=== PATIENT | female | born 1970 | race Caucasian/White ===

== ENCOUNTER 2019-08-27 10:59 | Outpatient (CLI) | payer BC, SELFPAY ==
--- NOTE | 2019-08-27 11:19 | XR_ITS ---
WS: [id number] SHOULDER LEFT TECHNIQUE: 3 views of the left shoulder CLINICAL INFORMATION: LEFT SHOULDER PAIN COMPARISON: None. FINDINGS: Normal acromioclavicular joint. Normal glenohumeral joint. Acromion is normal in appearance. Normal g lenoid. No evidence of acute fracture dislocation. XR/XR shoulder LT min 2V* [id number] IMPRESSION: Normal left shoulder.
== END 2019-08-27 11:00 | disposition home or self-care (01) ==
PROVIDERS: Family Provider Family Medicine; PCP Family Medicine; Visit Provider Family Medicine
DX: M25.512 Pain in left shoulder (principal)
CPT/HCPCS: 73030

== ENCOUNTER 2019-09-04 13:48 | Outpatient (CLI) | payer BC, SELFPAY ==
--- NOTE | 2019-09-04 13:56 | XR_ITS ---
WS: [id number] CERVICAL SPINE TECHNIQUE: 3 views of the cervical spine CLINICAL INFORMATION: CERVICAL RADICULOPATHY LEFT COMPARISON: None. FINDINGS: Straightening of the normal cervical lordosis with anterior cervical fusion C3-C6 with corpectomy at C4 with interbody fusion graft. No evidence of hardware loosening. Interbody fusion grafts C5-C6. Nor mal C1-2 articulation. No instability on flexion-extension. Moderate facet arthropathy cervical spine with dorsolateral fusion. Alignment is unchanged 2015. XR/XR cervical spine min 6V [id number] IMPRESSION: 1. Straightening of the normal cervical lordosis with anterior cervical fusion C3-C6. Corpectomy at C4. Interbody fusion at C5-6. 2. No instability on flexion-extension.
== END 2019-09-04 13:49 | disposition home or self-care (01) ==
LOC: RADWPI 13:50
PROVIDERS: Family Provider Family Medicine; PCP Family Medicine; Visit Provider Family Medicine
DX: M54.12 Radiculopathy, cervical region (principal); M43.22 Fusion of spine, cervical region
CPT/HCPCS: 72052

== ENCOUNTER → 2019-09-18 08:49 | Outpatient (BNVA) | payer BC, SELFPAY | PROVIDERS: Family Provider Family Medicine; PCP Family Medicine; Referring Provider Family Medicine; Visit Provider Specialist | DX: M54.2 Cervicalgia (principal) | CPT/HCPCS: 95908 ==

== ENCOUNTER 2019-10-30 08:31 | Outpatient (CLI) | payer BC, SELFPAY ==
--- NOTE | 2019-10-30 08:34 | MR_ITS ---
WS: [id number] MRI LEFT SHOULDER NONCONTRAST TECHNIQUE: Sagittal T2, coronal T1, T2 and proton density imaging. Axial gradient PDE imaging. CLINICAL INFORMATION: SHOULDER PAIN, LEFT COMPARISON: None. FINDINGS: Moderate hypertrophic changes at the AC joint somewhat advanced for patient this age. Subacromial spu rring. Mild edema at the AC joint. Mild thinning of the distal supraspinatus. Mild tendinopathy in th e distal supraspinatus. Normal infraspinatus. Normal teres minor. Small intrasubstance tear involving the distal subscapularis tendon. Biceps tendon is intact within the bicipital groove. Normal glenoid labrum. Normal biceps labral anch or. Otherwise normal visualized soft tissues. MR/MR shoulder LT con* [id number] IMPRESSION: 1. Moderate degenerative arthritis at the AC joint with edema and slight subac romial spurring. 2. Mild tendinopathy in the distal supraspinatus. No full-thickness rotator cu ff tears. 3. Small intrasubstance tear involving the distal subscapularis tendon. 4. Normal biceps tendon in the bicipital groove. 5. Normal glenoid labrum.
== END 2019-10-30 08:32 | disposition home or self-care (01) ==
LOC: RADSHAW 08:31
PROVIDERS: Family Provider Family Medicine; PCP Family Medicine; Visit Provider Family Medicine
DX: M25.512 Pain in left shoulder (principal); M19.012 Primary osteoarthritis, left shoulder; S46.912A Strain of unspecified muscle, fascia and tendon at shoulder and upper arm level, left arm, initial encounter; X58.XXXA Exposure to other specified factors, initial encounter
CPT/HCPCS: 73221

== ENCOUNTER → 2019-11-20 13:03 | Outpatient (BNVA) | payer BC, SELFPAY | PROVIDERS: Family Provider Family Medicine; PCP Family Medicine; Referring Provider Family Medicine; Visit Provider Orthopaedic Surgery | DX: M25.512 Pain in left shoulder (principal); M12.812 Other specific arthropathies, not elsewhere classified, left shoulder | CPT/HCPCS: 73030 ==

== ENCOUNTER → 2020-01-29 09:28 | Outpatient (BNVA) | payer BC, SELFPAY | PROVIDERS: Family Provider Family Medicine; PCP Family Medicine; Referring Provider Orthopaedic Surgery; Visit Provider Anesthesiology Pain Medicine | DX: M54.12 Radiculopathy, cervical region (principal); M25.512 Pain in left shoulder; M79.18 Myalgia, other site; F17.210 Nicotine dependence, cigarettes, uncomplicated; Z98.1 Arthrodesis status; Z79.891 Long term (current) use of opiate analgesic | CPT/HCPCS: 20553; 99204; J1030; J3490 ==

== ENCOUNTER 2020-02-12 09:22 | Outpatient (CLI) | payer BC, SELFPAY ==
--- NOTE | 2020-02-12 10:00 | IR_ITS ---
WS: [id number] MYELOGRAM CERVICAL SPINE Fluoroscopic guided cervical myelogram CLINICAL INFORMATION: prior fusion, weakness of the hands COMPARISON: None. TECHNIQUE: The procedure, including risks, benefits, and complications, were discussed with the patie nt who agreed to proceed. A timeout was performed to confirm correct patient, procedure, and site. Using sterile technique, the patient was prepped and draped in the usual sterile fashion. After admin istration of local anesthesia using 1% preservative-free lidocaine and using fluoroscopic guidance, a 22-gauge spinal needle was advanced into the subarachnoid space at the L4-5 level. Subsequently 13 c c of Omnipaque 300 was administered into the thecal sac. The needle was removed and hemostasis was ac hieved. Subsequently the table was tilted down and contrast flowed freely into the cervical spine. Sp ot fluoroscopic images were obtained. FLUOROSCOPIC TIME: 1.0 minutes. Spot fluoroscopic images demonstrate straightening of the normal cervical lordosis with prior cervica l fusion C3-C6 with partial corpectomy at C4 with interbody strut graft. No instability on flexion-extension. Please see CT myelogram report for additional detail. IR/[place] [id number] IMPRESSION: 1. Uncomplicated cervical myelogram. 2. Straightening of the normal cervical lordosis with prior cervical fusion C3 -C6 with partial corpectomy at C4 with interbody strut graft. 3. No instability on flexion extension.
[2020-02-12] MEDS: iohexol 300 mg/mL 50 mL Btl INTRATHECA (10:43)
--- NOTE | 2020-02-12 11:30 | CT_ITS ---
WS: [id number] CT CERVICAL MYELOGRAM TECHNIQUE: CT of the cervical spine coronal and sagittal reformatted images post intrathecal administ ration of contrast. CLINICAL INFORMATION: pain COMPARISON: None. DLP: 1784.[address] scans at [facility] use at least one of these dose optimization techniques: automat ed exposure control; mA and/or kV adjustment per patient size (includes targeted exams where dose is matched to clinical indication); or iterative reconstruction. FINDINGS: Straightening of the normal cervical lordosis. Prior postoperative changes C3-C6 with anterior cervic al fusion. Partial corpectomy at C4 with interbody strut graft. Interbody fusion at C5-6 with mild fajardo bsidence. C2-C3: No significant disc bulging. Spinal canal and foramen are patent. C3-C4: Postoperative changes. Spinal canal and foramen are patent. C4-C5: Partial corpectomy at C4. Anterior fusion. Spinal canal and foramen are patent. C5-C6: Anterior interbody cervical fusion. Spinal canal and foramen are patent. Endplate ridging. Mil d facet arthropathy. C6-C7: Mild disc osteophyte complex with a tiny left pericentral protrusion. Mild central canal steno sis. Spinal canal and foramen are patent. C7-T1: No significant disc bulging. Spinal canal and foramen are patent. Visualized posterior fossa structures: Normal. CT/CT cervical spine w con [id number] IMPRESSION: 1. Straightening of the normal cervical lordosis. No high-grade central canal stenosis. 2. Anterior cervical fusion C3-C6 with partial corpectomy at C4. Interbody str ut graft at C4. 3. No evidence of hardware loosening. Mild subsidence along the interbody fusi on graft C5-C6. 4. Small disc osteophyte complex C5-C6 with mild central canal stenosis. 5. Mild facet arthropathy in the mid cervical spine.
== END 2020-02-12 09:23 | disposition home or self-care (01) ==
PROVIDERS: Family Provider Family Medicine; PCP Family Medicine; Visit Provider Anesthesiology Pain Medicine
DX: Z98.1 Arthrodesis status (principal); M48.02 Spinal stenosis, cervical region; M43.22 Fusion of spine, cervical region
CPT/HCPCS: 62302; 72040; 72126; Q9967

== ENCOUNTER → 2020-02-13 10:52 | Outpatient (BNVA) | payer BC, SELFPAY | PROVIDERS: Family Provider Family Medicine; PCP Family Medicine; Visit Provider Anesthesiology Pain Medicine | DX: M54.12 Radiculopathy, cervical region (principal); M25.512 Pain in left shoulder; F17.210 Nicotine dependence, cigarettes, uncomplicated; Z98.1 Arthrodesis status | CPT/HCPCS: 99213; 99214 ==

== ENCOUNTER → 2021-02-02 09:47 | Outpatient (BNVA) | payer OTHER, SELFPAY | PROVIDERS: Family Provider Family Medicine; PCP Family Medicine; Visit Provider Obstetrics & Gynecology | DX: R93.89 Abnormal findings on diagnostic imaging of other specified body structures (principal) | CPT/HCPCS: 76830 ==

== ENCOUNTER → 2021-02-15 11:00 | Outpatient (BNVA) | payer OTHER, SELFPAY | PROVIDERS: Family Provider Family Medicine; PCP Family Medicine; Visit Provider Obstetrics & Gynecology | DX: Z12.4 Encounter for screening for malignant neoplasm of cervix (principal); Z12.39 Encounter for other screening for malignant neoplasm of breast; R10.2 Pelvic and perineal pain; G89.29 Other chronic pain; D25.1 Intramural leiomyoma of uterus; D25.0 Submucous leiomyoma of uterus; D25.2 Subserosal leiomyoma of uterus | CPT/HCPCS: 88175 ==

== ENCOUNTER 2021-04-02 13:17 | Outpatient (CLI) | payer OTHER, SELFPAY ==
--- NOTE | 2021-04-02 13:30 | MM_ITS ---
WS: [id number] BILATERAL DIGITAL SCREENING MAMMOGRAPHY WITH CAD CLINICAL INFORMATION: Z12.39 - Encounter for other screening for malignant neop... HISTORY: Screening mammogram. No current complaints. COMPARISON: TECHNIQUE: Bilateral CC and MLO views. FINDINGS: Scattered fibroglandular densities bilaterally. Incidental intramammary lymph node upper outer left b reast. No suspicious focal mass, asymmetry, calcifications, or architectural distortion. No evidence of malignancy. MM/[place] [id number] IMPRESSION: BI-RADS: 2-Benign FOLLOW UP: 1 Year Follow-up Recommend return to annual screening mammography.
== END 2021-04-02 13:18 | disposition home or self-care (01) ==
LOC: RADSHAW 13:22
PROVIDERS: PCP Family Medicine; Visit Provider Obstetrics & Gynecology
DX: Z12.31 Encounter for screening mammogram for malignant neoplasm of breast (principal)
CPT/HCPCS: 77067

== ENCOUNTER 2021-04-04 14:31 | Outpatient (CLI) | payer OTHER, SELFPAY ==
--- NOTE | 2021-04-04 14:46 | XRR_ITS ---
PROCEDURE INFORMATION: Exam: XR Right Clavicle, Complete Exam date and time: 04/04/2021 2:46 PM Age: 50 years old Clinical indication: Mass or lump; Patient HX: No trauma or pain, mass at medial right clavicle; Additional info: Knot TECHNIQUE: Imaging protocol: XR Right clavicle complete. Views: Any number of views. COMPARISON: CR Chest 2 views* [id number] 06/04/2018 1:12 PM FINDINGS: Bones/joints: Negative for acute bony abnormality. Metallic plate and screws are seen in the cervical spine Soft tissues: There is an electronic stimulator wire in place extending into the cervical spine XR/[place] [id number] IMPRESSION: 1. Unremarkable right clavicle 2. Metallic plate and screws cervical spine 3. Electronic stimulator wire extends to the C-spine
== END 2021-04-04 14:32 | disposition home or self-care (01) ==
PROVIDERS: PCP Family Medicine; Visit Provider Nurse Practitioner
DX: R22.2 Localized swelling, mass and lump, trunk (principal)
CPT/HCPCS: 73000

== ENCOUNTER → 2021-04-09 08:31 | Outpatient (BNVA) | payer OTHER, SELFPAY | PROVIDERS: PCP Family Medicine; Visit Provider Obstetrics & Gynecology | DX: G89.29 Other chronic pain (principal); N93.9 Abnormal uterine and vaginal bleeding, unspecified; R10.2 Pelvic and perineal pain; Z20.822 Contact with and (suspected) exposure to COVID-19 | CPT/HCPCS: 87635 ==

== ENCOUNTER 2021-04-14 08:51 | Observation (INO) | payer OTHER, SELFPAY ==
[2021-04-12 14:10] VITALS: BMI 32.8
[2021-04-12 15:11] LABS: Add Urine Microscopic? NO; Charge for UA Resulting for Rev
[2021-04-12 15:22] LABS: Basophils % 0.5 %; Eosinophils # 0.2 10^3/uL (0.0-0.8); Eosinophils % 1.8 %; Hematocrit 43.4 % (37.0-47.0); Hemoglobin 14.8 g/dL (11.5-15.3); Lymphocytes # 2.1 10^3/uL (0.8-4.8); Lymphocytes % 25.6 %; Mean Corpuscular HGB Conc 34.1 g/dL (30.0-36.0); Mean Corpuscular Hemoglobin 31.8 pg (28.0-34.0); Mean Corpuscular Volume 93.3 fl (81-99); Mean Platelet Volume 12.3 fL (7.4-10.4); Monocytes # 0.6 10^3/uL (0.2-0.9); Monocytes % 7.1 %; Neutrophils # 5.31 10^3/uL (1.8-7.7); Neutrophils % 64.9 %; Nucleated Red Blood Cells % 0 %; Platelet Count 195 10^3/cmm (130-400); Red Blood Count 4.65 10^6/uL (4.1-5.3); Red Cell Distribution Width 12.5 % (12.1-15.1); White Blood Count 8.2 10^3/uL (4.0-10.0)
[2021-04-12 15:40] LABS: Alanine Aminotransferase 9 U/L (0-33); Albumin Level 4.1 g/dL (3.5-5.2); Alkaline Phosphatase 61 IU/L (35-105); Anion Gap 11.9 (5-19); Aspartate Amino Transferase 11 U/L (0-32); Blood Urea Nitrogen 8 mg/dL (6-20); Calcium 8.8 mg/dL (8.5-10.5); Carbon Dioxide 24 mmol/L (22-29); Chloride 107 mmol/L (98-107); Globulin 2.7 g/dL (1.3-4.6); Glomerular Filtration Rate 131.7 mL/min (90-130); Glucose 81 mg/dL (65-115); Osmolality Calculated 285 mOsm/kg (285-295); Potassium 3.9 mmol/L (3.5-5.1); Sodium 139 mmol/L (136-145); Total Bilirubin 0.2 mg/dL (0.15-1.2); Total Protein 6.8 g/dL (6.6-8.7)
[2021-04-12 17:52] LABS: Bilirubin Urine Neg (Negative); Blood Urine Neg (Negative); Glucose Urine UA Norm (Normal); Ketones Urine Negative (Negative); Leukocyte Esterase Urine Negative (Negative); Nitrate Urine Negative (Negative); OR HCG Qualitative Urine Negative (Negative); Protein Urine Neg (Negative); Urine Appearance Clear (CLEAR); Urine Color Straw (Yellow); Urobilinogen Urine Norm (Negative); pH Urine 5 (5-7)
[2021-04-14] VITALS (19 sets, daily range): BP systolic 108–162; BP diastolic 73–103; PULSE 55–72; RESP 12–18; TEMP 36.3–36.6; O2SAT 92–99
[2021-04-14 06:11] LABS: OR HCG Qualitative Urine Negative (Negative)
[2021-04-14] MEDS: sodium chloride 0.9% 500 ML IV (06:24)
[2021-04-14] MEDS: scopolamine 1.5 Patch 1 PATCH TRANSDERMA (06:26)
--- NOTE | 2021-04-14 06:55 | W.PM.OPSUD ---
Surgery/Procedure H&P Update DATE OF PROCEDURE: April 14, 2021 DATE H&P PERFORMED: 04/12/21 H&P UPDATE INFORMATION: I have reviewed H&P completed within last 30 days, I have examined patient prior to procedure and No changes to prior documentation PREOP DIAGNOSIS: Abnormal uterine bleeding, uterine fibroid, PLANNED PROCEDURE: Operation Date: 04/14/21 07:00 Proposed Procedures p Total Vaginal Hysterectomy 30186 R10.2 N93.9(Not Applicable) - Emmanuel Landa MD s Salpingo-Oophorectomy (Vaginal)(Not Applicable) - Emmanuel Landa MD
[2021-04-14] MEDS: midazolam 1 mg/mL INJ 2 mL 2 MG IVP (06:56)
[2021-04-14] MEDS: ceFOXitin 2,000 MG in sodium chloride 0.9% (plus) 50 ML 100 MG IV (06:59)
[2021-04-14] MEDS: sodium chloride 0.9% 1,000 ML 30 ML IV (07:00)
--- NOTE | 2021-04-14 07:05 | ANES.PREANE2 ---
Pre-Anesthetic Assessment Pre-Anesthetic Assessment: Height/Weight: Height 1.63 m Weight 86.636 kg Temp Pulse Resp BP Pulse Ox 97.3 F L 72 18 113/77 96 04/14/21 06:09 04/14/21 06:09 04/14/21 06:09 04/14/21 06:09 04/14/21 06:09 Preop Diagnosis: Abnormal uterine bleeding, uterine fibroid, Proposed Procedure: Operation Date: 04/14/21 07:00 Proposed Procedures p Total Vaginal Hysterectomy 10417 R10.2 N93.9(Not Applicable) - Emmanuel Landa MD s Salpingo-Oophorectomy (Vaginal)(Not Applicable) - Emmanuel Landa MD Was Beta Genet taken within 24 hours: N/A Was Clonidine taken within 24 hours: N/A Last intake: Intake Last Liquid Date 04/13/21 Last Liquid Time 23:35 Last Solid Date 04/13/21 Last Solid Time 18:00 Social: Social History: Tobacco and No alcohol Exam: Pre-Anes Outpt Exam: alert, oriented x 3 and regular rate & rhythm Airway: Submandibular: WNL Cervical ROM: WNL MP: 2 Dentition: Full Pulmonary: Pulmonary: COPD CV/HEM: CV/HEM: HTN Metabolic: Metabolic: Morbid obesity Musc/skel: Musc/skel: OA/DJD Neuropsych: Neuropsych: Neuropathy Comments: Neck pain, stimulator (cervical) Anesthetic Plan: ASA status: 3 Anesthesia: General Risk of > 500 ml blood loss (7ml/kg in children): No Meds/Allergies Current Medications: Current Medications Generic Name Dose Route Start Last Admin Trade Name Freq PRN Reason Stop Dose Admin Midazolam HCl 2 mg 04/14/21 05:53 04/14/21 06:56 Midazolam 1 Mg/M l Inj 2 Ml IVP 2 mg Q5M PRN Administration Preop Anxiety PFSH Anesthesia PFSH: Medical History Hypertension Insomnia Neuropathy Surgical History History of radical neck surgery S/P cervical spinal fusion Family History Father Diabetes Mother Hyperlipidemia Family/Other Breast cancer maternal aunt, great aunt age onset unknown Grandmother Diabetes paternal Denies family history of Colon cancer Ovarian cancer Clotting disorder Heart disease Anesthesia complication Bleeding disorder Family history of premature coronary artery disease Hypertension Uterine cancer Thyroid condition Stroke Social History Smoking and tobacco status: current every day smoker cigarettes Packs smoked per day: 0.5 Alcohol intake: former 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 date alcohol: 2018 Data Anesthesia CBC & Chem 7: 04/12/21 14:45 04/12/21 14:45 Other Labs: Laboratory Results - last 48 hr 04/12/21 04/12/21 04/12/21 14:30 14:30 14:45 WBC 8.2 RBC 4.65 Hgb 14.8 Hct 43.4 MCV 93.3 MCH 31.8 MCHC 34.1 RDW 12.5 Plt Count 195 MPV 12.3 H Neut % (Auto) 64.9 Lymph % (Auto) 25.6 [place] % (Auto) 7.1 Eos % (Auto) 1.8 Baso % (Auto) 0.5 Neut # (Auto) 5.31 Lymph # (Auto) 2.1 [place] # (Auto) 0.6 Eos # (Auto) 0.2 Baso # (Auto) 0.0 Nucleated RBC % (auto) 0 Nucleated RBCs # 0.0 Sodium Potassium Chloride Carbon Dioxide Anion Gap BUN Creatinine GFR Calculation Glucose Calculated Osmolality Calcium Total Bilirubin AST ALT Alkaline Phosphatase Total Protein Albumin Globulin Urine Color Straw Urine Appearance Clear Urine pH 5 Ur Specific [place] 1.010 Urine Protein Neg Urine Glucose (UA) Norm Urine Ketones Negative Urine Blood Neg Urine Nitrate Negative Urine Bilirubin Neg Urine Urobilinogen Norm Ur Leukocyte Esterase Negative Urine HCG, Qual Negative Blood Type Rho(D) Type Antibody Screen 04/12/21 04/12/21 04/14/21 14:45 14:45 06:10 WBC RBC Hgb Hct MCV MCH MCHC RDW Plt Count MPV Neut % (Auto) Lymph % (Auto) [place] % (Auto) Eos % (Auto) Baso % (Auto) Neut # (Auto) Lymph # (Auto) [place] # (Auto) Eos # (Auto) Baso # (Auto) Nucleated RBC % (auto) Nucleated RBCs # Sodium 139 Potassium 3.9 Chloride 107 Carbon Dioxide 24 Anion Gap 11.9 BUN 8 Creatinine 0.5 GFR Calculation 131.7 H Glucose 81 Calculated Osmolality 285 Calcium 8.8 Total Bilirubin 0.2 AST 11 ALT 9 Alkaline Phosphatase 61 Total Protein 6.8 Albumin 4.1 Globulin 2.7 Urine Color Urine Appearance Urine pH Ur Specific [place] Urine Protein Urine Glucose (UA) Urine Ketones Urine Blood Urine Nitrate Urine Bilirubin Urine Urobilinogen Ur Leukocyte Esterase Urine HCG, Qual Negative Blood Type O Positive Rho(D) Type Positive Antibody Screen Negative Cardiac Studies: No Data to Display
--- NOTE | 2021-04-14 08:27 | PM.OP ---
Operative Report Date of procedure: April 14, 2021 Pre-op Diagnosis: Abnormal uterine bleeding, uterine fibroid, Post-op diagnosis: same Procedure Done: Total vaginal hysterectomy with bilateral salpingo-oophorectomy Specimens removed/disposition: Uterus, left and right fallopian tube and left and right ovaries Pathology: Uterus, left and right fallopian tube and left and right ovaries Surgeon: Emmanuel Landa MD Anesthesia: General Estimated blood loss (mL): 50 IV fluids (mL): 400 Urine output (mL): 100 Complications: None Findings: Enlarged irregular uterus Condition: stable Disposition: PACU Brief History: Mrs. Okeefe 50-year-old female with a history of abnormal uterine bleeding unresponsive to medical management and uterine fibroid Procedure: After informed consent and risks, benefits, indications and alternatives reviewed with the patient was taken to the operating room. The patient was placed in dorsal lithotomy position prepped, and draped in the usual sterile fashion. The pre-procedure timeout verifying the correct patient, procedure, site and side, could not requirements was performed and acknowledge by the OR team. A Thapa catheter was placed. A Bookwalter vaginal retractor was placed into the vagina in usual manner visualize the cervix. Cervix was grasped with a single tooth tenaculum and circumferentially infiltrated with 2% lidocaine with epinephrine. Then cervix was circumferentially incised with bovie and the bladder was dissected off the pubovesical cervical fascia anteriorly with a sponge stick and Metzenbaum scissors. The anterior peritoneal reflection was identified and the anterior cul-de-sac was entered sharply with Metzenbaum scissors. The same procedure was performed posteriorly and a posterior colpotomy was made through the posterior cul-de-sac space without difficulty and the posterior blade of the Bookwalter vaginal retractor was advanced posteriorly into the cul-de-sac. At this time, the left and right uterosacral ligaments were isolated and ligated with 0 Vicryl. The Enseal device was placed over the uterosacral ligaments on either side and was then used in a serial fashion up through the cardinal ligaments bilaterally cross-clamped, cut, and sealed with the Enseal device. Finally, the uterine arteries were cross-clamped, cut, sealed and ligated with the Enseal device. Hemostasis was assured. The broad ligaments were then serially clamped, sealed and cut with the Enseal device on both sides. Excellent hemostasis was visualized. Both cornua were clamped, sealed and cut with the Enseal device. Then the pedicles were then suture ligated with excellent hemostasis. The uterus was excised and submitted for pathologic evaluation. No other abnormalities were noted in the pelvic cavity. Then the right side Infundibular ligament was identified. The ureter was confirmed along the pelvic side wall and peristalsis was noted. The [Enseal] device was then used to clamp, sealed and transcepted at middistance, again being sure to be clear of the ureter and the fallopian tube and ovary were removed. The same process was then repeated on the left side. Good hemostasis was assure on both sides. The peritoneum was then closed in a pursestring fashion with 0 Vicryl suture. The vaginal cuff angles were closed with [id number] #0 Vicryl suture on both sides and transfixed with the ipsilateral cardinal and uterosacral ligaments. Patient was given methylene blue IV. the remainder of the vaginal cuff was closed with #0 Vicryl in a running locked fashion. At this time, instruments were removed from the vagina at hemostasis assured. Thapa catheter was then placed yielding clear debra urine. The patient was taken out of dorsal lithotomy position and awakened from the general anesthesia. The patient tolerated the procedure well and was taken to the PACU recovery room in a stable condition. Sponge, lap, needle and instruments counts were correct x3.
[2021-04-14] MEDS: fentaNYL 50 mcg/mL INJ 2mL IVP ×2 (08:43→08:48)
[2021-04-14] MEDS: HYDROmorphone 1 mg/mL INJ 1 mL 0.25 MG IVP (08:57)
[2021-04-14] MEDS: ketorolac 30 mg/mL INJ IVP (10:10)
[2021-04-14] MEDS: dextrose 5%-lactated ringers 1,000 ML 125 ML IV ×2 (12:50→20:38)
[2021-04-14] MEDS: HYDROcodone-acetaminophen 5-325 mg Tablet PO ×2 (13:07→20:43)
--- NOTE | 2021-04-14 15:18 | ANE.PACU2 ---
Inpatient post-anesthesia follow up: Airway intact: Yes Vital signs: Temperature 97.7 F Pulse Rate 58 Respiratory Rate 17 Blood Pressure 138/85 Pulse Oximetry 96 Oxygen Delivery Me thod Room Air Oxygen Flow Rate 8 Fraction of Inspir ed Oxygen Hydration adequate: Yes Nausea and vomiting: No Pain level: 3 Mental status: Baseline
--- NOTE | 2021-04-14 16:49 | PC.NURSE ---
Patient ambulated 1 lap in hallway around department. Patient tolerated well.
[2021-04-14] MEDS: gabapentin 300 mg Capsule 600 MG PO (18:09)
[2021-04-14] MEDS: docusate sodium 100 mg Capsule PO (18:09)
[2021-04-14] MEDS: ibuprofen 800 mg tablet PO (18:09)
[2021-04-14] MEDS: nicotine 14 mg Patch 1 PATCH TRANSDERMA (18:09)
[2021-04-14] MEDS: ondansetron 2 mg/ML SDV 2 mL 4 MG IVP (19:49)
[2021-04-14] MEDS: hyDROXYzine 25 mg Capsule 50 MG PO (20:37)
[2021-04-15] MEDS: ibuprofen 800 mg tablet PO (02:33)
[2021-04-15 04:30] VITALS: BP 145/84; PULSE 64; TEMP 36.4; O2SAT 98
[2021-04-15] MEDS: HYDROcodone-acetaminophen 5-325 mg Tablet PO (04:50)
[2021-04-15 05:13] LABS: Hematocrit 40.5 % (37.0-47.0); Hemoglobin 13.2 g/dL (11.5-15.3); Mean Corpuscular HGB Conc 32.6 g/dL (30.0-36.0); Mean Corpuscular Volume 95.1 fl (81-99); Mean Platelet Volume 11.1 fL (7.4-10.4); Platelet Count 160 10^3/cmm (130-400); Red Blood Count 4.26 10^6/uL (4.1-5.3); Red Cell Distribution Width 12.6 % (12.1-15.1); White Blood Count 7.3 10^3/uL (4.0-10.0)
--- NOTE | 2021-04-15 07:24 | PM.OBGYDC ---
Discharge Providers PRODUCTION CREW SUPERVISOR Date of Admission: 04/14/21 08:51 Date of Discharge: 04/15/21 Attending Provider at Admission: Emmanuel Landa MD Attending Provider at Discharge: Emmanuel Landa MD Primary Care Provider: Abel Turner MD Diagnoses at Discharge Discharge Diagnosis (1) Status post vaginal hysterectomy: Status: Acute Reason for Visit Reason for Visit: total vaginal hysterectomy Hospital Course Hospital Course Mrs. HART 44-year-old female diagnosed with abnormal uterine bleeding unresponsive to medical management, and uterine fibroids. Admitted for planned total vaginal hysterectomy with bilateral salpingo-oophorectomy. Procedures were performed without complications. She is status post TVH and BSO postoperative day 1, afebrile and hemodynamically stable. Overnight observation uneventfully, tolerating diet well. Ambulating without difficulty. Passing flatus. Physical Exam Narrative: EXAM NARRATIVE: GA: Alert and oriented ?3. HEENT: WNL. Heart: Regular rate and rhythm. Lungs: Clear to auscultation bilaterally. Abdomen: Bowel sounds present, nontender, minimal tenderness, incision clean and dry, no redness, pain or edema. TRANSMISSION AND COORDINATION ENGINEER: No bleeding. Extremities: No edema, no cyanosis, no calves pain. Urinary Catheter Management^: Thapa: Cath Placed During This Visit: yes, but has since been removed by the nurse Reason for Continuing Indwelling Catheter: Decision to DC Catheter Urinary Catheter Date of Insertion: 04/14/21 Urinary Catheter Time of Insertion: 07:28 Date Urinary Catheter Removed: 04/15/21 Time Urinary Catheter Discontinued: 05:00 Discharge Data Data Completed and Pending: Pending at discharge Category Date Time Status Pathology: Surgic al [PTH] Routine Pth 04/14/21 10:20 Received Labs from last 24 hours 04/15/21 05:03 WBC 7.3 RBC 4.26 Hgb 13.2 Hct 40.5 MCV 95.1 MCH 31.0 MCHC 32.6 RDW 12.6 Plt Count 160 MPV 11.1 H Vitals: Last Vital Signs Temp 97.6 F 04/15/21 04:30 Pulse 64 04/15/21 04:30 Resp 16 04/14/21 21:22 BP 145/84 04/15/21 04:30 Pulse Ox 98 04/15/21 04:30 Discharge Plan Discharge Patient Disposition: Home Condition: Stable Prescriptions: New acetaminophen 325 mg capsule 325 mg PO Q4H PRN (Reason: fever or postoperative pain) Qty: 60 RF: 0 ibuprofen 800 mg tablet 800 mg PO TID PRN (Reason: pain) Qty: 60 RF: 0 hydrocodone-acetaminophen 5-325 mg tablet 1 tab PO Q4H PRN (Reason: pain) Qty: 30 RF: 0 Colace 100 mg capsule 100 mg PO BID Qty: 60 RF: 0 Zofran 4 mg tablet 4 mg PO TID 5 Days Qty: 15 RF: 0 Continued gabapentin 600 mg tablet 600 mg PO BID RF: 0 trazodone 150 mg tablet 150 mg PO .at hs RF: 0 atenolol 25 mg tablet 25 mg PO DAILY RF: 0 diphenhydramine HCl [Benadryl Allergy] 25 mg tablet 25 mg PO .hs PRN (Reason: allergies) RF: 0 Zyrtec 10 mg capsule 10 mg PO DAILY PRN (Reason: allergies) RF: 0 tizanidine 4 mg capsule 4 mg PO Q8H PRN (Reason: mulscle relaxer) RF: 0 ibuprofen 800 mg tablet 800 mg PO Q8H PRN (Reason: pain) Qty: 60 RF: 1 Discharge Orders: Discharge Order (Routine); Ordered 04/15/21 Ordered By: Emmanuel Landa Referrals: Emmanuel Landa MD [Physician] - 04/27/21 8:30 am (Your 2 week incision check is scheduled for 04/27/21 @8:30. Your 6 week post-op appointment is scheduled for 05/25/21 @10:00. ) Discharge Diet: Usual diet Discharge Activity: Increase activity as tolerated Patient Instructions: Salpingo-Oophorectomy (GEN), Hysterectomy (GEN), Vaginal Hysterectomy (DC), OB Discharge Report, OB Food/Drug Interaction Guide, Opioid Safety Activity Restrictions/Additional Instructions: 1. Please call [facility] on next working day to make your post-operative appointment in 2 weeks. 2. Please stay home until you come back to the clinic on first post-operative check up. 3. Please follow instructions on your medications CAREFULLY. 4. If you have abdominal incision, do not cover it unless dressing is necessary because of drainage. OK to shower, but avoid bath. Leave steri-strips until they fall off. If they are still on one week after surgery, you may remove them. 5. If you had vaginal surgery or vaginal repair, Dr. Landa may instruct you to take SITZ bath. 6. Yellow, blood tinged odorous vaginal discharge is usually normal after hysterectomy or vaginal surgeries. 7. No sexual intercourse, tampons, or douches until you are completely released from the post-operative care. 8. Avoid constipation by eating right and maybe using some Metamucil or Milk of Magnesia. 9. All prescription refills are given during the working hours. Please do no wait till it runs out. Call the clinic at [phone] before your medication runs out. The clinic will get in touch with your doctor to prescribe medications if necessary. 10. Please remain within 40 mile radius from our hospital because emergencies do happen now and then during the post-operative period. 11. If you have stairs at home, take one step at a time slowly and minimize the number of trips. It helps to stay in one floor for the next few days. No lifting except what you can lift by one hand until you are released from the post-operative care. 12. Driving is discouraged until you are well healed. It may be 3-4 weeks before you feel strong enough to drive. You should be able to turn and look through the rear window without pain and you should be able to push the brake pedal very hard without pain before you drive. No fast rules, but SAFETY should be your primary concern. DO NOT drive if you are on sedating medications such as narcotics. 13. Call the clinic (during working hours) to make urgent appointment or go to the Emergency room, if any of the following occurs: i. Vaginal bleeding becomes heavy, more than a period. ii. Incision becomes red and sore, or drains pus. iii. Your temperature is over 100.4 or you have chill. iv. IV site becomes red and swollen (a little ``knot?? is usually OK) v. Persistent nausea and vomiting vi. Persistent constipation or diarrhea vii. Rash or allergic reaction to medications. Discharge Attestations PRODUCTION CREW SUPERVISOR Time Spent in Discharge Care*: less than 30 min Coding Level of Care Code Acute Library Serials Assistant for Viri Ring Diagnoses Status post vaginal hysterectomy Z90.710
[2021-04-15 08:07] VITALS: BP 130/81; PULSE 69; RESP 14; TEMP 36.9
--- NOTE | 2021-04-16 14:47 | PC.RESP ---
SMOKING CESSATION INFORMATION SENT TO PATIENT.
--- NOTE | 2021-04-16 14:51 | PC.RESP ---
SMOKING CESSATION INFORMATION SENT TO PATIENT.
== END 2021-04-15 08:23 | disposition home or self-care (01) ==
LOC: OBGYN 08:52 → OR 08:52
PROVIDERS: Admitting Provider Obstetrics & Gynecology; PCP Family Medicine; Visit Provider Obstetrics & Gynecology
PROC: (CPT 58262; principal; 2021-04-14 07:00)
PROC: (CPT 58720; 2021-04-14 07:00)
DX: N93.9 Abnormal uterine and vaginal bleeding, unspecified (principal); D25.9 Leiomyoma of uterus, unspecified; J44.9 Chronic obstructive pulmonary disease, unspecified; I10 Essential (primary) hypertension; E66.01 Morbid (severe) obesity due to excess calories; Z68.32 Body mass index [BMI] 32.0-32.9, adult; M19.90 Unspecified osteoarthritis, unspecified site; Z98.1 Arthrodesis status; F17.210 Nicotine dependence, cigarettes, uncomplicated
CPT/HCPCS: 58262; 36415; 80053; 81003; 81025; 84703; 85025; 85027; 86850; 86900; 88307; 96365; 96374; G0378; J0694; J1100; J1170; J1885; J2250; J2405; J2704; J2710; J3010; J3490; J7030; J7040; Q9968

== ENCOUNTER → 2021-04-27 09:43 | Outpatient (BNVA) | payer OTHER, SELFPAY | PROVIDERS: PCP Family Medicine; Visit Provider Obstetrics & Gynecology | DX: R39.9 Unspecified symptoms and signs involving the genitourinary system (principal); Z90.710 Acquired absence of both cervix and uterus; N76.0 Acute vaginitis; B96.89 Other specified bacterial agents as the cause of diseases classified elsewhere; Z48.816 Encounter for surgical aftercare following surgery on the genitourinary system | CPT/HCPCS: 81000 ==

== ENCOUNTER → 2021-05-03 15:29 | Outpatient (BNVA) | payer OTHER, SELFPAY | PROVIDERS: PCP Family Medicine; Visit Provider Obstetrics & Gynecology | DX: R30.0 Dysuria (principal); Z34.90 Encounter for supervision of normal pregnancy, unspecified, unspecified trimester | CPT/HCPCS: 81000; 87086 ==

== ENCOUNTER 2021-10-25 12:50 | Emergency (ER) | payer OTHER, BC, SELFPAY ==
[2021-10-25 13:09] VITALS: BP 109/65; PULSE 56; RESP 18; TEMP 36.5; O2SAT 97; BMI 32.5
--- NOTE | 2021-10-25 13:14 | CTR_ITS ---
PROCEDURE INFORMATION: Exam: CT Abdomen And Pelvis With Contrast Exam date and time: 10/25/2021 2:21 PM Age: 51 years old Clinical indication: Abdominal pain; Localized; Right lower quadrant (rlq); Prior surgery; Surgery type: Hyst; Additional info: Eval rlq pathologies TECHNIQUE: Imaging protocol: Computed tomography of the abdomen and pelvis with contrast. Radiation optimization: All CT scans at this facility use at least one of these dose optimization techniques: automated exposure control; mA and/or kV adjustment per patient size (includes targeted exams where dose is matched to clinical indication); or iterative reconstruction. Contrast material: OMNI 300; Contrast volume: 95 ml; Contrast route: INTRAVENOUS (IV); COMPARISON: No relevant prior studies available. RADIATION DOSE METRICS: Total DLP (mGy-cm): 1802.65 FINDINGS: Liver: 1.5 cm cyst in segment 7 with multiple thin septations series 2, image 24. Additional subcentimeter low-attenuation lesions scattered throughout the liver, likely small cysts. Gallbladder and bile ducts: Normal. No calcified stones. No ductal dilation. Pancreas: Normal. No ductal dilation. Spleen: Normal. No splenomegaly. Adrenal glands: Normal. No mass. Kidneys and ureters: Normal. No hydronephrosis. Stomach and bowel: Unremarkable. No obstruction. No mucosal thickening. Appendix: No evidence of appendicitis. Intraperitoneal space: Unremarkable. No free air. No significant fluid collection. Arteries: Unremarkable. No abdominal aortic aneurysm. Lymph nodes: Unremarkable. No enlarged lymph nodes. Urinary bladder: Unremarkable as visualized. Reproductive: Hysterectomy. Bones/joints: No acute fracture. Soft tissues: Spinal stimulator device noted in the left low back with stimulator leads extending up into the thoracic spine. CT/CT abdomen pelvis w con* [id number] IMPRESSION: No acute findings.
--- NOTE | 2021-10-25 13:21 | W.ED.GENADLT ---
HPI - General Adult General: Chief complaint: Abdominal Pain Stated complaint: abdominal pain Time Seen by Provider: 10/25/21 13:14 History of Present Illness: 51-year-old female with history of prior hysterectomy presenting to the emergency room right periumbilical and right lower quadrant pain x1 week. Patient tells me that she is due to follow-up with her primary care provider with plans for CT evaluation. Patient tells me that in the last week, patient has had dull chronic periumbilical pain now with sharp right lower quadrant pain and nausea. Patient denies any vomiting, fever/chills, hematuria melena hematochezia. Patient has no urinary complaints, new vaginal discharge. Patient denies any other focal complaints any chest pain, short of breath palpitation, cough runny nose, sore throat at this time. Onset: 1 week ago Duration:1 week Location:home Severity: moderate Associated symptoms: Reports nausea; Deny chest pain, dyspnea, rash, palpitations or vomiting Review of Systems Const: Denies: fever(s) or chills Eyes: Denies: change in vision ENMT: Denies: mouth pain Card: Denies: chest pain or palpitations Resp: Denies: dyspnea or non-productive cough GI: Reports: abdominal pain and nausea; Denies: vomiting or diarrhea : Denies: dysuria Musc: Denies: extremity pain Skin/Breast: Denies: rash or new lesions Neuro: Denies: weakness in extremities Psych: Reports: other (Normal mood) Michele/Lymph: Denies: easy bruising PFSH ED PFSH: Surgical History (Updated 10/25/21 @ 13:23 by Ritesh Nolan MD) H/O: hysterectomy Social History (Updated 10/25/21 @ 13:23 by Ritesh Nolan MD) Smoking and tobacco status: never smoked Alcohol intake: never Substance/Drug Use: never Physical Exam Const: COMMON NORMALS: alert HENMT: COMMON NORMALS: atraumatic HEAD & SCALP: atraumatic MOUTH: moist mucous membranes not abnormal Eye: COMMON NORMALS: EOMs intact bilaterally and conjunctivae normal CONJUNCTIVA: Yes conjunctivae normal Neck/C-Spine: COMMON NORMALS: full ROM and supple Resp: COMMON NORMALS: normal respiratory effort and clear to auscultation bilaterally AUSCULTATION: clear to auscultation bilaterally Cardio: COMMON NORMALS: regular rate RATE: regular rate GI: COMMON NORMALS: Soft to palpation PALPATION: Yes Soft to palpation OTHER: No focal TTP. NO guarding rebound, guarding, rigidity. No CVA tenderness to percussion. Neg Resendiz/Neg McBurney's point tenderness, no suprabupic tenderness to palpation. Extremity: COMMON NORMALS: full ROM Neuro: SENSORIUM/ORIENTATION: Yes alert MOTOR EXAM: No Abnormal motor strength present and Other motor observations present (no focal motor deficits) Psych: COMMON NORMALS: speech normal SPEECH: Yes normal speech MOOD & AFFECT: Yes euthymic mood Course Vital Signs: Vital signs: Vital Signs Temperature 98.5 F 10/25/21 16:13 Pulse Rate 50 L 10/25/21 16:13 Respiratory Rate 16 10/25/21 16:13 Blood Pressure 129/86 10/25/21 16:13 Pulse Oximetry 98 10/25/21 16:13 MDM - General Adult Medical Decision Making 51-year-old female with a history hysterectomy presenting to the emergency room with periumbilical abdominal dull pain and sharp right lower quadrant abdominal pain. Physical exam, patient has mild dull right lower quadrant tenderness palpation, no guarding no rebound tenderness. Lab work-up shows normal leukocytosis, abdominal lab without any finding. CT of the pelvis did not show any acute finding. Patient received IVF, Zofran, Pepcid and GI cocktail with significant improvement in symptoms. Patient is able to tolerate p.o. without any difficulty now. EKG is nonischemic and did not show any signs of heart blocks. Rx tylenol PRN abd pain, maalox/pepcid PRN dyspepsia, and zofran PRN nausea/vomiting Disposition: Discharge. Patient counseled regarding diagnostic impression, treatment plan. Patient given ED strict return precautions to return for continuation, worsening, or development of new symptoms. Instructed to f/u w/ PCP regarding symptoms today. Patient verbalized understanding. Lab Data : 10/25/21 13:45 10/25/21 13:45 Radiology Impressions Abdomen/Pelvis CT 10/25/21 13:14 IMPRESSION: No acute findings. Laboratory Results WBC 6.2 10^3/uL (4.0-10.0) 10/25/21 13:45 RBC 4.73 10^6/uL (4.1-5.3) 10/25/21 13:45 Hgb 14.5 g/dL (11.5-15.3) 10/25/21 13:45 Hct 43.2 % (37.0-47.0) 10/25/21 13:45 MCV 91.3 fl (81-99) 10/25/21 13:45 MCH 30.7 pg (28.0-34.0) 10/25/21 13:45 MCHC 33.6 g/dL (30.0-36.0) 10/25/21 13:45 RDW 12.0 % (12.1-15.1) L 10/25/21 13:45 Plt Count 179 10^3/cmm (130-400) 10/25/21 13:45 MPV 11.5 fL (7.4-10.4) H 10/25/21 13:45 Neut % (Auto) 55.6 % 10/25/21 13:45 Lymph % (Auto) 34.5 % 10/25/21 13:45 [place] % (Auto) 5.8 % 10/25/21 13:45 Eos % (Auto) 3.4 % 10/25/21 13:45 Baso % (Auto) 0.5 % 10/25/21 13:45 Neut # (Auto) 3.48 10^3/uL (1.8-7.7) 10/25/21 13:45 Lymph # (Auto) 2.2 10^3/uL (0.8-4.8) 10/25/21 13:45 [place] # (Auto) 0.4 10^3/uL (0.2-0.9) 10/25/21 13:45 Eos # (Auto) 0.2 10^3/uL (0.0-0.8) 10/25/21 13:45 Baso # (Auto) 0.0 10^3/uL (0.0-0.1) 10/25/21 13:45 Nucleated RBC % (auto) 0 % 10/25/21 13:45 Nucleated RBCs # 0.0 /100WBC 10/25/21 13:45 Sodium 139 mmol/L (136-145) 10/25/21 13:45 Potassium 4.0 mmol/L (3.5-5.1) 10/25/21 13:45 Chloride 103 mmol/L (98-107) 10/25/21 13:45 Carbon Dioxide 25 mmol/L (22-29) 10/25/21 13:45 Anion Gap 15.0 (5-19) 10/25/21 13:45 BUN 7 mg/dL (6-20) 10/25/21 13:45 Creatinine 0.6 mg/dL (0.5-0.9) 10/25/21 13:45 GFR Calculation 106.3 mL/min (90-130) 10/25/21 13:45 Glucose 84 mg/dL (65-115) 10/25/21 13:45 Calculated Osmolality 285 mOsm/kg (285-295) 10/25/21 13:45 Calcium 8.3 mg/dL (8.5-10.5) L 10/25/21 13:45 Total Bilirubin 0.3 mg/dL (0.15-1.2) 10/25/21 13:45 AST 13 U/L (0-32) 10/25/21 13:45 ALT 10 U/L (0-33) 10/25/21 13:45 Alkaline Phosphatase 69 IU/L (35-105) 10/25/21 13:45 Total Protein 6.4 g/dL (6.6-8.7) L 10/25/21 13:45 Albumin 4.2 g/dL (3.5-5.2) 10/25/21 13:45 Globulin 2.2 g/dL (1.3-4.6) 10/25/21 13:45 Lipase 136 U/L (13-60) H 10/25/21 13:45 Urine Color Yellow (Yellow) 10/25/21 14:30 Urine Appearance Clear (CLEAR) 10/25/21 14:30 Urine pH 6 (5-7) 10/25/21 14:30 Ur Specific [place] 1.010 (1.005-1.030) 10/25/21 14:30 Urine Protein Neg (Negative) 10/25/21 14:30 Urine Glucose (UA) Norm (Normal) 10/25/21 14:30 Urine Ketones Negative (Negative) 10/25/21 14:30 Urine Blood Neg (Negative) 10/25/21 14:30 Urine Nitrate Negative (Negative) 10/25/21 14:30 Urine Bilirubin Neg (Negative) 10/25/21 14:30 Urine Urobilinogen Neg mg/dL (Negative) 10/25/21 14:30 Ur Leukocyte Esterase Negative (Negative) 10/25/21 14:30 Imaging Data Other Imaging: Radiologist's impression: [facility] [address] [place] [address] CT Scan Report Signed Patient: Reyna Iverson [id number] Unit #: [id number] : 1970 Age/Sex: 51 / F ADM Date: 10/25/21 Loc: ER Room/Bed: Attending Dr: Ordering Provider/Ordering MD: Ritesh Nolan MD Date of Service: 10/25/21 Procedure(s): CT abdomen pelvis w con* [id number] Accession Number(s): [id number] Report Number: [id number] PROCEDURE INFORMATION: Exam: CT Abdomen And Pelvis With Contrast Exam date and time: 10/25/2021 2:21 PM Age: 51 years old Clinical indication: Abdominal pain; Localized; Right lower quadrant (rlq); Prior surgery; Surgery type: Hyst; Additional info: Eval rlq pathologies TECHNIQUE: Imaging protocol: Computed tomography of the abdomen and pelvis with contrast. Radiation optimization: All CT scans at this facility use at least one of these dose optimization techniques: automated exposure control; mA and/or kV adjustment per patient size (includes targeted exams where dose is matched to clinical indication); or iterative reconstruction. Contrast material: OMNI 300; Contrast volume: 95 ml; Contrast route: INTRAVENOUS (IV);? COMPARISON: No relevant prior studies available. RADIATION DOSE METRICS: Total DLP (mGy-cm): 1802.65 FINDINGS: Liver: 1.5 cm cyst in segment 7 with multiple thin septations series 2, image 24. Additional subcentimeter low-attenuation lesions scattered throughout the liver, likely small cysts. Gallbladder and bile ducts: Normal. No calcified stones. No ductal dilation. Pancreas: Normal. No ductal dilation. Spleen: Normal. No splenomegaly. Adrenal glands: Normal. No mass. Kidneys and ureters: Normal. No hydronephrosis. Stomach and bowel: Unremarkable. No obstruction. No mucosal thickening. Appendix: No evidence of appendicitis. Intraperitoneal space: Unremarkable. No free air. No significant fluid collection. Arteries: Unremarkable. No abdominal aortic aneurysm. Lymph nodes: Unremarkable. No enlarged lymph nodes. Urinary bladder: Unremarkable as visualized. Reproductive: Hysterectomy. Bones/joints: No acute fracture. Soft tissues: Spinal stimulator device noted in the left low back with stimulator leads extending up into the thoracic spine. CT/CT abdomen pelvis w con* [id number] IMPRESSION: No acute findings. ? Dictated By: Jarret Martini DO Signed By: Jarret Martini DO Signed Date/Time: 10/25/21 1502 DD/ 1421 Discharge Plan Discharge Patient Disposition: Home Clinical Impression: Abdominal pain, Nausea Condition: Stable Prescriptions: New acetaminophen 500 mg tablet 500 mg PO Q6H PRN (Reason: pain) 5 Days Qty: 20 0RF Pepcid 20 mg tablet 20 mg PO BID PRN (Reason: abdominal pain) 10 Days Qty: 20 0RF ondansetron 4 mg tablet,disintegrating 4 mg PO TID PRN (Reason: nausea and vomiting) 4 Days Qty: 12 0RF Maalox Advanced 1,000-60 mg tablet,chewable 1 tab PO TID PRN (Reason: abdominal pain) 7 Days Qty: 21 0RF No Action gabapentin 600 mg tablet 600 mg PO BID 0RF ibuprofen 800 mg tablet 800 mg PO TID PRN (Reason: Pain) 0RF tizanidine 4 mg tablet 4 mg PO TID 0RF hydrocodone-acetaminophen 5-325 mg tablet 1 tab PO BID 0RF Rx Instructions: DO NOT EXCEED 2 PER DAY atenolol 25 mg Tablet 25 mg PO DAILY 0RF omeprazole 40 mg capsule,delayed release(DR/EC) 40 mg PO QAM 0RF citalopram 20 mg tablet 20 mg PO DAILY 0RF trazodone 150 mg tablet 150 mg PO QPM 0RF Zyrtec 10 mg Tablet 10 mg PO DAILY PRN (Reason: Allergy Symptoms) 0RF Discharge Orders: Discharge ED (Routine); Ordered 10/25/21 Ordered By: Ritesh Nolan Referrals: Abel Turner MD [Primary Care Provider] - Discharge Diet: Advance as tolerated Discharge Activity: Increase activity as tolerated Patient Instructions: Abdominal Pain (ED) Activity Restrictions/Additional Instructions: Please come back if you have any worsening abdominal pain, fever or chills, nausea or vomiting, diarrhea, blood in the stool, inability hold down liquid or solids, or any new concerning complaints. Coding Level of Care Code ED Nursery Teacher for Chg Fwd Exam Comprehensive
[2021-10-25] MEDS: famotidine 20 mg/2 mL INJ IVP (13:49)
[2021-10-25] MEDS: ondansetron 2 mg/ML SDV 2 mL 4 MG IVP (13:49)
[2021-10-25] MEDS: sodium chloride 0.9% 1,000 ML 999 ML IV (13:49)
[2021-10-25] MEDS: lidocaine 2% viscous 15 ML, aluminum-mag hydrox-simethicon 30 ML, sucralfate oral liq 1 GM PO (13:50)
[2021-10-25 13:56] LABS: Basophils % 0.5 %; Eosinophils # 0.2 10^3/uL (0.0-0.8); Eosinophils % 3.4 %; Hematocrit 43.2 % (37.0-47.0); Hemoglobin 14.5 g/dL (11.5-15.3); Lymphocytes # 2.2 10^3/uL (0.8-4.8); Lymphocytes % 34.5 %; Mean Corpuscular HGB Conc 33.6 g/dL (30.0-36.0); Mean Corpuscular Hemoglobin 30.7 pg (28.0-34.0); Mean Corpuscular Volume 91.3 fl (81-99); Mean Platelet Volume 11.5 fL (7.4-10.4); Monocytes # 0.4 10^3/uL (0.2-0.9); Monocytes % 5.8 %; Neutrophils # 3.48 10^3/uL (1.8-7.7); Neutrophils % 55.6 %; Nucleated Red Blood Cells % 0 %; Platelet Count 179 10^3/cmm (130-400); Red Blood Count 4.73 10^6/uL (4.1-5.3); White Blood Count 6.2 10^3/uL (4.0-10.0)
[2021-10-25] MEDS: iohexol 300 mg/mL 100 mL Btl IV (14:20)
[2021-10-25 14:37] VITALS: BP 129/86; PULSE 49; RESP 14; O2SAT 99
[2021-10-25 14:58] VITALS: RESP 14; O2SAT 99
[2021-10-25] MEDS: morphine 4 mg/mL SDV 1 mL 2 MG IVP (14:58)
[2021-10-25 15:11] LABS: Alanine Aminotransferase 10 U/L (0-33); Albumin Level 4.2 g/dL (3.5-5.2); Alkaline Phosphatase 69 IU/L (35-105); Aspartate Amino Transferase 13 U/L (0-32); Blood Urea Nitrogen 7 mg/dL (6-20); Calcium 8.3 mg/dL (8.5-10.5); Carbon Dioxide 25 mmol/L (22-29); Chloride 103 mmol/L (98-107); Creatinine Clr Calc Pharmacy 120.4891; Globulin 2.2 g/dL (1.3-4.6); Glomerular Filtration Rate 106.3 mL/min (90-130); Glucose 84 mg/dL (65-115); Lipase 136 U/L (13-60); Osmolality Calculated 285 mOsm/kg (285-295); Sodium 139 mmol/L (136-145); Total Bilirubin 0.3 mg/dL (0.15-1.2); Total Protein 6.4 g/dL (6.6-8.7)
[2021-10-25 15:19] LABS: Add Urine Microscopic? NO; Charge for UA Resulting for Rev
--- NOTE | 2021-10-25 15:27 | ECG_ITS ---
[facility] Test Date: 2021-10-25 Pat Name: Reyna Iverson Department: Room: Gender: Female Emt/Dispatcher: : 1970 Requested By: Ritesh Nolan Order Number: [id number] Iwona MD: Zoila Bloom M.D. Measurements Intervals [place] Rate: 42 P: 58 WI: 188 QRS: 72 QRSD: 108 T: 42 QT: 494 QTc: 415 Interpretive Statements SINUS BRADYCARDIA No previous ECG available for comparison Electronically Signed On 10-26-2021 7:26:34 CDT by Zoila Bloom M.D. [id number]
[2021-10-25 15:30] LABS: Bilirubin Urine Neg (Negative); Blood Urine Neg (Negative); Glucose Urine UA Norm (Normal); Ketones Urine Negative (Negative); Leukocyte Esterase Urine Negative (Negative); Nitrate Urine Negative (Negative); Protein Urine Neg (Negative); Urine Appearance Clear (CLEAR); Urine Color Yellow (Yellow); Urobilinogen Urine Neg (Negative); pH Urine 6 (5-7)
[2021-10-25 16:11] VITALS: BP 129/86; PULSE 50; RESP 16; TEMP 36.9; O2SAT 98
[2021-10-25 16:13] VITALS: BP 129/86; PULSE 50; RESP 16; TEMP 36.9; O2SAT 98
== END 2021-10-25 16:10 | disposition home or self-care (01) ==
PROVIDERS: Emergency Provider Emergency Medicine; PCP Family Medicine
DX: R10.33 Periumbilical pain (principal); R10.31 Right lower quadrant pain; R11.0 Nausea; Z90.710 Acquired absence of both cervix and uterus
CPT/HCPCS: 74177; 80053; 81003; 83690; 85025; 93005; 96361; 96374; 96375; 99284; J2270; J2405; J3490; J7030; Q9967

== ENCOUNTER 2022-02-17 13:20 | Emergency (ER) | payer BC, MEDICAID, SELFPAY ==
[2022-02-17 13:31] VITALS: BP 134/86; PULSE 65; RESP 16; TEMP 36.6; O2SAT 96
[2022-02-17 13:48] VITALS: BP 134/86; PULSE 65; RESP 16; TEMP 36.6; O2SAT 96
--- NOTE | 2022-02-17 14:08 | ED_ITS ---
HPI - Back Pain/Injury General: Chief Complaint: Back Pain/Injury Stated Complaint: Lower Back pain Time Seen by Provider: 02/17/22 13:36 History of Present Illness: Patient is a 51-year-old female comes to the ED with lower back pain. Pain radiates down into the left leg. She rates her pain an 8 out of 10. she has had chronic lower back pain and currently sees Neurosurgeon and is scheduled for a MRI of lumbar spine in the next few weeks. Past couple days her pain has flared up gotten more severe. Denies any injury or trauma to cause worsening symptoms. Denies any weakness in lower extremities, pelvic anesthesia or bladder or bowel incontinence. Associated symptoms: Deny abdominal pain, chills, dysuria, fatigue, fever(s), hematuria, nausea or vomiting Review of Systems Const: Denies: fever(s), chills or fatigue Eyes: Denies: change in vision or eye discomfort ENMT: Denies: throat pain, odynophagia, nasal discharge or nasal congestion Card: Denies: chest pain, palpitations, edema, swelling of feet/ankles, dyspnea on exertion or orthopnea Resp: Denies: dyspnea, productive cough or non-productive cough GI: Denies: abdominal pain, nausea, vomiting, diarrhea, constipation or hematochezia : Denies: flank pain, dysuria or hematuria Musc: Reports: back pain; Denies: neck pain or extremity swelling Skin/Breast: Denies: rash or new lesions Neuro: Denies: headache(s), numbness in extremities or weakness in extremities PFS ED PFSH: Medical History Aftercare following surgery of the genitourinary system Hypertension Insomnia Neuropathy Psychiatric care Surgical History H/O: hysterectomy History of radical neck surgery S/P cervical spinal fusion Family History Father Diabetes Mother Hyperlipidemia Family/Other Breast cancer maternal aunt, great aunt age onset unknown Grandmother Diabetes paternal Denies family history of Colon cancer Ovarian cancer Clotting disorder Heart disease Anesthesia complication Bleeding disorder Family history of premature coronary artery disease Hypertension Uterine cancer Thyroid condition Stroke Social History Smoking and tobacco status: never smoked Quit status (tobacco): has quit using tobacco Former quit date comment: 05/08/2021 Alcohol intake: never Physical Exam Const: COMMON NORMALS: patient oriented x3 and alert GENERAL APPEARANCE: cooperative HENMT: COMMON NORMALS: normocephalic HEAD & SCALP: normocephalic MOUTH: Normal oral and palatal mucosa present THROAT: posterior oropharynx normal and uvula midline Neck/C-Spine: COMMON NORMALS: supple GENERAL: Yes normal visual inspection Resp: COMMON NORMALS: normal respiratory effort, No retractions, No use of accessory muscles and clear to auscultation bilaterally AUSCULTATION: clear to auscultation bilaterally Cardio: COMMON NORMALS: regular rate, regular rhythm, S1 normal heart sound present, S2 normal heart sound present, No gallops present (Cardio), No clicks present (Cardio), No murmurs present (Cardio) and Peripheral pulses 2+ throu ghout RATE: regular rate RHYTHM: regular rhythm HEART SOUNDS: S1 normal heart sound present and S2 normal heart sound present PERIPHERAL PULSES: Peripheral pulses 2+ throughout GI: COMMON NORMALS: Normal to inspection, nondistended, normoactive bowel sounds present, Soft to palpation, non-tender and no masses PALPATION: Yes Soft to palpation : COMMON NORMALS: Yes no CVA tenderness BLADDER/KIDNEY EXAM: Yes no CVA tenderness Back/Pelvis: COMMON NORMALS: no CVA tenderness LUMBAR SPINE/LOWER BACK: Yes paraspinal muscle tenderness Lumbar paraspinal muscle tenderness: left left lumbar paraspinal muscle tenderness: L4 and L5 Extremity: COMMON NORMALS: normal to inspection Neuro: COMMON NORMALS: patient oriented x3 SENSORIUM/ORIENTATION: Yes alert GAIT: Yes Normal gait present Skin: GENERAL SKIN EXAM: dry skin Course Vital Signs: Vital signs: Vital Signs Temperature 97.9 F 02/17/22 13:48 Pulse Rate 65 02/17/22 13:48 Respiratory Rate 18 02/17/22 15:44 Blood Pressure 134/86 02/17/22 13:48 Pulse Oximetry 96 02/17/22 13:48 Oxygen Delivery Me thod 02/17/22 13:48 MDM - Back Pain/Injury Medical Decision Making Patient is a 51-year-old female comes to the ED with little chronic lower back pain that radiates down into her left leg. Denies any cauda equina symptoms. Denies any injury or trauma to cause symptoms. Patient has a scheduled MRI and follow-up with neuro spine surgeon for chronic lumbar pain. Vitals are stable. Patient appears to be uncomfortable and in some pain but the rest of exam was benign. She was given a dose of morphine, muscle relaxer and steroid here in the ED and her symptoms improved. She is diagnosed with lumbar radiculopathy. Patient currently has a pain contract for [place] with the previous doctor and I told her to continue taking that for pain. She was also sent home with a prescription for a muscle relaxer and steroid. Told to follow-up with her PCP within the next week for reevaluation. Return to ED precautions given. Patient understood and agreed with plan. Discharge Plan Discharge Patient Disposition: Home Clinical Impression: Lumbar radiculopathy Condition: Stable Prescriptions: New cyclobenzaprine 10 mg tablet 10 mg PO BID PRN (Reason: muscle spasm) Qty: 30 0RF prednisone 20 mg tablet 20 mg PO BID 7 Days Qty: 14 0RF No Action gabapentin 600 mg tablet 600 mg PO BID trazodone 150 mg tablet 150 mg PO .at hs atenolol 25 mg tablet 25 mg PO DAILY diphenhydramine HCl [Benadryl Allergy] 25 mg tablet 25 mg PO .hs PRN (Reason: allergies) Zyrtec 10 mg capsule 10 mg PO DAILY PRN (Reason: allergies) tizanidine 4 mg capsule 4 mg PO Q8H PRN (Reason: mulscle relaxer) citalopram [Celexa] 20 mg tablet 20 mg PO DAILY estradiol 1 mg tablet 1 mg PO DAILY Qty: 90 3RF ibuprofen 800 mg tablet See Rx Instructions .ROUTE .COMPLEX Qty: 90 0RF Dose Instruction: TAKE 1 TABLET BY MOUTH THREE TIMES DAILY NEEDED FOR PAIN Rx Instructions: TAKE 1 TABLET BY MOUTH THREE TIMES DAILY NEEDED FOR PAIN acetaminophen 325 mg capsule 325 mg PO Q4H PRN (Reason: fever or postoperative pain) Qty: 60 0RF gabapentin 600 mg tablet 600 mg PO BID ibuprofen 800 mg tablet 800 mg PO TID PRN (Reason: Pain) tizanidine 4 mg tablet 4 mg PO TID hydrocodone-acetaminophen 5-325 mg tablet 1 tab PO BID Rx Instructions: DO NOT EXCEED 2 PER DAY atenolol 25 mg Tablet 25 mg PO DAILY omeprazole 40 mg capsule,delayed release(DR/EC) 40 mg PO QAM citalopram 20 mg tablet 20 mg PO DAILY trazodone 150 mg tablet 150 mg PO QPM Zyrtec 10 mg Tablet 10 mg PO DAILY PRN (Reason: Allergy Symptoms) Discharge Orders: Discharge ED (Routine); Ordered 02/17/22 Ordered By: Abel Naranjo Referrals: Abel Turner MD [Primary Care Provider] - Discharge Diet: Regular Discharge Activity: Increase activity as tolerated Patient Instructions: Lumbar Radiculopathy (ED) Activity Restrictions/Additional Instructions: Follow-up with medical provider as directed. Take medications as prescribed. Return to the ER or your medical provider if condition worsens. Please read and understand discharge instructions. Thank you for choosing [facility] for your healthcare needs today. Please realize this is an emergency room and that we are providing you with a medical screening exam and this may not be complete and all inclusive of all the testing and or work up that you may need to determine your ailment or severity of your illness. It is very important that you follow up as instructed or that you return to the Emergency Department should you have concerns or if your condition changes or worsens in any way. Coding Level of Care Code ED Psychometrician for Viri Fwnatalie Exam Comprehensive
[2022-02-17 14:17] VITALS: RESP 18
[2022-02-17] MEDS: morphine 4 mg/mL SDV 1 mL IM (14:17)
[2022-02-17] MEDS: diazePAM 2 mg Tablet PO (14:18)
[2022-02-17 15:44] VITALS: RESP 18
[2022-02-17] MEDS: oxyCODONE-APAP 5-325 mg Tablet 1 TAB PO (15:44)
== END 2022-02-17 15:47 | disposition home or self-care (01) ==
PROVIDERS: Emergency Provider Physician Assistant; PCP Family Medicine
DX: M54.16 Radiculopathy, lumbar region (principal); Z87.891 Personal history of nicotine dependence; I10 Essential (primary) hypertension
CPT/HCPCS: 96372; 99284; J2270; J2930

== ENCOUNTER 2022-05-17 07:21 | Outpatient (CLI) | payer BC, MEDICAID, SELFPAY ==
--- NOTE | 2022-05-17 07:29 | MR_ITS ---
WS: [id number] MRI LUMBAR SPINE NONCONTRAST TECHNIQUE: Sagittal T1, T2 and STIR imaging. Axial T1 and T2 imaging. CLINICAL INFORMATION: LUMBAR RADICULOPATHY/NUMBNESS OF R LOWER EXTREMITY FINDINGS: Mild lumbar curve. No acute compression. No high-grade central canal stenosis. Disc desiccation worse at L2-L3. Endplate degenerative changes at L2-L3. L1-L2: Normal. L2-L3: Mild annular bulging. Narrowing subarticular recess bilaterally. Slight impingement traversing L3 nerve roots. Small RIGHT foraminal protrusion with mild RIGHT and no significant LEFT foraminal n arrowing. Mild facet arthropathy. Mild central canal stenosis. L3-L4: Small LEFT foraminal protrusion with slight contact of the exiting LEFT L3 nerve root. Mild LE FT foraminal narrowing. Narrowing of the LEFT subarticular recess. RIGHT foramen is patent. Moderate facet arthropathy. L4-L5: Mild disc bulging with osteophytic ridging. Mild RIGHT greater than LEFT foraminal narrowing. Moderate facet arthropathy with ligamentum flavum hypertrophy. Spinal canal is patent. L5-S1: No significant disc bulging. Moderate facet arthropathy. Spinal canal and foramen are patent. Visualized pelvic bony structures: Normal. Paravertebral soft tissues: Normal. Postoperative changes ACDF cervical spine C3-C6. Disc osteophyte complex C6-C7 with slight indentatio n on the cervical cord. MR/MR lumbar spine wo con* [id number] IMPRESSION: 1. Mild lumbar curve. No acute compression. No high-grade central canal stenos is. 2. Disc desiccation L2-L3 with slight impingement traversing L3 nerve roots bi laterally. Mild central canal stenosis. 3. RIGHT foraminal protrusion L2-L3 impinges the exiting RIGHT L2 nerve root w ith mild to moderate RIGHT foraminal narrowing. 4. Small LEFT foraminal protrusion L3-L4 slightly impinges the exiting LEFT L3 nerve root. 5. RIGHT foraminal protrusion L4-L5 slightly impinges the exiting RIGHT L4 ner ve root. 6. Moderate facet arthropathy L3-L5. 7. Prior postoperative changes ACDF C3-C6 with disc osteophyte complex C6-C7 w ith slight indentation on cervical cord visualized on the talent [employer] imaging
== END 2022-05-17 07:22 | disposition home or self-care (01) ==
LOC: RAD 07:21
PROVIDERS: PCP Family Medicine; Visit Provider Surgery
DX: M51.16 Intervertebral disc disorders with radiculopathy, lumbar region (principal); M48.061 Spinal stenosis, lumbar region without neurogenic claudication; M47.26 Other spondylosis with radiculopathy, lumbar region; Z98.1 Arthrodesis status; M25.78 Osteophyte, vertebrae
CPT/HCPCS: 72148

== ENCOUNTER → 2022-06-29 13:28 | Outpatient (BNVA) | payer BC, MEDICAID, SELFPAY | PROVIDERS: PCP Family Medicine; Visit Provider Family Medicine | DX: R30.0 Dysuria (principal); B34.9 Viral infection, unspecified; J32.9 Chronic sinusitis, unspecified | CPT/HCPCS: 81000; 87400; 87426 ==

== ENCOUNTER 2022-07-14 09:38 | Emergency (ER) | payer BC, MEDICAID, SELFPAY ==
[2022-07-14 09:56] VITALS: BP 120/83; PULSE 61; RESP 18; TEMP 36.5; O2SAT 97; BMI 30.9
--- NOTE | 2022-07-14 11:35 | W.ED.BACK ---
Documented by User: YOVANNY Monson 07/15/22 07:46 HPI - Back Pain/Injury General: Chief Complaint: Back Pain/Injury Stated Complaint: sob Time Seen by Provider: 07/14/22 10:11 History of Present Illness: Patient reports that she has chronic neck and back pain. She has cervical spine fusion and had a stimulator placed that did not work so it was recently removed by Dr. Pierce. She reports that she is working with her Medicaid to try and have injections of the SI joints before Dr. Pierce is to do surgery. She also reports that she is looking at extension of her cervical fusion from C5-T1. She states that she is chronically on oxycodone and tizanidine. She states that over the past few days her pain has been worsening in her low back and also her neck. She has burning with numbness and tingling down bilateral arms to her radial side hand. She states that this has been an ongoing issue with her neck problem but seemingly worse over the past few days. She reports that today she just cannot get comfortable cannot take a deep breath because of the spasming and pain. She denies any fever, chills, nausea, vomiting. She denies any possibility of stating that she has had a hysterectomy. She denies any recent injury. She denies any saddle anesthesia, loss of bowel or bladder control. Associated symptoms: Deny abdominal pain, chills, dysuria, fever(s), nausea, syncope, urinary urgency or vomiting Review of Systems Const: Denies: fever(s) or chills Eyes: Denies: change in vision or blurry vision ENMT: Denies: throat pain Card: Denies: chest pain, palpitations, irregular heart rhythm, lightheadedness or syncope Resp: Reports: pain on inspiration; Denies: dyspnea, productive cough or non-productive cough GI: Denies: abdominal pain, nausea or vomiting : Denies: flank pain, difficulty voiding, dysuria, urinary frequency, urinary urgency or urinary hesitancy Musc: Reports: neck pain and back pain Neuro: Reports: headache(s) and numbness in extremities; Denies: weakness in extremities PFSH ED PFSH: Medical History Aftercare following surgery of the genitourinary system Hypertension Insomnia Neuropathy Psychiatric care Surgical History H/O: hysterectomy History of radical neck surgery S/P cervical spinal fusion Family History Father Diabetes Mother Hyperlipidemia Family/Other Breast cancer maternal aunt, great aunt age onset unknown Grandmother Diabetes paternal Denies family history of Colon cancer Ovarian cancer Clotting disorder Heart disease Anesthesia complication Bleeding disorder Family history of premature coronary artery disease Hypertension Uterine cancer Thyroid condition Stroke Social History Smoking and tobacco status: former smoker Quit status (tobacco): has quit using tobacco Former quit date comment: 05/08/2021 Second hand smoke exposure: No Alcohol intake: former 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 date alcohol: 2019 History of recent travel: No Physical Exam Const: COMMON NORMALS: patient oriented x3 and alert OTHER: Patient is tearful and appears to be in pain. She has stiff movements and turns her entire torso to look side to side. Neck/C-Spine: COMMON NORMALS: no JVD Resp: COMMON NORMALS: normal respiratory effort, No use of accessory muscles and clear to auscultation bilaterally AUSCULTATION: clear to auscultation bilaterally Cardio: COMMON NORMALS: no JVD, regular rate, regular rhythm, S1 normal heart sound present, S2 normal heart sound present and No murmurs present (Cardio) RATE: regular rate RHYTHM: regular rhythm HEART SOUNDS: S1 normal heart sound present and S2 normal heart sound present Back/Pelvis: OTHER: Tenderness to palpation lumbar left side paraspinal musculature. She has tenderness to bilateral paraspinal musculature but worse on the left side. Palpation of paraspinal musculature reproduces pain complaint. Limited range of motion bilateral upper extremities patient can laterally and front abduct arms only to shoulder height related to pain. Color and movement within normal limits to distal fingers bilateral. Patient reports decreased sensation to the radial side of her hand/thumb bilateral Neuro: COMMON NORMALS: patient oriented x3 SENSORIUM/ORIENTATION: Yes alert Course ED course: Patient reports no improvement after muscle relaxant and steroid administered in ER. I consulted with Dr. Beebe regarding patient's case and he agreed that this patient did needs to have chronic follow-up with her neurosurgeon. He has pain control at home. He agreed that there is nothing further at this juncture that should be done from the ER standpoint. I discussed this with the patient and she started crying uncontrollably and stated that she is wanting to hurt herself and others that she cannot bear this pain any longer. I have spoken with Dr. Beebe who is going to evaluate the patient. Vital Signs: Vital signs: Vital Signs Temperature 97.7 F 07/14/22 09:56 Pulse Rate 60 07/14/22 14:53 Respiratory Rate 16 07/14/22 14:53 Blood Pressure 145/91 07/14/22 14:53 Pulse Oximetry 94 07/14/22 14:53 Oxygen Delivery Me thod 07/14/22 14:00 MDM - Back Pain/Injury Medical Decision Making Acute on chronic pain, cervical radiculopathy, lumbar radiculopathy Patient reports that she is having all similar symptoms just exacerbated right now. She has not had any new injury. Imaging is not likely to yield new information at this time. Provided patient with muscle relaxer and steroid injection injection to try and help alleviate some of her pain. Encouraged her to follow-up with neurosurgeon. Patient becomes very tearful. I did discuss the case with Dr. Beebe who agrees with my plan of care and had no further recommendation for additional work-up at this time. I discussed this, again, with the patient and she began crying uncontrollably. She stated that she is just done. I asked her to clarify that statement and she said that she needed to go to the Neuropsych Unit because she is done . I asked the patient if she was having thoughts of hurting herself and she replied yes and others too . I spoke again with Dr. Beebe regarding this patient's case. Patient is moved to the back ER in room out of the vertical flow area. Case management is involved trying to navigate insurance roadblocks that patient is experiencing. They are going to call Dr. Pierce's office to get more information as to what the patient is needing and what the insurance is approving or denying. Dr. Beebe assumed care of the patient. Discharge Plan Discharge Patient Disposition: Home Clinical Impression: Chronic neck pain Condition: Stable Prescriptions: New prednisone 20 mg tablet 20 mg PO TID Qty: 15 0RF Rx Instructions: 1 p.o. 3 times daily x3 days, 1 p.o. twice daily x2 days, 1 p.o. daily x2 days pregabalin 150 mg capsule 150 mg PO BID Qty: 60 0RF Discontinued gabapentin 600 mg tablet 600 mg PO BID No Action diphenhydramine HCl [Benadryl Allergy] 25 mg tablet 25 mg PO .hs PRN (Reason: allergies) oxycodone-acetaminophen [Percocet] 5-325 mg tablet 1 tab PO BID PRN (Reason: Pain) amoxicillin-pot clavulanate 875-125 mg tablet 1 tab PO BID Qty: 20 1RF acetaminophen 325 mg capsule 325 mg PO Q4H PRN (Reason: fever or postoperative pain) Qty: 60 0RF tizanidine 4 mg tablet 4 mg PO TID PRN (Reason: Muscle Spasm) atenolol 25 mg Tablet 25 mg PO DAILY citalopram 20 mg tablet 20 mg PO DAILY ibuprofen 800 mg tablet 800 mg PO TID PRN (Reason: Pain) estradiol 1 mg tablet 1 mg PO DAILY trazodone 150 mg tablet 150 mg PO QPM Discharge Orders: Discharge ED (Routine); Ordered 07/14/22 Ordered By: Daljit Beebe Referrals: Abel Turner MD [Primary Care Provider] - Discharge Diet: Usual diet Discharge Activity: Resume usual activity Patient Instructions: Opioid Safety, Pain Management Activity Restrictions/Additional Instructions: You are seen today for chronic neck and upper back pain. We will refer you to Dr. Cortez's local back surgeon. Recommend that you stop the gabapentin and start Lyrica 150 mg twice daily. Also recommend that you take prednisone taper starting tomorrow. Case management make arrangements for follow-up with Dr. Cortez's office. Coding Level of Care Code ED Hand Box Folder for Chg Fwd Exam Expanded Problem Focused Documented by User: Daljit Beebe DO 07/15/22 09:54 HPI - Back Pain/Injury General: Chief Complaint: Back Pain/Injury Stated Complaint: sob Time Seen by Provider: 07/14/22 10:11 [facility] ED PFSH: Medical History Aftercare following surgery of the genitourinary system Hypertension Insomnia Neuropathy Psychiatric care Surgical History H/O: hysterectomy History of radical neck surgery S/P cervical spinal fusion Family History Father Diabetes Mother Hyperlipidemia Family/Other Breast cancer maternal aunt, great aunt age onset unknown Grandmother Diabetes paternal Denies family history of Colon cancer Ovarian cancer Clotting disorder Heart disease Anesthesia complication Bleeding disorder Family history of premature coronary artery disease Hypertension Uterine cancer Thyroid condition Stroke Social History Smoking and tobacco status: former smoker Quit status (tobacco): has quit using tobacco Former quit date comment: 05/08/2021 Second hand smoke exposure: No Alcohol intake: former 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 date alcohol: 2019 History of recent travel: No Course Vital Signs: Vital signs: Vital Signs Temperature 97.7 F 07/14/22 09:56 Pulse Rate 60 07/14/22 14:53 Respiratory Rate 16 07/14/22 14:53 Blood Pressure 145/91 07/14/22 14:53 Pulse Oximetry 94 07/14/22 14:53 Oxygen Delivery Me thod 07/14/22 14:00 MDM - Back Pain/Injury Medical Decision Making Acute on chronic pain, cervical radiculopathy, lumbar radiculopathy Patient reports that she is having all similar symptoms just exacerbated right now. She has not had any new injury. Imaging is not likely to yield new information at this time. Provided patient with muscle relaxer and steroid injection injection to try and help alleviate some of her pain. Encouraged her to follow-up with neurosurgeon. Patient becomes very tearful. I did discuss the case with Dr. Beebe who agrees with my plan of care and had no further recommendation for additional work-up at this time. I discussed this, again, with the patient and she began crying uncontrollably. She stated that she is just done. I asked her to clarify that statement and she said that she needed to go to the Neuropsych Unit because she is done . I asked the patient if she was having thoughts of hurting herself and she replied yes and others too . I spoke again with Dr. Beebe regarding this patient's case. Patient is moved to the back ER in room out of the vertical flow area. Case management is involved trying to navigate insurance roadblocks that patient is experiencing. They are going to call Dr. Pierce's office to get more information as to what the patient is needing and what the insurance is approving or denying. Dr. Beebe assumed care of the patient. Patient seen and evaluated. She is not suicidal she made an excited utterance. She states no when she planning to harm herself or anyone else. After discussion with her and reviewing the notes were going to make arrangements for her to see Dr. Cortez for an evaluation. She had been evaluated but the other facility she was out was not able to get her surgery approved because it was out of network Dr. Phelps would be in network met with the patient with Gissel our case preparer and liner as well she will take care of the arrangements. Patient is very happy with this arrangement she was discharged home. Follow-up with Dr. Cortez. Medical Records I reviewed the patient's medical records. Labs I reviewed the patient's lab results. Discharge Plan Discharge Patient Disposition: Home Clinical Impression: Chronic neck pain Condition: Stable Prescriptions: New prednisone 20 mg tablet 20 mg PO TID Qty: 15 0RF Rx Instructions: 1 p.o. 3 times daily x3 days, 1 p.o. twice daily x2 days, 1 p.o. daily x2 days pregabalin 150 mg capsule 150 mg PO BID Qty: 60 0RF Discontinued gabapentin 600 mg tablet 600 mg PO BID No Action diphenhydramine HCl [Benadryl Allergy] 25 mg tablet 25 mg PO .hs PRN (Reason: allergies) oxycodone-acetaminophen [Percocet] 5-325 mg tablet 1 tab PO BID PRN (Reason: Pain) amoxicillin-pot clavulanate 875-125 mg tablet 1 tab PO BID Qty: 20 1RF acetaminophen 325 mg capsule 325 mg PO Q4H PRN (Reason: fever or postoperative pain) Qty: 60 0RF tizanidine 4 mg tablet 4 mg PO TID PRN (Reason: Muscle Spasm) atenolol 25 mg Tablet 25 mg PO DAILY citalopram 20 mg tablet 20 mg PO DAILY ibuprofen 800 mg tablet 800 mg PO TID PRN (Reason: Pain) estradiol 1 mg tablet 1 mg PO DAILY trazodone 150 mg tablet 150 mg PO QPM Discharge Orders: Discharge ED (Routine); Ordered 07/14/22 Ordered By: Daljit Beebe Referrals: Abel Turner MD [Primary Care Provider] - Discharge Diet: Usual diet Discharge Activity: Resume usual activity Patient Instructions: Opioid Safety, Pain Management Activity Restrictions/Additional Instructions: You are seen today for chronic neck and upper back pain. We will refer you to Dr. Cortez's local back surgeon. Recommend that you stop the gabapentin and start Lyrica 150 mg twice daily. Also recommend that you take prednisone taper starting tomorrow. Case management make arrangements for follow-up with Dr. Cortez's office. Coding Level of Care Code ED Hand Box Folder for Chg Fwd Exam Expanded Problem Focused
[2022-07-14] MEDS: dexamethasone 10 mg/mL INJ 4 MG IM (11:47)
[2022-07-14] MEDS: methocarbamol 750 mg Tablet PO (11:47)
--- NOTE | 2022-07-14 13:17 | PC.NURSE ---
[employer] INFORMED THIS NURSE THAT PT STATED SHE WAS DONE DEALING WITH THE PAIN AND WAS HAVING THOUGHTS OF HARMING HERSELF AND OTHER. PT THEN MOVED TO ED ROOM 9. THIS NURSE VISITED PT. PT STATED THAT SHE NEEDED ANOTHER NECK SURGERY AND BACK SURGERY BUT HER INSURANCE WOULD NOT COVER THEM. PT SOBBING THROUGHOUT CONVERSATION. THEN PT STATED SHE WAS DONE WITH THE PAIN. THIS NURSE ASKED IF PT WAS HAVING THOUGHTS OF HARMING HERSELF. PT REPLIED IM HAVING THOUGHTS OF HURTING OTHER PEOPLE. PT THEN STATED I KEEP BEING TOLD THAT I CAN'T GET MY SURGERIES AND IT MAKES ME FEEL UNWORTHY . PT STATED I'M AFRAID THAT BY BACK IS GETTING WORSE AND NOTHING IS BEING DONE ABOUT IT.
[2022-07-14 14:00] VITALS: BP 150/91; PULSE 58; RESP 16; O2SAT 95
[2022-07-14 14:53] VITALS: BP 145/91; PULSE 60; RESP 16; O2SAT 94
--- NOTE | 2022-07-14 15:04 | DCPLANNER ---
Addendum entered by Wendi Arias 07/21/22 15:13: Patient had a follow up appointment scheduled for 07.21.22 at ortho - patient did attend appointment. Addendum entered by Wendi Arias 07/15/22 14:47: Patient has a follow up appointment scheduled for July at 3:[address] Cortez at ortho. Clinic will call patient with appointment information. Original Note: assistant store manager operations had message to schedule a follow up appointment for patient with ortho. assistant store manager operations sent patients information to the front office staff at ortho. Patients information will be printed and reviewed. Clinic will call patient with appointment information.
== END 2022-07-14 15:00 | disposition home or self-care (01) ==
PROVIDERS: Emergency Provider Family Medicine; PCP Family Medicine
DX: G89.29 Other chronic pain (principal); M54.2 Cervicalgia; I10 Essential (primary) hypertension; Z87.891 Personal history of nicotine dependence
CPT/HCPCS: 96372; 99284; J1100

== ENCOUNTER → 2022-07-21 15:27 | Outpatient (BNVA) | payer BC, MEDICAID, SELFPAY | PROVIDERS: PCP Family Medicine; Referring Provider Family Medicine; Visit Provider Orthopaedic Surgery | DX: M51.26 Other intervertebral disc displacement, lumbar region (principal); M54.2 Cervicalgia; M47.816 Spondylosis without myelopathy or radiculopathy, lumbar region; Z98.1 Arthrodesis status | CPT/HCPCS: 72050; 72110 ==

== ENCOUNTER 2022-08-08 06:39 | Outpatient (CLI) | payer BC, MEDICAID, SELFPAY ==
--- NOTE | 2022-08-08 07:00 | CT_ITS ---
WS: [id number] CT CERVICAL SPINE TECHNIQUE: Noncontrast CT of the cervical spine with coronal and sagittal reformatted images. CLINICAL INFORMATION: neck pain COMPARISON: None. DLP: 221.[address] scans at [facility] use at least one of these dose optimization techniques: automated e xposure control; mA and/or kV adjustment per patient size (includes targeted exams where dose is matc hed to clinical indication); or iterative reconstruction. FINDINGS: Straightening of the normal cervical lordosis. Anterior and interbody fusion C3-C6. Partial corpectom y at C4 with interbody strut graft. Hardware appears in good position. No high-grade central canal st enosis. C2-C3: No significant disc bulging. Spinal canal and foramen are patent. C3-C4: Postoperative changes. Spinal canal and foramen are patent. C4-C5: Partial corpectomy at C4. Anterior fusion. Spinal canal and foramen are patent. C5-C6: Anterior interbody cervical fusion. Spinal canal and foramen are patent. Endplate ridging. Mil d facet arthropathy. C6-C7: Mild disc osteophyte complex with progressed central/pericentral protrusion. Slight inferior m igration of disc material. Mild central canal stenosis. Foramen are patent. C7-T1: No significant disc bulging. Spinal canal and foramen are patent. Visualized posterior fossa s tructures: Normal. Visualized posterior nasopharynx: Normal. Prevertebral soft tissues: Normal. CT/CT cervical spin wo con* [id number] IMPRESSION: 1. Straightening of the normal cervical lordosis. No high-grade central canal stenosis. 2. Anterior cervical fusion C3-C6 with partial corpectomy at C4. Interbody str ut graft at C4. 3. No evidence of hardware loosening. Mild subsidence along the interbody fusi on graft C5-C6 unchanged. 4. Progressed LEFT central/pericentral protrusion C6-C7 with mild central rani l stenosis and inferior migration of disc material.This protrusion measures 6 m m in AP dimension. This is progressed compared to previous with mild central ca nal stenosis. 5. Mild facet arthropathy in the mid cervical spine.
== END 2022-08-08 06:40 | disposition home or self-care (01) ==
LOC: RAD 06:41
PROVIDERS: PCP Family Medicine; Visit Provider Orthopaedic Surgery
DX: G89.29 Other chronic pain (principal); Z98.1 Arthrodesis status; M47.892 Other spondylosis, cervical region; M50.223 Other cervical disc displacement at C6-C7 level
CPT/HCPCS: 72125

== ENCOUNTER 2022-08-18 11:12 | Outpatient (CLI) | payer BC, MEDICAID, SELFPAY | END 2022-08-18 11:13 | disposition home or self-care (01) | LOC: SPT 11:13 | PROVIDERS: PCP Family Medicine; Visit Provider Physician Assistant | DX: Z46.89 Encounter for fitting and adjustment of other specified devices (principal); M54.2 Cervicalgia | CPT/HCPCS: 97760; L0172 ==

== ENCOUNTER 2022-09-05 10:00 | Inpatient (IN) | payer BC, MEDICAID, SELFPAY ==
[2022-08-30 08:38] VITALS: BMI 32.5
--- NOTE | 2022-08-30 08:53 | P.ANESASSM_ITS ---
Pre-Anesthetic Assessment Height/Weight: Height 1.63 m Weight 86.183 kg Preop Diagnosis: Abnormal uterine bleeding, uterine fibroid, Operation Date: 09/05/22 07:00 Proposed Procedures p Spinal Fusion PSF:C2-T2 w decomp C6/7, [id number] M47.22(Not Applicable) - Sergei Cortez DO s Cervical Decompression:C6/7 04123(Not Applicable) - Sergei Cortez DO Familial anesthetic complications: None Social No alcohol and No tobacco Exam alert, oriented x 3, clear to auscultation bilaterally and regular rate & rhythm Airway Mallampati: Class II Dentition: chipped and other (missing) Pulmonary None reported CV/HEM Hypertension None reported Hepatic None reported GI None reported Metabolic None reported Musc/skel Lower Back Pain Neuropsych None reported Anesthetic Plan ASA status: 2 Anesthesia: General Risk of > 500 ml blood loss (7ml/kg in children): No Medications/Allergies Home Medications Medication Instructions Recorded Confirmed Last Taken Type diphenhydramine HCl 25 mg tablet 25 mg PO .hs PRN allergies 11/09/20 08/30/22 08/29/22 History (Benadryl Allergy) acetaminophen 325 mg capsule 325 mg PO Q4H PRN fever or 04/15/21 08/30/22 08/29/22 Rx postoperative pain #60 caps atenolol 25 mg tablet 25 mg PO DAILY 10/25/21 08/30/22 08/30/22 History tizanidine 4 mg tablet 4 mg PO TID PRN Muscle Spasm 10/25/21 08/30/22 08/29/22 History oxycodone-acetaminophen 5 mg-325 1 tab PO BID PRN Pain 04/11/22 08/30/22 08/30/22 History mg tablet (Percocet) estradiol 1 mg tablet 1 mg PO DAILY 07/14/22 08/30/22 08/29/22 History ibuprofen 800 mg tablet 800 mg PO TID PRN Pain 07/14/22 08/30/22 08/28/22 History trazodone 150 mg tablet 150 mg PO QPM 07/14/22 08/30/22 08/29/22 History citalopram 20 mg tablet See Rx Instructions .Route 0108/30/22 08/30/22 Rx .COMPLEX #30 tabs MARJUANIA 08/15/22 08/18/22 Unknown History Cervical collar #1 ea 08/18/22 08/18/22 Unknown Rx Intraoperative Neuromonitoring #1 ea 08/18/22 08/18/22 Unknown Rx pregabalin 150 mg capsule 150 mg PO BID #60 caps 08/29/22 08/30/22 08/29/22 Rx Allergies Allergy/AdvReac Type Severity Reaction Status Date / Time No Known Allergies Allergy Verified 08/30/22 08:32 [facility] Anesthesia Medical History Aftercare following surgery of the genitourinary system Hypertension Insomnia Neuropathy Psychiatric care Surgical History H/O: hysterectomy History of radical neck surgery S/P cervical spinal fusion Family History Father Diabetes Mother Hyperlipidemia Family/Other Breast cancer maternal aunt, great aunt age onset unknown Grandmother Diabetes paternal Denies family history of Colon cancer Ovarian cancer Clotting disorder Heart disease Anesthesia complication Bleeding disorder Family history of premature coronary artery disease Hypertension Uterine cancer Thyroid condition Stroke Social History Smoking and tobacco status: former smoker Quit status (tobacco): has quit using tobacco Former quit date comment: 05/08 Second hand smoke exposure: No Alcohol intake: former 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 date alcohol: 2019 Data Anesthesia Cardiac Studies: No Data to Display
[2022-09-05] VITALS (20 sets, daily range): BP systolic 101–144; BP diastolic 56–91; PULSE 57–89; RESP 16–20; TEMP 36.1–37; O2SAT 91–99; BMI 32.5
--- NOTE | 2022-09-05 06:30 | W.PM.OPSUD ---
Surgery/Procedure H&P Update DATE OF PROCEDURE: September 05, 2022 DATE H&P PERFORMED: 08/18/22 H&P UPDATE INFORMATION: I have reviewed H&P completed within last 30 days, I have examined patient prior to procedure and No changes to prior documentation PREOP DIAGNOSIS: Cervical spondylosis with radiculopathy PLANNED PROCEDURE: Operation Date: 09/05/22 07:00 Proposed Procedures p Spinal Fusion PSF:C2-T2 w decomp C6/7, [id number] M47.22(Not Applicable) - DO shannon Meeks Cervical Decompression:C6/7 [id number](Not Applicable) - Sergei Cortez DO
[2022-09-05] MEDS: sodium chloride 0.9% 1,000 ML 30 ML IV (06:31)
[2022-09-05] MEDS: ceFAZolin 2,000 MG in sodium chloride 0.9% (plus) 50 ML 100 MG IV ×3 (07:00→22:12)
[2022-09-05] MEDS: heparin, porcine 1,000 unit/mL INJ 10 mL 10000 UNIT IRRIGATION (07:40)
[2022-09-05] MEDS: lidocaine-epi 1% 20 mL INJ INJECTION (07:40)
[2022-09-05] MEDS: vancomycin 1,000 MG SDV 1000 MG XX (07:40)
--- NOTE | 2022-09-05 08:04 | P.ANESUD_ITS ---
Pre-Anesthetic Update Pre-Anesthetic Assessment: Date of Surgery/Procedure: 09/05/22 Preop Nadia gnosis: Cervical spondylosis with radiculopathy Proposed Procedure: Operation Date: 09/05/22 07:00 Proposed Procedures p Spinal Fusion PSF:C2-T2 w decomp C6/7, [id number] M47.22(Not Applicable) - Sergei Cortez, DO s Cervical Decompression:C6/7 32383(Not Applicable) - Sergei Cortez, DO Any changes to Pre-Anesthetic Assessment?: No Last Intake: Intake Last Liquid Date 09/04/22 Last Liquid Time 20:00 Last Solid Date 09/04/22 Last Solid Time 18:00 Vitals: Temperature 97 F L 09/05/22 06:25 Temperature Source Temporal Artery S can 09/05/22 06:25 Pulse Rate 57 L 09/05/22 06:25 Respiratory Rate 16 09/05/22 06:25 Blood Pressure 101/69 09/05/22 06:25 Blood Pressure Muna n 79 09/05/22 06:25 Pulse Oximetry 97 09/05/22 06:25 Oxygen Delivery Me thod 09/05/22 06:25 Exam: Pre-Anes Outpt Exam: alert, oriented x 3, clear to auscultation bilaterally and regular rate & rhythm Cardiac Studies: No Data to Display
--- NOTE | 2022-09-05 10:29 | P.OP_ITS ---
Operative Report Date of procedure: September 05, 2022 Pre-op diagnosis: Preop Diagnosis Cervical spondylosis with radiculopathy Post-op diagnosis: same Procedure done: 1. C2-T2 Posterior spine fusion 2. C2 - T2 instrumentation 3. C6/7 laminectomy with patial facetectomies 4. use of computer navigation/ stereotactic for spine 5. uase of allograft Surgeon: Sergei Cortez Staff Internist Office Based Only: Bryan Mccurdy Staff Internist Office Based Only: The rn first assistant, Bryan Mccurdy, PAC was needed for his expertise under the microscope. He was important and necessary throughout the procedure to complete in a safe and timely manner. He assisted with patient positioning prepping and draping tissue retraction suctioning of the operative field protection of the dural sac and tissue closure Estimated blood loss (mL): 400 Procedure: 1. C2-T2 Posterior spine fusion 2. C2 - T2 instrumentation 3. C6/7 laminectomy with patial facetectomies 4. use of computer navigation/ stereotactic for spine 5. uase of allograft Patient is brought to the operative suite after undergoing anesthesia was placed in the prone position. All areas impingement well-padded. Patient was prepped and draped normal sterile fashion. Patient had previous skin incision in the upper cervical spine. This was included in the incision. Skin incision made subperiosteal dissection was made from C2 down to T2. Out to the lateral masses of the C2-C7. And out to the transverse processes of T1 and T2. Once exposure was done a fiducial was placed on the spinous process of C7. The C-arm was brought in and the C-arm was brought in and the information from the C-arm was then linked into the computer in order to facilitate placing screws under computer navigation. This was done at C2 pars screw was placed. The drill was used to drill the starting point and then the navigated drill was used. Followed by placing the screws. These were sized 24 mm Lorie screws. Once the C2 screws were placed and attention was brought to placing the lateral mass screws. This was done by using the drill and then the hand drill and then the pedicle feeler and then placement of a 14 mm screw this was done at C3 bilaterally, C4 bilaterally, C5 bilaterally, and C6 bilaterally. Next attention was brought to placing the T1 and T2 pedicle screws. Again this was done by using the high-speed bur followed by the gearshift probe linked to computer navigation followed by using the unlinked gearshift probe followed by placing the screw under computer navigation. This was done at T1 bilaterally and T2 bilaterally. Next attention was brought to attaching the rods. The rods were attached from C2 all the way down to T2 and locked in position with the caps. This was done bilaterally. Next attention was brought to performing the laminectomy at C6-7. A partial laminectomy was done at C6 and complete laminectomy at C7. And medial aspect of facet joints at C 6/7 were taken down in order to facilitate complete decompressing the C7 nerve out the foramen. Once is felt to be adequately decompressed. Wounds were irrigated. And the lamina and lateral gutters were decorticated with a high-speed bur. Posterior bone graft and autograft were packed into the gutters. The wound was then closed in a layered fashion with 0 Vicryl 2-0 Vicryl and Monocryl suture. Sterile dressings were applied and patient was transferred to the PACU in stable condition.
[2022-09-05] MEDS: oxyCODONE-APAP 10-325 mg Tablet PO ×2 (11:45→19:41)
[2022-09-05] MEDS: lactated ringers 1,000 ML 90 ML IV ×2 (13:06→22:13)
[2022-09-05] MEDS: ondansetron 2 mg/ML SDV 2 mL 4 MG IVP ×2 (15:08→22:12)
--- NOTE | 2022-09-05 15:29 | ANE.PACU2 ---
Inpatient post-anesthesia follow up: Airway intact: Yes Vital signs: Temperature 97.8 F Pulse Rate 69 Respiratory Rate 18 Blood Pressure 132/72 Pulse Oximetry 99 Oxygen Delivery Me thod Nasal Cannula Oxygen Flow Rate 2 Fraction of Inspir ed Oxygen Hydration adequate: Yes Nausea and vomiting: No Pain level: 3 Mental status: Baseline
[2022-09-05] MEDS: ketorolac 30 mg/mL INJ IVP ×2 (16:02→22:11)
[2022-09-05] MEDS: oxyCODONE 10 mg ER (12 HR) Tablet PO (17:34)
[2022-09-05] MEDS: trazodone 150 mg Tablet PO (17:35)
[2022-09-05] MEDS: pregabalin 150 mg Capsule PO (17:35)
[2022-09-05] MEDS: docusate sodium 100 mg Capsule PO (17:35)
[2022-09-05] MEDS: tizanidine 4 mg Tablet PO (19:42)
--- NOTE | 2022-09-05 23:24 | PC.NURSE ---
Bedside report completed with SARAH Peña at beginning of shift.
[2022-09-06] VITALS (7 sets, daily range): BP systolic 118–129; BP diastolic 68–79; PULSE 68–79; RESP 16–17; TEMP 36.7–36.8; O2SAT 95–96
[2022-09-06] MEDS: oxyCODONE-APAP 10-325 mg Tablet PO ×2 (02:13→06:25)
[2022-09-06] MEDS: ceFAZolin 2,000 MG in sodium chloride 0.9% (plus) 50 ML 100 MG IV (06:25)
[2022-09-06] MEDS: tizanidine 4 mg Tablet PO (06:25)
--- NOTE | 2022-09-06 06:57 | PM.PN ---
Subjective Subjective: POD 1 Patient resting comfortably. Reports difficulty swallowing increased neck pain. Denies arm pain. Denies chest pain shortness of breath or headaches. Vitals/I&O/Wt Last Vital Signs Temp 98.0 F 09/06/22 03:53 Pulse 70 09/06/22 03:53 Resp 16 09/06/22 06:25 BP 129/76 09/06/22 03:53 Pulse Ox 96 09/06/22 03:53 O2 Del Method 09/06/22 03:53 O2 Flow Rate 2 09/05/22 14:52 09/05/22 09/05/22 09/06/22 14:59 22:59 06:59 Intake Total 1550 / 1550 1531.0 / 3081.0 50 / 3131.0 Output Total 800 / 800 525 / 1325 1550 / 2875 Balance 750 / 750 1006.0 / 1756.0 -1500 / 256.0 Weight last 48 hrs Weight 190 lb Physical Exam Narrative: Patient is alert and oriented x3 with a good general appearance normal mood and affect. Moderately tender with palpation about the incisional site. Incision appears to be clean and dry without signs of erythema or drainage. No signs of infection. Good motor strength throughout both upper extremities. Appears to fire in all motor groups with 4/5 strength. Hands are warm good cap refill in all digits. Normal sensation to light touch in all dermatomal areas. Urinary Catheter Management: Thapa: Cath Placed During This Visit: yes Reason for Continuing Indwelling Catheter: Perioperative Use in Selected Surgeries Urinary Catheter Date of Insertion: 09/05/22 Urinary Catheter Time of Insertion: 07:15 A&P Assessment and plan (1) S/P cervical spinal fusion: Have physical therapy evaluate and mobilize. We will discontinue Hemovac drain and Thapa catheter. Encourage incentive spirometry for pulmonary toilet. Will discharge home later today. Be cautious with bending lifting or twisting. Continue [place] J collar. We will see her back in the office in 1 week's time. Attestations Medical Necessity Statement*: Home later today. Coding Level of Care Code Acute Code for Chg Fwd Diagnoses S/P cervical spinal fusion Z98.1
[2022-09-06] MEDS: atenolol 50 mg Tablet 25 MG PO (08:34)
[2022-09-06] MEDS: docusate sodium 100 mg Capsule PO (08:35)
[2022-09-06] MEDS: pregabalin 150 mg Capsule PO (08:35)
[2022-09-06] MEDS: citalopram 20 mg Tablet PO (08:35)
[2022-09-06] MEDS: oxyCODONE 10 mg ER (12 HR) Tablet PO (08:36)
--- NOTE | 2022-09-06 09:13 | PC.NURSE ---
HEMOVAC REMOVED AND DRESSING CHANGED. PT TOLERATED WELL.
--- NOTE | 2022-09-06 10:55 | PC.CHAP ---
Pastoral Care Encounter/Spiritual Assessment Type of Contact [] Declined extractor loader and unloader visit [] Patient/Family/Request visit [] Outpatient visit [] Follow-up visit [] Physician referral [] Code/Alert [x] Routine visit [] Staff referral [] Actively dying [] Patient sleeping [x] Family support [] [] Out of room [] Palliative care [] [] Receiving care in room [] Pre-surgical visit [] Trauma [] Long length of stay [] ICU visit [] Other: Relational/Emotional Strength [x] Patient feels connected with others/family/visitors/staff [] Distress [] Loneliness/isolation [] Abandonment Spirituality of Patient [x] Person of Lisa [] Attends Jew of their Lisa [x] Believes in Prayer [] Reads Bible or Adventism materials [] There are Spiritual issues to be addressed Manager Of Finance Interventions [x] Prayer [] Active listening [] Non-anxious presence [x] Spiritual/emotional support [] Crisis/trauma care [] Spiritual counseling [] Bereavement support [] Provided bereavement packet [] Provided Bible/devotional materials [] Provided toy/stuffed animal, coloring book to patient or family member [] Provided Communion [] Anointing/[place] [] Salvation [x] Completed spiritual assessment [] Other: Impact on Illness or Injury [] Angry [] Fearful [] Anxious [] Often cries [] Exhaustion [] Unable to work [] Unable to attend druze [] Unable to walk/stand [] Unable to read [] Unable to drive [] Unable to eat/drink [] Unable to sleep [] Unable to be with family [] Patient intubated [] Other: Summary Time spent with patient 10 min
== END 2022-09-06 11:22 | disposition home or self-care (01) | DRG 460 ==
LOC: MEDSURG 16:24
PROVIDERS: Admitting Provider Orthopaedic Surgery; Family Provider Anesthesiology Pain Medicine; PCP Family Medicine; Visit Provider Orthopaedic Surgery
PROC: 0RG Upper Joints, Fusion (ICD-10-PCS; principal; 2022-09-05 07:00)
PROC: 0RG Upper Joints, Fusion (ICD-10-PCS; CPT 63001; 2022-09-05 07:00)
DX: M47.22 Other spondylosis with radiculopathy, cervical region (principal); I10 Essential (primary) hypertension; Z87.891 Personal history of nicotine dependence
CPT/HCPCS: 51702; 72020; 76000; 97110; 97161; C1713; J0330; J0690; J1100; J1170; J1644; J1885; J2250; J2405; J2704; J2710; J3010; J3370; J3490; J7030; J7120; L0172; P9045

== ENCOUNTER → 2022-09-13 13:12 | Outpatient (BNVA) | payer BC, MEDICAID, SELFPAY | PROVIDERS: Family Provider Anesthesiology Pain Medicine; PCP Family Medicine; Visit Provider Physician Assistant | DX: Z98.1 Arthrodesis status (principal) | CPT/HCPCS: 72040 ==

== ENCOUNTER → 2022-09-20 14:27 | Outpatient (BNVA) | payer BC, MEDICAID, SELFPAY | PROVIDERS: Family Provider Anesthesiology Pain Medicine; PCP Family Medicine; Visit Provider Orthopaedic Surgery | DX: Z47.89 Encounter for other orthopedic aftercare (principal); Z98.1 Arthrodesis status | CPT/HCPCS: 72040 ==

== ENCOUNTER 2022-10-07 09:12 | Emergency (ER) | payer BC, MEDICAID, SELFPAY ==
[2022-10-07 09:22] VITALS: BP 165/103; PULSE 54; RESP 14; TEMP 36.7; O2SAT 100
[2022-10-07 09:50] LABS: Basophils % 0.4 %; Eosinophils # 0.2 10^3/uL (0.0-0.8); Eosinophils % 2.7 %; Hematocrit 40.7 % (37.0-47.0); Hemoglobin 13.4 g/dL (11.5-15.3); Lymphocytes # 1.5 10^3/uL (0.8-4.8); Lymphocytes % 22.2 %; Mean Corpuscular HGB Conc 32.9 g/dL (30.0-36.0); Mean Corpuscular Hemoglobin 30.6 pg (28.0-34.0); Mean Corpuscular Volume 92.9 fl (81-99); Mean Platelet Volume 11.9 fL (7.4-10.4); Monocytes # 0.4 10^3/uL (0.2-0.9); Neutrophils # 4.75 10^3/uL (1.8-7.7); Neutrophils % 68.4 %; Nucleated Red Blood Cells % 0 %; Platelet Count 141 10^3/cmm (130-400); Red Blood Count 4.38 10^6/uL (4.1-5.3); Red Cell Distribution Width 12.2 % (12.1-15.1)
[2022-10-07 10:05] LABS: Alanine Aminotransferase 7 U/L (0-33); Albumin Level 3.9 g/dL (3.5-5.2); Alkaline Phosphatase 67 U/L (35-105); Aspartate Amino Transferase 13 U/L (0-32); Blood Urea Nitrogen 6 mg/dL (6-20); Carbon Dioxide 27 mmol/L (22-29); Chloride 107 mmol/L (98-107); Globulin 3.1 g/dL (1.3-4.6); Glomerular Filtration Rate 88.6 mL/min (90-130); Glucose 93 mg/dL (65-115); Osmolality Calculated 293 mOsm/kg (285-295); Sodium 143 mmol/L (136-145); Total Bilirubin 0.2 mg/dL (0.15-1.2)
--- NOTE | 2022-10-07 10:29 | ED_ITS ---
HPI - Back Pain/Injury General: Chief Complaint: Back Pain/Injury Stated Complaint: low back pain/uncontrollable bladder Time Seen by Provider: 10/07/22 09:18 Source: patient Mode of arrival: ambulatory History of Present Illness: 52-year-old female presents to the emergency room with back pain. She also has urinary incontinence urinary incontinence has been chronic she will lose large amounts of urine she recently had a cervical fusion was fairly extensive done. She is having worsening low back pain now she had been evaluated for chronic low back pain in the past by an MRI had some mild disc disease with some nerve root impingement. She has not had any fecal incontinence or urinary retention. No recent trauma or falls. MD elicited complaint: back pain Pertinent past history: prior back pain Onset (ago): hour(s) Timing: constant Severity: moderate Similar Symptoms Previously: Yes Quality: sharp Location: lumbar spine Radiation: none, left upper leg and left leg below the knee Exacerbating factors: sitting upright and walking Relieving factors: none Associated symptoms: Deny abdominal pain, arthralgias, chills, change in bowel habits, difficulty walking, dysuria, fatigue, fecal incontinence, fever(s), hematuria, myalgias, nausea, numbness, syncope, tingling/numbness/burning, urinary frequency, urinary urgency, vomiting or weakness Review of Systems Const: Denies: fever(s), chills or fatigue ENMT: Denies: throat pain, ear or mastoid pain, nasal discharge or nasal maricruz estion Card: Denies: syncope Resp: Denies: dyspnea, productive cough or non-productive cough GI: Denies: abdominal pain, nausea, vomiting, fecal incontinence or change in bowel habits : Denies: flank pain, dysuria, urinary frequency, urinary urgency or hematuria Skin/Breast: Denies: rash or pruritus Neuro: Denies: difficulty walking PFSH ED PFSH: Medical History Aftercare following surgery of the genitourinary system Hypertension Insomnia Neuropathy Psychiatric care Surgical History H/O: hysterectomy History of radical neck surgery S/P cervical spinal fusion Family History Father Diabetes Mother Hyperlipidemia Family/Other Breast cancer maternal aunt, great aunt age onset unknown Grandmother Diabetes paternal Denies family history of Colon cancer Ovarian cancer Clotting disorder Heart disease Anesthesia complication Bleeding disorder Family history of premature coronary artery disease Hypertension Uterine cancer Thyroid condition Stroke Social History Smoking and tobacco status: former smoker Quit status (tobacco): has quit using tobacco Former quit date comment: 05/08/2021 Second hand smoke exposure: No Alcohol intake: former 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 date alcohol: 2019 Physical Exam Const: GENERAL APPEARANCE: cooperative and comfortable ORIENTATION/CONSCIOUSNESS: Yes awake, Yes oriented to person, Yes oriented to place and Yes oriented to time HENMT: COMMON NORMALS: normocephalic, atraumatic and hearing grossly normal bilaterally HEAD & SCALP: normocephalic and atraumatic Resp: COMMON NORMALS: normal respiratory effort, No retractions, No use of accessory muscles and clear to auscultation bilaterally AUSCULTATION: clear to auscultation bilaterally Cardio: COMMON NORMALS: regular rate, regular rhythm and No murmurs present (Cardio) RATE: regular rate RHYTHM: regular rhythm GI: COMMON NORMALS: Soft to palpation and No hepatosplenomegaly present AUSCULTATION: Yes normoactive bowel sounds PALPATION: Yes Soft to palpation, No Tenderness to palpation present (GI), No Guarding due to palpation present (GI) and Yes No hepatosplenomegaly present Extremity: COMMON NORMALS: normal to inspection, capillary refill normal, no clubbing, cyanosis or edema, no calf tenderness and no pedal edema Neuro: SENSORIUM/ORIENTATION: Yes oriented to person, Yes oriented to place and Yes oriented to time DEEP TENDON REFLEXES: Right patellar reflex intensity grade: 1+ and Left patellar reflex intensity grade: 1+ Skin: COMMON NORMALS: no rashes or lesions noted GENERAL SKIN EXAM: no rashes or lesions noted Course 2 Vital Signs: Vital signs: Vital Signs Temperature 98.1 F 10/07/22 09:22 Pulse Rate 54 L 10/07/22 09:22 Respiratory Rate 14 10/07/22 09:22 Blood Pressure 165/103 10/07/22 09:22 Pulse Oximetry 100 10/07/22 09:22 Oxygen Delivery Me thod 10/07/22 09:22 MDM - Back Pain/Injury Medical Decision Making Disorder did show 70 mils. Reviewed previous MRI. No sign of cauda equina at this time. She does have a lot of chronic back low back issues which will likely need to be addressed discharge patient home steroid taper have her follow-up with Dr. Cortez's office next week. Labs 10/07/22 09:33 10/07/22 09:33 Laboratory Results WBC 7.0 10^3/uL (4.0-10.0) 10/07/22 09:33 RBC 4.38 10^6/uL (4.1-5.3) 10/07/22 09:33 Hgb 13.4 g/dL (11.5-15.3) 10/07/22 09:33 Hct 40.7 % (37.0-47.0) 10/07/22 09:33 MCV 92.9 fl (81-99) 10/07/22 09:33 MCH 30.6 pg (28.0-34.0) 10/07/22 09:33 MCHC 32.9 g/dL (30.0-36.0) 10/07/22 09:33 RDW 12.2 % (12.1-15.1) 10/07/22 09:33 Plt Count 141 10^3/cmm (130-400) 10/07/22 09:33 MPV 11.9 fL (7.4-10.4) H 10/07/22 09:33 Neut % (Auto) 68.4 % 10/07/22 09:33 Lymph % (Auto) 22.2 % 10/07/22 09:33 [place] % (Auto) 6.0 % 10/07/22 09:33 Eos % (Auto) 2.7 % 10/07/22 09:33 Baso % (Auto) 0.4 % 10/07/22 09:33 Neut # (Auto) 4.75 10^3/uL (1.8-7.7) 10/07/22 09:33 Lymph # (Auto) 1.5 10^3/uL (0.8-4.8) 10/07/22 09:33 [place] # (Auto) 0.4 10^3/uL (0.2-0.9) 10/07/22 09:33 Eos # (Auto) 0.2 10^3/uL (0.0-0.8) 10/07/22 09:33 Baso # (Auto) 0.0 10^3/uL (0.0-0.1) 10/07/22 09:33 Nucleated RBC % (auto) 0 % 10/07/22 09:33 Nucleated RBCs # 0.0 /100WBC 10/07/22 09:33 Sodium 143 mmol/L (136-145) 10/07/22 09:33 Potassium 4.0 mmol/L (3.5-5.1) 10/07/22 09:33 Chloride 107 mmol/L (98-107) 10/07/22 09:33 Carbon Dioxide 27 mmol/L (22-29) 10/07/22 09:33 Anion Gap 13.0 (5-19) 10/07/22 09:33 BUN 6 mg/dL (6-20) 10/07/22 09:33 Creatinine 0.7 mg/dL (0.5-0.9) 10/07/22 09:33 GFR Calculation 88.6 mL/min (90-130) L 10/07/22 09:33 Glucose 93 mg/dL (65-115) 10/07/22 09:33 Calculated Osmolality 293 mOsm/kg (285-295) 10/07/22 09:33 Calcium 9.0 mg/dL (8.5-10.5) 10/07/22 09:33 Total Bilirubin 0.2 mg/dL (0.15-1.2) 10/07/22 09:33 AST 13 U/L (0-32) 10/07/22 09:33 ALT 7 U/L (0-33) 10/07/22 09:33 Alkaline Phosphatase 67 U/L (35-105) 10/07/22 09:33 Total Protein 7.0 g/dL (6.6-8.7) 10/07/22 09:33 Albumin 3.9 g/dL (3.5-5.2) 10/07/22 09:33 Globulin 3.1 g/dL (1.3-4.6) 10/07/22 09:33 Urine Color Straw (Yellow) 10/07/22 10:04 Urine Appearance Clear (CLEAR) 10/07/22 10:04 Urine pH 5 (5-7) 10/07/22 10:04 Ur Specific [place] 1.005 (1.005-1.030) 10/07/22 10:04 Urine Protein Neg (Negative) 10/07/22 10:04 Urine Glucose (UA) Norm (Normal) 10/07/22 10:04 Urine Ketones Negative (Negative) 10/07/22 10:04 Urine Blood Neg (Negative) 10/07/22 10:04 Urine Nitrate Negative (Negative) 10/07/22 10:04 Urine Bilirubin Neg (Negative) 10/07/22 10:04 Urine Urobilinogen Norm mg/dL (Negative) 10/07/22 10:04 Ur Leukocyte Esterase Negative (Negative) 10/07/22 10:04 Discharge Plan Discharge Patient Disposition: Home Clinical Impression: Lumbar radiculopathy Condition: Stable Prescriptions: New prednisone 20 mg tablet 20 mg PO TID Qty: 15 0RF Rx Instructions: 1 p.o. 3 times daily x3 days, 1 p.o. twice daily x2 days, 1 p.o. daily x2 days No Action diphenhydramine HCl [Benadryl Allergy] 25 mg tablet 25 mg PO .hs PRN (Reason: allergies) (DME) MARJUANIA 0 .Route .MEDSUPPLY (DME) Cervical collar See Rx Instructions .Route .MEDSUPPLY Qty: 1 0RF Rx Instructions: As directed oxycodone-acetaminophen [Percocet] 5-325 mg tablet 1 tab PO BID PRN (Reason: Pain) citalopram 20 mg tablet See Rx Instructions .ROUTE .COMPLEX Qty: 30 8RF Dose Instruction: TAKE 1 TABLET BY MOUTH EVERY DAY Rx Instructions: TAKE 1 TABLET BY MOUTH EVERY DAY pregabalin 150 mg capsule 150 mg PO BID Qty: 60 0RF (DME) Bone Growth Stimulator [id number] See Rx Instructions .Route .MEDSUPPLY Qty: 1 0RF Rx Instructions: As directed atenolol 25 mg tablet 25 mg PO DAILY Qty: 90 3RF tizanidine 4 mg tablet 4 mg PO TID PRN (Reason: Muscle Spasm) 30 Days Qty: 90 1RF oxycodone-acetaminophen 10-325 mg tablet 1 tab PO Q4H PRN (Reason: pain) 7 Days Qty: 40 0RF acetaminophen 325 mg capsule 325 mg PO Q4H PRN (Reason: fever or postoperative pain) Qty: 60 0RF ibuprofen 800 mg tablet 800 mg PO TID PRN (Reason: Pain) Hold Instructions: Resume on 10/04/22. estradiol 1 mg tablet 1 mg PO DAILY trazodone 150 mg tablet 150 mg PO QPM Discharge Orders: Discharge ED (Routine); Ordered 10/07/22 Ordered By: Daljit Beebe Referrals: Abel Turner MD [Primary Care Provider] - Discharge Diet: Usual diet Discharge Activity: Limit activity as instructed Patient Instructions: Opioid Safety, Pain Management Activity Restrictions/Additional Instructions: You are seen with complaints of low back pain. Your previous MRI was reviewed. Bladder scan does not show any urinary retention. Recommend that you follow-up with Dr. Cortez as previously scheduled for further evaluation of your low back pain. Use previously prescribed pain medications pregabalin and tizanidine also put you on a short course of steroids. Coding Level of Care Code ED Frit Maker for Viri Ring
[2022-10-07 10:31] LABS: Add Urine Microscopic? NO; Charge for UA Resulting for Rev
[2022-10-07 10:45] LABS: Bilirubin Urine Neg (Negative); Blood Urine Neg (Negative); Glucose Urine UA Norm (Normal); Ketones Urine Negative (Negative); Leukocyte Esterase Urine Negative (Negative); Nitrate Urine Negative (Negative); Protein Urine Neg (Negative); Specific Gravity, Urine 1.005 (1.005-1.030); Urine Appearance Clear (CLEAR); Urine Color Straw (Yellow); Urobilinogen Urine Norm (Negative); pH Urine 5 (5-7)
== END 2022-10-07 11:19 | disposition home or self-care (01) ==
PROVIDERS: Emergency Provider Family Medicine; PCP Family Medicine
DX: M54.16 Radiculopathy, lumbar region (principal); Z87.891 Personal history of nicotine dependence; I10 Essential (primary) hypertension
CPT/HCPCS: 36415; 51798; 80053; 81000; 81003; 85025; 99283

== ENCOUNTER → 2022-10-11 08:42 | Outpatient (BNVA) | payer BC, MEDICAID, SELFPAY | PROVIDERS: PCP Family Medicine; Visit Provider Orthopaedic Surgery | DX: M54.16 Radiculopathy, lumbar region (principal); Z98.1 Arthrodesis status; M47.816 Spondylosis without myelopathy or radiculopathy, lumbar region | CPT/HCPCS: 72040; 72110 ==

== ENCOUNTER 2022-11-21 07:22 | Outpatient (CLI) | payer BC, MEDICAID, SELFPAY ==
--- NOTE | 2022-11-21 07:30 | MM_ITS ---
WS: [id number] BILATERAL SCREENING DIGITAL TOMOSYNTHESIS MAMMOGRAM WITH CAD HISTORY: Screening mammogram COMPARISON: 04/02/2021, 11/20/2018 and 09/25/2015 Bilateral CC and MLO views with tomosynthesis and synthetic mammography submitted. Computer aided det ection analyzed. Breast composition: There are scattered areas of fibroglandular density. No suspicious masses, microc alcifications or architectural distortion. Long-term stability 5 mm mass upper quadrant LEFT breast. MM/[place] [id number] IMPRESSION: BI-RADS: 2-Benign FOLLOW UP: 1 Year Follow-up
== END 2022-11-21 07:23 | disposition home or self-care (01) ==
LOC: RAD 07:24
PROVIDERS: PCP Family Medicine; Visit Provider Family Medicine
DX: Z12.39 Encounter for other screening for malignant neoplasm of breast (principal)
CPT/HCPCS: 77063; 77067

== ENCOUNTER → 2022-11-22 07:54 | Outpatient (BNVA) | payer BC, MEDICAID, SELFPAY | PROVIDERS: PCP Family Medicine; Visit Provider Orthopaedic Surgery | DX: Z47.89 Encounter for other orthopedic aftercare (principal); Z98.1 Arthrodesis status | CPT/HCPCS: 72040 ==

== ENCOUNTER → 2023-02-21 09:17 | Outpatient (BNVA) | payer BC, MEDICAID, SELFPAY | PROVIDERS: PCP Family Medicine; Visit Provider Orthopaedic Surgery | DX: Z98.1 Arthrodesis status (principal); M48.062 Spinal stenosis, lumbar region with neurogenic claudication; Z01.818 Encounter for other preprocedural examination; Z79.899 Other long term (current) drug therapy | CPT/HCPCS: 36415; 80053; 81001; 85025 ==

== ENCOUNTER 2023-03-03 10:46 | Outpatient (CLI) | payer BC, MEDICAID, SELFPAY ==
--- NOTE | 2023-03-03 11:00 | MR_ITS ---
WS: [id number] MRI LUMBAR SPINE NONCONTRAST HISTORY: M48.062 - Spinal stenosis, lumbar region with neurogenic ... COMPARISON: 05/17/2022 TECHNIQUE: Sagittal and axial multisequence imaging is submitted. Prior anterior cervical disc fusion from C3-C6. Normal lumbar alignment with no compression fractures or marrow edema. Mild disc base narrowing and desiccation at L2-3. Endplate degenerative changes most significant at L 2-3 similar to the prior study. Conus terminates normally at L1-2 disc level. L1-L2: Normal. L2-L3: Very mild annular disc bulging of with ligamentum flavum and facet arthritis. Slight narrowing of the subarticular recesses bilaterally. Minimal impingement upon the traversing L3 nerve roots. Ad ditional RIGHT foraminal disc protrusion is causing mild contact on the exiting RIGHT L2 nerve root. Similar to the prior study. Mild RIGHT foraminal stenosis. L3-L4: Mild annular disc bulging with mild ligamentum flavum and facet arthritis. LEFT foraminal disc protrusion with annular fissure. Slight contact on the exiting LEFT L3 nerve root. There is mild dis c encroachment upon the traversing LEFT L4 nerve root. Similar to the prior study. No RIGHT foraminal stenosis. L4-L5: Mild annular disc bulging. RIGHT foraminal disc protrusion with annular fissure. Very similar to the prior study. There is contact on the exiting RIGHT L4 nerve root. Mild disc encroachment upon the subarticular recesses and the traversing L5 nerve roots. No stenosis centrally. Mild central and bilateral foraminal stenosis. L5-S1: Mild bilateral facet arthritis. No stenosis. Paravertebral soft tissues are normal. IMPRESSION: 1. L2-3: Mild bilateral subarticular recess stenosis with impingement upon the traversing L3 nerve ro ots. 2. L2-3: Shallow RIGHT foraminal disc protrusion contacting the exiting RIGHT L2 nerve root. No yeboah e. Mild RIGHT foraminal stenosis. 3. L3-4: LEFT foraminal disc protrusion with annular fissure contacting the exiting L3 nerve root. Mi ld disc contact on the traversing LEFT L4 nerve root. 4. L4-5: RIGHT foraminal disc protrusion with annular fissure contacting the exiting RIGHT L4 nerve r oot. Mild disc encroachment into the subarticular recesses and contacting the traversing L5 nerve glendy ts. Mild bilateral foraminal stenosis. 5. No high-grade central stenosis. No significant interval change since the prior study.
== END 2023-03-03 10:47 | disposition home or self-care (01) ==
PROVIDERS: PCP Family Medicine; Visit Provider Orthopaedic Surgery
DX: M48.062 Spinal stenosis, lumbar region with neurogenic claudication (principal); M51.26 Other intervertebral disc displacement, lumbar region
CPT/HCPCS: 72148

== ENCOUNTER 2023-03-10 09:37 | Day surgery (SDC) | payer BC, MEDICAID, SELFPAY ==
[2023-03-09 13:24] VITALS: BMI 32.5
[2023-03-10] VITALS (9 sets, daily range): BP systolic 113–137; BP diastolic 64–83; PULSE 57–95; RESP 16; TEMP 36.1–36.7; O2SAT 94–100
--- NOTE | 2023-03-10 | XR_ITS ---
WS: [id number] INTRAOPERATIVE TECHNIQUE: 4 Spot fluoroscopic images for intraoperative purposes. FLUOROSCOPY TIME: 40.6 seconds CLINICAL INFORMATION: SURGICAL PROCEDURE COMPARISON: None. FINDINGS: Localization marker overlying the L4-5 and L3-4 interspaces. IMPRESSION: Images obtained for intraoperative purposes.
--- NOTE | 2023-03-10 10:05 | ANES.PREANE2 ---
Pre-Anesthetic Assessment Height/Weight: Height 1.63 m Weight 86.183 kg Preop Diagnosis: Lumbar stenosis Operation Date: 03/10/23 11:20 Proposed Procedures p Lumbar decompresscion L3/4 L4/5(Not Applicable) - Sergei Cortez DO Familial anesthetic complications: None Was Beta Genet taken within 24 hours: N/A Was Clonidine taken within 24 hours: N/A Last intake: > 8hrs Social No alcohol and No tobacco Exam alert, oriented x 3, clear to auscultation bilaterally and regular rate & rhythm Airway Mallampati: Class II Dentition: full CV/HEM Hypertension Anesthetic Plan ASA status: 1 Anesthesia: General Risk of > 500 ml blood loss (7ml/kg in children): No Medications/Allergies Home Medications Medication Instructions Recorded Confirmed Last Taken Type diphenhydramine HCl 25 mg tablet 25 mg PO .hs PRN allergies 11/09/20 03/09/23 03/09/23 20:00 History (Benadryl Allergy) acetaminophen 325 mg capsule 325 mg PO Q4H PRN fever or 04/15/21 03/09/23 03/09/23 Rx postoperative pain #60 caps ibuprofen 800 mg tablet 800 mg PO TID PRN Pain 07/14/22 03/09/23 08/28/22 History trazodone 150 mg tablet 150 mg PO QPM 07/14/22 03/09/23 03/09/23 History MARJUANIA 08/15/22 02/21/23 Unknown History Bone Growth Stimulator [id number] #1 ea 09/05/22 02/21/23 Unknown Rx atenolol 25 mg tablet 25 mg PO DAILY #90 tabs 09/13/22 03/09/23 03/10/23 07:00 Rx pregabalin 150 mg capsule 150 mg PO BID #60 caps 11/01/22 03/09/23 03/09/23 Rx estradiol 1 mg tablet 1 mg PO DAILY #30 tabs 11/16/22 03/09/23 03/09/23 Rx oxycodone-acetaminophen 5 mg-325 1 tab PO BID PRN Pain 7 days #14 11/22/22 03/09/23 03/09/23 Rx mg tablet (Percocet) tabs tizanidine 4 mg tablet 4 mg PO TID PRN Muscle Spasm 1 11/23/22 03/09/23 03/09/23 Rx month #90 tabs citalopram 20 mg tablet 20 mg PO DAILY 03/09/23 03/09/23 03/09/23 History Allergies Allergy/AdvReac Type Severity Reaction Status Date / Time No Known Allergies Allergy Verified 02/23/23 14:47 [facility] Anesthesia Medical History (Updated 02/24/23 @ 10:22 by Valentine Jaime) Aftercare following surgery of the genitourinary system Hypertension Insomnia Neuropathy Surgical History H/O: hysterectomy 2020 - - with BLO History of radical neck surgery S/P cervical spinal fusion Family History Father Diabetes Mother Hyperlipidemia Family/Other Breast cancer maternal aunt, great aunt age onset unknown Grandmother Diabetes paternal Denies family history of Colon cancer Ovarian cancer Clotting disorder Heart disease Anesthesia complication Bleeding disorder Family history of premature coronary artery disease Hypertension Uterine cancer Thyroid condition Stroke Social History Smoking and tobacco status: former smoker Quit status (tobacco): has quit using tobacco Former quit date comment: 05/08/2021 Second hand smoke exposure: No Alcohol intake: former 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 date alcohol: 2019 Substance/Drug Use: current Substance/Drug use frequency: daily Other substance/drug use details: has a medical card Data Anesthesia Cardiac Studies: No Data to Display
[2023-03-10] MEDS: sodium chloride 0.9% 1,000 ML 30 ML IV (10:37)
[2023-03-10] MEDS: fentaNYL 50 mcg/mL INJ 2mL IVP (10:38)
[2023-03-10] MEDS: scopolamine 1.5 Patch 1 PATCH TRANSDERMA (10:49)
--- NOTE | 2023-03-10 11:48 | W.PM.OPSUD ---
Surgery/Procedure H&P Update DATE OF PROCEDURE: March 10, 2023 DATE H&P PERFORMED: 02/21/23 H&P UPDATE INFORMATION: I have reviewed H&P completed within last 30 days, I have examined patient prior to procedure and No changes to prior documentation PREOP DIAGNOSIS: Lumbar stenosis PLANNED PROCEDURE: Operation Date: 03/10/23 11:20 Proposed Procedures p Lumbar decompresscion L3/4 L4/5(Not Applicable) - Sergei Cortez DO
[2023-03-10] MEDS: ceFAZolin 2,000 MG in sodium chloride 0.9% (plus) 50 ML 100 MG IV (11:59)
[2023-03-10] MEDS: lidocaine-epi 1% 20 mL INJ INJECTION (12:23)
--- NOTE | 2023-03-10 13:28 | PM.OP ---
Operative Report Date of procedure: March 10, 2023 Pre-op diagnosis: Lumbar stenosis with neurogenic claudication Post-op diagnosis: same Procedure done: 1. L3-4 laminectomy with partial facetectomy 2. L4-5 laminectomy with partial facetectomy Surgeon: Sergei Cortez DO Premium Representative: None Estimated blood loss (mL): 25 Procedure: 1. L3-4 laminectomy with partial facetectomy 2. L4-5 laminectomy with partial facetectomy Patient is brought to the operative suite. After undergoing anesthesia they are placed in the prone position. All areas of impingement are well padded. Patient is then prepped and draped in the normal sterile fashion. A skin incision is made over the L3/4 level. This is confirmed under c-arm guidance. A series of dilators are passed and the tubular retractor is docked on the L3 lamina. A bovie is used to clear the soft tissue off the lamina and the L 3/4 facet joint. A high speed soila is then used to perform the laminectomy and take down the medial aspect of the L 3/4 facet joint. A kerrison rongeure was then used to take down the remaining lamina and smooth the edge of the laminectomy up to the point where the ligamentum flavum attaches. Attention was then brought to the medial aspect of the facet joint. The remaining medial aspect of the superior and inferior aspect of the facet joint were taken down with the kerrison from the pedicle of L3 to L 4. The facet joint had significant hypertrophy. Attention was then brought to the Ligamentum Flavum. The ligament was taken down from the lamina of L3 to L4 and out medially to the remaining facet joint. The ligament was thick. The dura was then exposed. The dura was in good repair. The L3 nerve was then traced with a curette out the L3/4 foramen and found to be adequately decompressed. The L4 nerve was traced with a curette around the L4 pedicle. The lateral recess was opened with a kerrison helping to further decompress the L4 nerve. Wound is then irrigated copiously with saline and surgiflo is used to stop any bleeding. The tubular retractor is removed and the A skin incision is made over the L4/5 level. This is confirmed under c-arm guidance. A series of dilators are passed and the tubular retractor is docked on the L4 lamina. A bovie is used to clear the soft tissue off the lamina and the L 4/5 facet joint. A high speed soila is then used to perform the laminectomy and take down the medial aspect of the L 4/5 facet joint. A kerrison rongeure was then used to take down the remaining lamina and smooth the edge of the laminectomy up to the point where the ligamentum flavum attaches. Attention was then brought to the medial aspect of the facet joint. The remaining medial aspect of the superior and inferior aspect of the facet joint were taken down with the kerrison from the pedicle of L4 to L 5. The facet joint had significant hypertrophy. Attention was then brought to the Ligamentum Flavum. The ligament was taken down from the lamina of L4 to L5 and out medially to the remaining facet joint. The ligament was thick. The dura was then exposed. The dura was in good repair. The L4 nerve was then traced with a curette out the L4/5 foramen and found to be adequately decompressed. The L5 nerve was traced with a curette around the L5 pedicle. The lateral recess was opened with a kerrison helping to further decompress the L5 nerve. Wound is then irrigated copiously with saline and surgiflo is used to stop any bleeding. The tubular retractor is removed and the wound is closed with vicryl and monocryl suture. Glue is then used to protect the wound. A sterile dressing is then placed. Patient was then placed in the supine position and transferred to the PACU in stable condition.
--- NOTE | 2023-03-10 14:17 | ANE.PACU2 ---
Inpatient post-anesthesia follow up: Airway intact: Yes Vital signs: Temperature 97.8 F Pulse Rate 82 Respiratory Rate 16 Blood Pressure 117/83 Pulse Oximetry 94 Oxygen Delivery Me thod Room Air Oxygen Flow Rate 6 Fraction of Inspir ed Oxygen Hydration adequate: Yes Nausea and vomiting: No Pain level: 1 Mental status: Baseline
[2023-03-10] MEDS: oxyCODONE-APAP 10-325 mg Tablet 1 TAB PO (14:38)
== END 2023-03-10 15:20 | disposition home or self-care (01) ==
PROVIDERS: PCP Family Medicine; Visit Provider Orthopaedic Surgery
PROC: (CPT 63005; principal; 2023-03-10 11:10)
DX: M48.062 Spinal stenosis, lumbar region with neurogenic claudication (principal); I10 Essential (primary) hypertension; Z87.891 Personal history of nicotine dependence
CPT/HCPCS: 63047; 63048; 72020; 76000; J0690; J1100; J1170; J1885; J2250; J2405; J2704; J2710; J3010; J3490; J7030

== ENCOUNTER → 2023-08-29 16:00 | Outpatient (BNVA) | payer BC, MEDICAID, SELFPAY | PROVIDERS: PCP Family Medicine; Visit Provider Orthopaedic Surgery | DX: M48.062 Spinal stenosis, lumbar region with neurogenic claudication (principal) | CPT/HCPCS: 72100 ==

== ENCOUNTER 2023-09-12 16:34 | Outpatient (CLI) | payer BC, MEDICAID, SELFPAY ==
--- NOTE | 2023-09-12 16:45 | MR_ITS ---
WS: [id number] MRI LUMBAR SPINE NONCONTRAST HISTORY: back pain, prior laminectomy 2022. Low back pain to feet. LEFT foot swelling. COMPARISON: 03/03/2023 TECHNIQUE: Sagittal and axial multisequence imaging is submitted. Extensive fusion hardware in the cervical spine. Anterior and posterior tubercle fusion hardware. Cor pectomy at C4. L2 retrolisthesis by 2 mm. Disc bases are very mildly narrowed. Small amount of reactive edema within the inferior adjacent endplates of L2 and L3. Moderate disc desiccation at L2-3. No fracture. Conus terminates normally at L1-2 disc level. L1-L2: No high-grade stenosis. There is very mild disc bulging resulting in mild bilateral foraminal narrowing. L2-L3: Diffuse annular disc bulging with ligamentum flavum and mild facet arthritis. There is mild fa cet joint arthropathy with mild narrowing of the subarticular recesses. Small RIGHT foraminal disc pr otrusion. Mild subarticular recess and foraminal stenosis. L3-L4: Mild annular disc bulging with moderate facet joint arthropathy. Small amount of fluid in the facet joints. Very shallow bilateral foraminal disc protrusions. Interval LEFT hemilaminectomy defect . There is mild central with bilateral subarticular recess and foraminal stenosis. Foraminal stenosis has very minimally progressed since the prior study. L4-L5: Mild annular disc bulging. LEFT hemilaminectomy defect. Moderate facet joint arthritis. Mild c entral and subarticular recess stenosis. Moderate bilateral foraminal stenosis. L5-S1: Facet arthritis. No high-grade stenosis. Very mild bilateral foraminal stenosis. Paravertebral soft tissues are normal. IMPRESSION: 1. Since the prior MRI of 03/03/2023 LEFT hemilaminectomy defects at L3-4 and L4-5. 2. There is no high-grade central stenosis. 3. L4-5: Moderate bilateral foraminal stenosis does appear to mildly progressed since the prior stud y. Mild central and subarticular recess stenosis. 4. L1-2 and L5-S1: Mild bilateral foraminal stenosis. 5. L2-3: Mild subarticular recess and foraminal stenosis. 6. L3-4: Mild central and bilateral subarticular recess and foraminal stenosis. Stenosis at L3-4 has slightly progressed since the prior studies. Increasing disc and osteophyte encroachment upon the L3 nerve roots.
== END 2023-09-12 16:35 | disposition home or self-care (01) ==
PROVIDERS: PCP Family Medicine; Visit Provider Orthopaedic Surgery
DX: Z98.890 Other specified postprocedural states (principal); M48.061 Spinal stenosis, lumbar region without neurogenic claudication; M79.89 Other specified soft tissue disorders; M25.78 Osteophyte, vertebrae; M79.672 Pain in left foot; M79.671 Pain in right foot
CPT/HCPCS: 72148

== ENCOUNTER → 2023-09-19 09:55 | Outpatient (BNVA) | payer BC, MEDICAID, SELFPAY | PROVIDERS: PCP Family Medicine; Visit Provider Orthopaedic Surgery | DX: M48.062 Spinal stenosis, lumbar region with neurogenic claudication (principal); Z79.899 Other long term (current) drug therapy | CPT/HCPCS: 36415; 80053; 81003; 85025 ==

== ENCOUNTER → 2023-09-28 10:19 | Outpatient (BNVA) | payer BC, MEDICAID, SELFPAY | PROVIDERS: PCP Family Medicine; Visit Provider Orthopaedic Surgery | DX: Z98.890 Other specified postprocedural states | CPT/HCPCS: 72040; 72100 ==

== ENCOUNTER 2023-10-01 09:12 | Emergency (ER) | payer BC, MEDICAID, SELFPAY ==
[2023-10-01 09:21] VITALS: BP 122/82; PULSE 55; RESP 16; TEMP 36.7; O2SAT 95; BMI 31.7
--- NOTE | 2023-10-01 10:43 | CTR_ITS ---
PROCEDURE INFORMATION: Exam: CT Cervical Spine Without and With Contrast Exam date and time: 10/01/2023 11:13 AM Age: 53 years old Clinical indication: Injury or trauma; Fall; Blunt trauma; Prior surgery; Surgery date: 6+ months; Surgery type: Neck; Additional info: HX neck surgery, fell, broke screws by report, severe pain TECHNIQUE: Imaging protocol: Computed tomography of the cervical spine without and with contrast. Radiation optimization: All CT scans at this facility use at least one of these dose optimization techniques: automated exposure control; mA and/or kV adjustment per patient size (includes targeted exams where dose is matched to clinical indication); or iterative reconstruction. Contrast material: OMNI 350; Contrast volume: 100 ml; Contrast route: INTRAVENOUS (IV); COMPARISON: CT cervical spin wo con* [id number] 08/08/2022 7:09 AM RADIATION DOSE METRICS: Total DLP (mGy-cm): 539.37 FINDINGS: Interval posterior instrumentation from C2 to T2 since previous CT exam of 08/08/2022. There are gaps compatible with screw fractures within the T1 and T2 screws, age undetermined, but apparently new compared to radiographs on 11/22/2022. Remote decompressive laminectomy at C7. Chronic appearing T1 spinous process fracture. Chronic appearing fracture at the tip of the C3 spinous process. Anteriorly, there is a plate anchored by screws in the C3, C5, and C6 vertebral bodies without evidence of hardware failure or loosening. Prior corpectomy at C4 with metallic strut extending from inferior C3 to superior C5. No definite acute cervical spine fracture identified. Please note that assessment of the spinal canal could be more reliably obtained with post myelography CT scan or possibly with CT, depending on the extent of artifact generated by the hardware. Incidental note of developmental incomplete fusion of the posterior arch of C1. Small metallic density noted within the posterior arch on the right. CT/CT cervical spine wo/w [id number] IMPRESSION: 1. Extensive multilevel anterior cervical fusion and prior C4 corpectomy. Extensive multiple level posterior cervicothoracic fusion. There are fractures of the T1 and T2 screws. 2. No definite acute osseous fracture. Chronic appearing fractures involving the tips of the C3 and T1 spinous processes. Please note that artifact from hardware could potentially obscure nondisplaced fracture.
[2023-10-01] MEDS: methylPREDNISolone sod succ 125 mg/2 mL INJ 80 MG IVP (11:01)
[2023-10-01 11:03] VITALS: RESP 17; O2SAT 95
[2023-10-01] MEDS: HYDROmorphone 1 mg/mL INJ 1 mL IVP (11:03)
[2023-10-01] MEDS: ketorolac 30 mg/mL INJ 10 MG IVP (11:04)
--- NOTE | 2023-10-01 11:32 | ED_ITS ---
HPI - Neck Pain/Injury 2 General: Chief Complaint: Neck Pain/Injury Stated Complaint: Neck pain Time Seen by Provider: 10/01/23 10:45 History of Present Illness: 53 year old f fell 09/21/23 after slippin g on her porch. She presents for neck pain. SHe's had a previous fusion. Pt recalls a pop in her neck when she fell. Patient has seen her surgeon Dr Cortez. He has CT cervical w/ and wo /myelogram ordered. Patient is also scheduled for 10/11/23 for L2 to pelvis fusion with L5-S1 cage bilateral open SI joint fusions decompression at L3-4 and L4-5. Dr Cortez did xrays and found she broke the 4 bottom screws T1 and T2 bilaterally. Patient denies any numbness, tingling, weakness. She has a lot of muscle spasm around her lower neck and upper spine. Associated symptoms: Reports headache(s); Denies difficulty walking Review of Systems 2 General: Reports: 10 or more systems reviewed and unremarkable except in HPI and below Neuro: Reports: headache(s); Denies: numbness in extremities, weakness in extremities, sensory changes, lack of coordination or difficulty walking PFSH ED 2 PFSH: Medical History Aftercare following surgery of the genitourinary system Neuropathy Hypertension Insomnia Surgical History H/O: hysterectomy 2020 - - with BLO S/P cervical spinal fusion History of radical neck surgery Family History Father Diabetes Mother Hyperlipidemia Family/Other Breast cancer maternal aunt, great aunt age onset unknown Grandmother Diabetes paternal Denies family history of Colon cancer Ovarian cancer Clotting disorder Heart disease Anesthesia complication Bleeding disorder Family history of premature coronary artery disease Hypertension Uterine cancer Thyroid disease Stroke Social History Smoking and tobacco/nicotine status: former use of tobacco/nicotine Quit status (tobacco/nicotine): has quit using Former quit date comment: 05/08/2021 Second hand smoke exposure: No Alcohol intake: former 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 date alcohol: 2019 Substance/Drug Use: current Substance/Drug use frequency: daily Other substance/drug use details: has a medical card Physical Exam 2 Narrative: EXAM NARRATIVE: Patient has a large scar over her cervical spine posteriorly. She has tenderness and muscle spasm in the low cervical and upper thoracic region bilaterally in the paraspinal region. She does not seem to have any focal midline tenderness. Her range of motion is reduced. Her handgrip and movements are normal. Coordination in her hands are normal. No signs of cellulitis, warmth, redness, swelling. Const: COMMON NORMALS: no limitations, alert and well nourished EXAM LIMITATIONS: no altered mental status HENMT: COMMON NORMALS: normocephalic, atraumatic and external ears normal H EAD & SCALP: normocephalic and atraumatic EXTERNAL EAR: Yes external ears normal MOUTH: no muffled voice Eye: COMMON NORMALS: conjunctivae normal and no scleral icterus C ONJUNCTIVA: Yes conjunctivae normal Neck/C-Spine: GENERAL: Yes normal visual inspection and Yes trachea midline Resp: COMMON NORMALS: normal respiratory effort and No use of accessory muscles Extremity: COMMON NORMALS: normal to inspection Neuro: COMMON NORMALS: moves all extremities, no focal motor deficits and no sensory deficits noted SENSORIUM/ORIENTATION: Yes alert SPEECH: speech normal Psych: COMMON NORMALS: mental status grossly normal, Normal thought process present, cooperative, normal affect and speech normal SPEECH: Yes normal speech THOUGHT PROCESS: Normal thought process present Skin: COMMON NORMALS: no rashes or lesions noted, turgor normal and no jaundice GENERAL SKIN EXAM: no rashes or lesions noted and turgor normal Course 2 Vital Signs: Vital signs: Vital Signs Temperature 98.1 F 10/01/23 09:21 Pulse Rate 55 L 10/01/23 09:21 Respiratory Rate 17 10/01/23 11:03 Blood Pressure 122/82 10/01/23 09:21 Pulse Oximetry 95 10/01/23 11:03 Oxygen Delivery Me thod Room Air 10/01/23 09:21 MDM - Neck Pain/Injury Medical Decision Making 53-year-old female with chronic neck and back pain who suffered a fall approximately 10 days ago. She is scheduled to have a CT scan of her cervical spine. She presented today because her pain has not been controlled by oxycodone 5 mg p.o. twice daily, tizanidine, and Valium, and Lyrica. Will go ahead and do her CT scan today to make sure there is nothing that requires urgent intervention. Otherwise this will be a moderate pain control. She does have significant muscle spasm so I recommended massage, heat, range of motion as well. CT showed: IMPRESSION: 1. Extensive multilevel anterior cervical fusion and prior C4 corpectomy. Extensive multiple level posterior cervicothoracic fusion. There are fractures of the T1 and T2 screws. 2. No definite acute osseous fracture. Chronic appearing fractures involving the tips of the C3 and T1 spinous processes. Please note that artifact from hardware could potentially obscure nondisplaced fracture. No reason for emergent otho/spine consult or admission. D/c with f/u to [facility] this week. Lab Data 10/01/23 11:07 Radiology Impressions Cervical Spine CT 10/01/23 10:43 IMPRESSION: 1. Extensive multilevel anterior cervical fusion and prior C4 corpectomy. Extensive multiple level posterior cervicothoracic fusion. There are fractures of the T1 and T2 screws. 2. No definite acute osseous fracture. Chronic appearing fractures involving the tips of the C3 and T1 spinous processes. Please note that artifact from hardware could potentially obscure nondisplaced fracture. Laboratory Results Sodium 140 mmol/L (136-145) 10/01/23 11:07 Potassium 4.4 mmol/L (3.5-5.1) 10/01/23 11:07 Chloride 104 mmol/L (98-107) 10/01/23 11:07 Carbon Dioxide 27 mmol/L (22-29) 10/01/23 11:07 Anion Gap 13.4 (5-19) 10/01/23 11:07 BUN 11 mg/dL (6-20) 10/01/23 11:07 Creatinine 0.7 mg/dL (0.5-0.9) 10/01/23 11:07 GFR Calculation 88.2 mL/min (90-130) L 10/01/23 11:07 Glucose 83 mg/dL (65-115) 10/01/23 11:07 Calculated Osmolality 289 mOsm/kg (285-295) 10/01/23 11:07 Calcium 8.8 mg/dL (8.5-10.5) 10/01/23 11:07 All radiology interpretation(s) finalized by discharge ED provider radiology interpretation(s): CT cervical w and wo IMPRESSION: 1. Extensive multilevel anterior cervical fusion and prior C4 corpectomy. Extensive multiple level posterior cervicothoracic fusion. There are fractures of the T1 and T2 screws. 2. No definite acute osseous fracture. Chronic appearing fractures involving the tips of the C3 and T1 spinous processes. Please note that artifact from hardware could potentially obscure nondisplaced fracture. Discharge Plan Discharge Condition: Stable Prescriptions: No Action diphenhydramine HCl [Benadryl Allergy] 25 mg tablet 25 mg PO BEDTIME PRN (Reason: allergies) (DME) MARJUANIA 0 .Route .MEDSUPPLY (DME) Bone Growth Stimulator E0748 See Rx Instructions .Route .MEDSUPPLY Qty: 1 0RF Rx Instructions: As directed tizanidine 4 mg tablet 4 mg PO TID PRN (Reason: Muscle Spasm) 30 Days Qty: 90 1RF pregabalin 150 mg capsule 150 mg PO BID Qty: 60 5RF oxycodone-acetaminophen 5-325 mg tablet 1 tab PO Q12H MDD 2 tabs PRN (Reason: pain) citalopram 20 mg tablet 20 mg PO QAM trazodone 150 mg tablet 150 mg PO BEDTIME Tylenol PM Extra Strength 25-500 mg Tablet 2 tab PO BEDTIME atenolol 25 mg tablet 25 mg PO QAM omeprazole 40 mg capsule,delayed release(DR/EC) 40 mg PO QAM estradiol 1 mg tablet 1 mg PO BEDTIME Valium 5 mg tablet 2.5 - 5 mg PO TID PRN (Reason: muscle spasm) ibuprofen 800 mg tablet 800 mg PO Q12H PRN (Reason: Pain) Hold Instructions: Resume on 10/04/22. Referrals: Abel Turner MD [Primary Care Provider] - Coding Level of Care Code ED [employer] for [facility]
[2023-10-01] MEDS: iohexol 350 mg/mL 500 mL Btl (per mL) IV (11:36)
[2023-10-01 12:06] LABS: Chloride 104 mmol/L (98-107); Glucose 83 mg/dL (65-115); Potassium 4.4 mmol/L (3.5-5.1); Sodium 140 mmol/L (136-145)
[2023-10-01 12:23] LABS: Anion Gap 13.4 (5-19); Blood Urea Nitrogen 11 mg/dL (6-20); Calcium 8.8 mg/dL (8.5-10.5); Carbon Dioxide 27 mmol/L (22-29); Creatinine Clr Calc Pharmacy 99.6449; Glomerular Filtration Rate 88.2 mL/min (90-130); Osmolality Calculated 289 mOsm/kg (285-295)
== END 2023-10-01 13:25 | disposition home or self-care (01) ==
PROVIDERS: Emergency Provider Emergency Medicine; PCP Family Medicine
DX: M54.2 Cervicalgia (principal); Z87.891 Personal history of nicotine dependence; I10 Essential (primary) hypertension
CPT/HCPCS: 72127; 80048; 96374; 96375; 99285; J1170; J1885; J2930; Q9967

== ENCOUNTER 2023-10-11 13:28 | Inpatient (IN) | payer BC, MEDICAID, SELFPAY ==
[2023-10-11] VITALS (22 sets, daily range): BP systolic 105–156; BP diastolic 74–106; PULSE 71–100; RESP 14–22; TEMP 36.3–37.2; O2SAT 93–100; BMI 32.9
[2023-10-11] MEDS: scopolamine 1.5 Patch 1 PATCH TRANSDERMA (07:31)
[2023-10-11] MEDS: sodium chloride 0.9% 1,000 ML 30 ML IV (07:32)
--- NOTE | 2023-10-11 07:55 | ANES.PREANE2 ---
Pre-Anesthetic Assessment Height/Weight: Height 1.63 m Weight 87.09 kg Temp Pulse Resp BP Pulse Ox O2 Del Method 99.0 F 71 18 149/93 98 Room Air 10/11/23 07:15 10/11/23 07:15 10/11/23 07:15 10/11/23 07:15 10/11/23 07:15 10/11/23 07:15 Preop Diagnosis: Lumbar stenosis with neurogenic claudication Operation Date: 10/11/23 08:30 Proposed Procedures p Spinal Fusion PSF(Not Applicable) - Sergei Cortez DO s Lumbopelvic Fixation(Not Applicable) - Sergei Cortez DO s Sacroiliac Joint Fusion SI Joint Fusion(Not Applicable) - Sergei Cortez DO s Lumbar Spine Decompression Lumbar Decompression(Not Applicable) - Sergei Cortez DO s Posterior Lumbar Interbody Fusion PLIF(Not Applicable) - Sergei Cortez DO Was Beta Genet taken within 24 hours: Yes Was Clonidine taken within 24 hours: N/A Last intake: Intake Last Liquid Date 10/10/23 Last Liquid Time 20:00 Last Solid Date 10/10/23 Last Solid Time 19:30 Social No alcohol and No tobacco does medical marijuana uses daily last used 10/10/23 pm Exam alert, oriented x 3, clear to auscultation bilaterally and regular rate & rhythm Airway Submandibular: within normal limits Cervical ROM: within normal limits Mallampati: Class I Dentition: chipped and full Pulmonary None reported CV/HEM Hypertension None reported Hepatic None reported GI None reported Metabolic None reported Musc/skel Fibromyalgia, Lower Back Pain and Osteoarthritis/DJD lower extremity weakness due to pain Neuropsych Headache Anesthetic Plan ASA status: 3 Anesthesia: General Risk of > 500 ml blood loss (7ml/kg in children): No Medications/Allergies Home Medications Medication Instructions Recorded Confirmed Last Taken Type diphenhydramine HCl 25 mg tablet 25 mg PO BEDTIME PRN allergies 11/09/20 10/10/23 10/10/23 History (Benadryl Allergy) ibuprofen 800 mg tablet 800 mg PO Q12H PRN Pain 07/14/22 10/10/23 10/09/23 History MARJUANIA 08/15/22 10/05/23 10/10/23 History Bone Growth Stimulator E0748 #1 ea 09/05/22 10/05/2310/09/24 Rx tizanidine 4 mg tablet 4 mg PO TID PRN Muscle Spasm 1 03/28/23 10/10/23 10/10/23 Rx month #90 tabs pregabalin 150 mg capsule 150 mg PO BID #60 caps 05/01/23 10/10/23 10/10/23 Rx atenolol 25 mg tablet 25 mg PO QAM 10/01/23 10/10/23 10/10/23 06:00 History citalopram 20 mg tablet 20 mg PO QAM 10/01/23 10/10/23 10/10/23 History diphenhydramine 25 2 tab PO BEDTIME 10/01/23 10/10/23 10/10/23 History mg-acetaminophen 500 mg tablet (Tylenol PM Extra Strength) estradiol 1 mg tablet 1 mg PO BEDTIME 10/01/23 10/10/23 10/10/23 History omeprazole 40 mg capsule,delayed 40 mg PO QAM 10/01/23 10/10/23 10/10/23 History release oxycodone-acetaminophen 5 mg-325 1 tab PO Q12H PRN pain 10/01/23 10/10/23 10/11/23 History mg tablet trazodone 150 mg tablet 150 mg PO BEDTIME 10/01/23 10/10/23 10/10/23 History diazepam 5 mg tablet (Valium) 5 mg PO TID PRN muscle spasm 7 10/05/23 10/10/23 10/11/23 Rx days #21 tabs Allergies Allergy/AdvReac Type Severity Reaction Status Date / Time No Known Allergies Allergy Verified 09/28/23 10:25 Current Medications Generic Name Dose Route Start Last Admin Trade Name Freq PRN Reason Stop Dose Admin Sodium Chloride 1,000 mls @ 30 mls/hr 10/11/23 07:00 10/11/23 07:32 Sodium Chloride 0.9% IV 10/12/23 06:59 30 mls/hr .Q24H ISHA Administration PFSH Anesthesia Medical History Aftercare following surgery of the genitourinary system Neuropathy Hypertension Insomnia Surgical History H/O: hysterectomy 2020 - [facility] - with BLO S/P cervical spinal fusion History of radical neck surgery Family History Father Diabetes Mother Hyperlipidemia Family/Other Breast cancer maternal aunt, great aunt age onset unknown Grandmother Diabetes paternal Denies family history of Colon cancer Ovarian cancer Clotting disorder Heart disease Anesthesia complication Bleeding disorder Family history of premature coronary artery disease Hypertension Uterine cancer Thyroid disease Stroke Social History Smoking and tobacco/nicotine status: former use of tobacco/nicotine Quit status (tobacco/nicotine): has quit using Former quit date comment: 05/08/2021 Second hand smoke exposure: No Alcohol intake: former 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 date alcohol: 2019 Substance/Drug Use: current Substance/Drug use frequency: daily Other substance/drug use details: has a medical card Data Anesthesia Cardiac Studies: No Data to Display
--- NOTE | 2023-10-11 08:10 | W.PM.OPSUD ---
Surgery/Procedure H&P Update DATE OF PROCEDURE: October 11, 2023 DATE H&P PERFORMED: 10/05/23 H&P UPDATE INFORMATION: I have reviewed H&P completed within last 30 days, I have examined patient prior to procedure and No changes to prior documentation PREOP DIAGNOSIS: Lumbar stenosis with neurogenic claudication PLANNED PROCEDURE: Operation Date: 10/11/23 08:30 Proposed Procedures p Spinal Fusion PSF(Not Applicable) - Sergei Cortez DO s Lumbopelvic Fixation(Not Applicable) - Sergei Cortez DO s Sacroiliac Joint Fusion SI Joint Fusion(Not Applicable) - DO shannon Meeks Lumbar Spine Decompression Lumbar Decompression(Not Applicable) - Sergei Cortez DO s Posterior Lumbar Interbody Fusion PLIF(Not Applicable) - Sergei Cortez DO
[2023-10-11] MEDS: midazolam 1 mg/mL INJ 2 mL 2 MG IVP (08:16)
[2023-10-11] MEDS: ceFAZolin 2,000 MG in sodium chloride 0.9% (plus) 50 ML 100 MG IV ×2 (08:38→16:56)
[2023-10-11] MEDS: vancomycin 1,000 MG SDV 1000 MG XX ×2 (09:28→12:57)
[2023-10-11] MEDS: lidocaine-epi 1% 20 mL INJ INJECTION (09:28)
[2023-10-11] MEDS: thrombin 5,000 unit SDV 5000 UNIT XX (09:29)
[2023-10-11] MEDS: heparin, porcine 1,000 unit/mL INJ 10 mL 10000 UNIT IRRIGATION (09:30)
[2023-10-11] MEDS: ceFAZolin 1,000 mg SDV 2000 MG (12:43)
--- NOTE | 2023-10-11 13:38 | P.OP_ITS ---
Operative Report Date of procedure: October 11, 2023 Pre-op diagnosis: Lumbar stenosis with neurogenic claudication Post-op diagnosis: same Procedure done: 1.?L5/S1 interbody fusion with posterolateral fusion 2. Cage at L5/S1 3. Posterior fusion L2-pelvis 4.? Instrumentation L2-S1 5.? Lumbopelvic instrumentation 6. open right Sacral iliac fusion 7. open left sacral iliac fusion 8. L3/4 laminectomy with facetectomy 9. L4/5 laminectomy with facetectomy 10. use of computer navigation / stereotactic spine 11. use of autograft from same incision 12. allograft 13. Bone marrow aspirate from right iliac crest 14. revison spine surgery Surgeon: Sergei Cortez DO Estimated blood loss (mL): 800 Procedure: 1.?L5/S1 interbody fusion with posterolateral fusion 2. Cage at L5/S1 3. Posterior fusion L2-pelvis 4.? Instrumentation L2-S1 5.? Lumbopelvic instrumentation 6. open right Sacral iliac fusion 7. open left sacral iliac fusion 8. L3/4 laminectomy with facetectomy 9. L4/5 laminectomy with facetectomy 10. use of computer navigation / stereotactic spine 11. use of autograft from same incision 12. allograft 13. Bone marrow aspirate from right iliac crest 14. revison spine surgery Patient is brought to the operative suite.? After undergoing anesthesia, the patient had neuro monitoring attached.? Patient was then placed in the prone position on the Rashad table.? All areas of impingement were well-padded.? Patient was then prepped and draped in the normal sterile fashion.? Skin incision was then made over the L1 to the sacrum using previous skin incision.? Subperiosteal dissection was made out to the transverse processes of L2 bilaterally, L3 bilaterally,?L4 bilaterally L5 bilaterally and sacral ala bilaterally.? The [employer] bone marrow aspirate kit was used to aspirate bone marrow aspirate.? This was done by using the sharp probe to open up the bone.? Aspiration was performed and then the blunt probe was then used to dissect down to through the bone tunnel.? An aspirating well drawn back a millimeter approximately 20 cc of bone marrow aspirate was used.? Admixed with the allograft and autograft bone that will be used. Next tension was brought to placing the fiducial for the computer navigation.? 2 pins were placed into the right iliac crest.? The fiducial was attached.? The C- arm was brought in and information from the C arm was then linked to the computer used for placing the screws.? Next attention was brought to placing the pedicle screws.? This was done by using the gearshift probe linked to computer navigation.? The probe was used to identify the pedicle.? Then the pedicle feeler was used followed by placement of screw.? This was done at L2 bilaterally, L3 bilaterally L4 bilaterally, L5 bilaterally and S1 bilaterally. Next attension was brought to placing the iliac screws.? This was done using the sacral ala iliac technique.? The gearshift probe linked to computer navigation was then placed through the sacral ala into the sacroiliac joint into the iliac crest.? Next the pedicle feeler was used followed by the computer navigated tap .? And then the screw was passed a 80 mm screw was placed on the right side and a 80 mm screw was placed on the left side.? Both the screws were 9.5 mm in diameter. Next attension was brought to performing the open and sacral iliac fusion.? This was done by again using the gearshift probe linked to computer navigation.? Followed by pedicle feeler followed by placing a wire and then the drill drilled over the wire and then bone graft was packed into the sacroiliac joint and into the drill hole.? And the sacroiliac screw was then placed.? This technique was done on both the right and left side. Next attention was brought to performing the laminectomy of L5. This was done using the high-speed bur Kerrisons and curettes. Once the lamina was removed and then attention was brought to performing a partial facetectomy on the contralateral side. This was done again using the high-speed bur curettes and Kerrisons. The ligamentum flavum was taken down bilaterally from L5 to S1. Attention was then brought to the facet on the ipsilateral side. The facet was taken down. The s1 nerve was decompressed as it passed around the S1 pedicle. The laminectomy was done for purposes of decompressing the nerve as well as placement of the cage. The L5 nerve was identified as it traversed through the L5/s1 foramen. The thecal sac was identified and retracted. The L5/S1 disc base was identified. Using a knife the disc base was opened. And then sequential maritza were placed. The first shaver was a 6 and the last shaver was a 11. Using a pituitary and down going curette the endplates were scraped and disc material was removed from the space. Once adequate decompression of the disc base was felt to be had. Osteoamp sponge was packed into the anterior aspect of the disc base. Then a size 12 cage from [employer] was placed after packing osteoamp into the cage. While placing the cage the thecal sac and S1 nerve was protected. C arm was used to ensure that the cages placed in the a ppropriate position. Prior to placing the cage there was a small hole made with a drill in the dura. This was repaired using a Nurolon stitch which had watertight closure. Next attention was brought to the L4/5 laminectomy of the facet joint. This was done by performing the laminectomy using high-speed bur and taken of facet joints. The previous laminectomy site was identified and delineated with curved curette and Bovie. Kerrison was then used to take down the remaining lamina as well as the medial aspect of facet joints. Ligamentum flavum was taken down from 4/5. The L5 nerve root was traced around the L5 pedicle and the L4 nerve root was traced out the L4/5 foramen which the superior articular processes were taken down in order to unroofed the foramen. There was scar tissue at the . Attention was then brought to the L3-4 level the laminectomy was performed using high-speed bur as well as Curettes and Kerrison rongeur. The dura was scarred down on the L3-4 level on the left side. This was taken down medially. The right side was also opened up along the medial aspect of the facet joint. Again using the high-speed bur and curved curettes and Kerrison rongeurs. The L3 nerve was traced out the L3-4 foramen the L4 nerve was traced around the L4 pedicle. Attention was then brought to attaching the rods to the screws placed in the L2 bilaterally, L3 bilaterally, L4 bilaterally, L5 bilaterally and S1 bilaterally.? This was then attached to the sacroiliac screw providing the lumbopelvic fixation.? Caps were torqued into position. Locking the construct in place. Wound was copiously irrigated and then attention was brought to decorticating the facets and transverse processes laterally.? Bone that was taken down from the lamina was used along with osteoamp fibers and sponges were packed into the lateral gutters along the facet joints.? This was done bilaterally. Wound was then closed in a layered fashion starting with the thoracolumbar fascia.? 0-vicryl was used the sub cutaneous tissue was closed with 2-0 vicryl and skin with 4-0 monocryl.? Glue was then used to seal the skin and a steril dressing was applied.? Patient was then placed in the supine position. The endotracheal tube was removed and patient was transferred to the PACU in stable condition.
--- NOTE | 2023-10-11 14:30 | ANE.PACU2 ---
Inpatient post-anesthesia follow up: Airway intact: Yes Vital signs: Temperature 97.7 F Pulse Rate 80 Respiratory Rate 18 Blood Pressure 132/86 Pulse Oximetry 93 Oxygen Delivery Me thod Nasal Cannula Oxygen Flow Rate 3 Fraction of Inspir ed Oxygen Hydration adequate: Yes Nausea and vomiting: No Pain level: 1 Mental status: Baseline
--- NOTE | 2023-10-11 14:36 | XR_ITS ---
WS: [id number] Examination: XR lumbar spine 2-3V* [id number] Reason for Exam: spinal psf, or pic Date: October 11, 2023 Comparison: None. Findings: 7 intraoperative images of been obtained with 20 seconds of fluoroscopy Findings demonstrate posterior fixation and pedicle screws at L2-S2 with L5-S1 interbody spacer align ment appears anatomic. Impression: Intraoperative lumbosacral surgery. Please see intraoperative note for full explanation of findings a nd the procedure.
[2023-10-11] MEDS: ketorolac 30 mg/mL INJ IVP (14:57)
[2023-10-11] MEDS: cetylpyridinium Lozenge 1 EACH MUCOUS MEM (14:57)
[2023-10-11] MEDS: lactated ringers 1,000 ML 90 ML IV (14:58)
[2023-10-11 15:08] LABS: Hematocrit 40.3 % (36-47)
[2023-10-11] MEDS: morphine 4 mg/mL SDV 1 mL 2 MG IVP ×2 (15:32→18:07)
--- NOTE | 2023-10-11 16:18 | PC.PHAR ---
medsurg nurse called and asked for surgery pts med rec to be updated-pt states she takes care of her own medications-pt states she takes tizanidine 4mg takes 4-8mg po bedtime ext shows last filled 10/05/23 30d/s 4mg tid prn-
[2023-10-11] MEDS: pregabalin 150 mg Capsule PO (16:56)
[2023-10-11] MEDS: oxyCODONE 10 mg ER (12 HR) Tablet PO (16:56)
[2023-10-11] MEDS: docusate sodium 100 mg Capsule PO (16:56)
[2023-10-11] MEDS: ondansetron 2 mg/ML SDV 2 mL 4 MG IVP (18:11)
[2023-10-11] MEDS: estradiol 1 mg Tablet PO (20:37)
[2023-10-11] MEDS: oxyCODONE-APAP 10-325 mg Tablet PO (20:37)
[2023-10-11] MEDS: diphenhydrAMINE 50 mg Capsule PO (20:38)
[2023-10-11] MEDS: trazodone 150 mg Tablet PO (20:38)
[2023-10-12] VITALS (13 sets, daily range): BP systolic 106–156; BP diastolic 70–95; PULSE 68–94; RESP 16–20; TEMP 36.4–37.1; O2SAT 90–97
[2023-10-12] MEDS: ceFAZolin 2,000 MG in sodium chloride 0.9% (plus) 50 ML 100 MG IV ×2 (00:58→08:53)
[2023-10-12] MEDS: lactated ringers 1,000 ML 90 ML IV ×2 (01:03→13:40)
[2023-10-12] MEDS: morphine 4 mg/mL SDV 1 mL 2 MG IVP ×2 (01:06→05:16)
[2023-10-12] MEDS: acetaminophen 325 mg Tablet 650 MG PO (04:20)
[2023-10-12] MEDS: pantoprazole DR 40 mg Tablet PO (05:15)
[2023-10-12] MEDS: atenolol 50 mg Tablet 25 MG PO (05:15)
[2023-10-12] MEDS: citalopram 20 mg Tablet PO (05:16)
[2023-10-12] MEDS: ondansetron 2 mg/ML SDV 2 mL 4 MG IVP (05:23)
[2023-10-12] MEDS: pregabalin 150 mg Capsule PO ×2 (08:40→17:42)
[2023-10-12] MEDS: oxyCODONE 10 mg ER (12 HR) Tablet PO ×2 (08:40→17:42)
[2023-10-12] MEDS: docusate sodium 100 mg Capsule PO ×2 (08:42→17:42)
[2023-10-12] MEDS: ketorolac 30 mg/mL INJ IVP ×2 (08:42→14:48)
--- NOTE | 2023-10-12 08:47 | P.PN_ITS ---
Subjective 2 Subjective: Patient sitting up in chair has not ambulated yet Vitals/I&O/Wt Last Vital Signs Temp 98.7 F 10/12/23 07:03 Pulse 84 10/12/23 08:25 Resp 18 10/12/23 08:40 BP 121/74 10/12/23 07:03 Pulse Ox 93 10/12/23 08:25 O2 Del Method Room Air 10/12/23 08:25 O2 Flow Rate 3 10/11/23 14:29 10/11/23 10/12/23 10/12/23 22:59 06:59 14:59 Intake Total 50 / 2200 1317.5 / 3517.5 Output Total 560 / 1560 1010 / 2570 Balance -510 / 640 307.5 / 947.5 Weight last 48 hrs Weight 204 lb 8 oz Weight 192 lb Weight 192 lb Physical Exam 2 Narrative: Legs moving feel better than before. Urinary Catheter Management: Thapa: Cath Placed During This Visit: yes, but has since been removed by the nurse Reason for Continuing Indwelling Catheter: Decision to DC Catheter Urinary Catheter Date of Insertion: 10/11/23 Urinary Catheter Time of Insertion: 08:50 Date Urinary Catheter Removed: 10/12/23 Time Urinary Catheter Discontinued: 06:13 Data 10/11/23 14:52 A&P Assessment and plan (1) Status post lumbar spinal fusion: Postop day #1 L2 to pelvis fusion Up with therapy DC drain DC Thapa Attestations 2 Medical Necessity Statement*: Pain control Coding Level of Care Code Acute Code for Chg Fwd Diagnoses Status post lumbar spinal fusion Z98.1
[2023-10-12] MEDS: oxyCODONE-APAP 10-325 mg Tablet PO ×3 (10:54→20:48)
[2023-10-12 13:37] LABS: Hematocrit 30.5 % (36-47)
[2023-10-12] MEDS: diphenhydrAMINE 50 mg Capsule PO (20:45)
[2023-10-12] MEDS: estradiol 1 mg Tablet PO (20:45)
[2023-10-12] MEDS: trazodone 150 mg Tablet PO (20:45)
[2023-10-13] MEDS: lactated ringers 1,000 ML 90 ML IV (00:11)
[2023-10-13 03:37] VITALS: RESP 18; O2SAT 92
[2023-10-13] MEDS: oxyCODONE-APAP 10-325 mg Tablet PO (03:37)
[2023-10-13] MEDS: ondansetron 2 mg/ML SDV 2 mL 4 MG IVP (04:04)
[2023-10-13 04:32] VITALS: BP 136/84; PULSE 87; RESP 18; O2SAT 90
[2023-10-13] MEDS: pantoprazole DR 40 mg Tablet PO (05:13)
[2023-10-13] MEDS: citalopram 20 mg Tablet PO (05:13)
[2023-10-13] MEDS: atenolol 50 mg Tablet 25 MG PO (05:13)
[2023-10-13] MEDS: ketorolac 30 mg/mL INJ IVP (05:21)
--- NOTE | 2023-10-13 06:49 | PM.DCS ---
Discharge Providers Date of Admission: 10/11/23 13:28 Date of Discharge: October 13, 2023 Attending Provider at Admission: Sergei Cortez DO Attending Provider at Discharge: Sergei Cortez DO Primary Care Provider: Abel Turner MD Diagnoses at Discharge Discharge Diagnosis (1) Status post lumbar spinal fusion: Status: Acute Reason for Visit Reason for Visit: M48.062 Physical Exam Narrative: Patient was sleeping when I walked in the room. She said she was having headaches last night. At this point plan will be to discharge her told her to lay around we plan on seeing her in the clinic on Monday. Otherwise patient is doing well good leg strength. Urinary Catheter Management: Thapa: Cath Placed During This Visit: yes, but has since been removed by the nurse Reason for Continuing Indwelling Catheter: Decision to DC Catheter Urinary Catheter Date of Insertion: 10/11/23 Urinary Catheter Time of Insertion: 08:50 Date Urinary Catheter Removed: 10/12/23 Time Urinary Catheter Discontinued: 06:13 Discharge Data Studies Completed and Pending Completed Studies During Hospitalization Category Date Time Status XR lumbar spine 2-3V* [id number] Routine Exams 10/11/23 14:36 Completed Pending at discharge Category Date Time Status C-arm Fluoroscopy [id number] Routine Exams 10/11/23 06:56 Taken Hemoglobin and Hematocrit AM LABS Lab 10/13/23 13:44 Ordered Laboratory Results Hgb 9.50 g/dL (11.27-16.99) L 10/12/23 13:26 Hct 30.5 % (36-47) L 10/12/23 13:26 Blood Type O Positive 10/11/23 07:24 Rho(D) Type Rh positive 10/11/23 07:24 Antibody Screen Negative 10/11/23 07:24 Vitals Last Vital Signs Temp 98.4 F 10/12/23 23:59 Pulse 87 10/13/23 04:32 Resp 18 10/13/23 04:32 BP 136/84 10/13/23 04:32 Pulse Ox 90 10/13/23 04:32 O2 Del Method Room Air 10/12/23 11:20 O2 Flow Rate 3 10/11/23 14:29 Discharge Plan Discharge Patient Disposition: Home Condition: Stable Prescriptions: New oxycodone-acetaminophen 10-325 mg tablet 1 tab PO Q4H PRN (Reason: pain) 7 Days Qty: 40 0RF OxyContin 10 mg tablet,oral only,ext.rel.12 hr 10 mg PO Q12H 7 Days Qty: 14 0RF Valium 5 mg tablet 5 mg PO TID PRN (Reason: muscle spasm) 7 Days Qty: 21 0RF Continued diphenhydramine HCl [Benadryl Allergy] 25 mg tablet 25 mg PO BEDTIME PRN (Reason: allergies) (DME) MARJUANIA 0 .Route .MEDSUPPLY Valium 5 mg tablet 5 mg PO TID PRN (Reason: muscle spasm) 7 Days Qty: 21 0RF (DME) Bone Growth Stimulator E0748 See Rx Instructions .Route .MEDSUPPLY Qty: 1 0RF Rx Instructions: As directed pregabalin 150 mg capsule 150 mg PO BID Qty: 60 5RF citalopram 20 mg tablet 20 mg PO QAM trazodone 150 mg tablet 150 mg PO BEDTIME diphenhydramine-acetaminophen [Tylenol PM Extra Strength] 25-500 mg Tablet 2 tab PO BEDTIME atenolol 25 mg tablet 25 mg PO QAM omeprazole 40 mg capsule,delayed release(DR/EC) 40 mg PO QAM estradiol 1 mg tablet 1 mg PO BEDTIME tizanidine 4 mg tablet 4 - 8 mg PO BEDTIME Held ibuprofen 800 mg tablet 800 mg PO Q12H PRN (Reason: Pain) Hold Instructions: Resume on 10/20/23. Discontinued oxycodone-acetaminophen 5-325 mg tablet 1 tab PO Q12H MDD 2 tabs PRN (Reason: pain) Discharge Orders: Discharge Order (Routine); Ordered 10/13/23 Ordered By: Sergei Cortez Referrals: Sergei Cortez DO [Physician] - 10/24/23 3:00 pm Discharge Diet: Advance as tolerated Discharge Activity: Limit activity as instructed Patient Instructions: Opioid Safety Activity Restrictions/Additional Instructions: Thank you for [facility] for your care! The following is a list of instructions, from your provider, to follow upon your discharge to ensure you have the optimal recovery from your recent injury orsurgery. Follow-up care is a espinosa part of your treatment and safety. Be sure to make and go to all appointments, and call your doctor if you are having problems. If you do not already have a follow-up appointment made, call Dr. Cortez office in the next 1-3 days to make follow up appointment for 1 weeks (set appointment for next Monday )at [phone]. It is also a good idea to know your test results and keep a list of the medicines you take. Medications will be prescribed for you at your provider's discretion. These medications are to be used as instructed; if they are taken more often that prescribed they will not be refilled early and in most cases will not be refilled at all. > When a refill is needed,you should contact estevan christopher 2-3 business days before your prescription runs out. Medications will NOT be refilled by sexual assault response coordinator providers after hours! > Many pain medications contain Tylenol (Acetaminophen). Do not consume more than 4,000 mg of Tylenol per day in total with any combination ofmedications. > Pain medications can cause constipation. Please use an over the counter stool softener as directed, while taking pain medications. Consulty our local pharmacist with questions or recommendations on stool softeners. If constipation persists, contact our office or your primary care provider. > While under our care,you are not to receive pain medications or other controlled substances from any other provider unless our office is notified and approves. Any attempts to do so will result in refusal to prescribe any further pain medications and possible dismissal from our practice. ? ? Showering is permitted, however we ask that you do not take a bath, sit in a whirlpool / Jacuzzi, or go swimming for 1 month. For only the first 2 days after surgery, lt wilt be necessary for you to cover your wound/dressing with plastic and tape to keep it dry. ? Walking is essential for the healing process after surgery. We would like you to slowly advance your walking. This should be done on relatively flat clear ground (inside or out) or can be done on a treadmill. Remember this goal does not have to happen all at once, slowly increase your distance and duration. This can be broken into more more than one walk per day as tolerated. Patients who walk as directed after surgery rarely require Physical Therapy. In the unlikely event this issue arises your provider will direct hospital staff to make the appropriate arrangements. ? No lifting over 5 pounds {a gallon of milk) or bending/twisting until further notice. Each of these activities places an unnecessary amount of stress onto the body and can impede the delicate healing process. > Instead of bending at the waist, keep your back straight and bend at the knees. > Instead of twisting your torso, keep your back straight and turn your entire body with your feet. ? You may sleep in any position which makes you comfortable. Many patients find comfort sleeping in a reclining chair. It is not abnormal to have difficulty sleeping for the first several weeks following your surgery. We recommend trying Benadry! or Tylenol PM as directed to help with your sleeping difficulties. Both medications are over the counter and available withoutprescription. ? NO SMOKING!!! Smoking dramatically increases the probability of developing postoperative wound infections. ? Common complaints after lumbar and/or thoracic spine surgery include, but are not limited to: numbness and/or tingling in the legs, pain around the incision and surrounding tissues, muscle spasms, or stiffness of the middle to low back. Contact our office if these symptoms persist or if an acute change occurs. ? No driving for the first 3-5days, and not while taking narcotics [] until seen at your follow-up appointment and cleared. There are no restrictions for riding on short trips, however if you take a longer trip, arrangements should be made to make regular stops to get out of the vehicle and stretch . ? Swelling is an unfortunate event that will take place with any surgery and is the primary source of your postoperative discomfort. While walking and regular approved activities helps control inflammation, there are additional steps you can take to minimizeswelling. > Place ice over the surgical site and surrounding tissue for twenty minutes, followed by applying a low/medium heat (heating pad) for an additional twenty minutes every 1-2 hours as needed for painrelief. > You may use of over the counter anti-inflammatory medications (Ibuprofen, Motrin, Aleve, Advil, etc) as directed on the package label. These types of medicines wm significantly reduce the amount of discomfort you experience after surgery from swelling. It should be noted that if you have and allergy to any of these medications, or a history of ulcers or kidney disease you should consult you primary care provider prior to starting these medications. Discharge Attestations Time Spent in Discharge Care*: less than 30 min Quality Metrics Clinical Quality Measures [ No reported AMI, CVA or VTE this stay] Coding Level of Care Code Acute Code for Chg Fwd Diagnoses Status post lumbar spinal fusion Z98.1
[2023-10-13 07:33] VITALS: BP 124/83; PULSE 71; RESP 17; TEMP 36.8; O2SAT 90
[2023-10-13] MEDS: oxyCODONE 10 mg ER (12 HR) Tablet PO (08:52)
[2023-10-13] MEDS: docusate sodium 100 mg Capsule PO (08:53)
[2023-10-13] MEDS: pregabalin 150 mg Capsule PO (08:53)
[2023-10-13 10:59] VITALS: BP 124/83; PULSE 71; RESP 17; TEMP 36.8; O2SAT 90
--- NOTE | 2023-10-13 11:00 | PC.NURSE ---
Discharge instructions provided to patient and her . NO questions or concerns voiced at this time. To private vehicle with all belongings via wheelchair.
== END 2023-10-13 11:01 | disposition home or self-care (01) | DRG 454 ==
LOC: MEDSURG 14:51
PROVIDERS: Admitting Provider Orthopaedic Surgery; PCP Family Medicine; Visit Provider Orthopaedic Surgery
PROC: 0SG30AJ Fusion of Lumbosacral Joint with Interbody Fusion Device, Posterior Approach, Anterior Column, Open Approach (ICD-10-PCS; principal; 2023-10-11 08:30)
PROC: 0SG30AJ Fusion of Lumbosacral Joint with Interbody Fusion Device, Posterior Approach, Anterior Column, Open Approach (ICD-10-PCS; 2023-10-11 08:30)
PROC: 0SG30AJ Fusion of Lumbosacral Joint with Interbody Fusion Device, Posterior Approach, Anterior Column, Open Approach (ICD-10-PCS; CPT 27280; 2023-10-11 08:30)
PROC: 0SG30AJ Fusion of Lumbosacral Joint with Interbody Fusion Device, Posterior Approach, Anterior Column, Open Approach (ICD-10-PCS; CPT 63005; 2023-10-11 08:30)
PROC: 0SG30AJ Fusion of Lumbosacral Joint with Interbody Fusion Device, Posterior Approach, Anterior Column, Open Approach (ICD-10-PCS; CPT 22612; 2023-10-11 08:30)
DX: M48.062 Spinal stenosis, lumbar region with neurogenic claudication (principal); G97.41 Accidental puncture or laceration of dura during a procedure; I10 Essential (primary) hypertension; M79.7 Fibromyalgia; M19.90 Unspecified osteoarthritis, unspecified site; G62.9 Polyneuropathy, unspecified; G47.00 Insomnia, unspecified; F10.11 Alcohol abuse, in remission; R51.9 Headache, unspecified; Z79.890 Hormone replacement therapy; Z98.1 Arthrodesis status; Z87.891 Personal history of nicotine dependence
CPT/HCPCS: 36415; 51702; 72100; 76000; 85014; 85018; 86850; 86900; 97110; 97116; 97161; 97530; C1713; J0131; J0330; J0360; J0690; J1100; J1170; J1200; J1644; J1885; J2250; J2270; J2371; J2405; J2704; J3010; J3370; J3490; J7030; J7120; J8499; P9045; Q0163

== ENCOUNTER → 2023-11-23 11:02 | Outpatient (BNVA) | payer BC, MEDICAID, SELFPAY | PROVIDERS: PCP Family Medicine; Visit Provider Orthopaedic Surgery | DX: Z98.1 Arthrodesis status (principal); M48.062 Spinal stenosis, lumbar region with neurogenic claudication | CPT/HCPCS: 72100 ==

== ENCOUNTER → 2024-01-02 08:11 | Outpatient (BNVA) | payer BC, MEDICAID, SELFPAY | PROVIDERS: PCP Family Medicine; Visit Provider Orthopaedic Surgery | DX: Z98.1 Arthrodesis status (principal); M54.2 Cervicalgia | CPT/HCPCS: 72040; 72100 ==

== ENCOUNTER → 2024-01-16 08:39 | Outpatient (BNVA) | payer BC, MEDICAID, SELFPAY | PROVIDERS: PCP Family Medicine; Visit Provider Family Medicine | DX: Z01.818 Encounter for other preprocedural examination (principal) | CPT/HCPCS: 80053; 81003; 85025 ==

== ENCOUNTER → 2024-01-30 13:03 | Outpatient (BNVA) | payer BC, MEDICAID, SELFPAY | PROVIDERS: PCP Family Medicine; Visit Provider Orthopaedic Surgery | DX: Z98.1 Arthrodesis status (principal) | CPT/HCPCS: 72040; 72100 ==

== ENCOUNTER → 2024-02-20 08:13 | Outpatient (BNVA) | payer BC, MEDICAID, SELFPAY | PROVIDERS: PCP Family Medicine; Visit Provider Orthopaedic Surgery | DX: Z09 Encounter for follow-up examination after completed treatment for conditions other than malignant neoplasm (principal); M79.605 Pain in left leg | CPT/HCPCS: 72100; 73502 ==

== ENCOUNTER 2024-03-04 14:12 | Inpatient (IN) | payer BC, MEDICAID, SELFPAY ==
[2024-03-04] VITALS (24 sets, daily range): BP systolic 122–181; BP diastolic 73–97; PULSE 66–82; RESP 15–26; TEMP 36.1–36.6; O2SAT 92–99; BMI 32.5; BMI 35.9
--- NOTE | 2024-03-04 | XR_ITS ---
WS: [id number] Exam: XR cervical spine 3V* [id number] Date/Time of Exam: 03/04/2024 12:00 AM Reason For Exam: [place] PICS Single intraoperative lateral image of the lower cervical spine is submitted. The image was obtained for intraoperative purposes.
[2024-03-04] MEDS: sodium chloride 0.9% 1,000 ML 30 ML IV ×2 (08:55→11:32)
--- NOTE | 2024-03-04 09:27 | ANES.PREANE2 ---
Pre-Anesthetic Assessment Height/Weight: Height 1.63 m Weight 86.183 kg Temp Pulse Resp BP Pulse Ox O2 Del Method 97.7 F 67 18 155/95 95 Room Air 03/04/24 08:44 03/04/24 08:44 03/04/24 08:44 03/04/24 08:44 03/04/24 08:44 03/04/24 08:44 Preop Diagnosis: Cervical nonunion Operation Date: 03/04/24 10:00 Proposed Procedures p Cervical Posterior Fusion Posterior Cervical Fusion C6-7, T1-5(Not Applicable) - Sergei Cortez, Familial anesthetic complications: NOne Was Beta Genet taken within 24 hours: N/A Was Clonidine taken within 24 hours: N/A Last intake: Intake Last Liquid Date 03/03/24 Last Liquid Time 23:00 Last Solid Date 03/03/24 Last Solid Time 19:30 Social No alcohol and No tobacco marijuana usage (medical) Exam alert, oriented x 3, clear to auscultation bilaterally and regular rate & rhythm Airway Mallampati: Class II Dentition: chipped CV/HEM Hypertension GI Gastroesophageal Reflux Disease Musc/skel Fibromyalgia Anesthetic Plan ASA status: 2 Anesthesia: General Risk of > 500 ml blood loss (7ml/kg in children): No Medications/Allergies Home Medications Medication Instructions Recorded Confirmed Last Taken Type MARJUANIA 08/15/22 03/04/24 10/10/23 History Bone Growth Stimulator E0748 #1 ea 09/05/22 03/04/24 10/10/23 Rx atenolol 25 mg tablet 25 mg PO QAM 10/01/23 03/04/24 03/04/24 05:00 History omeprazole 40 mg capsule,delayed 40 mg PO QAM 10/01/23 03/04/24 03/03/24 History release tizanidine 4 mg tablet 4 - 8 mg PO BEDTIME 10/11/23 03/04/24 03/03/24 History pregabalin 150 mg capsule 150 mg PO BID #60 caps 10/30/23 03/04/24 03/03/24 Rx trazodone 150 mg tablet See Rx Instructions .Route 11/08/23 03/04/24 03/03/24 Rx .COMPLEX #30 tabs oxycodone-acetaminophen 5 mg-325 1 tab PO Q8H PRN Pain 01/16/24 03/04/24 03/04/24 05:00 History mg tablet estradiol 1 mg tablet See Rx Instructions .Route 01/25/24 03/04/24 03/03/24 Rx .COMPLEX #30 tabs citalopram 20 mg tablet See Rx Instructions .Route 02/19/24 03/04/24 03/03/24 Rx .COMPLEX #30 tabs tizanidine 6 mg capsule 6 mg PO Q8H PRN muscle spasticity 02/21/24 03/04/24 Unknown Rx 30 days #90 caps Allergies Allergy/AdvReac Type Severity Reaction Status Date / Time adhesive tape Allergy ALGY-Rash Verified 03/01/24 10:06 Current Medications Generic Name Dose Route Start Last Admin Trade Name Freq PRN Reason Stop Dose Admin Sodium Chloride 1,000 mls @ 30 mls/hr 03/04/24 08:45 03/04/24 08:55 Sodium Chloride 0.9% IV 03/05/24 08:44 30 mls/hr .Q24H ISHA Administration PFSH Anesthesia Medical History Aftercare following surgery of the genitourinary system Neuropathy Hypertension Insomnia Surgical History H/O: hysterectomy 2020 - - with BLO S/P cervical spinal fusion History of radical neck surgery Family History Father Diabetes Mother Hyperlipidemia Family/Other Breast cancer maternal aunt, great aunt age onset unknown Grandmother Diabetes paternal Denies family history of Colon cancer Ovarian cancer Clotting disorder Heart disease Anesthesia complication Bleeding disorder Family history of premature coronary artery disease Hypertension Uterine cancer Thyroid disease Stroke Social History Smoking and tobacco/nicotine status: never used tobacco/nicotine Quit status (tobacco/nicotine): has quit using Former quit date comment: 05/08/2021 Second hand smoke exposure: No Alcohol intake: former 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 date alcohol: 2019 Substance/Drug Use: current Substance/Drug use frequency: daily Other substance/drug use details: has a medical card Data Anesthesia Cardiac Studies: No Data to Display
[2024-03-04] MEDS: fentaNYL 50 mcg/mL INJ 2mL IVP ×2 (10:33→14:55)
--- NOTE | 2024-03-04 11:11 | W.PM.OPSUD ---
Surgery/Procedure H&P Update DATE OF PROCEDURE: March 04, 2024 DATE H&P PERFORMED: 02/20/24 H&P UPDATE INFORMATION: I have reviewed H&P completed within last 30 days, I have examined patient prior to procedure and No changes to prior documentation PREOP DIAGNOSIS: Cervical nonunion PLANNED PROCEDURE: Operation Date: 03/04/24 10:00 Proposed Procedures p Cervical Posterior Fusion Posterior Cervical Fusion C6-7, T1-5(Not Applicable) - Sergei Cortez DO
[2024-03-04] MEDS: ceFAZolin 2,000 mg SDV 2000 MG IVP ×2 (11:39→19:16)
[2024-03-04] MEDS: lidocaine-epi 1% 20 mL INJ INJECTION (12:30)
[2024-03-04] MEDS: vancomycin 1,000 MG SDV 1000 MG XX (13:27)
--- NOTE | 2024-03-04 14:42 | P.OP_ITS ---
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 C6-T5 posterior spine fusion 2. C6-T5 posterior cervical instrumentation 3. Removal deep hardware from cervical spine 4. Use of computer navigation/stereotactic for cervical spine 5. Use of allograft Surgeon: Sergei Cortez DO Estimated blood loss (mL): 300 Procedure: 1. C6-T5 posterior spine fusion 2. C6-T5 posterior cervical instrumentation 3. Removal deep hardware from cervical spine 4. Use of computer navigation/stereotactic for cervical spine 5. Use of allograft Patient brought the operative suite after an Gonasi was placed in the prone position. All his impingement well-padded patient is prepped and draped in the normal sterile fashion. Skin incision was made using the previous skin incision extending down to T5. Subperiosteal dissection was made out to the transverse processes of T3-T5. The screws that were broken at T1-2 were then exposed. The screw caps were removed from the screws and the rods were elevated up and the broken screws were removed. This was done at T1 and T2 bilaterally. Next attention was brought to placing the computer navigated probe fiducial. A spinous process clamp was placed on to T5. The fiducial was attached to this. Incision was brought in and spun around the patient. The information from the serum was then loaded into the computer for use with the computer navigated placement of screws. Extension was brought to placing the screws. Screws were placed at T3-T5 bilaterally. This was done by using a drill followed by the gearshift probe freddy ked to computer navigation. Followed by placing the screw with computer navigation. Once the screws were placed then the jim was measured to cross-links were attached to the left jim. The jim was bent to the appropriate bed and the length through the 2 cross-links and then attached to the left sided T3-T5 the jim ended at C6. Which was linked up to the C2 fusion. This was done on both the right and the left side. Everything was torqued out of the position. Next the bone was decorticated and bone graft was packed into the lateral gutters this was the ostial amp bone graft. Vancomycin powder was placed deep drain was placed and wound was closed in a layered fashion with 0 Vicryl 2-0 Vicryl and Monocryl suture. Sterile dressings were applied and patient was transferred to the PACU in stable condition.
--- NOTE | 2024-03-04 15:45 | ANE.PACU2 ---
Inpatient post-anesthesia follow up: Airway intact: Yes Vital signs: Temperature 98.4 F Pulse Rate 59 Respiratory Rate 20 Blood Pressure 131/77 Pulse Oximetry 94 Oxygen Delivery Me thod Room Air Oxygen Flow Rate 8 Fraction of Inspir ed Oxygen Hydration adequate: Yes Nausea and vomiting: No Pain level: 1 Mental status: Baseline
[2024-03-04] MEDS: lactated ringers 1,000 ML 90 ML IV (16:12)
[2024-03-04] MEDS: oxyCODONE-APAP 10-325 mg Tablet PO (16:13)
[2024-03-04] MEDS: docusate sodium 100 mg Capsule PO (17:20)
[2024-03-04] MEDS: pregabalin 150 mg Capsule PO (17:20)
[2024-03-04] MEDS: ketorolac 30 mg/mL INJ IVP (19:15)
[2024-03-04] MEDS: trazodone 150 mg Tablet PO (20:47)
--- NOTE | 2024-03-04 20:48 | PC.NURSE ---
trazadone manually entered due to med wouldn't scan, pt, drug, dosage, route verified with another nurse Kay Palomares
[2024-03-05] VITALS (7 sets, daily range): BP systolic 129–155; BP diastolic 77–85; PULSE 59–78; RESP 14–20; TEMP 36.3–36.9; O2SAT 93–97
[2024-03-05] MEDS: lactated ringers 1,000 ML 90 ML IV (02:37)
[2024-03-05] MEDS: ceFAZolin 2,000 mg SDV 2000 MG IVP ×2 (02:38→11:39)
[2024-03-05] MEDS: ketorolac 30 mg/mL INJ IVP (02:38)
[2024-03-05] MEDS: oxyCODONE-APAP 10-325 mg Tablet PO (05:53)
[2024-03-05] MEDS: pantoprazole DR 40 mg Tablet PO (05:54)
[2024-03-05] MEDS: atenolol 50 mg Tablet 25 MG PO (05:54)
--- NOTE | 2024-03-05 08:06 | PM.DCS ---
Discharge Providers Date of Admission: 03/04/24 14:12 Date of Discharge: March 05, 2024 Attending Provider at Admission: Sergei Cortez DO Attending Provider at Discharge: Sergei Cortez DO Primary Care Provider: Abel Turner MD Reason for Visit Reason for Visit: M47.22 Physical Exam Narrative: Pain control resting in bed Urinary Catheter Management: Thapa: Cath Placed During This Visit: yes, but has since been removed by the nurse Urinary Catheter Date of Insertion: 03/04/24 Urinary Catheter Time of Insertion: 12:00 Date Urinary Catheter Removed: 03/04/24 Time Urinary Catheter Discontinued: 14:25 Discharge Data Studies Completed and Pending Pending at discharge Category Date Time Status C-arm Fluoroscopy 18625 Routine Exams 03/04/24 08:28 Taken RED BLOOD CELLS [Leukocyte Reduced RBC] Routine Lab 03/04/24 10:20 Results Type and Screen Routine Lab 03/04/24 10:20 Results Laboratory Results Blood Type O Positive 03/04/24 10:20 Rho(D) Type Rh positive 03/04/24 10:20 Antibody Screen Negative 03/04/24 10:20 Crossmatch See Detail 03/04/24 10:20 Vitals Last Vital Signs Temp 97.7 F 03/05/24 07:36 Pulse 59 L 03/05/24 07:36 Resp 17 03/05/24 07:36 BP 129/81 03/05/24 07:36 Pulse Ox 93 03/05/24 07:36 O2 Del Method Room Air 03/05/24 07:36 O2 Flow Rate 8 03/04/24 14:50 Discharge Plan Discharge Patient Disposition: Home Condition: Stable Prescriptions: New oxycodone 5 mg tablet 5 - 10 mg PO Q4H PRN (Reason: pain) 7 Days Qty: 40 0RF Continued pregabalin 150 mg capsule 150 mg PO BID Qty: 60 5RF trazodone 150 mg tablet See Rx Instructions .ROUTE .COMPLEX Qty: 30 3RF Dose Instruction: TAKE 1 TABLET BY MOUTH EVERY EVENING Rx Instructions: TAKE 1 TABLET BY MOUTH EVERY EVENING estradiol 1 mg tablet See Rx Instructions .ROUTE .COMPLEX Qty: 30 6RF Dose Instruction: TAKE 1 TABLET BY MOUTH EVERY DAY Rx Instructions: TAKE 1 TABLET BY MOUTH EVERY DAY citalopram 20 mg tablet See Rx Instructions .ROUTE .COMPLEX Qty: 30 3RF Dose Instruction: TAKE 1 TABLET BY MOUTH EVERY DAY Rx Instructions: TAKE 1 TABLET BY MOUTH EVERY DAY tizanidine 6 mg capsule 6 mg PO Q8H PRN (Reason: muscle spasticity) 30 Days Qty: 90 0RF atenolol 25 mg tablet 25 mg PO QAM omeprazole 40 mg capsule,delayed release(DR/EC) 40 mg PO QAM tizanidine 4 mg tablet 4 - 8 mg PO BEDTIME Discontinued oxycodone-acetaminophen 5-325 mg tablet 1 tab PO Q8H PRN (Reason: Pain) No Action (DME) MARJUANIA 0 .Route .MEDSUPPLY (DME) Bone Growth Stimulator E0748 See Rx Instructions .Route .MEDSUPPLY Qty: 1 0RF Rx Instructions: As directed Discharge Orders: Discharge Order (Routine); Ordered 03/05/24 Ordered By: Sergei Cortez Referrals: Sergei Cortez, DO [Physician] - (We have notified your physician's clinic of the need for a follow-up appointment to be scheduled. If you have not heard from them within the next 2 business days, please call them directly. ) Discharge Diet: Advance as tolerated Discharge Activity: Limit activity as instructed Patient Instructions: Acute Wound Care (DC), Opioid Safety, Post Anesthesia Care Activity Restrictions/Additional Instructions: Thank you for choosing [facility] for your care! The following is a list of instructions, from your provider, to follow upon your discharge to ensure you have the optimal recovery from your recent injury or surgery. Anterior Cervical Discectomy and Fusion: What to Expect at Home Your Recovery Follow-up care is a espinosa part of your treatment and safety. Be sure to make and go to all appointments, and call your doctor if you are having problems. If you do not already have a follow-up appointment made, call office in the next 1-3 days to make follow up appointment for 2 weeks at [phone]. It is also a good idea to know your test results and keep a list of the medicines you take. You can expect your neck to feel stiff or sore after surgery. This should improve in the weeks after surgery. But it may take 4 to 6 months for you to get better completely. You may have trouble sitting or standing in one position for very long and may need pain medicine in the weeks after your surgery. It may take 4 to 6 weeks to get back to your usual activities, but it may depend on what kind of surgery you had. Your throat will feel sore and it may be difficult to swallow for the first 3 days after your surgery. As long as you can get liquids down without difficulty, this should slowly improve, otherwise call our office or seek medical attention if it becomes increasingly difficult to get anything down including liquids. Avoid hot liquids for first 3-5 days. Soothing foods/liquids such as jello, pudding, and luke warm soups are recommended until swallowing improves. Staying elevated will also help, it's advised you keep propped up at while sleeping to help reduce the swelling. You may use an ice pack directly on your incision or around it on the front of your neck, using a cloth to protect your skin; and a heating pad to the back of your neck as needed. Do not use over the counter anti-inflammatory medications (Ibuprofen, Motrin, Aleve, Advil, etc) Taking these meds after having a fusion can delay fusion rates, we recommend you avoid them for the first 3 months after your surgery[address] Dr. Cortez may advise you to work with a physical therapist to strengthen the muscles around your neck and back - this will be discussed at your follow - up appointments. The pain or numbness you were having in your arms before surgery should get better or go away completely. This care sheet gives you a general idea about how long it will take for you to recover. But each person recovers at a different pace. Follow the steps below to get better as quickly as possible. How can you care for yourself at home? Activity ? Rest when you feel tired. Getting enough sleep will help you recover. ? Try to walk each day. Start by walking a little more than you did the day before. Bit by bit, increase the amount you walk. Walking boosts blood flow and helps prevent pneumonia and constipation. Walking may also decrease your muscle soreness after surgery. ? No lifting anything that is more that 5 pounds. This may include heavy grocery bags and milk containers, a heavy briefcase or backpack, cat litter or dog food bags, a child, or a vacuum drain cleaner plumber. ? Avoid strenuous activities, such as bicycle riding, jogging, weightlifting, or aerobic exercise, until your doctor says it is okay. ? Do not drive until your follow-up visit after your surgery, or until your doctor says it isokay. ? Avoid taking long car trips for 2 to 4 weeks after surgery. Your neck may become tired and painful from sitting too long in one position. ? You will probably need to take 4 to 6 weeks off from work. It depends on the type of work you do and how you feel. ? You may have sex as soon as you feel able, but avoid positions that put stress on your neck or cause pain. Diet ? You can eat your normal diet. If your stomach is upset, try bland, low-fat foods like plain rice, broiled chicken, toast, and yogurt ? Drink plenty of fluids. If you have kidney, heart, or liver disease and have to limit fluids, talk with your doctor before you increase the amount of fluids you drink. ? You may notice that your bowel movements are not regular right after your surgery. This is common. Try to avoid constipation and straining with bowel movements. You may want to take a fiber supplement every day. If you have not had a bowel movement after a couple of days, ask your doctor about taking a mild laxative. Medicines ? Take pain medicines exactly as directed. 1. If Dr. Cortez gave you a prescription medicine for pain, take lt as prescribed. 2. Do not take two or more pain medicines at the same time unless the doctor told you to. Many pain medicines have acetaminophen, which is Tylenol. Too much acetaminophen {Tylenol) can be harmful. 3. If you think your pain pill is making you sick to your stomach: 4. Take your pills after meals (unless your doctor has told you not to). 5. Ask your Dr. for a different pain pill. Incisioncare ? Remove your dressing 48hours after your surgery. Ok to shower and get the incision wet. Do not overtly wash your incision. When done, pad dry, leave open to air thereafter. Avoid creams and ointments directly on your incision. ? Your sutures in the incision will dissolve and fall out on their own. ? Keep the area clean and dry. You may cover it with a gauze bandage if it weeps or rubs against clothing; if you choose to do this, change the dressing everyday. Other instructions ? Use a heating pad, hot water bottle, or gentle massage on your back to reduce stiffness. Avoid putting heat on your incision When should you call for help? ? Call 911 anytime you think you may need emergency care. For example, call if: ? You pass out (lose consciousness). ? You have sudden chest pain and shortness of breath, or you cough upblood. ? You cannot swallow. ? You have severe pain in your neck or back. ? Call your Dr. or seek immediate medical care if: ? You have pain that does not get better after you take pain pills. ? You have loose stitches, or your incision comes open. ? You have blood or fluid draining from the incision. ? You have signs of infection, such as: 1. Increased pain, swelling, warmth, or redness. 2. Red streaks leading from the site. 3. Pus draining from the site. 4. Swollen lymph nodes in your neck or armpits. 5. A fever. ? You have severe pain in your arms. ? You have new or increased weakness or numbness in your arms. ? Watch closely for any changes in your health, and be sure to contact your doctor if: ? You do not have a bowel movement after taking a laxative. Discharge Attestations Time Spent in Discharge Care*: less than 30 min Quality Metrics Clinical Quality Measures [ No reported AMI, CVA or VTE this stay] Coding Level of Care Code Acute Code for Chg Fwd
[2024-03-05] MEDS: docusate sodium 100 mg Capsule PO (08:24)
[2024-03-05] MEDS: pregabalin 150 mg Capsule PO (08:24)
[2024-03-05] MEDS: citalopram 20 mg Tablet PO (08:24)
--- OUTSIDE RECORDS SUMMARY | 2024-03-05 10:08 | XMS_ITS | Patient Health Record ---
Author Name Unknown Organization [facility] Address [address] [place] [address] Care Team Providers Care Sheet Rock Applicator Name Role Phone Abel Turner MD Primary Care Provider Peter Flores Unavailable [phone] Allergies Allergen (clinical drug ingredient) Drug/Non Drug Allergy documented on EMR Reaction Allergy Type Onset Date Status acetaminophen / hydrocodone Hydrocodone-Acetamino phen itching Drug Allergy Active acetaminophen / oxycodone Percocet nausea Drug Allergy Active Reason For Referral No Information Medications Medication SIG (Take, Route, Frequency, Duration) Notes Start Date End Date Status Zofran 4 MG 1 tablet Orally Q4-6 hours for 14 days 08/14/2020 Active NECON 0.5-35 mg-mcg Take 1 tablet(s) by mouth daily as directed Oral for 30 *please review for potential _update for e-prescription and drug interaction check* Necon 0.5/35 28 day Tablet Take 1 tablet(s) by mouth daily as directed 11/21/2012 Not-Taking Cyclobenzaprine HCl 10 MG 1 tablet as needed Orally Three times a day for 14 days Active Triamcinolone Acetonide 0.1 % 1 application as needed Externally Three times a day for 14 days 12/23/2021 Active traMADol HCl 50 MG take 1 tablet by mouth qid as needed Oral for 30 Tramadol 50mg Tablet take 1 tablet by mouth qid as needed 09/20/2013 Not-Taking Atenolol 50 MG 1 tablet Orally Once a day Active Ondansetron 4 MG 1 tablet on the tongue and allow to dissolve Orally every 8 hours for 5 days as needed for nausea 12/16/2021 Active Citalopram Hydrobromide 20 MG 1 tablet Orally Once a day Active Gabapentin 600 MG 1 tablet Orally TID Active tiZANidine HCl 4 MG 1 tablet as needed Orally Three times a day Active traZODone HCl 150 MG 1 tablet at bedtime Orally Once a day Active Social History Tobacco Use: Social History Observation Description Date Details (start date - stop date) Current Smoker NA - NA xTobacco Use/Smoking Question Answer Notes Are you a current smoker Alcohol Screen (Audit-C) Question Answer Notes Did you have a drink containing alcohol in the p ast year? No Points 0 Interpretation Negative PHQ-9 Question Answer Notes Little interest or pleasure in doing things Polly ral days Feeling down, depressed, or hopeless Not at all Trouble falling or staying asleep, or sleeping t oo much Several days Feeling tired or having little energy Nearly lakshmi ry day Poor appetite or overeating Not at all Feeling bad about yourself, or that you are a failure, or have let yourself or your family down Not at all Trouble concentrating on thi ngs, such as reading the newspaper or watching television Not at all Moving or speaking so slowly that other people could have noticed. Or the opposite ? being so fidgety or restless that you have been moving around a lot more than usual Several days Thoughts that you would be b sajan off , or of hurting yourself in some way Not at all Total Score 6 Interpretation Mild Depression Problems Problem Type SNOMED Code ICD Code Onset Dates Problem Status W/U Status Risk Notes Problem Chronic pain syndrome (561635514) Chronic pain syndrome (G89.4) Active confirmed Problem Reflex sympathetic dystrophy of upper extremity (9079347) Complex regional pain syndrome I of left upper limb (G90.512) Active confirmed Problem Lumbar spondylosis (575734522) Lumbar spondylosis (M47.816) Active confirmed Problem Cervical disc disorder (762530899) Cervical neck pain with evidence of disc disease (M50.90) Active confirmed Problem 991783966 Facet arthropath y, cervical (M47.812) Active confirmed Problem Solitary sacroiliitis (946152976) Sacroiliitis (M46.1) Active confirmed Problem Spasm (89295592) Muscle spasm (728.85) 014 Active confirmed [facility]-985 911- Problem Fibromyalgia (077840963) Fibromyalgia (729.1) Active confirmed Jose E-985 911- Problem Moderate recurrent major depression (15725440) Major depression, recurrent episode, moderate (296.32) Active confirmed Jose E-985 911- Problem Insomnia (605494472) Insomnia (307.41) Active confirmed Jose E-985 911- Problem 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) Active confirmed Jose E-985 911- Problem Carpal tunnel syndrome (70683564) Carpal tunnel syndrome (354.0) Problem resolved confirmed Jose E-985 911- Problem Neck pain (50152703) Neck pain (723.1) Problem resolved confirmed Jose E-985 911- Problem Screening for breast cancer (906522573) Screening for breast cancer (V76.10) Problem resolved confirmed Jose E-985 911- Problem Right upper quadrant pain (042317633) Abdominal pain (RUQ) (789.01) Problem resolved confirmed Jose E-985 911- Problem Allergic rhinitis due to allergen (71907984) Allergic rhinitis, other allergen-induced, NEC (477.8) Problem resolved confirmed Jose E-985 911- Problem Sore throat (267137228) Sore Throat (462) Problem resolved confirmed Jose E-985 911- Problem Hemorrhage of rectum and anus (466763418) Bright red blood per rectum (BRBPR) (569.3) Problem resolved confirmed Jose E-985 911- Problem Lab: Used to mat ch unlinked laboratory orders (V92) Problem resolved confirmed Jose E-985 911- Problem Hand pain (54458097) Hand pain (729.5) Problem resolved confirmed Jose E-985 911- Problem Second degree burn (790058702) Second degree burn, unspecified (949.2) 014 Problem resolved confirmed Jose E-985 911- Problem Abdominal pain (80035023) Abdominal pain (789.09) 12/05/2 013 Problem resolved confirmed Jose E-985 911- Problem Joint pain (92075197) Joint pain (719.4) 006 Problem resolved confirmed Jose E-985 911- Problem Truncal obesity (500308597) Truncal obesity (278.1) 013 Problem resolved confirmed Jose E-985 911- Problem Central obesity (371351256) Central obesity (278.1) 014 Problem resolved confirmed Jose E-985 911- Problem Dietary management surveillance (458121175) Dietary surveillance/couns eling for obesity (V65.3) 014 Problem resolved confirmed Jose E-985 911- Problem Hip pain (18356048) Hip pain (719.45) 013 Problem resolved confirmed Jose E-985 911- Problem Nausea (920635883) Nausea (787.02) 013 Problem resolved confirmed Jose E-985 911- Plan Of Treatment Pending Test Test Name Order Date Prothrombin Time 75514 07/22/2020 Prothrombin Time 89788 12/07/2021 Prothrombin Time 52756 08/03/2020 Prothrombin Time 86650 08/03/2020 Basic Metabolic Panel (BMP) 15919 2020 Basic Metabolic Panel (BMP) 83149 2020 Basic Metabolic Panel (BMP) 01000 2020 Basic Metabolic Panel (BMP) 79047 2021 CBC w\ Auto Diff 60916 12/07/2021 CBC w\ Auto Diff 01583 07/22/2020 CBC w\ Auto Diff 95376 08/03/2020 CBC w\ Auto Diff 69343 08/03/2020 Partial Thromboplastin Time 61702 2020 Partial Thromboplastin Time 56255 2020 Partial Thromboplastin Time 42653 2020 Partial Thromboplastin Time 86349 2021 HCG Urine Qual 29644 08/05/2020 Cervical Spine AP/Lat 2-3 Views-77227 Cervical Spine AP/Lat 2-3 Views-04293 Chest PA/Lat-22748 12/07/2021 Chest PA/Lat-84918 12/07/2021 Chest PA/Lat-62653 07/22/2020 Chest PA/Lat-19737 08/03/2020 Lumbosacral Spine AP/Lat-35921 2 Lumbosacral Spine AP/Lat-70046 2 MRI Cervical Spine w/o Cont-39990 2021 MRI Cervical Spine w/o Cont-74760 2019 MRI Cervical Spine w/o Cont-93803 2019 MRI Cervical Spine w/o Cont-72125 2021 MRI Lumbar Spine w/o Cont-87468 02/11/20 22 MRI Lumbar Spine w/o Cont-32198 02/24/20 22 MRI Lumbar Spine w/o Cont-11011 02/09/20 22 XR Outside CD 02/12/2020 Electrocardiogram 12 Lead Tracing-41019 12/07/2021 Electrocardiogram 12 Lead Tracing-06504 07/22/2020 zzzFluoroscopy 08/05/2020 COVID 19 PCR--34462 07/22/2020 COVID 19 PCR--59639 08/03/2020 COVID 19 PCR--73151 08/03/2020 zzzCT Outside CD 02/12/2020 Future Test Test Name Order Date Prothrombin Time 24239 11/09/2021 PTT-Heparin--NO CPT 11/09/2021 Insurance Providers Payer Name Payer Address Payer Phone Subscriber Number Group Number Insured Name Patient Relationship to Insured Coverage Start Date Coverage End Date DO NOT USE [employer] [address] [address] [place] [address] [id number] GENARO APONTE Self - patient is the insured [place] [address] [place] [address] [id number] GENARO APONTE Self - patient is the insured 0 [place] Medicaid [address] [place] [address] [id number] GENARO APONTE Self - patient is the insured Medical (General) History Medical History History ICD Code Spondylosis- Cervical CURREN T 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
--- NOTE | 2024-03-05 10:37 | PC.CHAP ---
Pastoral Care Encounter/Spiritual Assessment Type of Contact [] Declined financial examiner visit [] Patient/Family/Request visit [] Outpatient visit [] Follow-up visit [] Physician referral [] Code/Alert [x] Routine visit [] Staff referral [] Actively dying [] Patient sleeping [x] Family support [] [] Out of room [] Palliative care [] [] Receiving care in room [] Pre-surgical visit [] Trauma [] Long length of stay [] ICU visit [] Other: Relational/Emotional Strength [x] Patient feels connected with others/family/visitors/staff [] Distress [] Loneliness/isolation [] Abandonment Spirituality of Patient [x] Person of Lisa [] Attends Jain of their Lisa [x] Believes in Prayer [] Reads Bible or Roman Catholic materials [] There are Spiritual issues to be addressed Microbiology Lab Technician Interventions [x] Prayer [x] Active listening [] Non-anxious presence [x] Spiritual/emotional support [] Crisis/trauma care [] Spiritual counseling [] Bereavement support [] Provided bereavement packet [] Provided Bible/devotional materials [] Provided toy/stuffed animal, coloring book to patient or family member [] Provided Communion [] Anointing/[place] [] Salvation [x] Completed spiritual assessment [] Other: Impact on Illness or Injury [] Angry [] Fearful [] Anxious [] Often cries [] Exhaustion [] Unable to work [] Unable to attend congregational [] Unable to walk/stand [] Unable to read [] Unable to drive [] Unable to eat/drink [] Unable to sleep [] Unable to be with family [] Patient intubated [] Other: Summary Time spent with patient 5 min
== END 2024-03-05 13:45 | disposition home or self-care (01) | DRG 472 ==
LOC: MEDSURG 18:15
PROVIDERS: Admitting Provider Orthopaedic Surgery; Family Provider General Practice; PCP Family Medicine; Visit Provider Orthopaedic Surgery
PROC: 0PP304Z Removal of Internal Fixation Device from Cervical Vertebra, Open Approach (ICD-10-PCS; CPT 22600; principal; 2024-03-04 09:40)
DX: M96.0 Pseudarthrosis after fusion or arthrodesis (principal); T84.216A Breakdown (mechanical) of internal fixation device of vertebrae, initial encounter; Y79.8 Miscellaneous orthopedic devices associated with adverse incidents, not elsewhere classified; G47.00 Insomnia, unspecified; F51.9 Sleep disorder not due to a substance or known physiological condition, unspecified
CPT/HCPCS: 51702; 72040; 76000; 86850; 86900; 86920; 97161; C1713; J0131; J0330; J0360; J0690; J1100; J1170; J1885; J2405; J2704; J3010; J3370; J3490; J7030; J7120; P9045

== ENCOUNTER 2024-03-07 05:41 | Emergency (ER) | payer BC, MEDICAID, SELFPAY ==
[2024-03-07 05:43] VITALS: BP 93/65; PULSE 65; RESP 18; TEMP 36.8; O2SAT 95; BMI 32.5
[2024-03-07 06:05] VITALS: BP 97/62; PULSE 62; O2SAT 97
[2024-03-07 06:28] LABS: Basophils % 0.4 %; Eosinophils # 0.1 10^3/uL (0.0-0.8); Hematocrit 31.3 % (36-47); Lymphocytes # 1.9 10^3/uL (0.8-4.8); Lymphocytes % 22.6 %; Mean Corpuscular HGB Conc 31.3 g/dL (30-55); Mean Corpuscular Hemoglobin 28.2 pg (27-33); Mean Corpuscular Volume 90.2 fl (85-98); Mean Platelet Volume 12.2 fL (7.4-10.4); Monocytes # 0.8 10^3/uL (0.2-0.9); Monocytes % 9.5 %; Neutrophils # 5.42 10^3/uL (1.8-7.7); Neutrophils % 66.3 %; Nucleated Red Blood Cells % 0 %; Platelet Count 163 10^3/cmm (157-399); Red Blood Count 3.47 10^6/uL (3.85-5.65); Red Cell Distribution Width 18.2 % (12.1-15.1); White Blood Count 8.18 10^3/uL (3.29-11.43)
--- NOTE | 2024-03-07 06:33 | ED_ITS ---
HPI - Skin/Abscess/Foreign Bdy 2 General: Chief complaint: Skin/Abscess/Foreign Body Stated complaint: draining [place] History of Present Illness: 53-year-old female presents emergency ro om postop day #3 for C6-T5 posterior fusion with removal of hardware from previous neck surgery. She not had any fever sweats chills her pain is relatively well-controlled she woke up this morning with significantly drainage soaking the bandage. No shortness of breath no difficulty with bowel or bladder. Patient also earlier this year had a lumbar fusion. Associated symptoms: Deny chills or fever(s) Related Data Home Medications Medication Instructions Recorded Confirmed MARJUANIA 08/15/22 03/07/24 atenolol 25 mg tablet 25 mg PO QAM 10/01/23 03/07/24 omeprazole 40 mg capsule,delayed 40 mg PO QAM 10/01/23 03/07/24 release tizanidine 4 mg tablet 4 - 8 mg PO BEDTIME 10/11/23 03/07/24 citalopram 20 mg tablet 20 mg PO DAILY 03/07/24 03/07/24 estradiol 1 mg tablet 1 mg PO QPM 03/07/24 03/07/24 ibuprofen 800 mg tablet 800 mg PO Q12H PRN Pain (Scale 03/07/24 03/07/24 Score 1-3) oxycodone-acetaminophen 5 mg-325 0.5 - 1 tab PO Q8H PRN Pain 03/07/24 03/07/24 mg tablet trazodone 150 mg tablet 150 mg PO QPM 03/07/24 03/07/24 Previous Rx's Medication Instructions Recorded Bone Growth Stimulator E0748 #1 ea 09/05/22 pregabalin 150 mg capsule 150 mg PO BID #60 caps 10/30/23 oxycodone 5 mg tablet 5 - 10 mg (1 - 2 x 5 mg) PO Q4H 03/05/24 PRN pain 7 days #40 tabs Allergies Allergy/AdvReac Type Severity Reaction Status Date / Time adhesive tape Allergy ALGY-Rash Verified 03/01/24 10:06 Review of Systems 2 Const: Denies: fever(s) or chills Card: Denies: chest pain Resp: Denies: dyspnea GI: Denies: abdominal pain : Denies: dysuria, urinary frequency or urinary urgency Musc: Reports: neck pain (Postop) and back pain (Postop) Skin/Breast: Denies: rash PFSH ED 2 PFSH: Medical History Aftercare following surgery of the genitourinary system Neuropathy Hypertension Insomnia Surgical History H/O: hysterectomy 2020 - [facility] - with BLO S/P cervical spinal fusion History of radical neck surgery Family History Father Diabetes Mother Hyperlipidemia Family/Other Breast cancer maternal aunt, great aunt age onset unknown Grandmother Diabetes paternal Denies family history of Colon cancer Ovarian cancer Clotting disorder Heart disease Anesthesia complication Bleeding disorder Family history of premature coronary artery disease Hypertension Uterine cancer Thyroid disease Stroke Social History Smoking and tobacco/nicotine status: never used tobacco/nicotine Quit status (tobacco/nicotine): has quit using Former quit date comment: 05/08/2021 Second hand smoke exposure: No Alcohol intake: former 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 date alcohol: 2019 Substance/Drug Use: current Substance/Drug use frequency: daily Other substance/drug use details: has a medical card Physical Exam 2 Const: COMMON NORMALS: no acute distress GENERAL APPEARANCE: cooperative and comfortable ORIENTATION/CONSCIOUSNESS: Yes awake, Yes oriented to person, Yes oriented to place and Yes oriented to time HENMT: COMMON NORMALS: normocephalic, atraumatic and hearing grossly normal bilaterally HEAD & SCALP: normocephalic and atraumatic Resp: COMMON NORMALS: normal respiratory effort, No retractions, No use of accessory muscles and clear to auscultation bilaterally AUSCULTATION: clear to auscultation bilaterally Cardio: COMMON NORMALS: regular rate, regular rhythm and No murmurs present (Cardio) RATE: regular rate RHYTHM: regular rhythm Back/Pelvis: OTHER: Dressing removed wound appears to be well-approximated there is a large amount of serous drainage on the wound and on her bed clothing in the pillow and sheet no purulent drainage noted no redness no erythema no significant wound dehiscence is noted. Extremity: COMMON NORMALS: normal to inspection, capillary refill normal, no clubbing, cyanosis or edema, no calf tenderness and no pedal edema Neuro: SENSORIUM/ORIENTATION: Yes oriented to person, Yes oriented to place and Yes oriented to time Skin: COMMON NORMALS: no rashes or lesions noted GENERAL SKIN EXAM: no rashes or lesions noted Course 2 Vital Signs: Vital signs: Vital Signs Temperature 98.2 F 03/07/24 05:43 Pulse Rate 60 03/07/24 08:38 Respiratory Rate 18 03/07/24 05:43 Blood Pressure 117/75 03/07/24 08:38 Pulse Oximetry 97 03/07/24 08:38 Oxygen Delivery Me thod Room Air 03/07/24 06:05 MDM - Skin/Abscess/Foreign Bdy Medicial Decision Making No leukocytosis no fever. Anemia which has been present in the past. Anemia previously associated with her lumbar surgery in October of this year she recovered from her normal hemoglobin in January has now gone back down to the same levels that she had postop at the [facility]. No leukocytosis no fever. Drainage is serous and is resolved. Lab Data 03/07/24 05:52 03/07/24 05:52 Laboratory Results WBC 8.18 10^3/uL (3.29-11.43) 03/07/24 05:52 RBC 3.47 10^6/uL (3.85-5.65) L 03/07/24 05:52 Hgb 9.80 g/dL (11.27-16.99) L 03/07/24 05:52 Hct 31.3 % (36-47) L 03/07/24 05:52 MCV 90.2 fl (85-98) 03/07/24 05:52 MCH 28.2 pg (27-33) 03/07/24 05:52 MCHC 31.3 g/dL (30-55) 03/07/24 05:52 RDW 18.2 % (12.1-15.1) H 03/07/24 05:52 Plt Count 163 10^3/cmm (157-399) 03/07/24 05:52 MPV 12.2 fL (7.4-10.4) H 03/07/24 05:52 Neut % (Auto) 66.3 % 03/07/24 05:52 Lymph % (Auto) 22.6 % 03/07/24 05:52 [place] % (Auto) 9.5 % 03/07/24 05:52 Eos % (Auto) 1.0 % 03/07/24 05:52 Baso % (Auto) 0.4 % 03/07/24 05:52 Neut # (Auto) 5.42 10^3/uL (1.8-7.7) 03/07/24 05:52 Lymph # (Auto) 1.9 10^3/uL (0.8-4.8) 03/07/24 05:52 [place] # (Auto) 0.8 10^3/uL (0.2-0.9) 03/07/24 05:52 Eos # (Auto) 0.1 10^3/uL (0.0-0.8) 03/07/24 05:52 Baso # (Auto) 0.0 10^3/uL (0.0-0.1) 03/07/24 05:52 Nucleated RBC % (auto) 0 % 03/07/24 05:52 Nucleated RBCs # 0.0 /100WBC 03/07/24 05:52 Sodium 133 mmol/L (136-145) L 03/07/24 05:52 Potassium 4.3 mmol/L (3.5-5.1) 03/07/24 05:52 Chloride 98 mmol/L (98-107) 03/07/24 05:52 Carbon Dioxide 24 mmol/L (22-29) 03/07/24 05:52 Anion Gap 15.3 (5-19) 03/07/24 05:52 BUN 8 mg/dL (6-20) 03/07/24 05:52 Creatinine 0.6 mg/dL (0.5-0.9) 03/07/24 05:52 GFR Calculation 105.4 mL/min (90-130) 03/07/24 05:52 Glucose 88 mg/dL (65-115) 03/07/24 05:52 Calculated Osmolality 274 mOsm/kg (285-295) L 03/07/24 05:52 Calcium 8.5 mg/dL (8.5-10.5) 03/07/24 05:52 Total Bilirubin 0.5 mg/dL (0.15-1.2) 03/07/24 05:52 AST 18 U/L (0-32) 08/29/24 05:52 ALT 10 U/L (0-33) 03/07/24 05:52 Alkaline Phosphatase 81 U/L (35-105) 03/07/24 05:52 Total Protein 6.2 g/dL (6.6-8.7) L 03/07/24 05:52 Albumin 3.6 g/dL (3.5-5.2) 03/07/24 05:52 Globulin 2.6 g/dL (1.3-4.6) 03/07/24 05:52 All radiology interpretation(s) finalized by discharge Discharge Plan Discharge Patient Disposition: Home Clinical Impression: Postoperative seroma, Status post cervical spinal fusion, Status post thoracic spinal fusion Condition: Stable Prescriptions: No Action (DME) MARJUANIA 0 .Route .MEDSUPPLY (DME) Bone Growth Stimulator E0748 See Rx Instructions .Route .MEDSUPPLY Qty: 1 0RF Rx Instructions: As directed pregabalin 150 mg capsule 150 mg PO BID Qty: 60 5RF atenolol 25 mg tablet 25 mg PO QAM omeprazole 40 mg capsule,delayed release(DR/EC) 40 mg PO QAM ibuprofen 800 mg tablet 800 mg PO Q12H PRN (Reason: Pain (Scale Score 1-3)) oxycodone-acetaminophen 5-325 mg tablet 0.5 - 1 tab PO Q8H MDD 3 per day PRN (Reason: Pain) citalopram 20 mg tablet 20 mg PO DAILY estradiol 1 mg tablet 1 mg PO QPM trazodone 150 mg tablet 150 mg PO QPM tizanidine 4 mg tablet 4 - 8 mg PO BEDTIME oxycodone 5 mg tablet 5 - 10 mg PO Q4H PRN (Reason: pain) 7 Days Qty: 40 0RF Discharge Orders: Discharge ED (Routine); Ordered 03/07/24 Ordered By: Daljit Beebe Referrals: Abel Turner MD [Primary Care Provider] - Discharge Diet: Usual diet Discharge Activity: Limit activity as instructed Patient Instructions: Opioid Safety, Pain Management Activity Restrictions/Additional Instructions: Thank you for choosing [facility] for your healthcare needs today. It is very important that you follow up as instructed or that you return to the Emergency Department should you have concerns or if your condition changes or worsens in any way. You were seen today for drainage from your wound. Your white count was normal manage no fever. The drainage is serosanguineous (blood-tinged watery fluid). These are common after a surgery such as yours. You should continue your previous instructions Dr. Phelps gave for postoperative recovery. Continue other pain medications. You were noted to be anemic however you had a similar degree of anemia after your spine surgery earlier this year. This should be followed up with your primary care doctor Coding Level of Care Code ED M48 M60 [employer] for [employer]
[2024-03-07 06:42] LABS: Alanine Aminotransferase 10 U/L (0-33); Albumin Level 3.6 g/dL (3.5-5.2); Alkaline Phosphatase 81 U/L (35-105); Anion Gap 15.3 (5-19); Aspartate Amino Transferase 18 U/L (0-32); Blood Urea Nitrogen 8 mg/dL (6-20); Calcium 8.5 mg/dL (8.5-10.5); Carbon Dioxide 24 mmol/L (22-29); Chloride 98 mmol/L (98-107); Globulin 2.6 g/dL (1.3-4.6); Glomerular Filtration Rate 105.4 mL/min (90-130); Glucose 88 mg/dL (65-115); Osmolality Calculated 274 mOsm/kg (285-295); Potassium 4.3 mmol/L (3.5-5.1); Sodium 133 mmol/L (136-145); Total Bilirubin 0.5 mg/dL (0.15-1.2); Total Protein 6.2 g/dL (6.6-8.7)
[2024-03-07 06:49] VITALS: BP 91/59
[2024-03-07 06:52] VITALS: BP 92/63; BP 95/60; BP 98/60; PULSE 64; PULSE 65
[2024-03-07] MEDS: sodium chloride 0.9% 1,000 ML 999 ML IV (07:30)
[2024-03-07 08:37] VITALS: BP 117/75; PULSE 60; O2SAT 97
[2024-03-07 08:38] VITALS: BP 117/75; PULSE 60; O2SAT 97
== END 2024-03-07 08:30 | disposition home or self-care (01) ==
PROVIDERS: Emergency Provider Family Medicine; PCP Family Medicine
DX: L76.34 Postprocedural seroma of skin and subcutaneous tissue following other procedure (principal); Z98.890 Other specified postprocedural states; Z87.891 Personal history of nicotine dependence; I10 Essential (primary) hypertension
CPT/HCPCS: 80053; 85025; 99284; J7030

== ENCOUNTER → 2024-03-18 14:43 | Outpatient (BNVA) | payer BC, MEDICAID, SELFPAY | PROVIDERS: PCP Family Medicine; Visit Provider Family Medicine | DX: Z51.81 Encounter for therapeutic drug level monitoring (principal); Z13.220 Encounter for screening for lipoid disorders | CPT/HCPCS: 80053; 80061; 85025 ==

== ENCOUNTER 2024-04-09 09:14 | Outpatient (CLI) | payer BC, MEDICAID, SELFPAY ==
--- NOTE | 2024-04-09 09:20 | XR_ITS ---
WS: [id number] Exam: XR KUB [id number] Date/Time of Exam: 04/09/2024 9:22 AM Reason For Exam: abominal pain No bowel obstruction or free air. No sign of organ enlargement. Spinal fusion extending from L2-S1 wi th pedicle screws and posterior rods. Screws bridge the LEFT bilateral SI joints. XR/XR KUB [id number] IMPRESSION: 1. No acute abdominal process. Spinal fusion as above.
== END 2024-04-09 09:15 | disposition home or self-care (01) ==
LOC: RAD 09:16
PROVIDERS: PCP Family Medicine
DX: R10.9 Unspecified abdominal pain (principal); M43.26 Fusion of spine, lumbar region; J02.9 Acute pharyngitis, unspecified
CPT/HCPCS: 74018; 87400; 87426

== ENCOUNTER 2024-04-12 09:35 | Emergency (ER) | payer BC, MEDICAID, SELFPAY ==
[2024-04-12] VITALS (15 sets, daily range): BP systolic 103–138; BP diastolic 61–95; PULSE 70–86; RESP 16–18; TEMP 38; O2SAT 93–98; BMI 33.3
--- NOTE | 2024-04-12 10:54 | W.ED.FEVER ---
Documented by User: SARAH Saldivar 04/12/24 16:56 HPI - Fever General: Chief Complaint: Fever Stated Complaint: fever, headache Time Seen by Provider: 04/12/24 09:41 Source: patient Mode of arrival: wheelchair Limitations: no limitations History of Present Illness: Patient is a 53-year-old female presents to ED today with a complaint of a fever. She states she has had fevers over the past 2 days as high as 102.5. She is febrile upon presentation at 100.4. She states she was seen at the urgent care a few days ago and had been complaining of lower abdominal pain, nausea, vomiting. She states she is still having lower abdominal pain. She states she has a headache. This does improve with Tylenol/Ibuprofen and seems to get better when her fever ablates. She is status post 5 weeks out from a cervical/thoracic spinal surgery by Dr. Cortez. Procedure performed listed below: Procedure: 1. C6-T5 posterior spine fusion 2. C6-T5 posterior cervical instrumentation 3. Removal deep hardware from cervical spine 4. Use of computer navigation/stereotactic for cervical spine 5. Use of allograft She states her neck/back pain has never really improved since surgery. Denies worsening pain. Patient states she feels fatigued and worn out. MD elicited complaint: fever and other (headache, abdominal pain, N/V/D, neck pain) Associated symptoms: Reports abdominal pain, chills, diarrhea, headache(s), nasal congestion, nausea and vomiting; Deny flank pain, chest pain, confusion, dysuria, extremity pain or sinus pain Related Data Home Medications Medication Instructions Recorded Confirmed MARJUANIA 08/15/22 04/12/24 atenolol 25 mg tablet 25 mg PO QAM 10/01/23 04/12/24 omeprazole 40 mg capsule,delayed 40 mg PO QAM 10/01/23 04/12/24 release tizanidine 4 mg tablet 4 - 8 mg PO BEDTIME 10/11/23 04/12/24 citalopram 20 mg tablet 20 mg PO DAILY 03/07/24 04/12/24 estradiol 1 mg tablet 1 mg PO QPM 03/07/24 04/12/24 ibuprofen 800 mg tablet 800 mg PO Q12H PRN Pain (Scale 03/07/24 04/12/24 Score 1-3) oxycodone-acetaminophen 5 mg-325 0.5 - 1 tab PO Q8H PRN Pain 03/07/24 04/12/24 mg tablet trazodone 150 mg tablet 150 mg PO QPM 04/12/24 04/12/24 Previous Rx's Medication Instructions Recorded Bone Growth Stimulator E0748 #1 ea 09/05/22 pregabalin 150 mg capsule 150 mg PO BID #60 caps 10/30/23 ondansetron 4 mg disintegrating 4 mg PO Q6H PRN nausea and 03/20/24 tablet vomiting 14 days #56 tabs Allergies Allergy/AdvReac Type Severity Reaction Status Date / Time adhesive tape Allergy ALGY-Rash Verified 04/09/24 08:19 Review of Systems Const: Reports: fever(s), chills and fatigue; Denies: body aches, change in appetite or malaise Eyes: Denies: change in vision, blurry vision, photophobia, floaters or seeing flashes ENMT: Reports: nasal congestion; Denies: throat pain, odynophagia, ear or mastoid pain, nasal discharge or sinus pain Card: Denies: chest pain Resp: Denies: dyspnea, productive cough or non-productive cough GI: Reports: abdominal pain, nausea, vomiting and diarrhea : Denies: flank pain, difficulty voiding, dysuria, urinary frequency, urinary urgency or urinary hesitancy Musc: Reports: neck pain; Denies: back pain, extremity pain, extremity swelling, joint pain or joint swelling Skin/Breast: Denies: rash Neuro: Reports: headache(s); Denies: numbness in extremities, weakness in extremities, sensory changes, difficulty walking, dizziness or confusion PFS ED PFSH: Medical History Aftercare following surgery of the genitourinary system Neuropathy Hypertension Insomnia Surgical History H/O dilation and curettage H/O: hysterectomy 2020 - - with BLO S/P cervical spinal fusion C2-T2 fusion - 2023 History of radical neck surgery Family History Father Diabetes Mother Hyperlipidemia Family/Other Breast cancer maternal aunt, great aunt age onset unknown Grandmother Diabetes paternal Denies family history of Colon cancer Ovarian cancer Clotting disorder Heart disease Anesthesia complication Bleeding disorder Family history of premature coronary artery disease Hypertension Uterine cancer Thyroid disease Stroke Social History Smoking and tobacco/nicotine status: current every day tobacco/nicotine user Quit status (tobacco/nicotine): has quit using Former quit date comment: 05/08/2021 Second hand smoke exposure: No Alcohol intake: former 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 date alcohol: 2019 Substance/Drug Use: current Substance/Drug use frequency: daily Other substance/drug use details: has a medical card Physical Exam Const: COMMON NORMALS: no acute distress, average body habitus, patient oriented x3, no limitations, alert and well nourished ORIENTATION/CONSCIOUSNESS: Yes awake, Yes oriented to person, Yes oriented to place and Yes oriented to time HENMT: COMMON NORMALS: normocephalic and atraumatic HEAD & SCALP: normal to inspection, normocephalic and atraumatic FACE & SINUS: normal facial exam Eye: GENERAL EYE: appearance normal, both eyes and all related structures and normal light reflex DIRECT OPHTHALMOSCOPY: Yes normal light reflex Neck/C-Spine: COMMON NORMALS: no lymphadenopathy GENERAL: Yes normal visual inspection CERVICAL SPINE: Yes cervical ROM abnormal (due to cervical spinal surgery) OTHER: cervical incision appears clean/well healed no obvious meningeal signs-cannot perform Brudzinski's due to spinal fusion; Kernig's negative Chest: COMMONS NORMALS: normal inspection of the chest and normal palpation of entire chest wall Resp: COMMON NORMALS: normal respiratory effort and clear to auscultation bilaterally AUSCULTATION: clear to auscultation bilaterally Cardio: COMMON NORMALS: regular rate and regular rhythm RATE: regular rate RHYTHM: regular rhythm GI: COMMON NORMALS: Normal to inspection, nondistended, normoactive bowel sounds present, Soft to palpation, No hepatosplenomegaly present and no masses INSPECTION: Yes normal to inspection PALPATION: Yes Soft to palpation, Yes Tenderness to palpation present (GI) (throughout lower abdomen R>L) and Yes No hepatosplenomegaly present : COMMON NORMALS: Yes no CVA tenderness BLADDER/KIDNEY EXAM: Yes no CVA tenderness Back/Pelvis: COMMON NORMALS: no CVA tenderness and thoracic and lumbar spine normal to inspection Extremity: GENERAL: Yes normal exam except as noted Neuro: KERRI COMA SCALE: document GCS findings [place] coma scale eye opening: Spontaneous Kerri coma scale verbal response: Orientated [place] coma scale motor response: Obey commands Kerri coma scale total score: 15 COMMON NORMALS: patient oriented x3, moves all extremities, no focal motor deficits and no sensory deficits noted SENSORIUM/ORIENTATION: Yes alert, Yes oriented to person, Yes oriented to place and Yes oriented to time Skin: COMMON NORMALS: no rashes or lesions noted GENERAL SKIN EXAM: no rashes or lesions noted Course Consultations: Consultation #1: Dr. Diaz-recommends transfer to facility with colorectal surgery as she will probably require this and/or interventional radiology Vital Signs: Vital signs: Vital Signs Temperature 100.4 F H 04/12/24 09:49 Pulse Rate 79 04/13/24 00:43 Respiratory Rate 16 04/12/24 22:00 Blood Pressure 149/86 04/13/24 00:43 Pulse Oximetry 91 04/13/24 00:43 Oxygen Delivery Me thod Room Air 04/12/24 22:00 MDM - Fever Medical Decision Making Patient is a nice 53-year-old female here with lower abdominal pain, nausea, vomiting, fevers. She was found to have a large inflammatory soft tissue mass deep within her pelvis. Differential is broad including ruptured appendix versus necrotic tumor. It appears she has fistula formation. Spoke to general surgeon Dr. Diaz who is recommending transfer as patient most likely will need colorectal surgery. I have spoken to Dr. Dickson at [facility] who accepts patient. Medical Records I reviewed the patient's medical records. Lab Data I reviewed the patient's lab results. 04/12/24 10:51 04/12/24 10:51 Radiology Impressions Chest X-Ray 04/12/24 11:12 IMPRESSION: 1. No acute cardiopulmonary finding. Head CT 04/12/24 11:13 IMPRESSION: No acute intracranial hemorrhage or edema. No pneumocephalus or hydrocephalus. Negative CT brain. Abdomen/Pelvis CT 04/12/24 12:16 IMPRESSION: 1. Large inflammatory soft tissue mass with air deep within the pelvis between the bladder and rectum. Mass measures 6.4 x 7.1 cm. The cecum, several small bowel loops and the appendix are deep within the pelvis. Oral contrast is identified extravasating from the cecum best seen on image 75 of series 4 extending around the complex collection. There are several small bowel loops extending into the RIGHT pelvis with abnormal wall thickening. Adjacent small bowel fistula is not excluded. The appendix is not identified on today's examination. On a prior CT from 2017 the appendix was deep within the pelvis and to the LEFT of midline. Differential includes ruptured appendix or necrotic tumor. 2. There are a few hyperemic lymph nodes in the retroperitoneum and in the pelvis. 3. Secondary inflammatory changes involving the sigmoid. The sigmoid is being slightly displaced by necrotic collection. 4. There is a tiny calcific density within the complex collection which could be an appendicolith if this is a ruptured appendix. 5. Status post hysterectomy. Inflammatory mass extends to abut the vaginal cuff.. Differential would also include mass associated with the vaginal cuff or cervix if there is a subtotal hysterectomy. Laboratory Results WBC 11.36 10^3/uL (3.29-11.43) 04/12/24 10:51 RBC 4.02 10^6/uL (3.85-5.65) 04/12/24 10:51 Hgb 11.00 g/dL (11.27-16.99) L 04/12/24 10:51 Hct 34.6 % (36-47) L 04/12/24 10:51 MCV 86.1 fl (85-98) 04/12/24 10:51 MCH 27.4 pg (27-33) 04/12/24 10:51 MCHC 31.8 g/dL (30-55) 04/12/24 10:51 RDW 16.4 % (12.1-15.1) H 04/12/24 10:51 Plt Count 184 10^3/cmm (157-399) 04/12/24 10:51 MPV 11.2 fL (7.4-10.4) H 04/12/24 10:51 Neut % (Auto) 83.0 % 04/12/24 10:51 Lymph % (Auto) 8.3 % 04/12/24 10:51 [place] % (Auto) 7.3 % 04/12/24 10:51 Eos % (Auto) 0.4 % 04/12/24 10:51 Baso % (Auto) 0.4 % 04/12/24 10:51 Neut # (Auto) 9.43 10^3/uL (1.8-7.7) H 04/12/24 10:51 Lymph # (Auto) 0.9 10^3/uL (0.8-4.8) 04/12/24 10:51 [place] # (Auto) 0.8 10^3/uL (0.2-0.9) 04/12/24 10:51 Eos # (Auto) 0.0 10^3/uL (0.0-0.8) 04/12/24 10:51 Baso # (Auto) 0.1 10^3/uL (0.0-0.1) 04/12/24 10:51 Nucleated RBC % (auto) 0 % 04/12/24 10:51 Nucleated RBCs # 0.0 /100WBC 04/12/24 10:51 Sodium 133 mmol/L (136-145) L 04/12/24 10:51 Potassium 4.1 mmol/L (3.5-5.1) 04/12/24 10:51 Chloride 96 mmol/L (98-107) L 04/12/24 10:51 Carbon Dioxide 24 mmol/L (22-29) 04/12/24 10:51 Anion Gap 17.1 (5-19) 04/12/24 10:51 BUN 9 mg/dL (6-20) 04/12/24 10:51 Creatinine 0.7 mg/dL (0.5-0.9) 04/12/24 10:51 GFR Calculation 88.2 mL/min (90-130) L 04/12/24 10:51 Glucose 101 mg/dL (65-115) 04/12/24 10:51 Calculated Osmolality 275 mOsm/kg (285-295) L 04/12/24 10:51 Lactic Acid 0.6 mmol/L (0.5-2.2) 04/12/24 14:00 Calcium 9.1 mg/dL (8.5-10.5) 04/12/24 10:51 Total Bilirubin 0.5 mg/dL (0.15-1.2) 04/12/24 10:51 AST 16 U/L (0-32) 04/12/24 10:51 ALT 9 U/L (0-33) 04/12/24 10:51 Alkaline Phosphatase 122 U/L (35-105) H 04/12/24 10:51 C-Reactive Protein 400.6 mg/L (0.0-4.9) H 04/12/24 10:51 Total Protein 7.5 g/dL (6.6-8.7) 04/12/24 10:51 Albumin 3.7 g/dL (3.5-5.2) 04/12/24 10:51 Globulin 3.8 g/dL (1.3-4.6) 04/12/24 10:51 Urine Color Yellow (Yellow) 04/12/24 11:27 Urine Appearance Clear (CLEAR) 04/12/24 11:27 Urine pH 6.5 (5-7) 04/12/24 11:27 Ur Specific [place] 1.005 (1.005-1.030) 04/12/24 11:27 Urine Protein Negative (Negative) 04/12/24 11:27 Urine Glucose (UA) Negative (Normal) 04/12/24 11:27 Urine Ketones Negative (Negative) 04/12/24 11:27 Urine Blood Negative (Negative) 04/12/24 11:27 Urine Nitrate Negative (Negative) 04/12/24 11:27 Urine Bilirubin Negative (Negative) 04/12/24 11:27 Urine Urobilinogen 1.0 mg/dL (Negative) 04/12/24 11:27 Ur Leukocyte Esterase Negative (Negative) 04/12/24 11:27 Urine RBC 6-10 /hpf (0-2) 04/12/24 11:27 Urine WBC 0-5 /hpf (0-5) 04/12/24 11:27 Ur Squamous Epith Cells 0-5 /hpf (0-5) 04/12/24 11:27 Amorphous Sediment Not Reportable 04/12/24 11:27 Urine Bacteria 1+ /hpf (NONE) H 04/12/24 11:27 Hyaline Casts 0-4 /lpf H 04/12/24 11:27 Urine Mucus Trace /hpf 04/12/24 11:27 Coronavirus 229E (PCR) Not detected (NOT DETECT) 04/12/24 10:49 SARS-CoV-2 (PCR) Not detected (NOT DETECT) 04/12/24 10:49 All radiology interpretation(s) finalized by discharge Discharge Plan Discharge Patient Disposition: Xfer Short-Term Hosp Clinical Impression: Pelvic mass in female Condition: Stable Referrals: Abel Turner MD [Primary Care Provider] - Coding Level of Care Code ED Security Monitor for Chg Fwd Documented by User: Daljit Beebe DO 04/13/24 06:32 HPI - Fever General: Chief Complaint: Fever Stated Complaint: fever, headache Time Seen by Provider: 04/12/24 09:41 Related Data Home Medications Medication Instructions Recorded Confirmed MARJUANIA 08/15/22 04/12/24 atenolol 25 mg tablet 25 mg PO QAM 10/01/23 04/12/24 omeprazole 40 mg capsule,delayed 40 mg PO QAM 10/01/23 04/12/24 release tizanidine 4 mg tablet 4 - 8 mg PO BEDTIME 10/11/23 04/12/24 citalopram 20 mg tablet 20 mg PO DAILY 03/07/24 04/12/24 estradiol 1 mg tablet 1 mg PO QPM 03/07/24 04/12/24 ibuprofen 800 mg tablet 800 mg PO Q12H PRN Pain (Scale 03/07/24 04/12/24 Score 1-3) oxycodone-acetaminophen 5 mg-325 0.5 - 1 tab PO Q8H PRN Pain 03/07/24 04/12/24 mg tablet trazodone 150 mg tablet 150 mg PO QPM 04/12/24 04/12/24 Previous Rx's Medication Instructions Recorded Bone Growth Stimulator E0748 #1 ea 09/05/22 pregabalin 150 mg capsule 150 mg PO BID #60 caps 10/30/23 ondansetron 4 mg disintegrating 4 mg PO Q6H PRN nausea and 03/20/24 tablet vomiting 14 days #56 tabs Allergies Allergy/AdvReac Type Severity Reaction Status Date / Time adhesive tape Allergy ALGY-Rash Verified 04/09/24 08:19 PFSH ED PFSH: Medical History Aftercare following surgery of the genitourinary system Neuropathy Hypertension Insomnia Surgical History H/O dilation and curettage H/O: hysterectomy 2020 - - with BLO S/P cervical spinal fusion C2-T2 fusion - 2023 History of radical neck surgery Family History Father Diabetes Mother Hyperlipidemia Family/Other Breast cancer maternal aunt, great aunt age onset unknown Grandmother Diabetes paternal Denies family history of Colon cancer Ovarian cancer Clotting disorder Heart disease Anesthesia complication Bleeding disorder Family history of premature coronary artery disease Hypertension Uterine cancer Thyroid disease Stroke Social History Smoking and tobacco/nicotine status: current every day tobacco/nicotine user Quit status (tobacco/nicotine): has quit using Former quit date comment: 05/08/2021 Second hand smoke exposure: No Alcohol intake: former 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 date alcohol: 2019 Substance/Drug Use: current Substance/Drug use frequency: daily Other substance/drug use details: has a medical card Physical Exam Neuro: KERRI COMA SCALE: document GCS findings [place] coma scale total score: 15 Course Vital Signs: Vital signs: Vital Signs Temperature 100.4 F H 04/12/24 09:49 Pulse Rate 79 04/13/24 00:43 Respiratory Rate 16 04/12/24 22:00 Blood Pressure 149/86 04/13/24 00:43 Pulse Oximetry 91 04/13/24 00:43 Oxygen Delivery Me thod Room Air 04/12/24 22:00 MDM - Fever Medical Decision Making Patient is a nice 53-year-old female here with lower abdominal pain, nausea, vomiting, fevers. She was found to have a large inflammatory soft tissue mass deep within her pelvis. Differential is broad including ruptured appendix versus necrotic tumor. It appears she has fistula formation. Spoke to general surgeon Dr. Diaz who is recommending transfer as patient most likely will need colorectal surgery. I have spoken to Dr. Dickson at [facility] who accepts patient. Chart reviewed and patient discussed with midlevel. Agree with assessment and plan. Discussed with Dr. Diaz. Asked Dr. Diaz to see the patient in the department to aid consultation. Reviewed chart. Patient to be transferred as outlined above by SARAH Phillips. Lab Data 04/12/24 10:51 04/12/24 10:51 Radiology Impressions Chest X-Ray 04/12/24 11:12 IMPRESSION: 1. No acute cardiopulmonary finding. Head CT 04/12/24 11:13 IMPRESSION: No acute intracranial hemorrhage or edema. No pneumocephalus or hydrocephalus. Negative CT brain. Abdomen/Pelvis CT 04/12/24 12:16 IMPRESSION: 1. Large inflammatory soft tissue mass with air deep within the pelvis between the bladder and rectum. Mass measures 6.4 x 7.1 cm. The cecum, several small bowel loops and the appendix are deep within the pelvis. Oral contrast is identified extravasating from the cecum best seen on image 75 of series 4 extending around the complex collection. There are several small bowel loops extending into the RIGHT pelvis with abnormal wall thickening. Adjacent small bowel fistula is not excluded. The appendix is not identified on today's examination. On a prior CT from 2016 the appendix was deep within the pelvis and to the LEFT of midline. Differential includes ruptured appendix or necrotic tumor. 2. There are a few hyperemic lymph nodes in the retroperitoneum and in the pelvis. 3. Secondary inflammatory changes involving the sigmoid. The sigmoid is being slightly displaced by necrotic collection. 4. There is a tiny calcific density within the complex collection which could be an appendicolith if this is a ruptured appendix. 5. Status post hysterectomy. Inflammatory mass extends to abut the vaginal cuff.. Differential would also include mass associated with the vaginal cuff or cervix if there is a subtotal hysterectomy. Laboratory Results WBC 11.36 10^3/uL (3.29-11.43) 04/12/24 10:51 RBC 4.02 10^6/uL (3.85-5.65) 04/12/24 10:51 Hgb 11.00 g/dL (11.27-16.99) L 04/12/24 10:51 Hct 34.6 % (36-47) L 04/12/24 10:51 MCV 86.1 fl (85-98) 04/12/24 10:51 MCH 27.4 pg (27-33) 04/12/24 10:51 MCHC 31.8 g/dL (30-55) 04/12/24 10:51 RDW 16.4 % (12.1-15.1) H 04/12/24 10:51 Plt Count 184 10^3/cmm (157-399) 04/12/24 10:51 MPV 11.2 fL (7.4-10.4) H 04/12/24 10:51 Neut % (Auto) 83.0 % 04/12/24 10:51 Lymph % (Auto) 8.3 % 04/12/24 10:51 [place] % (Auto) 7.3 % 04/12/24 10:51 Eos % (Auto) 0.4 % 04/12/24 10:51 Baso % (Auto) 0.4 % 04/12/24 10:51 Neut # (Auto) 9.43 10^3/uL (1.8-7.7) H 04/12/24 10:51 Lymph # (Auto) 0.9 10^3/uL (0.8-4.8) 04/12/24 10:51 [place] # (Auto) 0.8 10^3/uL (0.2-0.9) 04/12/24 10:51 Eos # (Auto) 0.0 10^3/uL (0.0-0.8) 04/12/24 10:51 Baso # (Auto) 0.1 10^3/uL (0.0-0.1) 04/12/24 10:51 Nucleated RBC % (auto) 0 % 04/12/24 10:51 Nucleated RBCs # 0.0 /100WBC 04/12/24 10:51 Sodium 133 mmol/L (136-145) L 04/12/24 10:51 Potassium 4.1 mmol/L (3.5-5.1) 04/12/24 10:51 Chloride 96 mmol/L (98-107) L 04/12/24 10:51 Carbon Dioxide 24 mmol/L (22-29) 04/12/24 10:51 Anion Gap 17.1 (5-19) 04/12/24 10:51 BUN 9 mg/dL (6-20) 04/12/24 10:51 Creatinine 0.7 mg/dL (0.5-0.9) 04/12/24 10:51 GFR Calculation 88.2 mL/min (90-130) L 04/12/24 10:51 Glucose 101 mg/dL (65-115) 04/12/24 10:51 Calculated Osmolality 275 mOsm/kg (285-295) L 04/12/24 10:51 Lactic Acid 0.6 mmol/L (0.5-2.2) 04/12/24 14:00 Calcium 9.1 mg/dL (8.5-10.5) 04/12/24 10:51 Total Bilirubin 0.5 mg/dL (0.15-1.2) 04/12/24 10:51 AST 16 U/L (0-32) 04/12/24 10:51 ALT 9 U/L (0-33) 04/12/24 10:51 Alkaline Phosphatase 122 U/L (35-105) H 04/12/24 10:51 C-Reactive Protein 400.6 mg/L (0.0-4.9) H 04/12/24 10:51 Total Protein 7.5 g/dL (6.6-8.7) 04/12/24 10:51 Albumin 3.7 g/dL (3.5-5.2) 04/12/24 10:51 Globulin 3.8 g/dL (1.3-4.6) 04/12/24 10:51 Urine Color Yellow (Yellow) 04/12/24 11:27 Urine Appearance Clear (CLEAR) 04/12/24 11:27 Urine pH 6.5 (5-7) 04/12/24 11: Ur Specific [place] 1.005 (1.005-1.030) 04/12/24 11:27 Urine Protein Negative (Negative) 04/12/24 11:27 Urine Glucose (UA) Negative (Normal) 04/12/24 11:27 Urine Ketones Negative (Negative) 04/12/24 11:27 Urine Blood Negative (Negative) 04/12/24 11:27 Urine Nitrate Negative (Negative) 04/12/24 11:27 Urine Bilirubin Negative (Negative) 04/12/24 11:27 Urine Urobilinogen 1.0 mg/dL (Negative) 04/12/24 11:27 Ur Leukocyte Esterase Negative (Negative) 04/12/24 11:27 Urine RBC 6-10 /hpf (0-2) 04/12/24 11:27 Urine WBC 0-5 /hpf (0-5) 04/12/24 11:27 Ur Squamous Epith Cells 0-5 /hpf (0-5) 04/12/24 11:27 Amorphous Sediment Not Reportable 04/12/24 11:27 Urine Bacteria 1+ /hpf (NONE) H 04/12/24 11:27 Hyaline Casts 0-4 /lpf H 04/12/24 11:27 Urine Mucus Trace /hpf 04/12/24 11:27 Coronavirus 229E (PCR) Not detected (NOT DETECT) 04/12/24 10:49 SARS-CoV-2 (PCR) Not detected (NOT DETECT) 04/12/24 10:49 Discharge Plan Discharge Patient Disposition: Xfer Short-Term Hosp Clinical Impression: Pelvic mass in female Condition: Stable Referrals: Abel Turner MD [Primary Care Provider] - Coding Level of Care Code ED Security Monitor for Viri Ring
[2024-04-12 11:00] LABS: Basophils # 0.1 10^3/uL (0.0-0.1); Basophils % 0.4 %; Eosinophils % 0.4 %; Hematocrit 34.6 % (36-47); Lymphocytes # 0.9 10^3/uL (0.8-4.8); Lymphocytes % 8.3 %; Mean Corpuscular HGB Conc 31.8 g/dL (30-55); Mean Corpuscular Hemoglobin 27.4 pg (27-33); Mean Corpuscular Volume 86.1 fl (85-98); Mean Platelet Volume 11.2 fL (7.4-10.4); Monocytes # 0.8 10^3/uL (0.2-0.9); Monocytes % 7.3 %; Neutrophils # 9.43 10^3/uL (1.8-7.7); Nucleated Red Blood Cells % 0 %; Platelet Count 184 10^3/cmm (157-399); Red Blood Count 4.02 10^6/uL (3.85-5.65); Red Cell Distribution Width 16.4 % (12.1-15.1); White Blood Count 11.36 10^3/uL (3.29-11.43)
--- NOTE | 2024-04-12 11:12 | XR_ITS ---
WS: [id number] Exam: XR chest 1V portable [id number] Date/Time of Exam: 04/12/2024 11:17 AM Reason For Exam: fever Comparison 06/04/2018. The lungs are clear and fully inflated. Normal cardiomediastinal silhouette. No pleural effusions. Sergei ny structures are intact. Extensive fusion hardware noted in the visualized lower cervical and upper thoracic spine. XR/XR chest 1V portable [id number] IMPRESSION: 1. No acute cardiopulmonary finding.
--- NOTE | 2024-04-12 11:13 | CT_ITS ---
WS: [id number] CT HEAD NONCONTRAST HISTORY: headache TECHNIQUE: Contiguous axial imaging performed through the brain. Bone and soft tissue windows. Sagitt al and coronal reformats reviewed. All CT scans at [facility] use at least one of these dose optimization techniques: automated exposure control; mA and/or kV adjustment per patient size (includ es targeted exams where dose is matched to clinical indication); or iterative reconstruction. DLP: 1147.78 mGy.cm COMPARISON: None available. No acute intracranial hemorrhage, midline shift or mass effect. No atrophy or prior infarcts or herniation. Ventricles: Normal size with no hydrocephalus. No inferior displacement of the cerebellar tonsils. Paranasal sinuses: As visualized are clear. Mastoid air cells: Well pneumatized. Calvarium and scalp: Skull is intact with no soft tissue edema or swelling. CT/CT head wo con* [id number] IMPRESSION: No acute intracranial hemorrhage or edema. No pneumocephalus or hydrocephalus. Negative CT brain.
[2024-04-12 11:18] LABS: Alanine Aminotransferase 9 U/L (0-33); Albumin Level 3.7 g/dL (3.5-5.2); Alkaline Phosphatase 122 U/L (35-105); Anion Gap 17.1 (5-19); Aspartate Amino Transferase 16 U/L (0-32); Blood Urea Nitrogen 9 mg/dL (6-20); Calcium 9.1 mg/dL (8.5-10.5); Carbon Dioxide 24 mmol/L (22-29); Chloride 96 mmol/L (98-107); Creatinine Clr Calc Pharmacy 102.0957; Globulin 3.8 g/dL (1.3-4.6); Glomerular Filtration Rate 88.2 mL/min (90-130); Glucose 101 mg/dL (65-115); Osmolality Calculated 275 mOsm/kg (285-295); Potassium 4.1 mmol/L (3.5-5.1); Sodium 133 mmol/L (136-145); Total Bilirubin 0.5 mg/dL (0.15-1.2); Total Protein 7.5 g/dL (6.6-8.7)
--- NOTE | 2024-04-12 11:18 | CT_ITS ---
WS: [id number] CT ABDOMEN AND PELVIS NONCONTRAST HISTORY: lower abdominal pain, N/V/D TECHNIQUE: Imaging performed through the abdomen and pelvis. Coronal and sagittal reformats are submi tted. All CT scans at [facility] use at least one of these dose optimization techniques: auto mated exposure control; mA and/or kV adjustment per patient size (includes targeted exams where dose is matched to clinical indication); or iterative reconstruction. DLP: 889.51 mGy.cm COMPARISON: 10/25/2021 Lower thorax: Lung bases are clear. Visualized heart is normal. No hiatal hernia. Liver: Enlarged liver with hepatic steatosis. Gallbladder: Mildly contracted gallbladder. Pancreas: Normal size and attenuation. Normal pancreatic duct. No pancreatitis or mass. Spleen: Normal. Adrenal glands: Normal. No mass. Right kidney: Normal size kidney with no mass or hydronephrosis. Left kidney: Normal size kidney with no mass or hydronephrosis. Aorta: No aneurysm. There are few shotty retroperitoneal lymph nodes. GI tract: Normal appearance of the stomach and proximal small bowel. There is no inflammatory process deep in the pelvis which needs to be further evaluated. Mass with increased density and air is noted deep in the central pelvis which is inseparable from the small bowel and portions of the sigmoid. Di fficult to define without contrast. By history patient's had a prior hysterectomy. Mass measures appr oximately 4.5 x 4.7 cm. Moderate amount of soft tissue stranding and inflammation deep within the pel vis. Abdominal wall: Negative. No hernia. Pelvis: Prior hysterectomy. Urinary bladder is negative. Osseous structures: Unremarkable. CT/CT abdomen pelvis wo con [id number] IMPRESSION: 1. Acute inflammatory process centered deep in the pelvis inseparable from sma ll bowel and sigmoid colon. Mass with air measures 4.5 x 4.7 cm. This may be a developing abscess or necrotic neoplasm with perforation. Recommend additional evaluation by CT with IV and oral contrast. 2. No renal obstruction. 3. Hepatic steatosis. Notified SARAH Saldivar at 04/12/2024 12:14 PM.
--- NOTE | 2024-04-12 11:21 | PC.NURSE ---
this nurse assumed pt care at 1105 from SARAH De La Fuente. pt in stable condition at this time.
[2024-04-12 11:35] LABS: Bilirubin Urine Negative (Negative); Blood Urine Negative (Negative); Glucose Urine UA Negative (Normal); Ketones Urine Negative (Negative); Leukocyte Esterase Urine Negative (Negative); Nitrate Urine Negative (Negative); Protein Urine Negative (Negative); Specific Gravity, Urine 1.005 (1.005-1.030); Urine Appearance Clear (CLEAR); Urine Color Yellow (Yellow); pH Urine 6.5 (5-7)
[2024-04-12 11:38] LABS: Add Urine Microscopic? YES; Hyaline Casts Urine 0-4 /lpf; Squamous Epithelial Cell Urine 0-5 /hpf (0-5); WBC Urine 0-5 /hpf (0-5)
[2024-04-12 11:46] LABS: Bacteria Urine 1+ /hpf; Mucus Urine TRACE /hpf; UA Slide Review UA Slide Review Perf
[2024-04-12] MEDS: ondansetron 4 MG Tablet PO (12:03)
[2024-04-12 12:05] LABS: C Reactive Protein 400.6 mg/L (0.0-4.9)
--- NOTE | 2024-04-12 12:16 | CT_ITS ---
WS: [id number] CT ABDOMEN AND PELVIS WITH CONTRAST HISTORY: abnormal CT findings-need oral AND IV contrast TECHNIQUE: Imaging performed of the abdomen and pelvis with IV contrast. Single phase imaging of the abdomen. Coronal and sagittal reformats are submitted. All CT scans at [facility] use at [address] one of these dose optimization techniques: automated exposure control; mA and/or kV adjustment per patient size (includes targeted exams where dose is matched to clinical indication); or iterative re construction. IV CONTRAST: Omnipaque 350; 100 mL IV. Oral contrast: Yes. DLP: 900.45 mGy.cm COMPARISON: CT earlier the same day, 10/25/2021, 10/07/2016 Lower thorax: Lung bases are clear. Heart is normal size. No hiatal hernia. Liver/biliary system: Normal size with no intrahepatic dilatation. Stable low-attenuation mass in the RIGHT lobe of the liver was also present in 2017 may be a small hemangioma. Gallbladder: Normal. No gallstones or wall thickening. No pericholecystic fluid. Pancreas: Normal size pancreas and pancreatic duct. No adjacent inflammation. Spleen: Normal size spleen. No mass or infarct. Adrenal glands: Normal. Right kidney: Normal. Left kidney: Normal. Aorta: Normal. Lymphadenopathy: There are small shotty retroperitoneal lymph nodes. Some of these are mildly hyperva scular within the pelvis. Pelvis /GI tract: Marked inflammatory process deep within the pelvis. There is a complex collection w ith fluid level measuring 6.4 x 7.0 cm. This mass is posterior to the urinary bladder and anterior to the rectosigmoid junction. There is displacement of the sigmoid colon and several small bowel loops. There are several small bowel loops in the pelvis including the cecum. The oral contrast extends thr ough the wall of what is probably the cecum. I can't identify oral contrast extending external to the cecum to extend around the fluid collection/abscess. There are 2 adjacent small bowel loops which ar e abnormal and there may be a fistulous communication between the cecum and small bowel. There is mar ked thickening of the small bowel loops and also the sigmoid. The wall of the sigmoid is irregular bu t I do believe this process is external to the sigmoid and the sigmoid is only secondarily involved. On a prior CT the appendix was deep within the pelvis and actually to the LEFT of midline. I suspect this could be appendicitis with rupture. May be acute on chronic appendicitis with perforation. Abdominal wall: Unremarkable abdominal wall. No hernia. Pelvis: Soft tissue inflammation in the pelvis. Prior hysterectomy. Bones: Extensive posterior lumbar fusion. CT/CT abdomen pelvis w con* [id number] IMPRESSION: 1. Large inflammatory soft tissue mass with air deep within the pelvis between the bladder and rectum. Mass measures 6.4 x 7.1 cm. The cecum, several small b owel loops and the appendix are deep within the pelvis. Oral contrast is identi fied extravasating from the cecum best seen on image 75 of series 4 extending a round the complex collection. There are several small bowel loops extending int o the RIGHT pelvis with abnormal wall thickening. Adjacent small bowel fistula is not excluded. The appendix is not identified on today's examination. On a pr ior CT from 2017 the appendix was deep within the pelvis and to the LEFT of mid line. Differential includes ruptured appendix or necrotic tumor. 2. There are a few hyperemic lymph nodes in the retroperitoneum and in the pel vis. 3. Secondary inflammatory changes involving the sigmoid. The sigmoid is being slightly displaced by necrotic collection. 4. There is a tiny calcific density within the complex collection which could be an appendicolith if this is a ruptured appendix. 5. Status post hysterectomy. Inflammatory mass extends to abut the vaginal cuf f.. Differential would also include mass associated with the vaginal cuff or ce rvix if there is a subtotal hysterectomy.
[2024-04-12 12:50] LABS: Adenovirus Not Detected (NOT DETECT); Chlamydia Pneumoniae Not Detected (NOT DETECT); Coronavirus 229E,HKU1,NL63,OC4 Not Detected (NOT DETECT); Human Metapneumovirus Not Detected (NOT DETECT); Human Rhinovirus/Enterovirus Not Detected (NOT DETECT); Influenza A Not Detected (NOT DETECT); Influenza A H1 Not Detected (NOT DETECT); Influenza A H1-2009 Not Detected (NOT DETECT); Influenza A H3 Not Detected (NOT DETECT); Influenza B Not Detected (NOT DETECT); Mycoplasma Pneumoniae Not Detected (NOT DETECT); Parainfluenza Virus Type 1 Not Detected (NOT DETECT); Parainfluenza Virus Type 2 Not Detected (NOT DETECT); Parainfluenza Virus Type 3 Not Detected (NOT DETECT); Parainfluenza Virus Type 4 Not Detected (NOT DETECT); Respiratory Syncytial Virus A Not Detected (NOT DETECT); Respiratory Syncytial Virus B Not Detected (NOT DETECT); SARS-COV-2 Not Detected (NOT DETECT)
[2024-04-12] MEDS: sodium chloride 0.9% 1,000 ML 999 ML IV ×2 (13:41→14:45)
[2024-04-12] MEDS: ketorolac 30 mg/mL INJ 15 MG IVP (13:42)
[2024-04-12] MEDS: morphine 4 mg/mL SDV 1 mL IVP ×2 (13:42→22:32)
[2024-04-12] MEDS: iohexol 350 mg/mL 500 mL Btl (per mL) IV (14:18)
[2024-04-12] MEDS: iohexol 350 mg/mL 500 mL Btl (per mL) PO (14:18)
[2024-04-12 14:31] LABS: Lactic Sepsis W/Reflex 0.6 mmol/L (0.5-2.2)
[2024-04-12] MEDS: acetaminophen 500 mg Tablet 1000 MG PO (14:44)
[2024-04-12] MEDS: piperacillin-tazobactam 3.375 GM in sodium chloride 0.9% (plus) 50 ML IV (16:04)
[2024-04-12] MEDS: fentaNYL 50 mcg/mL INJ 2mL 25 MCG IVP (16:43)
--- NOTE | 2024-04-12 17:26 | PM.CONSULT ---
Providers/Reason For Consult Consulting Physician/Specialty*: Dr. Diaz general surgery Reason for Consult*: necrotic tumor of the cecum vs perforated appendicitis Primary Care Provider: Abel Turner MD History of Present Illness History of Present Illness Reyna Pichardo is a 53 year old female who presents with several weeks of pelvic pain. Patient had a spinal fusion on March 04 and she reports being constipated with intermittent pelvic pain as well as some dark stools at around the same time. The abdominal pain has gotten worse this week and she noticed a fever today. In the ED CT scan showed extravasation of contrast from the cecum as well as a fluid collection in the pelvis with air. Per radiology this other represents a perforated appendicitis or a necrotic tumor. Patient had a colonoscopy about 2 years ago which was unremarkable. No family history of colon cancer. No weight loss. Patient is still passing gas and having small bowel movements. Medications/Allergies Home Medications Medication Instructions Recorded Confirmed Last Taken Type MARJUANIA 08/15/22 04/12/24 10/10/23 History Bone Growth Stimulator E0748 #1 ea 09/05/22 04/12/24 10/10/23 Rx atenolol 25 mg tablet 25 mg PO QAM 10/01/23 04/12/24 04/12/24 History omeprazole 40 mg capsule,delayed 40 mg PO QAM 10/01/23 04/12/24 04/11/24 History release tizanidine 4 mg tablet 4 - 8 mg PO BEDTIME 10/11/23 04/12/24 04/11/24 History pregabalin 150 mg capsule 150 mg PO BID #60 caps 10/30/23 04/12/24 04/11/24 Rx citalopram 20 mg tablet 20 mg PO DAILY 03/07/24 04/12/24 04/12/24 History estradiol 1 mg tablet 1 mg PO QPM 03/07/24 04/12/24 04/12/24 History ibuprofen 800 mg tablet 800 mg PO Q12H PRN Pain (Scale 03/07/24 04/12/24 04/12/24 History Score 1-3) oxycodone-acetaminophen 5 mg-325 0.5 - 1 tab PO Q8H PRN Pain 03/07/24 04/12/24 04/12/24 History mg tablet ondansetron 4 mg disintegrating 4 mg PO Q6H PRN nausea and 03/20/24 04/12/24 04/11/24 Rx tablet vomiting 14 days #56 tabs trazodone 150 mg tablet 150 mg PO QPM 04/12/24 04/12/24 04/11/24 History Allergies Allergy/AdvReac Type Severity Reaction Status Date / Time adhesive tape Allergy ALGY-Rash Verified 04/09/24 08:19 PFSH Acute PFSH: Medical History Aftercare following surgery of the genitourinary system Neuropathy Hypertension Insomnia Surgical History H/O dilation and curettage H/O: hysterectomy 2020 - - with BLO S/P cervical spinal fusion C2-T2 fusion - 2023 History of radical neck surgery Family History Father Diabetes Mother Hyperlipidemia Family/Other Breast cancer maternal aunt, great aunt age onset unknown Grandmother Diabetes paternal Denies family history of Colon cancer Ovarian cancer Clotting disorder Heart disease Anesthesia complication Bleeding disorder Family history of premature coronary artery disease Hypertension Uterine cancer Thyroid disease Stroke Social History Smoking and tobacco/nicotine status: current every day tobacco/nicotine user Quit status (tobacco/nicotine): has quit using Former quit date comment: 05/08/2021 Second hand smoke exposure: No Alcohol intake: former 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 date alcohol: 2019 Substance/Drug Use: current Substance/Drug use frequency: daily Other substance/drug use details: has a medical card Vitals/I&O/Wt Last Vital Signs Temp 100.4 F H 04/12/24 09:49 Pulse 72 04/12/24 15:00 Resp 16 04/12/24 16:43 BP 107/64 04/12/24 15:00 Pulse Ox 94 04/12/24 16:43 O2 Del Method Room Air 04/12/24 15:00 Weight last 48 hrs Weight 194 lb Physical Exam Narrative: Chest: Unlabored breathing room air. No lymphadenopathy. Heart: Regular rate and rhythm. Abdomen: Soft, suprapubic tenderness, distended. No masses or lymphadenopathy. Data 04/12/24 10:51 04/12/24 10:51 Micro: Microbiology 04/12/24 14:00 Blood Culture - Preliminary Blood SPECIMEN COLLECTED 04/12/24 13:58 Blood Culture - Preliminary Blood SPECIMEN COLLECTED A&P Assessment and plan (1) Perforated appendicitis: Plan 53-year-old female who presented with lower abdominal pain for weeks. CT scan concerning for either a necrotic tumor of the cecum or a perforated appendix. I recommend transfer to higher level of care due to the complexity of this case. She needs to be treated at a facility that can provide support from colorectal surgery as well as interventional radiology. At [facility] we do not have either. Discussed with the patient who agrees with transfer. Coding Level of Care Code 22619 Diagnoses Perforated appendicitis K35.32 Time Spent (min) 30
[2024-04-12] MEDS: ondansetron 2 mg/ML SDV 2 mL 4 MG IVP (19:00)
--- NOTE | 2024-04-12 19:33 | PC.NURSE ---
this nurse called report to Marie Tran RN at [facility] at 1926.
--- NOTE | 2024-04-12 23:00 | PC.NURSE ---
Assumed care from Katina YE at this time.
--- NOTE | 2024-04-13 00:42 | PC.NURSE ---
Bedside report was given to [facility] at bedside. was also updated on patient status of transfer per request of patient.
[2024-04-13 00:43] VITALS: BP 149/86; PULSE 79; O2SAT 91
== END 2024-04-13 00:45 | disposition short-term general hospital (02) ==
PROVIDERS: Emergency Provider Physician Assistant; PCP Family Medicine
DX: R19.00 Intra-abdominal and pelvic swelling, mass and lump, unspecified site (principal); I10 Essential (primary) hypertension; Z72.0 Tobacco use; Z11.52 Encounter for screening for COVID-19
CPT/HCPCS: 36415; 70450; 71045; 74176; 74177; 80053; 81001; 83605; 85025; 86140; 87040; 87077; 87150; 87186; 87205; 87635; 96374; 96375; 96376; 99285; J1885; J2270; J2405; J2543; J3010; J7030; Q0162

== ENCOUNTER → 2024-04-23 15:15 | Outpatient (BNVA) | payer BC, MEDICAID, SELFPAY | PROVIDERS: PCP Family Medicine; Visit Provider Orthopaedic Surgery | DX: Z98.1 Arthrodesis status (principal) | CPT/HCPCS: 72040 ==

== ENCOUNTER 2024-05-27 08:11 | Emergency (ER) | payer BC, MEDICAID, SELFPAY ==
[2024-05-27] VITALS (39 sets, daily range): BP systolic 0–162; BP diastolic 0–98; PULSE 57–63; RESP 15–18; TEMP 36.9; O2SAT 93–99; BMI 34.3
[2024-05-27 10:32] LABS: Basophils % 0.4 %; Eosinophils % 0.5 %; Hematocrit 41.8 % (36-47); Lymphocytes # 1.9 10^3/uL (0.8-4.8); Lymphocytes % 23.3 %; Mean Corpuscular HGB Conc 31.8 g/dL (30-55); Mean Corpuscular Hemoglobin 26.5 pg (27-33); Mean Corpuscular Volume 83.3 fl (85-98); Mean Platelet Volume 11.6 fL (7.4-10.4); Monocytes # 0.5 10^3/uL (0.2-0.9); Monocytes % 5.7 %; Neutrophils # 5.76 10^3/uL (1.8-7.7); Nucleated Red Blood Cells % 0 %; Platelet Count 190 10^3/cmm (157-399); Red Blood Count 5.02 10^6/uL (3.85-5.65); Red Cell Distribution Width 17.5 % (12.1-15.1); White Blood Count 8.23 10^3/uL (3.29-11.43)
[2024-05-27 10:51] LABS: Alanine Aminotransferase < 5 U/L (0-33); Albumin Level 4.5 g/dL (3.5-5.2); Alkaline Phosphatase 91 U/L (35-105); Anion Gap 14.3 (5-19); Aspartate Amino Transferase 16 U/L (0-32); Blood Urea Nitrogen 7 mg/dL (6-20); Calcium 8.7 mg/dL (8.5-10.5); Carbon Dioxide 25 mmol/L (22-29); Chloride 104 mmol/L (98-107); Creatinine Clr Calc Pharmacy 103.7294; Globulin 3.1 g/dL (1.3-4.6); Glomerular Filtration Rate 88.2 mL/min (90-130); Glucose 93 mg/dL (65-115); Lipase 97 U/L (13-60); Osmolality Calculated 286 mOsm/kg (285-295); Potassium 4.3 mmol/L (3.5-5.1); Sodium 139 mmol/L (136-145); Total Bilirubin 0.2 mg/dL (0.15-1.2); Total Protein 7.6 g/dL (6.6-8.7)
--- NOTE | 2024-05-27 11:17 | ED_ITS ---
HPI - Abdominal Pain 2 General: Chief Complaint: Abdominal Pain Stated Complaint: abd pain Time Seen by Provider: 05/27/24 09:26 Source: patient and family Mode of arrival: ambulatory Limitations: no limitations History of Present Illness: Patient is a very pleasant 53-year-old female here along with family for concerns of worsening abdominal pain. I personally saw patient on 04/12 when she was diagnosed to have an intra-abdominal abscess. On CT scan she had contrast extravasation from the cecum which was thought to be secondary to a perforated appendicitis. She was consulted here by Dr. Diaz before transfer to [facility]. She reportedly saw a Dr. Munoz there. She was treated with peripheral drainage and antibiotics. Appendectomy has not been performed yet. She has not had a colonoscopy either. They were reportedly awaiting infection/inflammation to improve. She did follow-up with her [facility] surgeon and had drain removed. She has since followed up with Dr. Kaminski here. Patient states she has CT scheduled here for tomorrow but states her pain acutely worsened thus prompting her emergency evaluation. She is not running fevers. MD elicited complaint: abdominal pain Pertinent past history: other (intra-abdominal abscess diagnosed 04/12) Onset (ago): day(s) Pain Consistency: constant Location: RLQ Severity: severe Radiation: none Migration to: no migration Exacerbating factors: nothing Relieving factors: nothing Associated Symptoms: Reports no associated symptoms and nausea; Denies chills, diarrhea, dysuria, fever(s), hematuria and vomiting Related Data Home Medications Medication Instructions Recorded Confirmed MARJUANIA 08/15/22 05/27/24 atenolol 25 mg tablet 25 mg PO QAM 10/01/23 05/27/24 omeprazole 40 mg capsule,delayed 40 mg PO QAM 10/01/23 05/27/24 release tizanidine 4 mg tablet 4 - 8 mg PO BEDTIME 10/11/23 05/27/24 citalopram 20 mg tablet 20 mg PO QAM 03/07/24 05/27/24 estradiol 1 mg tablet 1 mg PO QPM 03/07/24 05/27/24 ibuprofen 800 mg tablet 800 mg PO Q12H PRN Pain (Scale 03/07/24 05/27/24 Score 1-3) oxycodone-acetaminophen 5 mg-325 0.5 - 1 tab PO Q8H PRN Pain 03/07/24 05/27/24 mg tablet trazodone 150 mg tablet 150 mg PO QPM 04/12/24 05/27/24 Previous Rx's Medication Instructions Recorded Bone Growth Stimulator E0748 #1 ea 09/05/22 ondansetron 4 mg disintegrating 4 mg PO Q6H PRN nausea and 03/20/24 tablet vomiting 14 days #56 tabs pregabalin 150 mg capsule 150 mg PO BID #60 caps 05/20/24 amoxicillin 875 mg-potassium 1 tab PO BID 2 weeks #28 tabs 05/23/24 clavulanate 125 mg tablet Allergies Allergy/AdvReac Type Severity Reaction Status Date / Time adhesive tape Allergy ALGY-Rash Verified 05/27/24 08:46 Review of Systems 2 Const: Denies: fever(s), chills, body aches, fatigue or malaise Card: Denies: chest pain Resp: Denies: dyspnea GI: Reports: abdominal pain and nausea; Denies: vomiting or diarrhea : Denies: flank pain, dysuria or hematuria Musc: Denies: neck pain, back pain, extremity pain, extremity swelling, joint pain or joint swelling Skin/Breast: Denies: rash Neuro: Denies: headache(s), numbness in extremities, weakness in extremities, sensory changes or dizziness PFSH ED 2 PFSH: Medical History Aftercare following surgery of the genitourinary system Neuropathy Hypertension Insomnia Surgical History H/O dilation and curettage H/O: hysterectomy 2020 - - with BLO S/P cervical spinal fusion C2-T2 fusion - 2023 History of radical neck surgery Family History Father Diabetes Mother Hyperlipidemia Family/Other Breast cancer maternal aunt, great aunt age onset unknown Grandmother Diabetes paternal Denies family history of Colon cancer Ovarian cancer Clotting disorder Heart disease Anesthesia complication Bleeding disorder Family history of premature coronary artery disease Hypertension Uterine cancer Thyroid disease Stroke Social History Smoking and tobacco/nicotine status: former use of tobacco/nicotine Quit status (tobacco/nicotine): has quit using Former quit date comment: 05/08/2021 Second hand smoke exposure: No Alcohol intake: former 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 date alcohol: 2019 Substance/Drug Use: current Substance/Drug use frequency: daily Other substance/drug use details: has a medical card Physical Exam 2 Const: COMMON NORMALS: no acute distress, average body habitus, patient oriented x3, no limitations, healthy appearing, alert and well nourished Resp: COMMON NORMALS: normal respiratory effort and clear to auscultation bilaterally AUSCULTATION: clear to auscultation bilaterally Cardio: COMMON NORMALS: regular rate and regular rhythm RATE: regular rate RHYTHM: regular rhythm GI: COMMON NORMALS: Normal to inspection, nondistended, normoactive bowel sounds present, Soft to palpation, No hepatosplenomegaly present and no masses INSPECTION: Yes normal to inspection AUSCULTATION: Yes normoactive bowel sounds PALPATION: Yes Soft to palpation, Yes Tenderness to palpation present (GI) (RLQ) and Yes No hepatosplenomegaly present : COMMON NORMALS: Yes no CVA tenderness BLADDER/KIDNEY EXAM: Yes no CVA tenderness Back/Pelvis: COMMON NORMALS: no CVA tenderness and thoracic and lumbar spine normal to inspection Extremity: GENERAL: Yes normal exam except as noted Neuro: KERRI COMA SCALE: document GCS findings [place] coma scale eye opening: Spontaneous [place] coma scale verbal response: Orientated [place] coma scale motor response: Obey commands Kerri coma scale total score: 15 COMMON NORMALS: patient oriented x3, moves all extremities, no focal motor deficits and no sensory deficits noted SENSORIUM/ORIENTATION: Yes alert Skin: COMMON NORMALS: no rashes or lesions noted GENERAL SKIN EXAM: no rashes or lesions noted Course 2 Consultations: Consultation #1: Dr. Kaminski-reviewed CT findings; wants to see in office next week Vital Signs: Vital signs: Vital Signs Temperature 98.5 F 05/27/24 08:38 Pulse Rate 63 05/27/24 11:32 Respiratory Rate 18 05/27/24 11:32 Blood Pressure 150/95 05/27/24 13:40 Pulse Oximetry 97 05/27/24 13:40 Oxygen Delivery Me thod Room Air 05/27/24 11:32 MDM - Abdominal Pain Medical Decision Making Patient's vital signs are stable. Her white count is normal. CT scan showing no residual drainable fluid collection. No evidence of contrast extravasation. Discussed patient's CT findings with her surgeon here Dr. Kaminski who recommended follow-up in his office next week. Return to ED precautions given. Medical Records I reviewed the patient's medical records. Lab Data I reviewed the patient's lab results. 05/27/24 10:16 05/27/24 10:16 Labs/Radiology: Radiology Impressions Abdomen/Pelvis CT 05/27/24 11:24 IMPRESSION: 1. Interval postoperative changes or drainage of the previously described pelvic abscess. No evidence of contrast extravasation today. 2. Appendix is not definitely visualized today. Recommend correlation with surgical history. Low-lying cecum with oral contrast in the pelvis. No evidence of contrast extravasation. 3. No other significant changes compared to previous. Laboratory Results WBC 8.23 10^3/uL (3.29-11.43) 05/27/24 10:16 RBC 5.02 10^6/uL (3.85-5.65) 05/27/24 10:16 Hgb 13.30 g/dL (11.27-16.99) 05/27/24 10:16 Hct 41.8 % (36-47) 05/27/24 10:16 MCV 83.3 fl (85-98) L 05/27/24 10:16 MCH 26.5 pg (27-33) L 05/27/24 10:16 MCHC 31.8 g/dL (30-55) 05/27/24 10:16 RDW 17.5 % (12.1-15.1) H 05/27/24 10:16 Plt Count 190 10^3/cmm (157-399) 05/27/24 10:16 MPV 11.6 fL (7.4-10.4) H 05/27/24 10:16 Neut % (Auto) 70.0 % 05/27/24 10:16 Lymph % (Auto) 23.3 % 05/27/24 10:16 [place] % (Auto) 5.7 % 05/27/24 10:16 Eos % (Auto) 0.5 % 05/27/24 10:16 Baso % (Auto) 0.4 % 05/27/24 10:16 Neut # (Auto) 5.76 10^3/uL (1.8-7.7) 05/27/24 10:16 Lymph # (Auto) 1.9 10^3/uL (0.8-4.8) 05/27/24 10:16 [place] # (Auto) 0.5 10^3/uL (0.2-0.9) 05/27/24 10:16 Eos # (Auto) 0.0 10^3/uL (0.0-0.8) 05/27/24 10:16 Baso # (Auto) 0.0 10^3/uL (0.0-0.1) 05/27/24 10:16 Nucleated RBC % (auto) 0 % 05/27/24 10:16 Nucleated RBCs # 0.0 /100WBC 05/27/24 10:16 Sodium 139 mmol/L (136-145) 05/27/24 10:16 Potassium 4.3 mmol/L (3.5-5.1) 05/27/24 10:16 Chloride 104 mmol/L (98-107) 05/27/24 10:16 Carbon Dioxide 25 mmol/L (22-29) 05/27/24 10:16 Anion Gap 14.3 (5-19) 05/27/24 10:16 BUN 7 mg/dL (6-20) 05/27/24 10:16 Creatinine 0.7 mg/dL (0.5-0.9) 05/27/24 10:16 GFR Calculation 88.2 mL/min (90-130) L 05/27/24 10:16 Glucose 93 mg/dL (65-115) 05/27/24 10:16 Calculated Osmolality 286 mOsm/kg (285-295) 05/27/24 10:16 Calcium 8.7 mg/dL (8.5-10.5) 05/27/24 10:16 Total Bilirubin 0.2 mg/dL (0.15-1.2) 05/27/24 10:16 AST 16 U/L (0-32) 05/27/24 10:16 ALT < 5 U/L (0-33) 05/27/24 10:16 Alkaline Phosphatase 91 U/L (35-105) 05/27/24 10:16 Total Protein 7.6 g/dL (6.6-8.7) 05/27/24 10:16 Albumin 4.5 g/dL (3.5-5.2) 05/27/24 10:16 Globulin 3.1 g/dL (1.3-4.6) 05/27/24 10:16 Lipase 97 U/L (13-60) H 05/27/24 10:16 Urine Color Yellow (Yellow) 05/27/24 11:10 Urine Appearance Clear (CLEAR) 05/27/24 11:10 Urine pH 6.5 (5-7) 05/27/24 11:10 Ur Specific [place] 1.005 (1.005-1.030) 05/27/24 11:10 Urine Protein Negative (Negative) 05/27/24 11:10 Urine Glucose (UA) Negative (Normal) 05/27/24 11:10 Urine Ketones Negative (Negative) 05/27/24 11:10 Urine Blood Negative (Negative) 05/27/24 11:10 Urine Nitrate Negative (Negative) 05/27/24 11:10 Urine Bilirubin Negative (Negative) 05/27/24 11:10 Urine Urobilinogen 0.2 mg/dL (Negative) 05/27/24 11:10 Ur Leukocyte Esterase Negative (Negative) 05/27/24 11:10 Urine RBC 11-20 /hpf (0-2) H 05/27/24 11:10 Urine WBC 0-5 /hpf (0-5) 05/27/24 11:10 Ur Squamous Epith Cells 0-5 /hpf (0-5) 05/27/24 11:10 Amorphous Sediment Not Reportable 05/27/24 11:10 Urine Bacteria None seen /hpf (NONE) 05/27/24 11:10 Hyaline Casts 0-4 /lpf H 05/27/24 11:10 All radiology interpretation(s) finalized by discharge Discharge Plan Discharge Patient Disposition: Home Clinical Impression: Abdominal pain Qualifiers: Abdominal location: right lower quadrant Qualified Code(s): R10.31 - Right lower quadrant pain Condition: Stable Prescriptions: No Action (DME) MARJUANIA 0 .Route .MEDSUPPLY amoxicillin-pot clavulanate 875-125 mg tablet 1 tab PO BID 14 Days Qty: 28 0RF (DME) Bone Growth Stimulator E0748 See Rx Instructions .Route .MEDSUPPLY Qty: 1 0RF Rx Instructions: As directed ondansetron 4 mg tablet,disintegrating 4 mg PO Q6H PRN (Reason: nausea and vomiting) 14 Days Qty: 56 0RF pregabalin 150 mg capsule 150 mg PO BID Qty: 60 5RF atenolol 25 mg tablet 25 mg PO QAM omeprazole 40 mg capsule,delayed release(DR/EC) 40 mg PO QAM ibuprofen 800 mg tablet 800 mg PO Q12H PRN (Reason: Pain (Scale Score 1-3)) oxycodone-acetaminophen 5-325 mg tablet 0.5 - 1 tab PO Q8H MDD 3 per day PRN (Reason: Pain) citalopram 20 mg tablet 20 mg PO QAM estradiol 1 mg tablet 1 mg PO QPM tizanidine 4 mg tablet 4 - 8 mg PO BEDTIME trazodone 150 mg tablet 150 mg PO QPM Discharge Orders: Discharge ED (Routine); Ordered 05/27/24 Ordered By: Laure Puri Referrals: Abel Turner MD [Primary Care Provider] - Patient Instructions: Abdominal Pain (ED), Opioid Safety, Pain Management Activity Restrictions/Additional Instructions: As we discussed, your CT scan did not show any residual drainable fluid collections. I have spoken with Dr. Kaminski in regards to your CT scan. Plan at this time will be to follow-up in his office. You have an appointment scheduled for next week on 06/03 at 8:15AM. You may continue to take your pain medications as needed. You need to return to the emergency department for worsening abdominal pain, repetitive episodes of vomiting, inability to pass stool or gas, fevers, generally feeling worse or unwell, or any other concerns you may have. I hope you begin to feel better soon. Coding Level of Care Code ED [employer] Hel[employer] for [employer]i [employer]
--- NOTE | 2024-05-27 11:24 | CT_ITS ---
WS: [id number] CT ABDOMEN PELVIS TECHNIQUE: Contrast-enhanced CT of the abdomen and pelvis with coronal and sagittal reformatted image s. CLINICAL INFORMATION: known R lower pelvic mass/ruptured appendicitis COMPARISON: CT 04/12/24 DLP: 814.[address] scans at [facility] use at least one of these dose optimization techniques: automated e xposure control; mA and/or kV adjustment per patient size (includes targeted exams where dose is matc hed to clinical indication); or iterative reconstruction. FINDINGS: Previously described pelvic mass/abscess appears to have been drained or resected in the interval. No evidence of residual drainable fluid collection today. Contrast fills the RIGHT colon and cecum. No evidence of contrast extravasation. Prior hysterectomy with normal-appearing vaginal cuff. Low-lying cecum is interposed between the bladder and rectum along the dorsal vaginal cuff. Patient risk for fi stula in this area if recurrent inflammation. No significant cecal or bowel wall thickening today. No rmal ileocecal valve. Appendix is not definitely visualized today but no evidence of acute appendicit is. Mild diffuse fatty infiltration of the liver. Low-attenuation lesion in the RIGHT hepatic lobe measur ing 12 mm likely cavernous hemangioma or cyst. Portal vein and splenic vein are patent. Normal gallbl adder. Normal spleen. Normal GE junction. Normal gallbladder. Pancreas is normal. Adrenal glands are normal. No hydronephrosis. Small RIGHT renal cyst. Lung bases are well aerated. Mild aortic calcification. Normal caliber abdominal aorta. Tiny fat-containing umbilical hernia. Norm al sigmoid colon. Constipation in the transverse colon and hepatic flexure. Extensive prior postopera tive changes lumbar spine with pedicle screw fixation. CT/CT abdomen pelvis w con* [id number] IMPRESSION: 1. Interval postoperative changes or drainage of the previously described pelv ic abscess. No evidence of contrast extravasation today. 2. Appendix is not definitely visualized today. Recommend correlation with guillermina gical history. Low-lying cecum with oral contrast in the pelvis. No evidence of contrast extravasation. 3. No other significant changes compared to previous.
[2024-05-27 11:27] LABS: Bilirubin Urine Negative (Negative); Blood Urine Negative (Negative); Glucose Urine UA Negative (Normal); Ketones Urine Negative (Negative); Leukocyte Esterase Urine Negative (Negative); Nitrate Urine Negative (Negative); Protein Urine Negative (Negative); Specific Gravity, Urine 1.005 (1.005-1.030); Urine Appearance Clear (CLEAR); Urine Color Yellow (Yellow); Urobilinogen Urine 0.2 mg/dL (Negative); pH Urine 6.5 (5-7)
[2024-05-27] MEDS: morphine 4 mg/mL SDV 1 mL IVP (11:28)
[2024-05-27] MEDS: ondansetron 2 mg/ML SDV 2 mL 4 MG IVP (11:28)
[2024-05-27 11:29] LABS: Add Urine Microscopic? YES; Bacteria Urine None Seen /hpf; Hyaline Casts Urine 0-4 /lpf; Squamous Epithelial Cell Urine 0-5 /hpf (0-5); WBC Urine 0-5 /hpf (0-5)
[2024-05-27] MEDS: iohexol 350 mg/mL 500 mL Btl (per mL) IV (12:49)
[2024-05-27] MEDS: iohexol 350 mg/mL 500 mL Btl (per mL) PO (12:49)
== END 2024-05-27 14:45 | disposition home or self-care (01) ==
PROVIDERS: Family Medicine; Emergency Provider Physician Assistant; PCP Family Medicine
DX: R10.31 Right lower quadrant pain (principal); Z87.891 Personal history of nicotine dependence; I10 Essential (primary) hypertension
CPT/HCPCS: 36415; 74177; 80053; 81001; 83690; 85025; 96374; 96375; 99285; J2270; J2405

== ENCOUNTER → 2024-05-28 13:52 | Outpatient (BNVA) | payer BC, MEDICAID, SELFPAY | PROVIDERS: PCP Family Medicine; Visit Provider Orthopaedic Surgery | DX: Z98.1 Arthrodesis status (principal); M43.24 Fusion of spine, thoracic region | CPT/HCPCS: 72040 ==

== ENCOUNTER 2024-06-12 08:53 | Day surgery (SDC) | payer BC, MEDICAID, SELFPAY ==
[2024-06-12 09:20] VITALS: BP 133/86; PULSE 61; RESP 16; TEMP 36.7; O2SAT 95; BMI 33.5
[2024-06-12] MEDS: sodium chloride 0.9% 500 ML 15 ML IV (09:36)
--- NOTE | 2024-06-12 09:40 | ANES.PREANE2 ---
Pre-Anesthetic Assessment Height/Weight: Height 5 ft 4 in Weight 195 lb Temp Pulse Resp BP Pulse Ox O2 Del Method 98.1 F 61 16 133/86 95 Room Air 06/12/24 09:20 06/12/24 09:20 06/12/24 09:20 06/12/24 09:20 06/12/24 09:20 06/12/24 09:20 Preop Diagnosis: Chronic diarrhea Operation Date: 06/12/24 10:00 Proposed Procedures p EGD 66329, 00775, G0105, R10.13, K52.9, R11.2(Not Applicable) - Howard Kaminski DO s Colonoscopy(Not Applicable) - Howard Kaminski DO Was Beta Genet taken within 24 hours: N/A Was Clonidine taken within 24 hours: N/A Last intake: Intake Last Liquid Date 06/11/24 Last Liquid Time 22:30 Last Solid Date 06/10/24 Last Solid Time 18:00 Social Tobacco and No alcohol Exam alert, oriented x 3, clear to auscultation bilaterally and regular rate & rhythm Airway Submandibular: within normal limits Cervical ROM: Other (Cervical fusion, limited extension) Mallampati: Class II Dentition: full Comments: Comments: Few missing back molars Anesthetic Plan ASA status: 3 Anesthesia: MAC Other: Patient here for follow-up after IR drainage of ruptured appendicitis. Plan for EGD/colonoscopy Completed bowel prep Denies issues with anesthesia S/p cervical spinal fusion. On chronic Percocet Current smoker Labs reviewed 05/27/2024 and acceptable for procedure Prior EKG showing sinus bradycardia METs greater than 4 Plan for MAC anesthetic Medications/Allergies Home Medications Medication Instructions Recorded Confirmed Last Taken Type MARJUANIA 08/15/22 06/10/24 06/10/24 History Bone Growth Stimulator E0748 #1 ea 09/05/22 06/10/24 06/10/24 Rx atenolol 25 mg tablet 25 mg PO QAM 10/01/23 06/10/24 06/12/24 06:30 History omeprazole 40 mg capsule,delayed 40 mg PO QAM 10/01/23 06/10/24 06/11/24 History release tizanidine 4 mg tablet 4 - 8 mg PO BEDTIME 10/11/23 06/10/24 06/11/24 History citalopram 20 mg tablet 20 mg PO QAM 03/07/24 06/10/24 06/11/24 History estradiol 1 mg tablet 1 mg PO QPM 03/07/24 06/10/24 06/11/24 History ibuprofen 800 mg tablet 800 mg PO Q12H PRN Pain (Scale 03/07/24 06/12/24 2 Weeks Ago History Score 1-3) ~05/29/24 oxycodone-acetaminophen 5 mg-325 0.5 - 1 tab PO Q8H PRN Pain 03/07/24 06/10/24 06/12/24 06:30 History mg tablet ondansetron 4 mg disintegrating 4 mg PO Q6H PRN nausea and 03/20/24 06/12/24 1 Week Ago Rx tablet vomiting 14 days #56 tabs ~06/05/24 trazodone 150 mg tablet 150 mg PO QPM 04/12/24 06/10/24 06/11/24 History pregabalin 150 mg capsule 150 mg PO BID #60 caps 05/20/24 06/10/24 06/11/24 Rx Allergies Allergy/AdvReac Type Severity Reaction Status Date / Time adhesive tape Allergy ALGY-Rash Verified 06/03/24 08:09 Current Medications Generic Name Dose Route Start Last Admin Trade Name Freq PRN Reason Stop Dose Admin Sodium Chloride 500 mls @ 15 mls/hr 06/12/24 09:02 06/12/24 09:36 Sodium Chloride 0.9% IV 06/13/24 09:01 15 mls/hr .Q24H PRN Administration COLONOSCOPY FLUIDS PFSH Anesthesia Medical History Aftercare following surgery of the genitourinary system Neuropathy Hypertension Insomnia Surgical History H/O dilation and curettage H/O: hysterectomy 2020 - - with BLO S/P cervical spinal fusion C2-T2 fusion - 2023 History of radical neck surgery Family History Father Diabetes Mother Hyperlipidemia Family/Other Breast cancer maternal aunt, great aunt age onset unknown Grandmother Diabetes paternal Denies family history of Colon cancer Ovarian cancer Clotting disorder Heart disease Anesthesia complication Bleeding disorder Family history of premature coronary artery disease Hypertension Uterine cancer Thyroid disease Stroke Social History Smoking and tobacco/nicotine status: current every day tobacco/nicotine user cigarettes Quit status (tobacco/nicotine): has quit using Former quit date comment: 05/08/2021 Second hand smoke exposure: No Alcohol intake: former 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 date alcohol: 2019 Substance/Drug Use: current Substance/Drug use frequency: daily Other substance/drug use details: has a medical card Data Anesthesia Cardiac Studies: No Data to Display
--- NOTE | 2024-06-12 10:44 | W.PM.OPSUD ---
Surgery/Procedure H&P Update DATE OF PROCEDURE: June 12, 2024 DATE H&P PERFORMED: 06/03/24 H&P UPDATE INFORMATION: I have reviewed H&P completed within last 30 days, I have examined patient prior to procedure and No changes to prior documentation PREOP DIAGNOSIS: Chronic diarrhea PLANNED PROCEDURE: Operation Date: 06/12/24 10:00 Proposed Procedures p EGD 71445, 27618, G0105, R10.13, K52.9, R11.2(Not Applicable) - DO shannon Parra Colonoscopy(Not Applicable) - Howard Kaminski DO
[2024-06-12 11:08] VITALS: BP 110/75; PULSE 64; RESP 18; TEMP 36.4; O2SAT 96
[2024-06-12 11:15] VITALS: BP 138/87; PULSE 69; RESP 18; O2SAT 96
--- NOTE | 2024-06-12 11:34 | ANE.PACU2 ---
Inpatient post-anesthesia follow up: Airway intact: Yes Vital signs: Temperature 97.5 F Pulse Rate 69 Respiratory Rate 18 Blood Pressure 138/87 Pulse Oximetry 96 Oxygen Delivery Me thod Room Air Oxygen Flow Rate Fraction of Inspir ed Oxygen Hydration adequate: Yes Nausea and vomiting: No Pain level: 1 Mental status: Baseline
== END 2024-06-12 11:34 | disposition home or self-care (01) ==
PROVIDERS: PCP Family Medicine; Visit Provider Surgery
PROC: 0DJ08ZZ Inspection of Upper Intestinal Tract, Via Natural or Artificial Opening Endoscopic (ICD-10-PCS; CPT 43235; principal; 2024-06-12 10:00)
PROC: 0DJD8ZZ Inspection of Lower Intestinal Tract, Via Natural or Artificial Opening Endoscopic (ICD-10-PCS; CPT 45378; 2024-06-12 10:00)
DX: K52.9 Noninfective gastroenteritis and colitis, unspecified (principal); Z98.890 Other specified postprocedural states; I10 Essential (primary) hypertension; Z98.1 Arthrodesis status; F17.210 Nicotine dependence, cigarettes, uncomplicated; K65.1 Peritoneal abscess
CPT/HCPCS: 43239; 45378; 88305; J2704; J7040

== ENCOUNTER 2024-06-17 06:08 | Outpatient (CLI) | payer BC, MEDICAID, SELFPAY ==
--- NOTE | 2024-06-17 06:30 | US_ITS ---
WS: [id number] RIGHT UPPER QUADRANT ULTRASOUND HISTORY: abdominal pain COMPARISON: 04/02/2011 Liver: 15.1 cm in length. Normal size liver. Hyperechoic mass towards the RIGHT diaphragmatic surface measures 1.5 x 1.4 x 1.7 cm consistent with a small hemangioma. Hyperechoic mass was also noted on t he prior study from 2010 without increase in size. Portal Vein: Normal hepatopetal flow with monophasic waveform. Gallbladder: Normally distended gallbladder with no stones or wall thickening. CBD: 0.3 cm Pancreas: Normal size and echogenicity. Right kidney: 10.7 cm in length. Normal size and echogenicity. No hydronephrosis or mass. Aorta and IVC: Unremarkable abdominal aorta and IVC. No ascites. US/US gall bladder 28347 IMPRESSION: 1. Normal gallbladder. 2. Stable hepatic hemangioma, 1.5 x 1.4 x 1.7 cm.
== END 2024-06-17 06:09 | disposition home or self-care (01) ==
PROVIDERS: PCP Family Medicine; Visit Provider Surgery
DX: D18.03 Hemangioma of intra-abdominal structures (principal); R10.31 Right lower quadrant pain
CPT/HCPCS: 76705

== ENCOUNTER 2024-06-18 08:31 | Emergency (ER) | payer BC, MEDICAID, SELFPAY ==
[2024-06-18 09:10] VITALS: BP 136/90; PULSE 62; RESP 18; TEMP 36.5; O2SAT 100
--- NOTE | 2024-06-18 09:20 | ED_ITS ---
HPI - Abdominal Pain 2 General: Chief Complaint: Abdominal Pain Stated Complaint: abd pain Time Seen by Provider: 06/18/24 08:36 Source: patient Mode of arrival: ambulatory Limitations: no limitations History of Present Illness: Patient is a 53-year-old female well-known to me from previous encounters here for right sided abdominal pain. Patient was initially seen here in the emergency department in early April and found to have a large inflammatory soft tissue mass/abscess in her right lower quadrant. She was subsequently transferred to [facility] where she underwent percutaneous drainage and IV antibiotics. She has since been following up with Dr. Kaminski here. She has had repeat CT scan showing resolution of abscess. She has recently seen Dr. Kaminski for another follow-up as she is continuing to have pain. She has recently underwent EGD/colonoscopy/gallbladder ultrasound all of which were unremarkable. Plan was eventually for possible appendectomy and cholecystectomy based on US gallbladder and HIDA scan results. She states pain became severe this morning prompting her emergency visit. States this is the same similar pains she has been having. No fevers. Vitals are normal upon arrival. MD elicited complaint: abdominal pain Onset (ago): day(s) Pain Consistency: constant Location: RUQ and RLQ Severity: severe Quality: cramping and sharp Radiation: none Migration to: no migration Exacerbating factors: nothing Relieving factors: nothing Associated Symptoms: Reports diarrhea, dysuria (states it hurts her abdomen to urinate) and nausea; Denies chills, fever(s), heartburn, hematochezia, melena, syncope and vomiting Related Data Home Medications Medication Instructions Recorded Confirmed MARJUANIA 08/15/22 06/18/24 atenolol 25 mg tablet 25 mg PO QAM 10/01/23 06/18/24 omeprazole 40 mg capsule,delayed 40 mg PO QAM 10/01/23 06/18/24 release tizanidine 4 mg tablet 4 - 8 mg PO BEDTIME 10/11/23 06/18/24 citalopram 20 mg tablet 20 mg PO QAM 03/07/24 06/18/24 estradiol 1 mg tablet 1 mg PO QPM 03/07/24 06/18/24 ibuprofen 800 mg tablet 800 mg PO Q12H PRN Pain (Scale 03/07/24 06/18/24 Score 1-3) oxycodone-acetaminophen 5 mg-325 0.5 - 1 tab PO Q8H PRN Pain 03/07/24 06/18/24 mg tablet trazodone 150 mg tablet 150 mg PO QPM 04/12/24 06/18/24 naloxone 4 mg/actuation nasal See Rx Instructions .Route .COMPLEX 06/18/24 06/18/24 spray (Narcan) Previous Rx's Medication Instructions Recorded Bone Growth Stimulator E0748 #1 ea 09/05/22 ondansetron 4 mg disintegrating 4 mg PO Q6H PRN nausea and 03/20/24 tablet vomiting 14 days #56 tabs pregabalin 150 mg capsule 150 mg PO BID #60 caps 05/20/24 Allergies Allergy/AdvReac Type Severity Reaction Status Date / Time adhesive tape Allergy ALGY-Rash Verified 06/03/24 08:09 Review of Systems 2 Const: Denies: fever(s), chills, body aches, fatigue or malaise Eyes: Denies: change in vision or blurry vision Card: Denies: chest pain, palpitations, irregular heart rhythm, lightheadedness, syncope or dyspnea on exertion Resp: Denies: dyspnea, productive cough or pain on inspiration GI: Reports: abdominal pain, nausea and diarrhea; Denies: vomiting, heartburn, hematochezia or melena : Reports: dysuria (states it hurts her abdomen to urinate); Denies: flank pain, difficulty voiding, urinary urgency, urinary hesitancy or dribbling Musc: Denies: neck pain, back pain, extremity pain, extremity swelling or joint pain Skin/Breast: Denies: rash Neuro: Denies: headache(s), numbness in extremities, weakness in extremities, sensory changes or dizziness PFSH ED 2 PFSH: Medical History Aftercare following surgery of the genitourinary system Neuropathy Hypertension Insomnia Surgical History H/O dilation and curettage H/O: hysterectomy 2020 - - with BLO S/P cervical spinal fusion C2-T2 fusion - 2023 History of radical neck surgery Family History Father Diabetes Mother Hyperlipidemia Family/Other Breast cancer maternal aunt, great aunt age onset unknown Grandmother Diabetes paternal Denies family history of Colon cancer Ovarian cancer Clotting disorder Heart disease Anesthesia complication Bleeding disorder Family history of premature coronary artery disease Hypertension Uterine cancer Thyroid disease Stroke Social History Smoking and tobacco/nicotine status: current every day tobacco/nicotine user cigarettes Quit status (tobacco/nicotine): has quit using Former quit date comment: 05/08/2021 Second hand smoke exposure: No Alcohol intake: former 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 date alcohol: 2019 Substance/Drug Use: current Substance/Drug use frequency: daily Other substance/drug use details: has a medical card Physical Exam 2 Const: COMMON NORMALS: average body habitus, patient oriented x3, healthy appearing, alert and well nourished GENERAL APPEARANCE: cooperative and in distress (appears uncomfortable) ORIENTATION/CONSCIOUSNESS: Yes awake, Yes oriented to person, Yes oriented to place and Yes oriented to time HENMT: COMMON NORMALS: normocephalic and atraumatic HEAD & SCALP: n ormocephalic and atraumatic Eye: COMMON NORMALS: no scleral icterus Neck/C-Spine: COMMON NORMALS: full ROM, no lymphadenopathy, supple and no meningeal signs Chest: COMMONS NORMALS: normal inspection of the chest Resp: COMMON NORMALS: normal respiratory effort and clear to auscultation bilaterally AUSCULTATION: clear to auscultation bilaterally Cardio: COMMON NORMALS: regular rate and regular rhythm RATE: regular rate RHYTHM: regular rhythm GI: COMMON NORMALS: Normal to inspection, nondistended, normoactive bowel sounds present, Soft to palpation, No hepatosplenomegaly present and no masses INSPECTION: Yes normal to inspection AUSCULTATION: Yes normoactive bowel sounds PALPATION: Yes Soft to palpation, Yes Tenderness to palpation present (GI) (throughout R side of abdomen) and Yes No hepatosplenomegaly present : COMMON NORMALS: Yes no CVA tenderness BLADDER/KIDNEY EXAM: Yes no CVA tenderness Back/Pelvis: COMMON NORMALS: no CVA tenderness and thoracic and lumbar spine normal to inspection Extremity: COMMON NORMALS: normal to inspection Neuro: COMMON NORMALS: patient oriented x3 SENSORIUM/ORIENTATION: Yes alert, Yes oriented to person, Yes oriented to place and Yes oriented to time MENINGEAL SIGNS: Yes no meningeal signs Skin: COMMON NORMALS: no rashes or lesions noted GENERAL SKIN EXAM: no rashes or lesions noted Course 2 Vital Signs: Vital signs: Vital Signs Temperature 97.7 F 06/18/24 09:10 Pulse Rate 53 L 06/18/24 11:44 Respiratory Rate 18 06/18/24 10:05 Blood Pressure 133/83 06/18/24 11:44 Pulse Oximetry 91 06/18/24 11:44 Oxygen Delivery Me thod Room Air 06/18/24 11:44 MDM - Abdominal Pain Medical Decision Making Patient's vital signs have been stable throughout her stay. Her blood work is unremarkable. UA is clear. Her CT scan showing no drainable fluid collection. Small structure was located thought to represent a nonenlarged appendix. She does have plans for appendectomy by Dr. Kaminski. They do not see anything emergent on her CT scan that she will be allowed discharge from an emergency standpoint. She does have follow-up with Dr. Kaminski in 1 week. Return to ED precautions given. Lab Data 06/18/24 09:24 06/18/24 09:24 Labs/Radiology: Radiology Impressions Abdomen/Pelvis CT 06/18/24 10:02 IMPRESSION: 1. A small structure immediately adjacent to the cecum is favored to represent a nonenlarged appendix, in this patient we will has reportedly not undergone appendectomy. There is no drainable fluid collection identified. 2. Nonspecific small low-density in the posterior segment of the right hepatic lobe appears to partially enhance, possibly representing a hemangioma. Unless this has been previously evaluated, recommend follow-up evaluation with nonemergent liver protocol MRI. 3. Please see above additional comments. Laboratory Results WBC 6.33 10^3/uL (3.29-11.43) 06/18/24 09:24 RBC 4.93 10^6/uL (3.85-5.65) 06/18/24 09:24 Hgb 13.00 g/dL (11.27-16.99) 06/18/24 09:24 Hct 40.6 % (36-47) 06/18/24 09:24 MCV 82.4 fl (85-98) L 06/18/24 09:24 MCH 26.4 pg (27-33) L 06/18/24 09:24 MCHC 32.0 g/dL (30-55) 06/18/24 09:24 RDW 18.5 % (12.1-15.1) H 06/18/24 09:24 Plt Count 154 10^3/cmm (157-399) L 06/18/24 09:24 MPV 11.9 fL (7.4-10.4) H 06/18/24 09:24 Neut % (Auto) 65.9 % 06/18/24 09:24 Lymph % (Auto) 26.5 % 06/18/24 09:24 [place] % (Auto) 6.0 % 06/18/24 09:24 Eos % (Auto) 0.8 % 06/18/24 09:24 Baso % (Auto) 0.6 % 06/18/24:24 Neut # (Auto) 4.17 10^3/uL (1.8-7.7) 06/18/24 09:24 Lymph # (Auto) 1.7 10^3/uL (0.8-4.8) 06/18/24:24 [place] # (Auto) 0.4 10^3/uL (0.2-0.9) 06/18/24 09:24 Eos # (Auto) 0.1 10^3/uL (0.0-0.8) 06/18/24 09:24 Baso # (Auto) 0.0 10^3/uL (0.0-0.1) 06/18/24 09:24 Nucleated RBC % (auto) 0 % 06/18/24 09: Nucleated RBCs # 0.0 /100WBC 06/18/24 09:24 Sodium 137 mmol/L (136-145) 06/18/24 09:24 Potassium 4.1 mmol/L (3.5-5.1) 06/18/24 09:24 Chloride 103 mmol/L (98-107) 06/18/24 09:24 Carbon Dioxide 24 mmol/L (22-29) 06/18/24 09:24 Anion Gap 14.1 (5-19) 06/18/24 09:24 BUN 8 mg/dL (6-20) 06/18/24 09:24 Creatinine 0.7 mg/dL (0.5-0.9) 06/18/24 09:24 GFR Calculation 88.2 mL/min (90-130) L 06/18/24 09:24 Glucose 92 mg/dL (65-115) 06/18/24 09:24 Calculated Osmolality 282 mOsm/kg (285-295) L 06/18/24:24 Calcium 9.7 mg/dL (8.5-10.5) 06/18/24 09:24 Total Bilirubin 0.3 mg/dL (0.15-1.2) 06/18/24: AST 15 U/L (0-32) 06/18/24:24 ALT 8 U/L (0-33) 06/18/24:24 Alkaline Phosphatase 79 U/L (35-105) 06/18/24: Total Protein 7.3 g/dL (6.6-8.7) 06/18/24: Albumin 4.1 g/dL (3.5-5.2) 06/18/24: Globulin 3.2 g/dL (1.3-4.6) 06/18/24: Lipase 55 U/L (13-60) 06/18/24:24 Urine Color Yellow (Yellow) 06/18/24:25 Urine Appearance Clear (CLEAR) 06/18/24: Urine pH 7.5 (5-7) 06/18/24:25 Ur Specific [place] 1.004 (1.005-1.030) L 06/18/24:25 Urine Protein Negative (Negative) 06/18/24: Urine Glucose (UA) Negative (Normal) 06/18/24: Urine Ketones Negative (Negative) 06/18/24: Urine Blood Negative (Negative) 06/18/24: Urine Nitrate Negative (Negative) 06/18/24:25 Urine Bilirubin Negative (Negative) 06/18/24: Urine Urobilinogen 0.2 mg/dL (Negative) 06/18/24: Ur Leukocyte Esterase Negative (Negative) 06/18/24: Amorphous Sediment Not Reportable 06/18/24: All radiology interpretation(s) finalized by discharge Discharge Plan Discharge Patient Disposition: Home Clinical Impression: Abdominal pain Qualifiers: Abdominal location: unspecified location Qualified Code(s): R10.9 - Unspecified abdominal pain Condition: Stable Prescriptions: No Action (DME) MARJUANIA 0 .Route .MEDSUPPLY (DME) Bone Growth Stimulator E0748 See Rx Instructions .Route .MEDSUPPLY Qty: 1 0RF Rx Instructions: As directed ondansetron 4 mg tablet,disintegrating 4 mg PO Q6H PRN (Reason: nausea and vomiting) 14 Days Qty: 56 0RF pregabalin 150 mg capsule 150 mg PO BID Qty: 60 5RF atenolol 25 mg tablet 25 mg PO QAM omeprazole 40 mg capsule,delayed release(DR/EC) 40 mg PO QAM ibuprofen 800 mg tablet 800 mg PO Q12H PRN (Reason: Pain (Scale Score 1-3)) Hold Instructions: Resume on 06/14/24. oxycodone-acetaminophen 5-325 mg tablet 0.5 - 1 tab PO Q8H MDD 3 per day PRN (Reason: Pain) citalopram 20 mg tablet 20 mg PO QAM estradiol 1 mg tablet 1 mg PO QPM naloxone [Narcan] 4 mg/actuation spray,non-aerosol See Rx Instructions .ROUTE .COMPLEX Rx Instructions: call 911. administer a single spray of narcan in one nostril. repeat every 2- 3 minutes as needed if no or minimal response; Refer questions about refills only to the pharmacist who fulfilled this [place] standing order at [phone] tizanidine 4 mg tablet 4 - 8 mg PO BEDTIME trazodone 150 mg tablet 150 mg PO QPM Discharge Orders: Discharge ED (Routine); Ordered 06/18/24 Ordered By: Laure Puri Referrals: Abel Turner MD [Primary Care Provider] - Patient Instructions: Abdominal Pain (ED) Activity Restrictions/Additional Instructions: As we discussed, please follow-up with Dr. Kaminski on 06/24 as scheduled. You may return to the emergency department for worsening abdominal pain, generally feeling worse or unwell, or any other concerns you may have. I hope you begin to feel better soon. 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
[2024-06-18 09:35] LABS: Basophils % 0.6 %; Eosinophils # 0.1 10^3/uL (0.0-0.8); Eosinophils % 0.8 %; Hematocrit 40.6 % (36-47); Lymphocytes # 1.7 10^3/uL (0.8-4.8); Lymphocytes % 26.5 %; Mean Corpuscular Hemoglobin 26.4 pg (27-33); Mean Corpuscular Volume 82.4 fl (85-98); Mean Platelet Volume 11.9 fL (7.4-10.4); Monocytes # 0.4 10^3/uL (0.2-0.9); Neutrophils # 4.17 10^3/uL (1.8-7.7); Neutrophils % 65.9 %; Nucleated Red Blood Cells % 0 %; Platelet Count 154 10^3/cmm (157-399); Red Blood Count 4.93 10^6/uL (3.85-5.65); Red Cell Distribution Width 18.5 % (12.1-15.1); White Blood Count 6.33 10^3/uL (3.29-11.43)
[2024-06-18 09:56] LABS: Alanine Aminotransferase 8 U/L (0-33); Albumin Level 4.1 g/dL (3.5-5.2); Alkaline Phosphatase 79 U/L (35-105); Anion Gap 14.1 (5-19); Aspartate Amino Transferase 15 U/L (0-32); Blood Urea Nitrogen 8 mg/dL (6-20); Calcium 9.7 mg/dL (8.5-10.5); Carbon Dioxide 24 mmol/L (22-29); Chloride 103 mmol/L (98-107); Globulin 3.2 g/dL (1.3-4.6); Glomerular Filtration Rate 88.2 mL/min (90-130); Glucose 92 mg/dL (65-115); Lipase 55 U/L (13-60); Osmolality Calculated 282 mOsm/kg (285-295); Potassium 4.1 mmol/L (3.5-5.1); Sodium 137 mmol/L (136-145); Total Bilirubin 0.3 mg/dL (0.15-1.2); Total Protein 7.3 g/dL (6.6-8.7)
--- NOTE | 2024-06-18 10:02 | CTR_ITS ---
PROCEDURE INFORMATION: Exam: CT Abdomen And Pelvis With Contrast Exam date and time: 06/18/2024 11:08 AM Age: 53 years old Clinical indication: Abdominal pain; Localized; Right; Prior surgery; Surgery date: 6+ months; Surgery type: Hyst. Lumbar. PT denies appy; Patient HX: Lower abd pain/ appendix ruptured in February of 2024 drain placed. Increased pain over the last 24 hours, painful urination; Additional info: R sided ab pain TECHNIQUE: Imaging protocol: Computed tomography of the abdomen and pelvis with contrast. Total images: 305 Radiation optimization: All CT scans at this facility use at least one of these dose optimization techniques: automated exposure control; mA and/or kV adjustment per patient size (includes targeted exams where dose is matched to clinical indication); or iterative reconstruction. Contrast material: OMNI 350; Contrast volume: 100 ml; Contrast route: INTRAVENOUS (IV); COMPARISON: CT abdomen pelvis w con* [id number] 05/27/2024 12:46 PM RADIATION DOSE METRICS: Total DLP (mGy-cm): 790.07 FINDINGS: Lungs: Imaged portions of the lung bases demonstrate minimal scarring and/or atelectasis. Liver: Several subcentimeter low densities are present in the left hepatic lobe suggesting small cysts. Small focus of decreased attenuation in the medial segment of the left hepatic lobe adjacent to the falciform ligament consistent with minimal focal fatty infiltration. . A nonspecific focus of decreased attenuation in the posterior segment of the right hepatic lobe shows no definite interval change allowing for technical differences. This may represent a hemangioma, which could be further assessed by liver protocol MRI if clinically indicated . Gallbladder and biliary ducts: Gallbladder is unremarkable. No extrahepatic biliary ductal dilatation for age. Pancreas: Unremarkable. Spleen: The spleen is homogeneous and of stable size. Adrenal glands: Not enlarged. Kidneys and ureters: No acute abnormality of the kidneys identified. No hydronephrosis. Stomach and bowel: . The cecum is positioned just to the left of midline interposed between the rectum and the bladder. No bowel obstruction identified.A small radiodensity is present adjacent to the left lateral margin of the cecum, and there is adjacent tubular appearing soft tissue density (series 4, image [id number], and other images which could reflect residual appendix (note made in history that patient denied appendectomy), this structure appears to contain a small amount of internal gas. Appendix: see stomach and bowel Intraperitoneal space: No defined rim enhancing fluid collection is noted. Vasculature: Atherosclerosis is present in major vasculature, without abdominal aortic aneurysm. Lymph nodes: No adenopathy evident. Urinary bladder: Urinary bladder is incompletely distended but grossly unremarkable as visualized. Reproductive: Uterus is not identified consistent with a prior hysterectomy. Bones/joints: Hardware related to previous multilevel lumbosacral and sacroiliac fusion. There is bilateral sclerotically demarcated lucency adjacent to the pedicle screws within the L2 vertebral body raising the question of loosening. Soft tissues: Small fat containing umbilical hernia. CT/CT abdomen pelvis w con* [id number] IMPRESSION: 1. A small structure immediately adjacent to the cecum is favored to represent a nonenlarged appendix, in this patient we will has reportedly not undergone appendectomy. There is no drainable fluid collection identified. 2. Nonspecific small low-density in the posterior segment of the right hepatic lobe appears to partially enhance, possibly representing a hemangioma. Unless this has been previously evaluated, recommend follow-up evaluation with nonemergent liver protocol MRI. 3. Please see above additional comments.
[2024-06-18 10:05] VITALS: RESP 18; O2SAT 98
[2024-06-18] MEDS: morphine 4 mg/mL SDV 1 mL IVP (10:05)
[2024-06-18] MEDS: ondansetron 2 mg/ML SDV 2 mL 4 MG IVP (10:06)
[2024-06-18 10:13] LABS: Add Urine Microscopic? NO
[2024-06-18 10:19] LABS: Bilirubin Urine Negative (Negative); Blood Urine Negative (Negative); Glucose Urine UA Negative (Normal); Ketones Urine Negative (Negative); Leukocyte Esterase Urine Negative (Negative); Nitrate Urine Negative (Negative); Protein Urine Negative (Negative); Specific Gravity, Urine 1.004 (1.005-1.030); Urine Appearance Clear (CLEAR); Urine Color Yellow (Yellow); Urobilinogen Urine 0.2 mg/dL (Negative); pH Urine 7.5 (5-7)
[2024-06-18 10:28] LABS: Add Urine Culture? No; Charge for UA Resulting for Rev
[2024-06-18] MEDS: ketorolac 30 mg/mL INJ IVP (10:51)
--- NOTE | 2024-06-18 10:51 | PC.NURSE ---
PT sat up in bed had breakfast, and drank water. PT denies any pain or other symptoms at time of rounding.
[2024-06-18] MEDS: iohexol 350 mg/mL 500 mL Btl (per mL) IV (11:12)
[2024-06-18 11:44] VITALS: BP 133/83; PULSE 53; O2SAT 91
[2024-06-18 12:22] VITALS: BP 133/83; PULSE 55; O2SAT 97
== END 2024-06-18 12:23 | disposition home or self-care (01) ==
PROVIDERS: Family Medicine; Emergency Provider Physician Assistant; PCP Family Medicine
DX: R10.9 Unspecified abdominal pain (principal); F17.210 Nicotine dependence, cigarettes, uncomplicated; I10 Essential (primary) hypertension
CPT/HCPCS: 36415; 74177; 80053; 81003; 83690; 85025; 96374; 96375; 99285; J1885; J2270; J2405

== ENCOUNTER → 2024-06-24 17:00 | Outpatient (BNVA) | payer BC, MEDICAID, SELFPAY | PROVIDERS: PCP Family Medicine; Visit Provider Surgery | DX: R10.9 Unspecified abdominal pain (principal); K52.9 Noninfective gastroenteritis and colitis, unspecified; R10.13 Epigastric pain | CPT/HCPCS: 36415; 86003; 86008 ==

== ENCOUNTER 2024-06-27 09:35 | Outpatient (CLI) | payer BC, MEDICAID, SELFPAY ==
--- NOTE | 2024-06-27 10:00 | NM_ITS ---
WS: [id number] NUCLEAR MEDICINE HIDA SCAN CLINICAL INFORMATION: abdominal pain TECHNIQUE: Following intravenous administration of mCi of technetium 99m mebrofenin, images of the ab domen were obtained over the course of 60 minutes. Next, gallbladder ejection fraction was determined by obtaining preprandial and one-hour postprandial images of the gallbladder following oral ingestio n of Ensure. COMPARISON: 06/19/2013 FINDINGS: Hepatomegaly with slightly coarse hepatic radiotracer uptake. Normal hepatic uptake at 5 minutes. Nor mal hepatic excretion. Normal common bile duct and small bowel activity. Gallbladder is visualized by 30 minutes. No evidence of acute cholecystitis. Gallbladder ejection fraction 86% within normal limits. No evidence of chronic cholecystitis. NM/NM hepatobiliary w phar* [id number] IMPRESSION: 1. No evidence of acute or chronic cholecystitis. 2. Gallbladder ejection fraction 86% within normal limits. 3. Hepatomegaly with slightly coarse hepatic radiotracer uptake. Recommend cor relation with liver function tests.
== END 2024-06-27 09:36 | disposition home or self-care (01) ==
LOC: RAD 09:35
PROVIDERS: PCP Family Medicine; Visit Provider Surgery
DX: R16.0 Hepatomegaly, not elsewhere classified (principal); R10.31 Right lower quadrant pain
CPT/HCPCS: 78227; A9537

== ENCOUNTER 2024-07-01 14:17 | Outpatient (CLI) | payer BC, MEDICAID, SELFPAY ==
--- NOTE | 2024-07-01 14:30 | MRR_ITS ---
PROCEDURE INFORMATION: Exam: MR Abdomen Without and With Contrast Exam date and time: 07/01/2024 2:39 PM Age: 53 years old Clinical indication: Generalized; Patient HX: Right lower quadrant abdominal constant pain with movement without radiation getting epigastric and right upper quadrant abdominal pain along with nausea, emesis and bloating after eating. Gallbladder ultrasound within normal limits. Egd and colonoscopy within normal limits. She came back to the er with abdominal pain. CT of the abdomen pelvis showed a small appendix this time and a likely hemangioma, recommending liver mri. She has not had a hida scan yet. ; Additional info: Mri of liver TECHNIQUE: Imaging protocol: Magnetic resonance imaging of the abdomen without and with contrast. COMPARISON: CT abdomen pelvis w con* [id number] 06/18/2024 11:08 AM FINDINGS: Liver: 1.2 cm right hepatic lobe lesion demonstrating signal and enhancement features consistent with hemangioma. Gallbladder and biliary ducts: No significant gallbladder pathology. No biliary dilatation. Pancreas: No significant pancreatic pathology. Spleen: No significant splenic pathology. Adrenal glands: No significant adrenal pathology. Kidneys: No significant renal pathology. Stomach and bowel: Visualized stomach and intestines are unremarkable. Intraperitoneal space: No ascites. Vasculature: No abdominal aortic aneurysm. Lymph nodes: No evidence of lymphadenopathy. Bones/joints: Features of prior lumbar spine surgery with posterior decompression and fusion again seen. There are artifacts associated with the hardware. Soft tissues: Unremarkable. MR/MR abdomen wo/w con* [id number] IMPRESSION: 1.2 cm right hepatic lobe hemangioma.
[2024-07-01] MEDS: gadobenate dimeglumine 20 mL vial IV (14:58)
== END 2024-07-01 14:18 | disposition home or self-care (01) ==
LOC: RAD 14:18
PROVIDERS: PCP Family Medicine; Visit Provider Surgery
DX: D18.03 Hemangioma of intra-abdominal structures (principal); R10.9 Unspecified abdominal pain; R10.13 Epigastric pain; M43.26 Fusion of spine, lumbar region
CPT/HCPCS: 74183

== ENCOUNTER 2024-07-02 06:12 | Day surgery (SDC) | payer BC, MEDICAID, SELFPAY ==
[2024-07-02] VITALS (20 sets, daily range): BP systolic 130–152; BP diastolic 74–93; PULSE 61–84; RESP 12–23; TEMP 36.1–36.7; O2SAT 92–99; BMI 34.3
[2024-07-02] MEDS: sodium chloride 0.9% 1,000 ML 30 ML IV (06:54)
[2024-07-02] MEDS: scopolamine 1.5 Patch 1 PATCH TRANSDERMA (07:04)
--- NOTE | 2024-07-02 07:12 | P.HPUD_ITS ---
Surgery/Procedure H&P Update DATE OF PROCEDURE: July 02, 2024 DATE H&P PERFORMED: 06/24/24 H&P UPDATE INFORMATION: I have reviewed H&P completed within last 30 days, I have examined patient prior to procedure and No changes to prior documentation PLANNED PROCEDURE: Operation Date: 07/02/24 07:45 Proposed Procedures p Laparoscopic Cholecystectomy 23855, 33723, R10.9, R11.2, R10.13(Not Applicable ) - DO shannon Parra Laparoscopic Appendectomy(Not Applicable) - Howard Kaminski DO
[2024-07-02] MEDS: ceFAZolin 2,000 mg SDV 2000 MG IVP (08:48)
--- NOTE | 2024-07-02 09:05 | ANES.PREANE2 ---
Pre-Anesthetic Assessment Height/Weight: Height 5 ft 4 in Weight 200 lb Temp Pulse Resp BP Pulse Ox O2 Del Method 97.2 F L 60 18 121/74 93 Room Air 07/02/24 08:55 07/02/24 08:55 07/02/24 08:55 07/02/24 08:55 07/02/24 08:55 07/02/24 08:55 Preop Diagnosis: Remnant of appendix Operation Date: 07/02/24 07:45 Proposed Procedures p Laparoscopic Cholecystectomy 38015, 64888, R10.9, R11.2, R10.13(Not Applicable) - Howard Kaminski DO s Laparoscopic Appendectomy(Not Applicable) - Howard Kaminski DO Was Beta Genet taken within 24 hours: N/A Was Clonidine taken within 24 hours: N/A Last intake: Intake Last Liquid Date 07/01/24 Last Liquid Time 20:00 Last Solid Date 07/01/24 Last Solid Time 20:00 Social Tobacco and No alcohol Exam alert, oriented x 3, clear to auscultation bilaterally and regular rate & rhythm Airway Submandibular: within normal limits Cervical ROM: Other (Cervical fusion) Mallampati: Class II Comments: Comments: Few missing teeth Anesthetic Plan ASA status: 3 Anesthesia: General Other: No prior issues with anesthesia. Patient recently had colonoscopy without issues NPO since yesterday S/p cervical spinal fusion. On chronic Percocet Current smoker Labs reviewed 06/18/2024 and acceptable for procedure Prior EKG showing sinus bradycardia METs greater than 4 GETA Medications/Allergies Home Medications Medication Instructions Recorded Confirmed Last Taken Type RIADHAVALSHANITA 08/15/22 07/02/24 06/10/24 History Bone Growth Stimulator E0748 #1 ea 09/05/22 07/02/24 06/10/24 Rx atenolol 25 mg tablet 25 mg PO QAM 10/01/23 07/02/24 07/02/24 04:00 History tizanidine 4 mg tablet 4 - 8 mg PO BEDTIME 10/11/23 07/02/24 07/01/24 History citalopram 20 mg tablet 20 mg PO QAM 03/07/24 07/02/24 07/01/24 History estradiol 1 mg tablet 1 mg PO QPM 03/07/24 07/02/24 07/01/24 History ibuprofen 800 mg tablet 800 mg PO Q12H PRN Pain (Scale 03/07/24 07/02/24 06/01/24 History Score 1-3) oxycodone-acetaminophen 5 mg-325 0.5 - 1 tab PO Q8H PRN Pain 03/07/24 07/02/24 07/02/24 04:00 History mg tablet ondansetron 4 mg disintegrating 4 mg PO Q6H PRN nausea and 03/20/24 07/02/24 1 Week Ago Rx tablet vomiting 14 days #56 tabs ~06/05/24 trazodone 150 mg tablet 150 mg PO QPM 04/12/24 07/02/24 07/01/24 History pregabalin 150 mg capsule 150 mg PO BID #60 caps 05/20/24 07/02/24 07/01/24 Rx naloxone 4 mg/actuation nasal See Rx Instructions .Route .COMPLEX 06/18/24 07/02/24 Unknown History spray (Narcan) omeprazole 40 mg capsule,delayed See Rx Instructions .Route 07/01/24 07/02/24 Unknown Rx release .COMPLEX #30 caps Allergies Allergy/AdvReac Type Severity Reaction Status Date / Time adhesive tape Allergy ALGY-Rash Verified 07/02/24 06:28 Current Medications Generic Name Dose Route Start Last Admin Trade Name Freq PRN Reason Stop Dose Admin Sodium Chloride 1,000 mls @ 30 mls/hr 07/02/24 06:30 07/02/24 06:54 Sodium Chloride 0.9% IV 07/03/24 06:29 30 mls/hr .Q24H ISHA Administration PFSH Anesthesia Medical History Aftercare following surgery of the genitourinary system Neuropathy Hypertension Insomnia Surgical History H/O dilation and curettage H/O: hysterectomy 2020 - - with BLO S/P cervical spinal fusion C2-T2 fusion - 2023 History of radical neck surgery Family History Father Diabetes Mother Hyperlipidemia Family/Other Breast cancer maternal aunt, great aunt age onset unknown Grandmother Diabetes paternal Denies family history of Colon cancer Ovarian cancer Clotting disorder Heart disease Anesthesia complication Bleeding disorder Family history of premature coronary artery disease Hypertension Uterine cancer Thyroid disease Stroke Social History Smoking and tobacco/nicotine status: current every day tobacco/nicotine user cigarettes Quit status (tobacco/nicotine): has quit using Former quit date comment: 05/08/2021 Second hand smoke exposure: No Alcohol intake: former 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 date alcohol: 2019 Substance/Drug Use: current Substance/Drug use frequency: daily Other substance/drug use details: has a medical card Data Anesthesia Cardiac Studies: No Data to Display
[2024-07-02] MEDS: lidocaine-epi 2% PF 1:200,000 20 mL SDV XX (09:23)
[2024-07-02] MEDS: fentaNYL 50 mcg/mL INJ 2mL IVP ×2 (10:04→10:17)
[2024-07-02] MEDS: HYDROmorphone 1 mg/mL INJ 1 mL 0.5 MG IVP (10:32)
--- NOTE | 2024-07-02 12:16 | P.OP_ITS ---
Operative Report Date of procedure: July 02, 2024 Pre-op diagnosis: History of recently perforated appendicitis treated at an outside facility with antibiotics and drainage alone Biliary dyskinesia Post-op diagnosis: same Procedure done: Laparoscopic cholecystectomy Interval appendectomy Specimens removed/disposition: Gallbladder Appendix Surgeon: Howard Kaminski DO Anesthesia: General Estimated blood loss (mL): 5 Complications: None apparent Brief History: This is a very pleasant 53-year-old female who had a perforated appendicitis in April that was treated at an outside facility with conservative management only, including antibiotics and IR drainage. She still having right lower quadrant pain in the area of her appendix. She has also been having right upper quadrant abdominal pain and is diagnosed with biliary dyskinesia. Laparoscopic cholecystectomy and interval appendectomy were indicated. The risks and benefits were explained and documented. Procedure: Patient was wheeled into the operative room and placed on the OR table in a supine position. Abdomen was inspected prepped and draped in usual sterile fashion. Time-out was performed and all present were in agreement. A 15 blade scalp was used to make a stab incision in the left upper quadrant and intra- abdominal insufflation was achieved using a Veress needle. After localizing the tissue incisions were made and a 5 millimeter trocar was placed into the umbilicus as well as 2 in the right upper quadrant. A 12 millimeter trocar was placed in the epigastrium. Gallbladder was grasped and elevated. The triangle of Calot was carefully dissected using blunt dissection and electrocautery until the triangle of Calot clearly identified. The cystic duct was clipped proximally and double clipped distally. The duct was then ligated proximally. The cystic artery was doubly clipped and ligated. The gallbladder was then fela kehinde from the liver bed using electrocautery. The gallbladder was removed from the abdomen using an Endo-Catch bag through the epigastric incision. The liver bed was inspected and no bleeding was seen. Next, attention was brought to the appendix. A 5mm in the right lower quadrant and a 5 mm in the left lower quadrant . The appendix was identified and was mildly densely adhered deep into the pelvis. I used the laparoscopic ligature to ligate the adhesions and alveolar tissue along with the mesoappendix at the base. I then used 2 PDS endo-loops to snare the base of the appendix. I then used the laparoscopic ligature to ligate the appendix distally. The appendix was removed from the abdomen using an Endo-Catch bag through the epigastric incision. I examined the abdomen and no further pathology was identified. Hemostasis was noted. The abdomen was irrigated and suctioned. All ports removed. Skin was washed and dried. Incisions were closed with 4-0 Monocryl in a subcuticular interrupted fashion. Skin glue was applied. Patient tolerated the procedure well.
--- NOTE | 2024-07-02 12:20 | ANE.PACU2 ---
Inpatient post-anesthesia follow up: Airway intact: Yes Vital signs: Temperature 98.1 F Pulse Rate 64 Respiratory Rate 16 Blood Pressure 139/82 Pulse Oximetry 94 Oxygen Delivery Me thod Room Air Oxygen Flow Rate 2 Fraction of Inspir ed Oxygen Hydration adequate: Yes Nausea and vomiting: No Pain level: 1 Mental status: Baseline
== END 2024-07-02 12:20 | disposition home or self-care (01) ==
PROVIDERS: PCP Family Medicine; Visit Provider Surgery
PROC: 0FT44ZZ Resection of Gallbladder, Percutaneous Endoscopic Approach (ICD-10-PCS; CPT 47562; principal; 2024-07-02 07:45)
PROC: 0DTJ4ZZ Resection of Appendix, Percutaneous Endoscopic Approach (ICD-10-PCS; CPT 44970; 2024-07-02 07:45)
DX: K81.1 Chronic cholecystitis (principal); Z98.1 Arthrodesis status; Z79.891 Long term (current) use of opiate analgesic; I10 Essential (primary) hypertension; F17.210 Nicotine dependence, cigarettes, uncomplicated
CPT/HCPCS: 44979; 47562; 88304; 88342; J0360; J0690; J1100; J1171; J1200; J1885; J2704; J2710; J3010; J3490; J7030

== ENCOUNTER 2024-07-30 11:44 | Day surgery (SDC) | payer BC, MEDICAID, SELFPAY ==
[2024-07-30] VITALS (11 sets, daily range): BP systolic 105–137; BP diastolic 69–84; PULSE 61–84; RESP 16–22; TEMP 36.6–36.8; O2SAT 93–96; BMI 32.9
--- NOTE | 2024-07-30 12:24 | W.PM.OPSUD ---
Surgery/Procedure H&P Update DATE OF PROCEDURE: July 30, 2024 DATE H&P PERFORMED: 07/22/24 H&P UPDATE INFORMATION: I have reviewed H&P completed within last 30 days, I have examined patient prior to procedure and No changes to prior documentation PLANNED PROCEDURE: Operation Date: 07/30/24 14:20 Proposed Procedures p excision of [place] on back 29979, L98.9(Not Applicable) - oHward Kaminski, DO
[2024-07-30] MEDS: sodium chloride 0.9% 1,000 ML 30 ML IV (12:46)
--- NOTE | 2024-07-30 13:48 | ANES.PREANE2 ---
Pre-Anesthetic Assessment Height/Weight: Height 5 ft 4 in Weight 192 lb Temp Pulse Resp BP Pulse Ox O2 Del Method 97.8 F 61 16 125/83 96 Room Air 07/30/24 12:16 07/30/24 12:16 07/30/24 12:16 07/30/24 12:16 07/30/24 12:16 07/30/24 12:26 Preop Diagnosis: Skin lesion Operation Date: 07/30/24 14:20 Proposed Procedures p excision [place] on [place] 31851, L98.9(Not Applicable) - Howard Kaminski, DO Was Beta Genet taken within 24 hours: N/A Was Clonidine taken within 24 hours: N/A Last intake: Intake Last Liquid Date 07/29/24 Last Liquid Time 20:30 Last Solid Date 07/29/24 Last Solid Time 19:00 Social Tobacco and No alcohol Exam alert, oriented x 3, clear to auscultation bilaterally and regular rate & rhythm Airway Submandibular: within normal limits Cervical ROM: Other (Limited, cervical fusion) Anesthetic Plan ASA status: 3 Anesthesia: General Other: No prior issues with anesthesia NPO since yesterday Patient states that she has had a cough for the last few days, denies any fevers, chills or SOB S/p cervical spinal fusion. On chronic Percocet Current smoker Labs reviewed from June and for procedure Prior EKG showing sinus bradycardia METs greater than 4 Plan for general anesthetic Medications/Allergies Home Medications Medication Instructions Recorded Confirmed Last Taken Type BRIAN 08/15/22 07/22/24 06/10/24 History Bone Growth Stimulator E0748 #1 ea 09/05/22 07/22/24 06/10/24 Rx atenolol 25 mg tablet 25 mg PO QAM 10/01/23 07/29/24 07/30/24 History tizanidine 4 mg tablet 4 - 8 mg PO BEDTIME 10/11/23 07/29/24 07/29/24 History citalopram 20 mg tablet (Celexa) 20 mg PO QAM 03/07/24 07/29/24 07/29/24 History estradiol 1 mg tablet 1 mg PO QPM 03/07/24 07/29/24 07/28/24 History ibuprofen 800 mg tablet 800 mg PO Q12H PRN Pain (Scale 03/07/24 07/29/24 07/22/24 History Score 1-3) oxycodone-acetaminophen 5 mg-325 0.5 - 1 tab PO Q8H PRN Pain 03/07/24 07/29/24 07/30/24 History mg tablet ondansetron 4 mg disintegrating 4 mg PO Q6H PRN nausea and 03/20/24 07/29/24 1 Week Ago Rx tablet vomiting 14 days #56 tabs ~06/05/24 trazodone 150 mg tablet 150 mg PO QPM 04/12/24 07/29/24 07/28/24 History pregabalin 150 mg capsule 150 mg PO BID #60 caps 05/20/24 07/29/24 07/29/24 Rx naloxone 4 mg/actuation nasal See Rx Instructions .Route .COMPLEX 06/18/24 07/29/24 Unknown History spray (Narcan) omeprazole 40 mg capsule,delayed See Rx Instructions .Route 07/01/24 07/29/24 07/29/24 Rx release .COMPLEX #30 caps docusate sodium 100 mg capsule 100 mg PO BID #14 caps 07/02/24 07/29/24 07/29/24 Rx (Colace) Allergies Allergy/AdvReac Type Severity Reaction Status Date / Time adhesive tape Allergy ALGY-Rash Verified 07/02/24 06:28 Current Medications Generic Name Dose Route Start Last Admin Trade Name Freq PRN Reason Stop Dose Admin Sodium Chloride 1,000 mls @ 30 mls/hr 07/30/24 12:15 07/30/24 12:46 Sodium Chloride 0.9% IV 07/31/24 12:14 30 mls/hr .Q24H ISHA Administration PFSH Anesthesia Medical History (Updated 07/26/24 @ 19:31 by Howard Kaminski DO) Aftercare following surgery of the genitourinary system Neuropathy Hypertension Insomnia Surgical History (Updated 07/26/24 @ 19:31 by Howard Kaminski DO) History of laparoscopic cholecystectomy History of laparoscopic appendectomy H/O dilation and curettage H/O: hysterectomy 2020 - [facility] - with BLO S/P cervical spinal fusion C2-T2 fusion - 2023 History of radical neck surgery Family History Father Diabetes Mother Hyperlipidemia Family/Other Breast cancer maternal aunt, great aunt age onset unknown Grandmother Diabetes paternal Denies family history of Colon cancer Ovarian cancer Clotting disorder Heart disease Anesthesia complication Bleeding disorder Family history of premature coronary artery disease Hypertension Uterine cancer Thyroid disease Stroke Social History Smoking and tobacco/nicotine status: never used tobacco/nicotine Quit status (tobacco/nicotine): has quit using Former quit date comment: 05/08/2021 Second hand smoke exposure: No Alcohol intake: former 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 date alcohol: 2019 Substance/Drug Use: current Substance/Drug use frequency: daily Other substance/drug use details: has a medical card Data Anesthesia Cardiac Studies: No Data to Display
[2024-07-30] MEDS: scopolamine 1 mg PATCH 1 PATCH TRANSDERMA (13:58)
[2024-07-30] MEDS: ceFAZolin 2,000 mg SDV 2000 MG IVP (14:21)
[2024-07-30] MEDS: lidocaine-epi 2% PF 1:200,000 20 mL SDV 5 ML XX (14:43)
--- NOTE | 2024-07-30 14:48 | PM.OP ---
Operative Report Date of procedure: July 30, 2024 Pre-op diagnosis: Skin lesion of back Post-op diagnosis: same Procedure done: Elliptical excision of skin lesion of back Specimens removed/disposition: Elliptical excision of skin lesion of back Surgeon: Howard Kaminski DO Anesthesia: General and Local Estimated blood loss (mL): 5 Complications: None apparent Brief History: This is a very pleasant 53-year-old female who presented my office with a changing and growing skin lesion of her back. She desired excision. The risks and benefits were explained and documented. Procedure: Room placed on the OR table in the supine position. General intubation was achieved by LMA via the department anesthesia. Patient was then placed in the right lateral decubitus position. The back was inspected prepped and draped in usual sterile fashion. A timeout was performed. All present were in agreement. 2% lidocaine with epinephrine was used to anesthetize the area over a 1 cm ovoid and slightly raised irregular lesion just left of midline. A 1.5 cm transverse ellipse was performed with a 15 blade scalpel. Electrocautery was used to dissect down through the subcutaneous tissue. Specimen was passed off. Hemostasis was achieved electrocautery. Dermis approximated with 3-0 Vicryl in an interrupted fashion. Skin was closed with 3-0 nylon in a simple interrupted fashion. Sterile bandages applied. Patient tolerated procedure well.
== END 2024-07-30 16:20 | disposition home or self-care (01) ==
PROVIDERS: PCP Family Medicine; Visit Provider Surgery
PROC: (CPT 11402; principal; 2024-07-30 14:10)
DX: L82.1 Other seborrheic keratosis (principal); Z98.1 Arthrodesis status; I10 Essential (primary) hypertension; Z87.891 Personal history of nicotine dependence
CPT/HCPCS: 11402; 88304; J0690; J1100; J2250; J2405; J2704; J3010; J3490; J7030

== ENCOUNTER → 2024-08-27 09:04 | Outpatient (BNVA) | payer BC, MEDICAID, SELFPAY | PROVIDERS: PCP Family Medicine; Visit Provider Orthopaedic Surgery | DX: Z98.1 Arthrodesis status (principal) | CPT/HCPCS: 72040; 72100 ==

== ENCOUNTER → 2024-11-19 07:50 | Outpatient (BNVA) | payer BC, MEDICAID, SELFPAY | PROVIDERS: PCP Family Medicine; Visit Provider Orthopaedic Surgery | DX: Z98.1 Arthrodesis status (principal) | CPT/HCPCS: 72040; 72100 ==

== ENCOUNTER 2024-12-24 13:42 | Emergency (ER) | payer BC, MEDICAID, SELFPAY ==
[2024-12-24 13:45] VITALS: BP 173/97; PULSE 68; RESP 16; TEMP 36.9; O2SAT 96
--- NOTE | 2024-12-24 15:01 | ED_ITS ---
HPI - Fall General: Chief Complaint: Back Pain/Injury Stated Complaint: fall, back pain, has back fusions Time Seen by Provider: 12/24/24 15:00 Source: patient Mode of arrival: ambulatory Limitations: no limitations History of Present Illness: Patient is a 54-year-old female presents to ED today with complaint of diffuse neck and back pain following a fall yesterday. Patient states she slipped on he r wet deck. She has a history of spinal fusion by Dr. Cortez and is concerned she potentially injured her hardware. She denies striking her head or LOC. She is ambulatory here without difficulty or assistance. Also has some minor pain involving her left wrist. Denies numbness, tingling, loss of sensation to her arms or legs. MD complaint: fall Onset (ago): day(s) (yesterday) Fall from: down stairs (#) Fall witnessed: no Place fall occurred: home Loss of consciousness: None Prolonged down time: no Symptoms prior to fall: none Context: tripped/slipped Location of injury: neck and back Associated symptoms-after fall: Reports neck pain; Denies abdominal pain, chest pain, difficulty walking or headache(s) Related Data Home Medications ?Medication ?Instructions ?Recorded ?Confirmed MARJUANIA 08/15/22 11/19/24 tizanidine 4 mg tablet 4 - 8 mg PO BEDTIME 10/11/23 11/19/24 ibuprofen 800 mg tablet 800 mg PO Q12H PRN Pain (Sca le 03/07/24 11/19/24 Held on 07/30/24. Score 1-3) Instructions: Resume on 08/01/24. oxycodone-acetaminophen 5 mg-325 0.5 - 1 tab PO Q8H MS N Pain 03/07/24 11/19/24 mg tablet Held on 07/30/24. Instructions: Resume on 08/02/24. naloxone 4 mg/actuation nasal See Rx Instructions .Rou te .COMPLEX 06/18/24 11/19/24 spray (Narcan) Previous Rx's ?Medication ?Instructions ?Recorded Bone Growth Stimulator E0748 #1 ea 09/05/22 ondansetron 4 mg disintegrating 4 mg PO Q6H PRN nausea and 03/20/24 tablet vomiting 14 days #56 tabs omeprazole 40 mg capsule,delayed See Rx Instructions . Route 07/01/24 release .COMPLEX #30 caps docusate sodium 100 mg capsule 100 mg PO BID #14 caps 07/02/24 (Colace) oxycodone-acetaminophen 7.5 mg-325 1 tab PO Q6H PRN pa in #10 tabs 07/30/24 mg tablet atenolol 25 mg tablet See Rx Instructions .Route 0 08/13/24 .COMPLEX #90 tabs citalopram 20 mg tablet See Rx Instructions .Route 0 08/13/24 .COMPLEX #30 tabs estradiol 1 mg tablet See Rx Instructions .Route 0 08/13/24 .COMPLEX #30 tabs trazodone 150 mg tablet 150 mg PO QPM #90 tabs 11/04 pregabalin 150 mg capsule 150 mg PO BID #60 caps 12/10 Allergies Allergy/AdvReac Type Severity Reaction Status Date / Time adhesive tape Allergy ALGY-Rash Verified 11/19/24 08:07 Review of Systems Card: Denies: chest pain Resp: Denies: dyspnea GI: Denies: abdominal pain Musc: Reports: neck pain, back pain and joint pain (L wrist); Denies: extremity pain, extremity swelling or joint swelling Neuro: Denies: headache(s), numbness in extremities, weakness in extremities, sensory changes or difficulty walking PFS ED PFSH: Medical History Aftercare following surgery of the genitourinary system Neuropathy Hypertension Insomnia Surgical History History of laparoscopic cholecystectomy History of laparoscopic appendectomy H/O dilation and curettage H/O: hysterectomy 2020 - - with BLO S/P cervical spinal fusion C2-T2 fusion - 2023 History of radical neck surgery Family History Father Diabetes Mother Hyperlipidemia Family/Other Breast cancer maternal aunt, great aunt age onset unknown Grandmother Diabetes paternal Denies family history of Colon cancer Ovarian cancer Clotting disorder Heart disease Anesthesia complication Bleeding disorder Family history of premature coronary artery disease Hypertension Uterine cancer Thyroid disease Stroke Social History Smoking and tobacco/nicotine status: former use of tobacco/nicotine Quit status (tobacco/nicotine): has quit using Former quit date comment: 05/08/2021 Second hand smoke exposure: No Alcohol intake: former 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 date alcohol: 2019 Substance/Drug Use: current Substance/Drug use frequency: daily Other substance/drug use details: has a medical card Physical Exam Const: COMMON NORMALS: no acute distress, average body habitus, patient oriented x3, no limitations, healthy appearing, alert and well nourished HENMT: COMMON NORMALS: normocephalic and atraumatic HEAD & SCALP: normal to inspection, normocephalic and atraumatic Neck/C-Spine: CERVICAL SPINE: Yes Cervical spine tenderness Chest: COMMONS NORMALS: normal inspection of the chest and normal palpation of entire chest wall Resp: COMMON NORMALS: normal respiratory effort Back/Pelvis: COMMON NORMALS: straight leg raise negative bilaterally THORACIC SPINE/UPPER BACK: Yes thoracic spinal tenderness LUMBAR SPINE/LOWER BACK: Yes lumbar spinal tenderness SACROILIAC JOINTS: Yes SI joints normal SACRUM: no tenderness COCCYX: no tenderness Extremity: COMMON NORMALS: normal to inspection GENERAL: Yes normal exam except as noted LEFT UPPER EXTREMITY: Yes wrist (mild tenderness L wrist; no edema/deformity) Left wrist: Yes neurovascular exam (normal) Neuro: KERRI COMA SCALE: document GCS findings [place] coma scale eye opening: Spontaneous Kerri coma scale verbal response: Orientated [place] coma scale motor response: Obey commands Kerri coma scale total score: 15 COMMON NORMALS: patient oriented x3, moves all extremities, no focal motor deficits, no sensory deficits noted and gait normal SENSORIUM/ORIENTATION: Yes alert Course Vital Signs: Vital signs: Vital Signs Temperature 98.4 F 12/24/24 13:45 Pulse Rate 68 12/24/24 13:45 Respiratory Rate 16 12/24/24 13:45 Blood Pressure 173/97 12/24/24 13:45 Pulse Oximetry 96 12/24/24 13:45 Oxygen Delivery Me thod Room Air 12/24/24 13:45 MDM - Fall Medical Decision Making XRs of cervical, thoracic, and lumbar spine obtained as well as L wrist. Personal interpretation showing no acute abnormalities. Imaging sent to [facility]. Will contact patient if anything comes back abnormal. She can follow-up with primary care and/or her spinal specialist, Dr. Cortez. Medical Records I reviewed the patient's medical records. XR interpretation done by ED provider, pending radiology final review Discharge Plan Discharge Patient Disposition: Home Clinical Impression: Neck pain, Left wrist pain Fall from slipping Qualifiers: Encounter type: initial encounter Qualified Code(s): W01.0XXA - Fall on same level from slipping, tripping and stumbling without subsequent striking against object, initial encounter Back pain Qualifiers: Back pain location: back pain in unspecified location Chronicity: acute Back pain laterality: midline Qualified Code(s): M54.9 - Dorsalgia, unspecified Condition: Stable Prescriptions: No Action (DME) MARJUANIA 0 .Route .MEDSUPPLY (DME) Bone Growth Stimulator E0748 See Rx Instructions .Route .MEDSUPPLY Qty: 1 0RF Rx Instructions: As directed ondansetron 4 mg tablet,disintegrating 4 mg PO Q6H PRN (Reason: nausea and vomiting) 14 Days Qty: 56 0RF omeprazole 40 mg capsule,delayed release(DR/EC) See Rx Instructions .ROUTE .COMPLEX Qty: 30 11RF Dose Instruction: TAKE 1 CAPSULE BY MOUTH EVERY MORNING Rx Instructions: TAKE 1 CAPSULE BY MOUTH EVERY MORNING estradiol 1 mg tablet See Rx Instructions .ROUTE .COMPLEX Qty: 30 6RF Dose Instruction: TAKE 1 TABLET BY MOUTH EVERY DAY Rx Instructions: TAKE 1 TABLET BY MOUTH EVERY DAY citalopram 20 mg tablet See Rx Instructions .ROUTE .COMPLEX Qty: 30 6RF Dose Instruction: TAKE 1 TABLET BY MOUTH EVERY DAY Rx Instructions: TAKE 1 TABLET BY MOUTH EVERY DAY atenolol 25 mg tablet See Rx Instructions .ROUTE .COMPLEX Qty: 90 3RF Dose Instruction: TAKE 1 TABLET BY MOUTH EVERY DAY Rx Instructions: TAKE 1 TABLET BY MOUTH EVERY DAY trazodone 150 mg tablet 150 mg PO QPM Qty: 90 2RF pregabalin 150 mg capsule 150 mg PO BID Qty: 60 5RF ibuprofen 800 mg tablet 800 mg PO Q12H PRN (Reason: Pain (Scale Score 1-3)) oxycodone-acetaminophen 5-325 mg tablet 0.5 - 1 tab PO Q8H MDD 3 per day PRN (Reason: Pain) naloxone [Narcan] 4 mg/actuation spray,non-aerosol See Rx Instructions .ROUTE .COMPLEX Rx Instructions: call 911. administer a single spray of narcan in one nostril. repeat every 2- 3 minutes as needed if no or minimal response; Refer questions about refills only to the pharmacist who fulfilled this [place] standing order at [phone] tizanidine 4 mg tablet 4 - 8 mg PO BEDTIME docusate sodium [Colace] 100 mg capsule 100 mg PO BID Qty: 14 0RF oxycodone-acetaminophen 7.5-325 mg tablet 1 tab PO Q6H PRN (Reason: pain) Qty: 10 0RF Discharge Orders: Discharge ED (Routine); Ordered 12/24/24 Ordered By: Laure Puri Referrals: Abel Turner MD [Primary Care Provider, Family Practice] Activity Restrictions/Additional Instructions: As we discussed, x-rays here appear unremarkable however radiologist will read them within the next 1 to 2 hours. Will contact you if anything comes back abnormal. You may follow-up with primary care if symptoms do not improve over the next week or so. You may also follow-up with your spinal specialist, Dr. Cortez. Print Language: Tajik Coding Level of Care Code ED Human Resources Clerk for [facility]
--- NOTE | 2024-12-24 15:15 | XRR_ITS ---
PROCEDURE INFORMATION: Exam: XR Cervical Spine Exam date and time: 12/24/2024 3:33 PM Age: 54 years old Clinical indication: Injury or trauma; Fall; Blunt trauma; Prior surgery; Surgery date: 6+ months; Surgery type: C. Spine TECHNIQUE: Imaging protocol: Radiologic exam of the cervical spine. Views: 2 or 3 views. COMPARISON: CR XR cervical spine 3V* [id number] 11/19/2024 7:51 AM FINDINGS: Bones/joints: There has been posterior surgical fusion from the C2 level down into the T5 level of the thoracic spine. Overall bony alignment is good. There has been anterior fusion and corpectomy from C3 to C6. No acute fracture or subluxation noted. Soft tissues: Unremarkable. XR/XR cervical spine 3V* [id number] IMPRESSION: Stable surgical changes
--- NOTE | 2024-12-24 15:15 | XRR_ITS ---
PROCEDURE INFORMATION: Exam: XR Thoracic Spine Exam date and time: 12/24/2024 3:33 PM Age: 54 years old Clinical indication: Injury or trauma; Fall; Blunt trauma (contusions or hematomas) TECHNIQUE: Imaging protocol: Radiologic exam of the thoracic spine. Views: 3 views. COMPARISON: CR XR lumbar spine 2-3V* [id number] 11/19/2024 8:09 AM FINDINGS: Bones/joints: There has been posterior surgical fusion down to the T5 level. Bony alignment is normal. No evidence of fracture. Soft tissues: Unremarkable. XR/XR thoracic spine 3V* [id number] IMPRESSION: No acute findings.
--- NOTE | 2024-12-24 15:15 | XRR_ITS ---
PROCEDURE INFORMATION: Exam: XR Left Wrist Exam date and time: 12/24/2024 3:33 PM Age: 54 years old Clinical indication: Injury or trauma; Fall; Blunt trauma (contusions or hematomas); Wrist; Left TECHNIQUE: Imaging protocol: Radiologic exam of the left wrist. Views: 3 or more views. COMPARISON: No relevant prior studies available. FINDINGS: Bones/joints: Normal. Soft tissues: Normal. XR/XR wrist LT min 3V* [id number] IMPRESSION: No acute findings.
--- NOTE | 2024-12-24 15:15 | XRR_ITS ---
PROCEDURE INFORMATION: Exam: XR Lumbosacral Spine Exam date and time: 12/24/2024 3:33 PM Age: 54 years old Clinical indication: Injury or trauma; Fall; Blunt trauma (contusions or hematomas); Prior surgery; Surgery date: 6+ months; Surgery type: Lumbar TECHNIQUE: Imaging protocol: Radiologic exam of the lumbosacral spine. Views: 2 or 3 views. COMPARISON: CR XR lumbar spine 2-3V* [id number] 11/19/2024 8:09 AM FINDINGS: Bones/joints: There is evidence of previous posterior surgical fusion from L2 down to the sacrum. Bony alignment is normal. The metallic hardware are in good position and appears intact. No fracture noted. Soft tissues: Unremarkable. XR/XR lumbar spine 2-3V* [id number] IMPRESSION: No acute findings.
== END 2024-12-24 16:30 | disposition home or self-care (01) ==
PROVIDERS: Emergency Provider Physician Assistant; PCP Family Medicine
DX: M54.2 Cervicalgia (principal); M25.532 Pain in left wrist; M54.9 Dorsalgia, unspecified; W01.0XXA Fall on same level from slipping, tripping and stumbling without subsequent striking against object, initial encounter; Z87.891 Personal history of nicotine dependence; I10 Essential (primary) hypertension
CPT/HCPCS: 72040; 72072; 72100; 73110; 99284

== ENCOUNTER → 2025-01-07 07:53 | Outpatient (BNVA) | payer BC, MEDICAID, SELFPAY | PROVIDERS: PCP Family Medicine; Visit Provider Student in an Organized Health Care Education/Training Program | DX: M70.62 Trochanteric bursitis, left hip (principal) | CPT/HCPCS: 73502 ==

== ENCOUNTER → 2025-01-08 08:49 | Outpatient (BNVA) | payer BC, MEDICAID, SELFPAY | PROVIDERS: PCP Family Medicine; Visit Provider Student in an Organized Health Care Education/Training Program | DX: M25.562 Pain in left knee (principal); M76.32 Iliotibial band syndrome, left leg | CPT/HCPCS: 73560; 73565 ==

== ENCOUNTER → 2025-01-15 08:22 | Outpatient (BNVA) | payer BC, MEDICAID, SELFPAY | PROVIDERS: PCP Family Medicine; Visit Provider Physician Assistant | DX: M65.311 Trigger thumb, right thumb (principal) | CPT/HCPCS: 73130 ==

== ENCOUNTER → 2025-01-28 14:55 | Outpatient (BNVA) | payer BC, MEDICAID, SELFPAY | PROVIDERS: PCP Family Medicine; Visit Provider Orthopaedic Surgery | DX: Z98.1 Arthrodesis status (principal); M54.2 Cervicalgia; M54.9 Dorsalgia, unspecified | CPT/HCPCS: 72040 ==

== ENCOUNTER 2025-01-31 09:26 | Outpatient (CLI) | payer BC, MEDICAID, SELFPAY ==
--- NOTE | 2025-01-31 09:45 | CTR_ITS ---
PROCEDURE INFORMATION: Exam: CT Cervical Spine Without Contrast Exam date and time: 01/31/2025 9:49 AM Age: 54 years old Clinical indication: Neck pain; Prior surgery; Surgery date: 6+ months; Surgery type: Spine fusion x 6 TECHNIQUE: Imaging protocol: Computed tomography of the cervical spine without contrast. Radiation optimization: All CT scans at this facility use at least one of these dose optimization techniques: automated exposure control; mA and/or kV adjustment per patient size (includes targeted exams where dose is matched to clinical indication); or iterative reconstruction. COMPARISON: 1. CT cervical spine wo/w [id number] 10/01/2023 11:13 AM 2. CR XR cervical spine 3V* [id number] 12/24/2024 3:33 PM RADIATION DOSE METRICS: Total DLP (mGy-cm): 1153.25 FINDINGS: Bones: Patient is again noted to be status post posterior instrumented fusion extending from C2 through the upper thoracic spine. Again seen are findings compatible with fractures of the T1 and T2 screws. Anterior cervical disc fusion from C3 through C6. Decompressive laminectomy at C7. Corpectomy at C4 with a metallic strut extending from C3 to C5. The latter hardware appears grossly intact. No definite acute fracture is visualized. Congenital nonfusion of the posterior arch of C1. No definite severe spinal canal stenosis or neural foraminal narrowing. Lungs: Lung apices are normal. Soft tissues: Unremarkable. CT/CT cervical spin wo con* [id number] IMPRESSION: 1. Extensive anterior and posterior cervicothoracic fusion as detailed above. Other than T1 on T2 screw fractures which were seen previously, hardware appears intact. 2. No definite acute osseous findings. Chronic findings as above are similar to prior.
--- NOTE | 2025-01-31 09:45 | CTR_ITS ---
PROCEDURE INFORMATION: Exam: CT Thoracic Spine Without Contrast Exam date and time: 01/31/2025 9:49 AM Age: 54 years old Clinical indication: Pain in thoracic spine; Additional info: Back pain TECHNIQUE: Imaging protocol: Computed tomography of the thoracic spine without contrast. Radiation optimization: All CT scans at this facility use at least one of these dose optimization techniques: automated exposure control; mA and/or kV adjustment per patient size (includes targeted exams where dose is matched to clinical indication); or iterative reconstruction. COMPARISON: CR XR thoracic spine 3V* [id number] 12/24/2024 3:33 PM RADIATION DOSE METRICS: Total DLP (mGy-cm): 1153.25 FINDINGS: Bones/joints: Posterior cervicothoracic fusion hardware is partially imaged, extending to the T5 level. As before, the screws at T1 and T2 appear to be fractured with portions missing. Hardware otherwise appears intact. No definite acute fracture. Minimal grade 1 anterolisthesis of T3-T4. Spinal alignment is otherwise preserved. No severe spinal canal stenosis or neural foraminal narrowing. Vertebral body heights are maintained. Soft tissues: Unremarkable. CT/CT thoracic spin wo con* [id number] IMPRESSION: 1. Cervicothoracic fusion to the level of T5. Fractures of the T1 and T2 screws as detailed on prior studies. Otherwise hardware appears intact. 2. No acute findings in the thoracic spine.
== END 2025-01-31 09:27 | disposition home or self-care (01) ==
LOC: RAD 09:27
PROVIDERS: PCP Family Medicine; Visit Provider Orthopaedic Surgery
DX: M54.2 Cervicalgia (principal); M54.9 Dorsalgia, unspecified; Z98.1 Arthrodesis status
CPT/HCPCS: 72125; 72128

== ENCOUNTER 2025-02-28 05:59 | Day surgery (SDC) | payer BC, MEDICAID, SELFPAY ==
[2025-02-28] VITALS (7 sets, daily range): BP systolic 106–128; BP diastolic 63–91; PULSE 52–65; RESP 17–18; TEMP 36.2–36.6; O2SAT 93–95; BMI 36.0
[2025-02-28] MEDS: acetaminophen 1,000 MG/100 ML PIGGYBACK 400 MG IV (06:31)
--- NOTE | 2025-02-28 06:44 | ANES.PREANE2 ---
Pre-Anesthetic Assessment Height/Weight: Height 1.63 m Weight 95.254 kg Temp Pulse Resp BP Pulse Ox O2 Del Method 97.1 F L 65 18 127/91 95 Room Air 02/28/25 06:12 02/28/25 06:12 02/28/25 06:12 02/28/25 06:12 02/28/25 06:12 02/28/25 06:12 Operation Date: 02/28/25 07:00 Proposed Procedures p RIGHT Thumb, Trigger Finger Release(Right) - Evert Marcella, DO Familial anesthetic complications: None Was Beta Genet taken within 24 hours: Yes Was Clonidine taken within 24 hours: N/A Last intake: Intake Last Liquid Date 02/27/25 Last Liquid Time 23:30 Last Solid Date 02/27/25 Last Solid Time 19:00 Social Tobacco and No alcohol Exam alert, oriented x 3, clear to auscultation bilaterally and regular rate & rhythm Airway Mallampati: Class II Dentition: other (missing) CV/HEM Hypertension Metabolic Morbid Obesity Musc/skel hx cervical fusion Anesthetic Plan ASA status: 2 Anesthesia: General Risk of > 500 ml blood loss (7ml/kg in children): No Medications/Allergies Home Medications ?Medication ?Instructions ?Recorded ?Confirmed ?Last Taken ?Type MARJUANIA 08/15/22 02/26/25 06/10/24 History Bone Growth Stimulator E0748 #1 ea 09/05/22 02/27/25 06/10/24 Rx tizanidine 4 mg tablet 4 - 8 mg PO BEDTIME 10/11/23 02/28/25 02/27/25 History ibuprofen 800 mg tablet 800 mg PO Q12H PRN Pain (Scale 03/07/24 02/28/25 02/27/25 History Held on 07/30/24. Score 1-3) Instructions: Resume on 08/01/24. oxycodone-acetaminophen 5 mg-325 0.5 - 1 tab PO Q8H PRN Pain 03/07/24 02/28/25 02/28/25 History mg tablet Held on 07/30/24. Instructions: Resume on 08/02/24. ondansetron 4 mg disintegrating 4 mg PO Q6H PRN nausea and 03/20/24 02/28/25 1 Week Ago Rx tablet vomiting 14 days #56 tabs ~06/05/24 naloxone 4 mg/actuation nasal 4 mg intranasal DIRECTED 06/18/24 02/28/25 Unknown History spray (Narcan) docusate sodium 100 mg capsule 100 mg PO BID #14 caps 07/02/24 02/28/25 07/29/24 Rx (Colace) trazodone 150 mg tablet 150 mg PO QPM #90 tabs 11/04/24 02/28/25 02/27/25 Rx pregabalin 150 mg capsule 150 mg PO BID #60 caps 12/10/24 02/28/25 02/27/25 Rx Cervical Soft Collar #1 ea 01/28/25 02/26/25 Unknown Rx atenolol 25 mg tablet 25 mg PO DAILY 02/27/25 02/28/25 02/28/25 History citalopram 20 mg tablet 20 mg PO DAILY 02/27/25 02/28/25 02/27/25 History estradiol 1 mg tablet 1 mg PO QPM 02/27/25 02/28/25 02/27/25 History omeprazole 40 mg capsule,delayed 40 mg PO DAILY 02/27/25 02/28/25 02/27/25 History release Allergies Allergy/AdvReac Type Severity Reaction Status Date / Time adhesive tape Allergy ALGY-Rash Verified 02/28/25 06:07 Current Medications Generic Name Dose Route Start Last Admin Trade Name Freq PRN Reason Stop Dose Admin Sodium Chloride 1,000 mls @ 30 mls/hr 02/28/25 06:15 02/28/25 06:30 Sodium Chloride 0.9% IV 03/01/25 06:14 30 mls/hr .Q24H ISHA Administration PFSH Anesthesia Medical History Aftercare following surgery of the genitourinary system Neuropathy Hypertension Insomnia Surgical History History of laparoscopic cholecystectomy History of laparoscopic appendectomy H/O dilation and curettage H/O: hysterectomy 2020 - [facility] - with BLO S/P cervical spinal fusion C2-T2 fusion - 2023 History of radical neck surgery Family History Father Diabetes Mother Hyperlipidemia Family/Other Breast cancer maternal aunt, great aunt age onset unknown Grandmother Diabetes paternal Denies family history of Colon cancer Ovarian cancer Clotting disorder Heart disease Anesthesia complication Bleeding disorder Family history of premature coronary artery disease Hypertension Uterine cancer Thyroid disease Stroke Social History Smoking and tobacco/nicotine status: current some day tobacco/nicotine user cigarettes Quit status (tobacco/nicotine): has quit using Former quit date comment: 05/08/2021 Second hand smoke exposure: No Alcohol intake: former 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 date alcohol: 2019 Substance/Drug Use: current Substance/Drug use frequency: daily Other substance/drug use details: has a medical card
--- NOTE | 2025-02-28 06:49 | W.PM.OPSFHP ---
Same Day Surgery H&P Indication for Procedure/HPI DATE OF PROCEDURE: February 28, 2025 CHIEF COMPLAINT/INDICATIONFOR SURGICAL PROCEDURE: Right thumb trigger PREOP DIAGNOSIS: Right thumb trigger PLANNED PROCEDURE: Operation Date: 02/28/25 07:00 Proposed Procedures p RIGHT Thumb, Trigger Finger Release(Right) - Evert Naranjo, DO Medications/Allergies* Home Medications ?Medication ?Instructions ?Recorded ?Confirmed ?Type MARJUANIA 08/15/22 02/26/25 History tizanidine 4 mg tablet 4 - 8 mg PO BEDTIME 10/11/23 02/28/25 History ibuprofen 800 mg tablet 800 mg PO Q12H PRN Pain (Scale 03/07/24 02/28/25 History Held on 07/30/24. Score 1-3) Instructions: Resume on 08/01/24. oxycodone-acetaminophen 5 mg-325 0.5 - 1 tab PO Q8H PRN Pain 03/07/24 02/28/25 History mg tablet Held on 07/30/24. Instructions: Resume on 08/02/24. naloxone 4 mg/actuation nasal 4 mg intranasal DIRECTED 06/18/24 02/28/25 History spray (Narcan) atenolol 25 mg tablet 25 mg PO DAILY 02/27/25 02/28/25 History citalopram 20 mg tablet 20 mg PO DAILY 02/27/25 02/28/25 History estradiol 1 mg tablet 1 mg PO QPM 02/27/25 02/28/25 History omeprazole 40 mg capsule,delayed 40 mg PO DAILY 02/27/25 02/28/25 History release Allergies/Adverse Reactions Allergy/AdvReac Type Severity Reaction Status Date / Time adhesive tape Allergy ALGY-Rash Verified 02/28/25 06:07 Current Medications: Generic Name Dose Route Start Last Admin Trade Name Freq PRN Reason Stop Dose Admin Sodium Chloride 1,000 mls @ 30 mls/hr 02/28/25 06:15 02/28/25 06:30 Sodium Chloride 0.9% IV 03/01/25 06:14 30 mls/hr .Q24H ISHA Administration Pertinent History/Comorbid Conditions* Medical History (Updated 01/15/25 @ 09:13 by SARAH Clark) Aftercare following surgery of the genitourinary system Neuropathy Hypertension Insomnia Surgical History (Updated 07/26/24 @ 19:31 by Howard Kaminski, DO) History of laparoscopic cholecystectomy History of laparoscopic appendectomy H/O dilation and curettage H/O: hysterectomy 2020 - - with BLO S/P cervical spinal fusion C2-T2 fusion - 2023 History of radical neck surgery Family History (Updated 10/16/20 @ 14:02 by Katina Alonso RN) Diabetes Father Grandmother paternal Hyperlipidemia Mother Breast cancer Family/Other maternal aunt, great aunt age onset unknown Denies family history of Colon cancer Ovarian cancer Clotting disorder Heart disease Anesthesia complication Bleeding disorder Family history of premature coronary artery disease Hypertension Uterine cancer Thyroid disease Stroke Social History Smoking and tobacco/nicotine status: current some day tobacco/nicotine user cigarettes Quit status (tobacco/nicotine): has quit using Former quit date comment: 05/08/2021 Second hand smoke exposure: No Alcohol intake: former 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 date alcohol: 2019 Substance/Drug Use: current Substance/Drug use frequency: daily Other substance/drug use details: has a medical card Pertinent Exam Findings alert, oriented x 3, operative site marked and procedure specific exam findings Tender over A1 martina of the right thumb with mechanical triggering today. Please refer to detailed orthopedic examination on 01/15/2025 listed below: Right hand?A1 martina tenderness of thumb with some mechanical locking noted. Radial pulse 2+. No other mechanical locking or catching of fingers no other A1 martina tenderness noted. Underwear Cutter strength 5 out of 5. Recommendations Risks and benefits of procedure reviewed and Patient/family agree to proceed Surgery/Procedure today Other Plans: Plan to proceed to the OR today for right thumb trigger release. Patient understands the Zentz procedure the risk benefits complication alternatives surgery through shared decision making patient like to proceed with surgical invention. All questions answered at this time. Coding Level of Care Code Acute Code for Chg Jhonathan
[2025-02-28] MEDS: ceFAZolin 2,000 MG in sodium chloride 0.9% (plus) 50 ML 100 MG IV (06:53)
[2025-02-28] MEDS: ROPivacaine 0.5% SDV 30 mL 150 MG INJECTION (07:20)
--- NOTE | 2025-02-28 07:33 | P.BOP_ITS ---
Date of Procedure: 02/28/2025 Surgeon: Evert Naranjo DO Health Information Clerk(s): None Procedure(s) performed: Right thumb trigger release Findings of the procedure(s): Patient underwent procedure as planned without issues or complications. Estimated blood loss: 3 mL Specimen(s) removed: None Post-operative diagnosis: Right thumb trigger
--- NOTE | 2025-02-28 07:33 | PM.OP ---
Operative Report Date of procedure: February 28, 2025 Surgeon: Evert Naranjo DO Procedure: Preoperative diagnosis: Right thumb trigger Post-op diagnosis: Right?thumb?trigger Procedure done: Right?thumb?trigger?release Surgeon: Evert Naranjo DO Estimated blood loss: 3 mL Tourniquet time: 8 minutes Anesthesia: MAC/local IV fluids: See anesthesia record Complications: None Findings: See operative report narrative Condition: stable Disposition: same day Brief History: Patient presents to the outpatient setting with findings consistent with a right?thumb?trigger. Patient has been worked up in the outpatient setting and is failed conservative treatment approach.? Patient has a right?thumb?trigger?that she has tried treating conservatively with recurrence of her?triggering pain.? We talked about treatment options and ultimately patient would like to proceed with a right?thumb?trigger?release. At this point time I feel this is most appropriate as this is her next best step in treatment option.? We talked about the risk benefits complications and alternatives with surgical nonsurgical treatment options.? Understanding risk of surgery patient agrees to proceed with a right?thumb?trigger?release. All questions answered. Consent signed in the preoperative holding area. Procedure: Patient was seen evaluated in the preoperative holding area.? Consent was reviewed and signed with patient.? Correct extremity was then marked.? Patient was then seen and evaluated by the anesthesia department once cleared for surgery patient was then taken back to the operative suite patient was placed in supine position and all bony prominences well-padded the patient was properly secured to the bed.? Armboard was applied to the right upper extremity and the right upper extremity was then placed with a nonsterile tourniquet to the right upper arm.? This point time the right upper extremity was then prepped and draped in standard orthopedic fashion.? A final timeout was performed.? Patient received appropriate preoperative antibiotics. Esmarch tourniquet was used exsanguinate the right upper extremity and tourniquet was insufflated to 250 mmHg.? I identified patient's MP flexion crease marked appropriate incision transversely across the flexion crease within Mirna's lines sharp scalpel incision was made only through skin.? Once this was done I switched to Littler dissection scissors this I then subsequently spread longitudinally in the planes of the digital nerves.? Once these were identified these were protected by my retail administrative assistant with Kasdan retractors.? Next I identified directly over the A1 martina of the right?thumb.? This was significantly thickened and identified to be the area of patient's?thumb?triggering.? I used sharp scalpel to incise the A1 martina and then utilized my retail administrative assistant to retract the ability and under loupe magnification released the entirety of the A1 martina both proximally and distally up to the oblique martina.? This point time the tendon was then inspected and found to be healthy there was some inflammation around the tendon itself but no evidence of tearing and no need for any debridement.? The Ragnell was used to pull the tendon out of the incision and there was no mechanical?triggering I then took the patient's?thumb?through range of motion no recurrent?triggering was noted. Patient was gently awakened up from anesthesia unable to follow commands was able to flex and extend the thumb with no mechanical triggering or locking.? ?I then let the tourniquet down identified and maintained exact hemostasis with bipolar electrocautery irrigated the wound bed and then closed the incision with interrupted nylon suture. Incision sites were then dressed with Xeroform 4 x 4's Kerlix Damian wrap and an Damaso wrap.? Patient was then awakened from anesthesia and taken to PACU in stable condition. Disposition: Patient taken to PACU in stable condition recovering well.? Dressing on in place clean dry and intact.? Patient was receive appropriate discharge instruction as well as pain medication postoperatively.? Encourage range of motion to fingers as tolerated. Patient to follow-up with Ortho in the office in 2 weeks.? Patient understands and agrees with current plan.? All questions answered.
--- NOTE | 2025-02-28 08:15 | ANE.PACU2 ---
Inpatient post-anesthesia follow up: Airway intact: Yes Vital signs: Temperature 97.6 F Pulse Rate 52 Respiratory Rate 18 Blood Pressure 128/78 Pulse Oximetry 93 Oxygen Delivery Me thod Room Air Oxygen Flow Rate Fraction of Inspir ed Oxygen Hydration adequate: Yes Nausea and vomiting: No Pain level: 1 Mental status: Baseline
== END 2025-02-28 08:20 | disposition home or self-care (01) ==
PROVIDERS: PCP Family Medicine; Visit Provider Student in an Organized Health Care Education/Training Program
PROC: (CPT 26055; principal; 2025-02-28 07:00)
DX: M65.311 Trigger thumb, right thumb (principal); Z79.891 Long term (current) use of opiate analgesic; K21.9 Gastro-esophageal reflux disease without esophagitis; I10 Essential (primary) hypertension; G62.9 Polyneuropathy, unspecified; E66.01 Morbid (severe) obesity due to excess calories; Z68.36 Body mass index [BMI] 36.0-36.9, adult; F17.210 Nicotine dependence, cigarettes, uncomplicated
CPT/HCPCS: 26055; J0131; J0690; J1885; J2250; J2405; J2704; J2795; J3010; J7030; J9999

== ENCOUNTER 2025-03-11 17:02 | Emergency (ER) | payer BC, MEDICAID, SELFPAY ==
--- OUTSIDE RECORDS SUMMARY | 2022-02-09 07:15 | XMS_ITS | Continuity of Care Document ---
Author Organization [facility] Address [id number] [address] Phone Care Team Providers Care Special Effects Technician Name Role Phone Ravi Holder DDS Unavailable Unavailable Medications Medication Instructions Dosage Effective Dates (start - stop) Status Comments hydrocodone 5 mg-acetaminophen 325 mg tablet take 1 tablet by oral route every 6 hours as needed for pain 1 tablet - Active Procedures Procedure Date Limited Oral Evaluation Problem Focused Intraoral Periapical First Film Extraction, Erupted Tooth Or Exposed Birgit t (Elevati Surgical Removal Of Erupted Tooth Requir ing Elevat Advance Directives Directive Yes / No Effective Date File Name No Information Encounters Encounter Description Practice Location Reason(s) For Visit Diagnoses Date Provider Providers Copied on Encounter [facility], [id number], [id number], tel:[phone] Dental Behavioral Medicine F2 No Information Glory Rodrigues. [address], [place], [id number] , [place]. tel:[phone] Referring Provider: Ravi Oneal, [address] [facility] [place], [address] . tel:[phone] Family History Family Member Type Diagnosis Age At Onset No Information Payers Payer name Insurance type Covered republican ID Authorzay damondylan(s) D Dentaquest CI [id number] Social History Type Description Quantity Date Captured Comments Sex Female Smoking Status No Information Chief Complaint And Reason For Visit No Information Reason For Referral Reason For Referral No Information History Of Present Illness Encounter Date Complaint History Of Prese nt Illness No Information Functional Status Date Functional Assessmen t No Information Instructions Date Instruction Additional Infor mation No Information Assessments Type Assessment Date No Information Patient Care Teams Name Effective Dates (start - stop) Status Members No Information
[2025-03-11 17:06] VITALS: BP 133/83; PULSE 62; TEMP 36.9; O2SAT 96
--- OUTSIDE RECORDS SUMMARY | 2025-03-11 17:06 | XMS_ITS | Clinical Summary ---
Author Organization [facility] de Address [address] [place] [address] Phone Care Team Providers Care Private Chef Name Role Phone Abel Turner MD Primary Care Provider [phone] Medications mesalamine (ROWASA) 4 gram/60 mL Enema Insert 4 Grams by rectum daily at bedtime. Active hydrocortisone (CORTENEMA) 100 mg/60 mL Enema Insert 1 Enema (100 mg) by rectum daily. 420 mL 1 11/22/2016 Active dicyclomine (BENTYL) 10 mg capsule Take 1 Capsule (10 mg) by mouth 4 times daily as needed for Pain. 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 Gender Identity Not on file Sexual Orientation Not on file Last Filed Vital Signs Vital Sign Reading Time Taken Comments Blood Pressure 139/88 11/22/2016 2:48 PM CDT Pulse 87 11/22/2016 2:48 PM CDT Temperature - - Respiratory Rate - - Oxygen Saturation - - Inhaled Oxygen Concentration - - Weight 94.3 kg (208 lb) 11/22/2016 2:48 PM CDT Height 164.1 cm (5' 4.6 ) 11/22/2016 2:48 PM CDT Body Mass Index 35.04 11/22/2016 2:48 PM CDT Plan of Treatment Health Maintenance Due Date Last Done Comments DTAP/TDAP/TD VACCINES (1 - Tdap) 1991 HEPATITIS B VACCINES (1 of 3 - 19+ 3-dose series) 08/10 HPV/Cotest (21-29) 1993 CERVICAL CANCER SCREENING 2002 HPV/Cotest (30-65) 2002 PAP SMEAR 2002 BREAST CANCER SCREENING 2012 COLORECTAL SCREENING 2017 Colorectal Cancer Screening 2017 FIT-DNA Q 3 years 2017 FIT/FOBT Q 1 year 2017 Flex Sig/CT Colonography Q 5 years 2017 ZOSTER VACCINE (1 of 2) 2022 INFLUENZA VACCINE (#1) 2025 Insurance BCBS Care Teams Private Chef Relationship Specialty Start Date End Date Abel Turner MD [address] [place] [address] PCP - General Family Practice 11/22/16
--- OUTSIDE RECORDS SUMMARY | 2025-03-11 17:06 | XMS_ITS | Clinical Summary ---
[facility] Organization [facility] Address [address] [facility] Attn: Epic Prelude ADT [place] [address] Care Team Providers Care Crossbar Frame Wirer Name Role Phone Abel Turner MD Primary Care Provider [phone] Allergies Active Allergy Reactions Criticality Noted Date Comments Adhesive Tape-Silicones Rash,Itching Low 04/13/2024 Medications hydrocortisone (CORTENEMA) 100 mg/60 mL Enema Insert 1 Enema (100 mg) by rectum daily. 420 mL 1 7 Active dicyclomine (BENTYL) 10 mg capsule Take 1 Capsule (10 mg) by mouth 4 times daily as needed for Pain. 120 Capsule 3 7 Active mesalamine (ROWASA) 4 gram/60 mL Enema Insert 4 Grams by rectum daily at bedtime. 7 Active traZODone (DESYREL) 150 mg tablet Take 150 mg by mouth daily at bedtime. For depression Active atenoloL (TENORMIN) 25 mg tablet Take 1 Tablet by mouth daily. 4 Active estradioL (ESTRACE) 1 mg tablet Take 1 Tablet by mouth daily. 4 Active pregabalin (LYRICA) 150 mg Capsule Take 1 Capsule by mouth 2 times daily. 4 Active tiZANidine (ZANAFLEX) 4 mg Tablet Take 4 mg by mouth 3 times daily as needed. Active citalopram (CeleXA) 20 mg tablet Take 20 mg by mouth daily. Active acetaminophen (TYLENOL) 325 mg tablet Take 2 Tablets (650 mg) by mouth every 6 hours as needed for Other (See Comment) (See admin instructions). 4 Active morphine (MS IR) 15 mg tabletIndicatio ns:Intra-abdomi nal abscess (CMS/HCC) Take 1 Tablet (15 mg) by mouth every 6 hours as needed for Pain. Max Daily Amount: 60 mg 10 Tablet 04/16/2024 10:30 AM CDT 4 Active oxyCODONE-aceta minophen (PERCOCET) 5-325 mg tablet TAKE 1 TABLET BY MOUTH EVERY 8 HOURS NEEDED MAX OF THREE PER DAY 4 Active ondansetron (ZOFRAN ODT) 4 mg Tablet, Rapid Dissolve DISSOLVE ONE TABLET BY MOUTH EVERY 6 HOURS NEEDED FOR NAUSEA AND VOMITING FOR 14 DAYS Active omeprazole (PriLOSEC) 40 mg Capsule, Delayed Release(E.C.) Take 40 mg by mouth daily in the morning. 4 Active Narcan 4 mg/actuation [place], Non-Aerosol call 911. administer a single spray of narcan in one nostril. 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 Irritable bowel syndrome with diarrhea 7 Gastroesophageal reflux disease without esophagi tis 11/22/2016 Encounters Date Type Department Care Team Description 03/04/2025 External Device Data [facility] Provider, Abstract 02/25/2025 External Device Data [facility] Provider, Abstract 01/22/2025 External Device Data [facility] Provider, Abstract 01/22/2025 External Device Data [facility] Provider, Abstract 01/07/2025 External Device Data [facility] Provider, Abstract 01/07/2025 External Device Data [facility] Provider, Abstract 12/10/2024 External Device Data [facility] Provider, Abstract from Last 3 Months Family History Medical History Relation Name Comments Diabetes Father Relation Name Status Comments Father Social History Tobacco Use Types Packs/Day Years Used Date Smoking Tobacco: Former Cigarettes Passive Smoke Exposure: Past Smokeless Tobacco: Never Alcohol Use Standard Drinks/Week Comments Not Currently 0 (1 standard drink = 0.6 oz pur e alcohol) Feeling Safe Answer Date Recorded Are you in a relationship wi th someone who hurts you emotionally and/or physically? 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 Gender Identity Not on file Sexual Orientation Not on file Last Filed Vital Signs Vital Sign Reading Time Taken Comments Blood Pressure 104/60 05/02/2024 1:19 PM CDT Pulse 71 05/02/2024 1:19 PM CDT Temperature 36.4 C (97.5 F) 04/16/2024 8:15 AM CDT Respiratory Rate 16 04/16/2024 8:15 AM CDT Oxygen Saturation 98% 05/02/2024 1:19 PM CDT Inhaled Oxygen Concentration - - Weight 90.7 kg (200 lb) 05/02/2024 1:19 PM CDT Height 162.6 cm (5' 4 ) 05/02/2024 1:19 PM CDT Body Mass Index 34.33 05/02/2024 1:19 PM CDT Plan of Treatment Health Maintenance Due Date Last Done Comments Pre-Diabetes and Diabetes Screening 1972 DTAP/TDAP/TD VACCINES (1 - Tdap) 1991 HEPATITIS [...] 2) 2022 INFLUENZA VACCINE (#1) 2025 Insurance [facility] MEDICAID RX INFOCROSSING Medicaid Advance Directives For more information, please contact: [phone] * Full Code (Latest Code Status on File) Date Activated Date Inactivated Comments 04/13/2024 3:35 AM 04/16/2024 3:52 PM Care Teams Crossbar Frame Wirer Relationship Specialty Start Date End Date Abel Turner MD [address] [facility] [place] [address] PCP - General Family Practice 11/22/16
--- OUTSIDE RECORDS SUMMARY | 2025-03-11 17:06 | XMS_ITS | Encounter Summary ---
Author Organization [facility] Address [address] [place] [address] Care Team Providers Care Glass Driller Name Role Phone Abel Turner MD Primary Care Provider [phone] Encounter Details Date Type Department Care Team (Latest Contact Info) Description 07/15/2003 Outpatient Historical [facility] Mohit Burris MD [address] [place] [address] URIN TRACT INFECTION NOS (Primary Dx); Excessive menstruation; OTHER MALAISE AND FATIGUE Social History Tobacco Use Types Packs/Day Years Used Date Smoking Tobacco: Never Assessed Comments Unknown Sex and Gender Information Value Date Recorded Sex Assigned at Not on file 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
--- OUTSIDE RECORDS SUMMARY | 2025-03-11 17:06 | XMS_ITS | Encounter Summary ---
Author Organization [facility] Address [address] [place] [address] Care Team Providers Care Improvement Spec Name Role Phone Abel Turner MD Primary Care Provider [phone] Reason for Visit * Reason Onset Date Comments Medication Refill 04/29/2024 Encounter Details Date Type Department Care Team (Late st Contact Info) Description 04/29/2024 Refill [facility] [address] [place] [address] Alfred Cosme, DO [address] [facility] [address] [place] [address] Intra-abdominal abscess (CMS/HCC) Social History Tobacco Use Types Packs/Day Years Used Date Smoking Tobacco: Former Cigarettes Passive Smoke Exposure: Past Smokeless Tobacco: Never Alcohol Use Standard Drinks/Week Comments Not Currently 0 (1 standard drink = 0.6 oz pur e alcohol) Feeling Safe Answer Date Recorded Are you in a relationship wi th someone who hurts you emotionally and/or physically? 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
--- OUTSIDE RECORDS SUMMARY | 2025-03-11 17:06 | XMS_ITS | Encounter Summary ---
Author Organization [employer] Address 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
[2025-03-11 19:22] VITALS: BP 135/85; PULSE 56; O2SAT 95
--- NOTE | 2025-03-11 19:34 | XRR_ITS ---
PROCEDURE INFORMATION: Exam: XR Right Finger(s) Exam date and time: 03/11/2025 7:19 PM Age: 54 years old Clinical indication: Pain; Finger(s); Right; Prior surgery; Surgery date: 3-7 days post-operative; Surgery type: Trigger relaese 9 days ago; Additional info: Swollen RT thumb post surgery TECHNIQUE: Imaging protocol: Radiologic exam of the right fingers. Views: Minimum 2 views. COMPARISON: CR XR hand RT min 3V* [id number] 01/15/2025 8:27 AM FINDINGS: Bones/joints: Normal. Soft tissues: Normal. XR/XR finger RT min 2V [id number] IMPRESSION: No acute findings.
--- NOTE | 2025-03-11 20:06 | W.ED.EXTPRO ---
HPI - Extremity Problem General: Chief complaint: Extremity Injury, Upper Stated complaint: rt thumb swollen (10xdaypostop) Time Seen by Provider: 03/11/25 19:33 History of Present Illness: Patient is 54-year-old female with trigger thumb, right thumb, 03/04, that reports to ED with redness, edema, and sutures intact. No fevers. She did check with Dr. Naranjo's office that performed the surgery that asked her to come to the emergency department. She has not been placed on antibiotics. She has not had any fevers. This started worsening redness and mild edema today. Associated symptoms: Deny chest pain, fever(s) or rash Related Data Home Medications ?Medication ?Instructions ?Recorded ?Confirmed MARJUANIA 08/15/22 02/26/25 tizanidine 4 mg tablet 4 - 8 mg PO BEDTIME 10/11/23 02/28/25 ibuprofen 800 mg tablet 800 mg PO Q12H PRN Pain (Scale 03/07/24 02/28/25 Score 1-3) oxycodone-acetaminophen 5 mg-325 0.5 - 1 tab PO Q8H PRN Pain 03/07/24 02/28/25 mg tablet naloxone 4 mg/actuation nasal 4 mg intranasal DIRECTED 06/18/24 02/28/25 spray (Narcan) atenolol 25 mg tablet 25 mg PO DAILY 02/27/25 02/28/25 omeprazole 40 mg capsule,delayed 40 mg PO DAILY 02/27/25 02/28/25 release Previous Rx's ?Medication ?Instructions ?Recorded Bone Growth Stimulator E0748 #1 ea 09/05/22 ondansetron 4 mg disintegrating 4 mg PO Q6H PRN nausea and 03/20/24 tablet vomiting 14 days #56 tabs docusate sodium 100 mg capsule 100 mg PO BID #14 caps 07/02/24 (Colace) trazodone 150 mg tablet 150 mg PO QPM #90 tabs 11/04/24 pregabalin 150 mg capsule 150 mg PO BID #60 caps 12/10/24 Cervical Soft Collar #1 ea 01/28/25 citalopram 20 mg tablet See Rx Instructions .Route 02/28/25 .COMPLEX #30 tabs estradiol 1 mg tablet See Rx Instructions .Route 02/28/25 .COMPLEX #30 tabs doxycycline hyclate 100 mg capsule 100 mg PO BID 10 days #20 caps 03/11/25 Allergies Allergy/AdvReac Type Severity Reaction Status Date / Time adhesive tape Allergy ALGY-Rash Verified 03/11/25 17:10 Review of Systems General: Reports: 10 or more systems reviewed and unremarkable except in HPI and below Const: Denies: fever(s) or chills Eyes: Denies: change in vision or blurry vision Card: Denies: chest pain, palpitations or swelling of feet/ankles Resp: Denies: dyspnea, productive cough or non-productive cough GI: Denies: abdominal pain, nausea or vomiting : Denies: flank pain or difficulty voiding Musc: Reports: extremity pain, joint pain, joint redness, joint stiffness and limited range of motion; Denies: neck pain, back pain, extremity swelling, joint swelling or joint warmth Skin/Breast: Denies: rash or pruritus Neuro: Denies: headache(s) or numbness in extremities Endo: Denies: polyuria or polydipsia PFSH ED PFSH: Medical History (Updated 03/11/25 @ 23:28 by SARAH Goodman) Aftercare following surgery of the genitourinary system Neuropathy Hypertension Insomnia Surgical History History of laparoscopic cholecystectomy History of laparoscopic appendectomy H/O dilation and curettage H/O: hysterectomy 2020 - - with BLO S/P cervical spinal fusion C2-T2 fusion - 2023 History of radical neck surgery Family History Father Diabetes Mother Hyperlipidemia Family/Other Breast cancer maternal aunt, great aunt age onset unknown Grandmother Diabetes paternal Denies family history of Colon cancer Ovarian cancer Clotting disorder Heart disease Anesthesia complication Bleeding disorder Family history of premature coronary artery disease Hypertension Uterine cancer Thyroid disease Stroke Social History Smoking and tobacco/nicotine status: current some day tobacco/nicotine user cigarettes Quit status (tobacco/nicotine): has quit using Former quit date comment: 05/08/2021 Second hand smoke exposure: No Alcohol intake: former 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 date alcohol: 2019 Substance/Drug Use: current Substance/Drug use frequency: daily Other substance/drug use details: has a medical card Physical Exam Const: COMMON NORMALS: no acute distress, average body habitus and patient oriented x3 HENMT: COMMON NORMALS: normocephalic and atraumatic HEAD & SCALP: normocephalic and atraumatic Eye: COMMON NORMALS: Equal, round and reactive pupils present and EOMs intact bilaterally PUPIL: Yes Equal, round and reactive pupils present Neck/C-Spine: COMMON NORMALS: full ROM and no lymphadenopathy Lymph: LYMPHATIC: no lymphadenopathy noted Chest: COMMONS NORMALS: normal inspection of the chest and normal palpation of entire chest wall Resp: COMMON NORMALS: normal respiratory effort, No retractions and clear to auscultation bilaterally AUSCULTATION: clear to auscultation bilaterally GI: COMMON NORMALS: Normal to inspection, nondistended, normoactive bowel sounds present, Soft to palpation and non-tender PALPATION: Yes Soft to palpation : COMMON NORMALS: Yes no CVA tenderness BLADDER/KIDNEY EXAM: Yes no CVA tenderness Back/Pelvis: COMMON NORMALS: no CVA tenderness Extremity: COMMON NORMALS: full ROM NARRATIVE EXTREMITY EXAM: Right palmar surface thenar thumb laterally: Minimal localized redness, small white area without induration, no drainage, embedded sutures No concern on range of motion Neuro: COMMON NORMALS: patient oriented x3 Psych: COMMON NORMALS: mental status grossly normal and Normal thought process present THOUGHT PROCESS: Normal thought process present Skin: NARRATIVE SKIN EXAM: See extremity exam above Course Consultations: Consultation #1: Discussed with Dr. Naranjo, patient has follow-up at [id number], and he will further see. He recommended p.o. antibiotics, and close follow-up, possibly removing sutures early with localized inflammatory response from sutures. Vital Signs: Vital signs: Vital Signs Temperature 98.4 F 03/11/25 17:06 Pulse Rate 54 L 03/11/25 20:53 Blood Pressure 156/85 03/11/25 20:53 Pulse Oximetry 95 03/11/25 20:53 Oxygen Delivery Me thod Room Air 03/11/25 19:22 MDM - Extremity (Nontraumatic) Medical Decision Making Patient is a 84-year-old female with thumb trigger finger that was repaired on 03/03, reports with increasing redness over 1 day without drainage, association of pain. This appears consistent with localized inflammation. Patient was placed on doxycycline after discussion with primary surgeon, Dr. Naranjo, whom patient will follow-up with in the a.m. All of her questions were answered to her satisfaction. Lab Data Radiology Impressions Finger X-Ray 03/11/25 19:34 IMPRESSION: No acute findings. All radiology interpretation(s) finalized by discharge Discharge Plan Discharge Patient Disposition: Home Clinical Impression: Inflammation of right hand joint Condition: Stable Prescriptions: New doxycycline hyclate 100 mg capsule 100 mg PO BID 10 Days Qty: 20 0RF No Action (DME) MARJUANIA 0 .Route .MEDSUPPLY (DME) Cervical Soft Collar See Rx Instructions .Route .MEDSUPPLY Qty: 1 0RF Rx Instructions: As directed (DME) Bone Growth Stimulator E0748 See Rx Instructions .Route .MEDSUPPLY Qty: 1 0RF Rx Instructions: As directed ondansetron 4 mg tablet,disintegrating 4 mg PO Q6H PRN (Reason: nausea and vomiting) 14 Days Qty: 56 0RF trazodone 150 mg tablet 150 mg PO QPM Qty: 90 2RF pregabalin 150 mg capsule 150 mg PO BID Qty: 60 5RF citalopram 20 mg tablet See Rx Instructions .ROUTE .COMPLEX Qty: 30 9RF Dose Instruction: TAKE 1 TABLET BY MOUTH EVERY DAY Rx Instructions: TAKE 1 TABLET BY MOUTH EVERY DAY estradiol 1 mg tablet See Rx Instructions .ROUTE .COMPLEX Qty: 30 6RF Dose Instruction: TAKE 1 TABLET BY MOUTH EVERY DAY Rx Instructions: TAKE 1 TABLET BY MOUTH EVERY DAY ibuprofen 800 mg tablet 800 mg PO Q12H PRN (Reason: Pain (Scale Score 1-3)) oxycodone-acetaminophen 5-325 mg tablet 0.5 - 1 tab PO Q8H MDD 3 per day PRN (Reason: Pain) naloxone [Narcan] 4 mg/actuation spray,non-aerosol 4 mg intranasal DIRECTED Rx Instructions: call 911. administer a single spray of narcan in one nostril. repeat every 2-3 minutes as needed if no or minimal response; Refer questions about refills only to the pharmacist who fulfilled this [place] standing order at [phone] tizanidine 4 mg tablet 4 - 8 mg PO BEDTIME docusate sodium [Colace] 100 mg capsule 100 mg PO BID Qty: 14 0RF atenolol 25 mg tablet 25 mg PO DAILY Rx Instructions: TAKE 1 TABLET BY MOUTH EVERY DAY omeprazole 40 mg capsule,delayed release(DR/EC) 40 mg PO DAILY Rx Instructions: TAKE 1 CAPSULE BY MOUTH EVERY MORNING Discharge Orders: Discharge ED (Routine); Ordered 03/11/25 Ordered By: Belkis Santiago Referrals: Abel Turner MD [Primary Care Provider, Family Practice] Discharge Diet: Usual diet Discharge Activity: Resume usual activity Patient Instructions: Cellulitis (ED), Patient Portal & Mena Instructions Activity Restrictions/Additional Instructions: Dr. Naranjo's office will call you tomorrow for closer follow-up Take antibiotics as prescribed. These [place] [facility] [place] will need to be picked up early in the morning. Take a probiotic daily or active culture yogurt to avoid infectious diarrhea You may elevate, ice this area, and follow directions as per Dr. Naranjo No additional findings were noted Return to ED with worsening redness, worsening drainage, worsening edema, fever greater than 100.4 ?F Print Language: Upper Sorbian Coding Level of Care Code ED Three Dimensional Map Modeler for Viri Ring
[2025-03-11] MEDS: orphenadrine 30 mg/mL Inj 2 mL 60 MG IM (20:26)
[2025-03-11 20:53] VITALS: BP 156/85; PULSE 54; O2SAT 95
== END 2025-03-11 20:48 | disposition home or self-care (01) ==
PROVIDERS: Emergency Provider Physician Assistant; PCP Family Medicine
DX: M25.541 Pain in joints of right hand (principal); R60.0 Localized edema; G89.18 Other acute postprocedural pain; Z98.890 Other specified postprocedural states; F17.210 Nicotine dependence, cigarettes, uncomplicated; I10 Essential (primary) hypertension
CPT/HCPCS: 73140; 96372; 99284; J1885; J2360; J9999

== ENCOUNTER 2025-04-17 07:11 | Outpatient (CLI) | payer BC, MEDICAID, SELFPAY ==
--- NOTE | 2025-04-17 08:15 | CT_ITS ---
WS: [id number] CT ABDOMEN AND PELVIS WITH CONTRAST HISTORY: chronic right groin pain abdominal pain TECHNIQUE: Imaging performed of the abdomen and pelvis with IV contrast. Single phase imaging of the abdomen. Coronal and sagittal reformats are submitted. All CT scans at [facility] use at least one of these dose optimization techniques: automated exposure control; mA and/or kV adjustment per patient size (includes targeted exams where dose is matched to clinical indication); or iterative reconstruction. IV CONTRAST: Omnipaque 350; 100 mL IV. Oral contrast: Yes DLP: 760.53 mGy.cm COMPARISON: 06/18/2024, 04/12/2024, 10/07/2016 Lower thorax: Lung bases are clear. Heart is normal size. Small hiatal hernia. Liver/biliary system: Normal size liver. Reidentified is a irregular low- attenuation nodule in the RIGHT lobe measuring 10 mm which has been present since 2016. There are a few additional very tiny nodules which are indeterminate. Focal fatty sparing along the falciform ligament. Gallbladder: Prior cholecystectomy Pancreas: Normal size pancreas and pancreatic duct. No adjacent inflammation. Spleen: Normal size spleen. No mass or infarct. Adrenal glands: Normal. Right kidney: Normal. Left kidney: Normal. Aorta: Normal. Lymphadenopathy: None. Free fluid: None. GI tract: No GI tract obstruction. Prior appendectomy. No colitis. Abdominal wall: There is a small fat-containing umbilical hernia. Pelvis: Prior hysterectomy. Minimally distended urinary bladder. No free fluid in the pelvis. No adenopathy. No inguinal hernia. Bones: Posterior lumbar fusion hardware. Interbody spacer at L5-S1. CT/CT abdomen pelvis w con* [id number] IMPRESSION: 1. No acute abnormality noted in the RIGHT lower quadrant in the area of pain. 2. Prior appendectomy. 3. No ascites or adenopathy. 4. Stable liver. There are several low-attenuation lesions within the liver wh ich have been present since 2017. 5. Prior hysterectomy. 6. Prior cholecystectomy. 7. Very tiny fat-containing umbilical hernia.
[2025-04-17] MEDS: iohexol 350 mg/mL 500 mL Btl (per mL) IV (08:26)
[2025-04-17] MEDS: iohexol 350 mg/mL 500 mL Btl (per mL) PO (08:27)
== END 2025-04-17 07:12 | disposition home or self-care (01) ==
LOC: RAD 07:12
PROVIDERS: PCP Family Medicine; Visit Provider Surgery
DX: K42.9 Umbilical hernia without obstruction or gangrene (principal); K76.89 Other specified diseases of liver; Z90.49 Acquired absence of other specified parts of digestive tract; Z90.710 Acquired absence of both cervix and uterus
CPT/HCPCS: 74177

== ENCOUNTER → 2025-04-22 15:18 | Outpatient (BNVA) | payer BC, MEDICAID, SELFPAY | PROVIDERS: PCP Family Medicine; Visit Provider Physician Assistant | DX: M76.32 Iliotibial band syndrome, left leg (principal); M16.12 Unilateral primary osteoarthritis, left hip; M70.62 Trochanteric bursitis, left hip | CPT/HCPCS: 73502 ==

== ENCOUNTER → 2025-05-22 13:28 | Outpatient (BNVA) | payer BC, MEDICAID, SELFPAY | PROVIDERS: PCP Family Medicine; Visit Provider Orthopaedic Surgery | DX: M48.062 Spinal stenosis, lumbar region with neurogenic claudication (principal); M54.2 Cervicalgia | CPT/HCPCS: 72040; 72100 ==

== ENCOUNTER → 2025-06-12 14:34 | Outpatient (BNVA) | payer BC, MEDICAID, SELFPAY | PROVIDERS: PCP Family Medicine; Visit Provider Orthopaedic Surgery | DX: T84.84XA Pain due to internal orthopedic prosthetic devices, implants and grafts, initial encounter (principal); M54.9 Dorsalgia, unspecified; Z98.1 Arthrodesis status | CPT/HCPCS: 36415; 72100; 80053; 81001; 85025 ==

== ENCOUNTER 2025-06-30 11:08 | Inpatient (IN) | payer BC, MEDICAID, SELFPAY ==
[2025-06-30] VITALS (10 sets, daily range): BP systolic 126–159; BP diastolic 58–102; PULSE 59–86; RESP 17–20; TEMP 36.2–37.1; O2SAT 92–97; BMI 37.2
--- NOTE | 2025-06-30 09:12 | ANES.PREANE2 ---
Pre-Anesthetic Assessment Height/Weight: Height 5 ft 3 in Weight 210 lb Temp Pulse Resp BP Pulse Ox O2 Del Method 98.2 F 59 L 17 134/87 96 Room Air 06/30/25 08:44 06/30/25 08:44 06/30/25 08:44 06/30/25 08:44 06/30/25 08:44 06/30/25 08:44 Preop Diagnosis: Painful orthopedic hardware Operation Date: 06/30/25 10:00 Proposed Procedures p Hardware Removal Thoracic(Not Applicable) - Sergei Cortez, DO Was Beta Genet taken within 24 hours: Yes Was Clonidine taken within 24 hours: N/A Last intake: Intake Last Liquid Date 06/29/25 Last Liquid Time 21:00 Last Solid Date 06/29/25 Last Solid Time 21:00 Social No alcohol and No tobacco Exam alert, oriented x 3, clear to auscultation bilaterally and regular rate & rhythm Airway Submandibular: within normal limits Cervical ROM: within normal limits Mallampati: Class II Comments: Comments: Few missing back molars Anesthetic Plan ASA status: 3 Anesthesia: General Other: No prior issues with anesthesia Patient is well-known to our service S/p cervical spinal fusion on chronic Percocet Current smoker Oxycodone 5 mg, 3?4 times daily Labs reviewed from and acceptable for procedure Prior EKG sinus rhythm History of hypertension on atenolol Plan for GETA Medications/Allergies Home Medications ?Medication ?Instructions ?Recorded ?Confirmed ?Last Taken ?Type Bone Growth Stimulator E0748 #1 ea 09/05/22 06/18/25 06/10/24 Rx tizanidine 4 mg tablet 4 - 8 mg PO BEDTIME 10/11/23 06/26/25 06/26/25 History ibuprofen 800 mg tablet 800 mg PO Q12H PRN Pain (Scale 03/07/24 06/26/25 02/27/25 History Score 1-3) oxycodone-acetaminophen 5 mg-325 0.5 - 1 tab PO Q8H PRN Pain 03/07/24 06/30/25 06/30/25 History mg tablet ondansetron 4 mg disintegrating 4 mg PO Q6H PRN nausea and 03/20/24 06/26/25 1 Week Ago Rx tablet vomiting 14 days #56 tabs ~06/05/24 naloxone 4 mg/actuation nasal 4 mg intranasal DIRECTED 06/18/24 06/26/25 Unknown History spray (Narcan) docusate sodium 100 mg capsule 100 mg PO BID #14 caps 07/02/24 06/26/25 07/29/24 Rx (Colace) trazodone 150 mg tablet 150 mg PO QPM #90 tabs 11/04/24 06/26/25 06/25/25 Rx Cervical Soft Collar #1 ea 01/28/25 06/18/25 Unknown Rx atenolol 25 mg tablet 25 mg PO DAILY 02/27/25 06/30/25 06/30/25 History pregabalin 150 mg capsule 150 mg PO BID #60 caps 06/10/25 06/26/25 06/26/25 Rx citalopram 20 mg tablet 20 mg PO DAILY 06/26/25 06/26/25 06/26/25 History estradiol 1 mg tablet 1 mg PO DAILY 06/26/25 06/26/25 06/26/25 History Allergies Allergy/AdvReac Type Severity Reaction Status Date / Time adhesive tape Allergy ALGY-Rash Verified 06/18/25 07:46 Current Medications Generic Name Dose Route Start Last Admin Trade Name Freq PRN Reason Stop Dose Admin Sodium Chloride 1,000 mls @ 30 mls/hr 06/30/25 08:30 06/30/25 09:06 Sodium Chloride 0.9% IV 07/01/25 08:29 30 mls/hr .Q24H ISHA Administration PFSH Anesthesia Medical History (Updated 06/22/25 @ 09:45 by Evert Naranjo DO) Aftercare following surgery of the genitourinary system Neuropathy Hypertension Insomnia Surgical History History of laparoscopic cholecystectomy History of laparoscopic appendectomy H/O dilation and curettage H/O: hysterectomy 2020 - - with BLO S/P cervical spinal fusion C2-T2 fusion - 2023 History of radical neck surgery Family History Father Diabetes Mother Hyperlipidemia Family/Other Breast cancer maternal aunt, great aunt age onset unknown Grandmother Diabetes paternal Denies family history of Colon cancer Ovarian cancer Clotting disorder Heart disease Anesthesia complication Bleeding disorder Family history of premature coronary artery disease Hypertension Uterine cancer Thyroid disease Stroke Social History Smoking and tobacco/nicotine status: never used tobacco/nicotine Quit status (tobacco/nicotine): has quit using Former quit date comment: 05/08/2021 Second hand smoke exposure: No Alcohol intake: former 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 date alcohol: 2019 Substance/Drug Use: current Substance/Drug use frequency: daily Other substance/drug use details: has a medical card
--- NOTE | 2025-06-30 09:13 | W.PM.OPSUD ---
Surgery/Procedure H&P Update DATE OF PROCEDURE: June 30, 2025 DATE H&P PERFORMED: 06/12/25 H&P UPDATE INFORMATION: I have reviewed H&P completed within last 30 days, I have examined patient prior to procedure and No changes to prior documentation PREOP DIAGNOSIS: Painful orthopedic hardware PLANNED PROCEDURE: Operation Date: 06/30/25 10:00 Proposed Procedures p Hardware Removal Thoracic(Not Applicable) - Sergei Cortez DO
[2025-06-30] MEDS: ceFAZolin 2,000 mg SDV 2000 MG IVP (09:40)
[2025-06-30] MEDS: lidocaine-epi 1% 20 mL INJ INJECTION (10:24)
--- NOTE | 2025-06-30 11:08 | PM.DCS ---
Discharge Providers Date of Admission: 06/30/25 Date of Discharge: June 30, 2025 Attending Provider at Discharge: Sergei Cortez DO Primary Care Provider: Abel Turner MD Reason for Visit Reason for Visit: [id number] Hospital Course Hospital Course Patient doing well will discharge home Discharge Data Studies Completed and Pending Pending at discharge Category Date Time Status C-arm Fluoroscopy 06681 Routine Exams 06/30/25 08:29 Ordered Vitals Last Vital Signs Temp 98.2 F 06/30/25 08:44 Pulse 59 L 06/30/25 08:44 Resp 17 06/30/25 08:44 BP 134/87 06/30/25 08:44 Pulse Ox 96 06/30/25 08:44 O2 Del Method Room Air 06/30/25 08:44 Discharge Plan Discharge Patient Disposition: Home Condition: Stable Prescriptions: New oxycodone 5 mg tablet 5 mg PO Q4H PRN (Reason: pain) 7 Days Qty: 42 0RF Continued (DME) Cervical Soft Collar See Rx Instructions .Route .MEDSUPPLY Qty: 1 0RF Rx Instructions: As directed (DME) Bone Growth Stimulator E0748 See Rx Instructions .Route .MEDSUPPLY Qty: 1 0RF Rx Instructions: As directed ondansetron 4 mg tablet,disintegrating 4 mg PO Q6H PRN (Reason: nausea and vomiting) 14 Days Qty: 56 0RF trazodone 150 mg tablet 150 mg PO QPM Qty: 90 2RF pregabalin 150 mg capsule 150 mg PO BID Qty: 60 1RF naloxone [Narcan] 4 mg/actuation spray,non-aerosol 4 mg intranasal DIRECTED Rx Instructions: call 911. administer a single spray of narcan in one nostril. repeat every 2-3 minutes as needed if no or minimal response; Refer questions about refills only to the pharmacist who fulfilled this [place] state standing order at [phone] tizanidine 4 mg tablet 4 - 8 mg PO BEDTIME docusate sodium [Colace] 100 mg capsule 100 mg PO BID Qty: 14 0RF atenolol 25 mg tablet 25 mg PO DAILY Rx Instructions: TAKE 1 TABLET BY MOUTH EVERY DAY citalopram 20 mg tablet 20 mg PO DAILY Rx Instructions: TAKE 1 TABLET BY MOUTH EVERY DAY estradiol 1 mg tablet 1 mg PO DAILY Rx Instructions: TAKE 1 TABLET BY MOUTH EVERY DAY Held ibuprofen 800 mg tablet 800 mg PO Q12H PRN (Reason: Pain (Scale Score 1-3)) Hold Instructions: Resume on 07/02/25. Discontinued oxycodone-acetaminophen 5-325 mg tablet 0.5 - 1 tab PO Q8H MDD 3 per day PRN (Reason: Pain) Discharge Order = DC NOW: Discharge Order (Routine); Ordered 06/30/25 Ordered By: Sergei Cortez Discharge Diet: Advance as tolerated Discharge Activity: Limit activity as instructed Patient Instructions: Acute Wound Care (DC), Post Anesthesia Care Activity Restrictions/Additional Instructions: Thank you for choosing [facility] for your care! The following is a list of instructions, from your provider, to follow upon your discharge to ensure you have the optimal recovery from your recent injury or surgery. Follow-up care is a espinosa part of your treatment and safety. Be sure to make and go to all appointments, and call your doctor if you are having problems. If you do not already have a follow-up appointment made, call Dr. Cortez's office in the next 1-3 days to make follow up appointment for 2 weeks at [phone]. It is also a good idea to know your test results and keep a list of the medicines you take. Medications will be prescribed for you at your provider?s discretion. These medications are to be used as instructed;if they are taken more often that prescribed they will not be refilled early and in most cases will not be refilled at all. > When a refill is needed,you should contact our office 2-3 business days beforeyour prescription runs out. Medications will NOTbe refilled by chemist instrumentation providers after hours! > Many pain medications contain Tylenol (Acetaminophen). Do not consume more than 4,000 mg of Tylenol per day in total with any combination of medications. > Pain medications can cause constipation. Please use an over the counter stool softener as directed, while taking pain medications. Consult your local pharmacist with questions or recommendations on stool softeners. If constipation persists, contact our office or your primary care provider. > While under our care,you are not to receive pain medications or other controlled substances from any other provider unless our office is notified and approves. Any attempts to do so will result in refusal to prescribe any further pain medications and possible dismissal from our practice. ? Your wound and/or dressing should remain clean and dry for 2 days after surgery. On postoperative day 2 (48 hours after your surgery) the dressing (if present) should be removed and it is okay to shower and get the incision wet. Pat dry afterwards. No further dressing should be required from that point on. Do not put any creams or ointments on the incision > It is normal for there to be a small amount of discharge (bloody or blood tinged) present from a surgical wound for the first 1-3days. > The wound should be examined twice a day for signs of infection. Mild redness or bruising is to be expected but indications that an infection maybe starting would include;An increase in redness, swelling, or discharge, a foul odor present around the incision, and/or a fever greater than 101 ?F ? Showering is permitted, however we ask that you do not take a bath, sit in a whirlpool / Jacuzzi, or go swimming for 1 month. For only the first 2 days after surgery, lt wilt be necessary for you to cover your wound/dressing with plastic and tape to keep it dry. ? Walking is essential for the healing process after surgery. We would like you to slowly advance your walking. This should be done on relatively flat clear ground (inside or out) or can be done on a treadmill. Remember this goal does not have to happen all at once, slowly increase your distance and duration. This can be broken into more more than one walk per day as tolerated. Patients who walk as directed after surgery rarely require Physical Therapy. In the unlikely event this issue arises your provider will direct hospital staff to make the appropriate arrangements. ? No lifting over 5 pounds {a gallon of milk) or bending/twisting until further notice. Each of these activities places an unnecessary amount of stress onto the body and can impede the delicate healing process. > Instead of bending at the waist, keep your back straight and bend at the knees. > Instead of twisting your torso, keep your back straight and turn your entire body with your feet. ? You may sleep in any position which makes you comfortable.Many patients find comfort sleeping in a reclining chair. It is not abnormal to have difficulty sleeping for the first several weeks following your surgery. We recommend trying Benadryl or Tylenol PM as directed to help with your sleeping difficulties. Both medications are over the counter and available without prescription. ? NO SMOKING!!!Smoking dramatically increases the probability of developing postoperative wound infections. ? Common complaints after lumbar and/or thoracic spine surgery include, but are not limited to: numbness and/or tingling in the legs, pain around the incision and surrounding tissues, muscle spasms, or stiffness of the middle to low back. Contact our office if these symptoms persist or if an acute change occurs. ? No driving for the first 3-5 days, and not while taking narcotics until seen at your follow-up appointment and cleared.There are no restrictions for riding on short trips, however if you take a longer trip, arrangements should be made to make regular stops to get out of the vehicle and stretch . ? Swelling is an unfortunate event that will take place with any surgery and is the primary source of your postoperative discomfort. While walking and regular approved activities helps control inflammation, there are additional steps you can take to minimize swelling. > Place ice over the surgical site and surrounding tissue for twenty minutes, followed by applying a low/medium heat (heating pad) for an additional twenty minutes every 1-2 hours as needed for pain relief. > You may use of over the counter anti-inflammatory medications (Ibuprofen, Motrin, Aleve, Advil, etc) as directed on the package label. These types of medicines will significantly reduce the amount of discomfort you experience after surgery from swelling. It should be noted that if you have an allergy to any of these medications, or a history of ulcers or kidney disease you should consult your primary care provider prior to starting these medications. Print Language: French Discharge Attestations Time Spent in Discharge Care*: less than 30 min Quality Metrics Clinical Quality Measures [ No reported AMI, CVA or VTE this stay] Coding Level of Care Code Acute Code for Chg Fwd
--- NOTE | 2025-06-30 11:09 | PM.OP ---
Operative Report Date of procedure: June 30, 2025 Pre-op diagnosis: Painful orthopedic hardware lumbar spine Post-op diagnosis: same Procedure done: Removal of L2 and L3 screws from lumbar spine Surgeon: Sergei Cortez DO Estimated blood loss (mL): 25 Procedure: Removal of L2 and L3 screws from lumbar spine Patient is brought to the operative suite after undergoing anesthesia patient was placed in the prone position. All areas of impingement were well-padded. Patient was prepped and draped normal sterile fashion. Skin incision made over the top part of the previous incision. Wiltsie approach was used bilaterally to identify the screws. The L2 and L3 screws were identified. Screw caps were removed bilaterally. Rods were then cut above the L4 screws. This was done bilaterally. Ayaan was then removed. And the screws were backed out. X-rays were taken to confirm screws were all removed. Wounds were irrigated and closed in layered fashion with 0 Vicryl 2-0 Vicryl and Monocryl suture. Vancomycin powder was placed. Sterile dressing was applied and patient was transferred to the PACU in stable condition.
--- NOTE | 2025-06-30 12:10 | XR_ITS ---
WS: [id number] Lumbar spine, C-arm fluoroscopy views, 06/30/2025 Clinical Data: Removal of L2 and L3 screws from lumbar spine Comparison: Lumbar spine, 06/12/2025 Findings: Dr. Cortez removed L2 and L3 pedicle screws. XR/XR lumbar spine 2-3V* [id number] Impression: Removal of posterior lumbar spine pedicle screws.
--- NOTE | 2025-06-30 12:35 | ANE.PACU2 ---
Inpatient post-anesthesia follow up: Airway intact: Yes Vital signs: Temperature 97.1 F Pulse Rate 67 Respiratory Rate 17 Blood Pressure 159/102 Pulse Oximetry 94 Oxygen Delivery Me thod Room Air Oxygen Flow Rate Fraction of Inspir ed Oxygen Hydration adequate: Yes Nausea and vomiting: No Pain level: 1 Mental status: Baseline
== END 2025-06-30 12:35 | disposition home or self-care (01) | DRG 310 ==
LOC: OR 12:29 → MEDSURG 19:06
PROVIDERS: Admitting Provider Orthopaedic Surgery; PCP Family Medicine; Visit Provider Orthopaedic Surgery
PROC: 0RP604Z Removal of Internal Fixation Device from Thoracic Vertebral Joint, Open Approach (ICD-10-PCS; principal; 2025-06-30 09:40)
DX: T84.84XA Pain due to internal orthopedic prosthetic devices, implants and grafts, initial encounter (principal); Y83.8 Other surgical procedures as the cause of abnormal reaction of the patient, or of later complication, without mention of misadventure at the time of the procedure; G62.9 Polyneuropathy, unspecified; I10 Essential (primary) hypertension; G47.00 Insomnia, unspecified; Z87.891 Personal history of nicotine dependence
CPT/HCPCS: 72100; 76000; J0131; J0690; J1100; J1171; J2250; J2405; J2704; J3010; J3373; J3490; J7030; J9999